=== PATIENT | female | born 1935 | race Caucasian/White ===

== ENCOUNTER 2017-06-16 15:50 | Observation (INO) | payer MEDICARE, OTHER ==
[2017-06-16] MEDS ORDERED: Aspirin Low Dose CHEW TAB* 81 MG PO ONE (16:31)
--- NOTE | 2017-06-16 17:02 | RAD ---
INDICATION: Confusion COMPARISON: December 31, 2014 TECHNIQUE: Noncontrast axial source images were acquired from the skull base to the vertex. FINDINGS: Ventricles/sulci: There is cortical atrophy with compensatory dilatation of the CSF spaces. Brain parenchyma: There is periventricular and subcortical white matter change compatible with chronic ischemia. Intracranial hemorrhage:None. Extra-axial spaces: There are no abnormal extra axial fluid collections or evidence of extra-axial mass. Calvarium: There is no calvarial fracture or other calvarial abnormality. Scalp: There is no evidence of scalp or extracalvarial soft tissue abnormality. Paranasal sinuses/mastoid: The paranasal sinuses and mastoid air cells are clear. Other: None. IMPRESSION: CORTICAL ATROPHY WITH CHRONIC MICROVASCULAR ISCHEMIC CHANGES. NO ACUTE FINDINGS.
--- NOTE | 2017-06-16 17:02 | RAD ---
INDICATION: Confusion COMPARISON: April 18, 2015 TECHNIQUE: An AP portable view obtained at 1647 hours is submitted. FINDINGS: Bones/Soft Tissues: There are no acute bony findings. Cardiomediastinal: The cardiomediastinal silhouette is normal. Lungs: There are no infiltrates. Pleura: There are no pleural effusions. Other: None IMPRESSION: NO ACTIVE DISEASE.
[2017-06-16] MEDS ORDERED: Aspirin TAB* 325 MG PO ONE (17:46)
[2017-06-16 18:14] LABS: Hematocrit 34 % (35-47); Hemoglobin 11.7 g/dl (12.0-16.0); Mean Corpuscular HGB Conc 34 g/dl (31-36); Mean Corpuscular Hemoglobin 32 pg (27-31); Mean Corpuscular Volume 94 fL (80-97); Mean Platelet Volume 9 um3 (7.4-10.4); Red Blood Count 3.64 10^6/ul (4.0-5.4); Red Cell Distribution Width 13 % (10.5-15); White Blood Count 7.8 10^3/ul (3.5-10.8)
[2017-06-16] MEDS ORDERED: HYDROcodone/ACETAMIN 5-325 MG* 1 TAB PO PRN (18:56)
[2017-06-16] MEDS ORDERED: Pregabalin CAP(*) 50 MG PO PRN (18:56)
[2017-06-16] MEDS ORDERED: Oxybutynin TAB* 5 MG PO PRN (18:56)
--- NOTE | 2017-06-16 19:02 | ED ---
Keyon Lawrence SooYoung, scribed for Jose Hilario MD on 06/16/17 at 1719 . Complex/Multi-Sys Presentation - HPI Summary HPI Summary: An 81 y/o F referred from [facility] presents to ED with confusion onset unknown, but swat team member arrived at the pt's home at noon. Per swat team member, pt is more confused than baseline. Associated sx: mildly blurry vision, facial numbness, mild facial droop, neck pain, mildly disoriented, slurred speech, aphasia. Pt states she's having more difficulty walking today due to RLE numbness. Denies abd pain, trauma, recent falls. Pt has high cholesterol. Pt does take opiods and mood medications. No PMHx: CVA, UT, HTN, DM. Does not take a daily aspirin. Saw Dr. Humphrey two days ago for a check-up. Non-smoker. - History Of Current Complaint Chief Complaint: EDWeakness Time Seen by Provider: 06/16/17 17:11 Hx Obtained From: Patient, Family/Investigation Specialist Onset/Duration: Still Present Timing: Constant Severity Currently: Moderate Severity Initially: Moderate Associated Signs And Symptoms: Positive: Confusion, Other - pos: blurry vision, aphasia, slurred speech, neck pain/numbness, RLE numbness, facial numbness, mild facial droop. Negative: Abdominal Pain, Recent Trauma, Remote Trauma - Allergies/Home Medications Allergies/Adverse Reactions: Allergies Allergy/AdvReac Type Severity Reaction Status Date / Time Enalapril Allergy Unknown Unknown Verified 07/25/15 09:57 Reaction Details Erythromycin AdvReac Intermediate Nausea Verified 07/25/15 09:57 Clomipramine [From Anafranil] AdvReac Unknown Unknown Verified 07/25/15 09:57 Reaction Details PMH/Surg Hx/FS Hx/Imm Hx Previously Healthy: No Endocrine/Hematology History: Reports: Hx Thyroid Disease Denies: Hx Diabetes, Hx Systemic Lupus Erythematosus Cardiovascular History: Denies: Hx Congestive Heart Failure, Hx Hypertension - denies, Hx Pacemaker/ ICD Respiratory History: Denies: Hx Asthma, Hx Chronic Obstructive Pulmonary Disease (COPD) Comment Only: Other Respiratory Problems/Disorders - TB A CHILD GI History: Reports: Hx Gastroesophageal Reflux Disease - ON MEDS History: Denies: Hx Dialysis, Hx Renal Disease Musculoskeletal History: Reports: Hx Arthritis - RIGHT HIP,KNEE AND ANKLE, CERVICAL SPINE Denies: Hx Rheumatoid Arthritis Sensory History: Reports: Hx Cataracts, Hx Contacts or Glasses Denies: Hx Hearing Aid Opthamlomology History: Reports: Hx Cataracts, Hx Contacts or Glasses Neurological History: Reports: Hx Headaches, Hx Migraine - ATYPICAL YEARS AGO, Other Neuro Impairments/Disorders Psychiatric History: Reports: Hx Anxiety, Hx Depression Denies: Hx Panic Disorder - Cancer History Cancer Type, Location and Year: breast cancer - matthew mastectomy Hx Chemotherapy: No Hx Radiation Therapy: No - Surgical History Surgery Procedure, Year, and Place: tonsils as a child, rt and lt mastectomy 2010 [facility], left vitrectomy 2006 IN [place] Hx Anesthesia Reactions: No Infectious Disease History: No Infectious Disease History: Denies: History Other Infectious Disease, Traveled Outside the [place] in Last 30 Days - Family History Family History: No FHx of malignant hyperthermia. No FHx of anesthesia reaction - Social History Occupation: Retired Lives: Alone Alcohol Use: None Alcohol Amount: has stopped drinking alcohol completely Hx Substance Use: No Substance Use Type: Reports: None Hx Tobacco Use: Yes Smoking Status (MU): Former Smoker Type: Cigarettes Amount Used/How Often: 10 cigs in her entire life Review of Systems Positive: Blurred Vision Negative: Abdominal Pain Positive: Other - pos: neck pain Neurological: Other - pos: confusion, disoriented, aphasia Positive: Numbness - facial numbness/droop; RLE numbness, Slurred Speech All Other Systems Reviewed And Are Negative: Yes Physical Exam - Summary Physical Exam Summary: The patient is well-nourished in no acute distress and in no acute pain. The skin is warm and dry and skin color reflects adequate perfusion. HEENT: The head is normocephalic and atraumatic. No facial droop. The pupils are equal and reactive. EOMI. The conjunctivae are clear and without drainage. Nares are patent and without drainage. Mouth reveals moist mucous membranes and the throat is without erythema and exudate. The external ears are intact. The ear canals are patent and without drainage. The tympanic membranes are intact. Neck is supple with full range of motion and non-tender. There are no carotid bruits. There is no neck vein distension. Respiratory: Chest is non-tender. Lungs are clear to auscultation and breath sounds are symmetrical and equal. Cardiovascular: Heart is regular rate and rhythm. There is no murmur or rub auscultated. There is no peripheral edema and pulses are symmetrical and equal. Abdomen: The abdomen is soft and non-tender. There are normal bowel sounds heard in all four quadrants and there is no organomegaly palpated. Musculoskeletal: There is no back pain noted. Extremities are non-tender with full range of motion. There is good capillary refill. There is no peripheral edema or calf tenderness elicited. Neurological: Patient is alert and oriented to person, place and time. The patient has symmetrical motor strength in all four extremities. Cranial nerves II-XII are intact. Deep tendon reflexes are symmetrical and equal in all four extremities. No facial droop. Bedside visual acuity was intact. No pronator drift. Mild difficulty with finger to nose on L compared to R. LE had no drift, heel to abdul was intact. Distal sensation is intact. Negative Babinski sign. Psychiatric: The patient has an appropriate affect and does not exhibit any anxiety or depression. Triage Information Reviewed: Yes Vital Signs On Initial Exam: Initial Vitals Temp Pulse Resp BP Pulse Ox 98.8 F 55 16 130/52 96 06/16/17 16:07 06/16/17 16:07 06/16/17 16:07 06/16/17 16:07 06/16/17 16:07 Vital Signs Reviewed: Yes - [place] Coma Scale Coma Scale Total: 15 Diagnostics - Vital Signs Vital Signs Temp Pulse Resp BP Pulse Ox 06/16/17 16:35 97 06/16/17 16:31 19 06/16/17 16:30 98 F 55 14 164/69 96 06/16/17 16:07 98.8 F 55 16 130/52 96 - Laboratory Lab Results: Lab Results 06/16/17 06/16/17 Range/Units 17:59 17:59 WBC 7.8 (3.5-10.8) 10^3/ul RBC 3.64 L (4.0-5.4) 10^6/ul Hgb 11.7 L (12.0-16.0) g/dl Hct 34 L (35-47) % MCV 94 (80-97) fL MCH 32 H (27-31) pg MCHC 34 (31-36) g/dl RDW 13 (10.5-15) % Plt Count 280 (150-450) 10^3/ul MPV 9 (7.4-10.4) um3 Neut % (Auto) 55.3 (38-83) % Lymph % (Auto) 32.5 (25-47) % [place] % (Auto) 8.1 (1-9) % Eos % (Auto) 3.5 (0-6) % Baso % (Auto) 0.6 (0-2) % Absolute Neuts (auto) 4.3 (1.5-7.7) 10^3/ul Absolute Lymphs (auto) 2.5 (1.0-4.8) 10^3/ul Absolute Monos (auto) 0.6 (0-0.8) 10^3/ul Absolute Eos (auto) 0.3 (0-0.6) 10^3/ul Absolute Basos (auto) 0 (0-0.2) 10^3/ul Absolute Nucleated RBC 0.01 10^3/ul Nucleated RBC % 0.1 Sodium Pending Potassium Pending Chloride Pending Carbon Dioxide Pending Anion Gap Pending BUN Pending Creatinine Pending Est GFR ( Amer) Pending Est GFR (Non-Af Amer) Pending BUN/Creatinine Ratio Pending Glucose Pending Calcium Pending Total Bilirubin Pending AST Pending ALT Pending Alkaline Phosphatase Pending Troponin I 0.00 (<0.04) ng/mL Total Protein Pending Albumin Pending Globulin Pending Albumin/Globulin Ratio Pending Result Diagrams: 06/16/17 17:59 06/16/17 17:59 Lab Statement: Any lab studies that have been ordered have been reviewed, and results considered in the medical decision making process. - Radiology CXR Xray Interpretation: No Acute Changes - IMPRESSION: No active dz. ED physician has reviewed this radiology report and agrees. Radiology Interpretation Completed By: Radiologist - CT Brain CT CT Interpretation: No Acute Changes - IMPRESSION: CORTICAL ATROPHY WITH CHRONIC MICROVASCULAR ISCHEMIC CHANGES. NO ACUTE FINDINGS. ED physician has reviewed this radiology report and agrees CT Interpretation Completed By: Radiologist - EKG 1703 Cardiac Rate: Bradycardia - 52bpm EKG Rhythm: Sinus Bradycardia ST Segment: Non-Specific - no STEMI EKG Interpretation: poor R wave progression, nml axis. National Institutes Of Health - NIH Scale Level of Consciousness: Alert/Keenly Responsive Ask Patient the Month and His/Her Age: Both Correct Ask Pt to Open/Close Eyes and Mechanic/Welder/Release Non-Paretic Hand: Both Correctly Best Gaze (Only Horizontal Eye Movement): Normal Visual Field Testing: No Visual Loss Facial Paresis-Pt to Smile & Close Eyes or Grimace Symmetry: Normal/Symmetrical Motor Function - Right Arm: No Drift-Holds 10 Seconds Motor Function - Left Arm: No Drift-Holds 10 Seconds Motor Function - Right Leg: No Drift-Holds 10 Seconds Motor Function - Left Leg: No Drift-Holds 10 Seconds Limb Ataxia-Must be out of Proportion to Weakness Present: Absent Sensory (Use Pinprick to Test Arms/Legs/Trunk/Face): Normal Best Language (Describe Picture, Name Items): No Aphasia Dysarthria (Read Several Words): Normal Extinction and Inattention: No Abnormality Total Score: 0 Re-Evaluation - Re-Evaluation 1 Re-Evaluation Time: 17:58 Change: Unchanged Comment: Discussing admittance with pt. Pt and swat team member voiced understanding. Complex Multi-Symp Course/Dx Course Of Treatment: An 81 y/o F referred from [facility] presents to ED with confusion onset unknown, but swat team member arrived at the pt's home at noon. Per swat team member, pt is more confused than baseline. Associated sx: mildly blurry vision, facial numbness, mild facial droop, neck pain, mildly disoriented , slurred speech, aphasia. Pt states she's having more difficulty walking today due to RLE numbness. Denies abd pain, trauma, recent falls. Pt has high cholesterol. Pt does take opiods and mood medications. No PMHx: CVA, UT, HTN, DM. Does not take a daily aspirin. Saw Dr. Humphrey two days ago for a check-up. Non-smoker. Bloodwork obtained. CXR and Brain CT show no acute findings. EKG is sinus colton, no STEMI, poor R wave progression, nml axis. Consulted with hospitalist, will admit pt. - Diagnoses Differential Diagnoses/HQI/PQRI: Metabolic Abnormality, Urinary Tract Infection , Other - tia, medication induced confusion Provider Diagnoses: TIA (transient ischemic attack) - Physician Notifications Discussed Care Of Patient With: Kymberly Palencia - hospitalist Time Discussed With Above Provider: 17:57 Instructed by Provider To: Admit As Inpatient Discharge - Discharge Plan Condition: Stable Disposition: ADMITTED TO [facility] Referrals: Zev Humphrey MD [Primary Care Provider] - The documentation as recorded by the Keyon reynolds SooYoung accurately reflects the service I personally performed and the decisions made by me, Jose Hilario MD.
[2017-06-16 19:27] LABS: Benzodiazepine Urine Screen Presumptive Positive (None Detect)
[2017-06-16 19:30] LABS: Albumin 3.9 g/dL (3.2-5.2); BUN/Creatinine Ratio 18.4 (8-20); Calcium 9.2 mg/dL (8.6-10.3); EGFR African American 94.2 (>60); EGFR Non-African American 73.2 (>60); Globulin 2.5 g/dL (2-4); Potassium 3.1 mmol/L (3.5-5.0); Total Bilirubin 0.3 mg/dL (0.2-1.0); Total Protein 6.4 g/dL (6.4-8.9)
[2017-06-16] MEDS ORDERED: Iohexol 350* (CONTRAST) 500 ML MDV IV ONE ×2 (19:39→21:16)
[2017-06-16] MEDS ORDERED: traZODone TAB* 100 MG PO PRN (21:00)
[2017-06-16] MEDS ORDERED: ALPRAZolam TAB* 0.5 MG PO PRN (21:00)
--- NOTE | 2017-06-16 21:02 | RAD ---
INDICATION: Confusion in an 81-year-old COMPARISON: CT brain same date TECHNIQUE: sagittal T1 FLAIR, axial diffusion, axial T1 FLAIR, axial T2, axial T2 FLAIR, and SWI images were acquired. FINDINGS: Craniocervical junction: The craniocervical junction appears normal. Ventricles/sulci: There is cortical atrophy with compensatory dilatation of the CSF spaces. Brain parenchyma: There are T2-weighted hyperintensities in the periventricular and subcortical white matter consistent with chronic microvascular ischemia. Intracranial hemorrhage: There is no intracranial hemorrhage. Extra-axial spaces: There are no extra-axial fluid collections or masses. Orbits: There are no MR abnormalities of the orbital structures. Paranasal sinuses/mastoid: The paranasal sinuses are clear. The mastoid air cells are well aerated.. Vascular: No abnormalities are seen. Other: None IMPRESSION: CORTICAL ATROPHY WITH CHRONIC MICROVASCULAR ISCHEMIC CHANGE. NO ACUTE MR FINDINGS.
--- NOTE | 2017-06-16 21:51 | RAD ---
INDICATION: 81-year-old with confusion. Concurrent CT of the brain shows atrophy with chronic microvascular ischemic change. Concurrent MRI of the brain shows no evidence of acute CVA. Request for CTA of the head and neck COMPARISON: CT brain same date; MRI brain same day TECHNIQUE: Axial source images were acquired with coronal and sagittal reconstructions. CT angiographic technique was utilized with injection of 80 mL Omnipaque 350. FINDINGS: Aortic arch: There are no CT angiogram abnormalities of the arch or the great vessels arising from the arch. Right carotid: The internal carotid artery, carotid bifurcation, extracranial portions of the internal carotid artery, carotid artery at the skull base, carotid siphon, and carotid termination appear widely patent. There are mild intimal calcifications at the level of the carotid siphon. Left carotid:The internal carotid artery, carotid bifurcation, extracranial portions of the internal carotid artery, carotid artery at the skull base, carotid siphon, and carotid termination appear widely patent. There is scant calcific plaque at the bifurcation. There are mild intimal calcifications of the carotid siphon. Right middle and anterior cerebral arteries: There are no CT angiographic abnormalities of the middle or anterior cerebral arteries. Left middle and anterior cerebral arteries: There are no CT angiographic abnormalities of the middle or anterior cerebral arteries Right vertebral: The CT angiographic appearance of the vertebral artery is normal. Left vertebral: The CT angiographic appearance of the vertebral artery is normal. Basilar artery: The basilar artery and basilar tip appear normal. Posterior cerebral arteries: The distal distribution of the right and left posterior cerebral arteries is normal. [place] of [place]: The CT angiographic appearance of the walker [place] of [place] is normal. Source images show no evidence of mass or adenopathy within the neck. There are no focal brain parenchymal abnormalities or abnormal areas of enhancement. IMPRESSION: MILD ATHEROSCLEROTIC CHANGES. NO SIGNIFICANT CT ANGIOGRAM ABNORMALITIES. NO EVIDENCE OF STENOSIS, ANEURYSM, BRANCH OCCLUSION. CPT II Codes: 3100F PQRS
[2017-06-16] MEDS: Heparin VIAL(*) 5000 UNITS/ML VIAL (FIVE THOUSAND) SUBCUT SCH (22:00)
--- NOTE | 2017-06-16 23:30 | HP ---
CC: Dr. Humphrey * HISTORY AND PHYSICAL: DATE OF ADMISSION: 06/16/17 PRIMARY CARE PROVIDER: Dr. Humphrey. CHIEF COMPLAINT: Weakness, facial numbness, slurred speech. HISTORY OF PRESENT ILLNESS: Ms. Hyman is an 81-year-old female with a past medical history of GERD, anxiety, hypothyroidism, chronic pain, history of breast cancer, status post double mastectomy who presents to the hospital with weakness, facial numbness and slurred speech. The patient states she was in her usual state of health until this morning when she woke up and felt diffusely weak. She also reported some numbness in her right lower extremity, which she states is not unusual for her due to her arthritis; however, she also felt that she had some facial numbness. These symptoms persisted and around noon, one of her aides came in who noted that the patient was disoriented. Her color was off and her speech was slurred. She denied any swallowing problems. No associated chest pain, shortness of breath or dysuria. They went to Urgent Care and were sent to the hospital for further evaluation. The patient and the aid report that with an hour here in the hospital, her speech problems resolved ; however, she still reports some facial sensation, asymmetry. She intellects the weakness has resolved as well. She states she has a poor appetite today; however, has been eating and drinking normally as of today. Of note, the patient is on a number of centrally acting medications and she states that she took her Wells later than usual last around 10 p.m.; however, she states she has been on these medications for a very long time without any recent changes. PAST MEDICAL HISTORY: GERD, Paget's, anxiety, hypothyroidism, OA, history of breast cancer. PAST SURGICAL HISTORY: Cataract surgery, tonsillectomy, double mastectomy. HOME MEDICATIONS: 1. Simvastatin 40 mg by mouth daily. 2. Oxybutynin 5 mg by mouth 3 times daily as needed for urinary incontinence. 3. Trazodone 100 and 150 mg by mouth at bedtime as needed for insomnia. 4. Xanax 0.5 to 1.5 mg by mouth at bedtime as needed for anxiety. 5. Ibuprofen 800 mg by mouth 2 times daily with meals. 6. Citalopram 40 mg by mouth daily. 7. Omeprazole 40 mg by mouth daily. 8. Lyrica 100 mg by mouth at bedtime as needed for pain. 9. Synthroid 88 mcg by mouth daily. 10. Wells 1 tablet by mouth 3 times daily as needed for pain. ALLERGIES: To ENALAPRIL, ERYTHROMYCIN and CLOMIPRAMINE. FAMILY HISTORY: Significant for her mother with stroke. SOCIAL HISTORY: The patient has no history of tobacco or alcohol abuse and denies any illicit drug use. She uses a walker at home and has aides that come by 6 days a week. REVIEW OF SYSTEMS: A 12-point review of systems negative except for that is noted in the HPI. PHYSICAL EXAMINATION GENERAL: The patient is a pleasant elderly female, lying in bed, in no apparent distress. VITAL SIGNS: On admission, temperature 98.8, heart rate of 55, respiratory rate of 16, O2 saturation 96% on room air, blood pressure 130/52. HEENT: Head normocephalic, atraumatic. Eyes: Pupils are equal, round, and reactive to light and accommodation. Anicteric sclerae. ENT: Moist mucous membranes. NECK: No cervical adenopathy. LUNGS: Clear to auscultation bilaterally. No wheezes, rales or rhonchi. CARDIOVASCULAR: Bradycardia. No murmurs, gallops or rubs. ABDOMEN: Soft, nontender, and nondistended. Bowel sounds positive. EXTREMITIES: No cyanosis, clubbing or edema. NEURO: The patient is alert and oriented x3. Reports some diminished sensation in V3 on the left side. Otherwise, remainder of cranial nerves are intact. Sensation is intact in bilateral upper and lower extremities and symmetric. 5/5 strength throughout bilateral upper extremities, 5/5 strength in left lower extremity. She has chronic pain in the right lower extremity which makes strength exam difficult, although she and her aide feels that it is at baseline. No pronator drift. I did not assess gait. DIAGNOSTIC STUDIES/LAB DATA: White blood cell count is 7.8, hematocrit of 34, and platelets of 280. Troponin of 0.00. Basic metabolic panel is pending as well as a lactic acid, drug screen and liver function tests. Chest x-ray personally reviewed shows no acute disease. CT of the head shows cortical atrophy with chronic microvascular ischemic changes. No acute findings. EKG personally reviewed shows sinus bradycardia. No ischemic changes. ASSESSMENT AND PLAN: Weakness, facial numbness, slurred speech in an 81-year- old female with past medical history of chronic pain, anxiety, hypothyroidism, gastroesophageal reflux disease, hyperlipidemia. 1. Weakness, slurred speech and facial numbness, some of these symptoms concerning for possible transient ischemic attack. CT of the head was negative. We will order a transthoracic echocardiogram. Hemoglobin A1c, fasting lipid panel and MRI of the brain, also ordered CTA of head and neck. The patient received aspirin 325 mg in the ED. We will continue 81 mg by mouth daily. Symptoms may also be related to the numerous central acting medications that she is on. She voiced she did take her Wells later than normal although she has been on these medications for quite sometime. Have asked Dr. Dowd, Neurology, to evaluate in the AM 2. Chronic pain. We will continue her home pain medications for now. 3. Anxiety, continue home Xanax. 4. Hypothyroidism, continue home Synthroid. 5. Gastroesophageal reflux disease, continue omeprazole. 6. DVT prophylaxis, heparin subcu. 7. Code status. The patient is a DNR. TIME SPENT: Total time spent of this admission was 45 minutes with over half the time spent [id number] with the patient in counseling and coordinating care. [id number]/CPS #: [id number] JERONIMO
[2017-06-17] MEDS: Heparin VIAL(*) 5000 UNITS/ML VIAL (FIVE THOUSAND) SUBCUT SCH ×2 (05:55→13:26)
[2017-06-17] MEDS ORDERED: Levothyroxine TAB* 88 MCG TAB PO SCH (06:00)
[2017-06-17 06:26] LABS: HDL Cholesterol 48.1 mg/dL
[2017-06-17] MEDS ORDERED: Omeprazole CAP* 20 MG PO SCH (07:30)
[2017-06-17] MEDS: Ibuprofen TAB* 800 MG PO SCH ×2 (07:41→16:43)
[2017-06-17] MEDS ORDERED: Aspirin Low Dose CHEW TAB* 81 MG PO SCH (09:00)
[2017-06-17] MEDS ORDERED: Citalopram TAB* 40 MG PO SCH (09:00)
[2017-06-17] MEDS ORDERED: Atorvastatin* 20 MG TAB PO SCH (09:00)
[2017-06-17] MEDS ORDERED: Atorvastatin* 20 MG TAB PO ONE (09:00)
[2017-06-17] MEDS ORDERED: Atorvastatin* 40 MG TAB PO SCH (09:00)
[2017-06-17 12:19] VITALS: BP 149/74
--- NOTE | 2017-06-17 17:10 | ECHO ---
Patient: BUD BLANK [facility] Rec#: [id number] : 1935 Date: 06/17/2017 Age: 81y Height: 162.56 cm / 64.0 in Weight: 70.76 kg / 156.0 lbs Sex: F BSA: 1.76 Room#: [facility] Admit Date#: 06/16/2017 Type: Inpatient Referring: ANASTASIA TARANGO MD Reading: Magdaleno Walker MD Manager Marketing Communication: Brenda Burch RDCS CC: Zev Humphrey MD Transthoracic Echocardiogram Indication: CVA BP: 125/53 HR: 56 Rhythm: Bradycardia Findings History: Former smoker, GERD, anxiety, breast cancer s/p bilateral mastectomy, and hypothyroidism. Technical Comments: The study quality is fair. The study is technically limited due to patient body habitus. Completed at 1115. Left Ventricle: The left ventricular chamber size is normal. Mild concentric left ventricular hypertrophy is observed. There is increased basal septal hypertrophy noted without evidence of an increased gradient across the left ventricular outflow tract. Global left ventricular wall motion and contractility are within normal limits. There is normal left ventricular systolic function. The estimated ejection fraction is 60-65%. Normal left ventricular diastolic filling is observed. Left Atrium: The left atrium is moderately dilated. Right Ventricle: The right ventricular cavity size is normal. The right ventricular global systolic function is normal. Right Atrium: The right atrial cavity size is normal. Interatrial septum appears intact without evidence of shunting. The bubble study is negative. A patent foramen ovale is not demonstrated with color Doppler and agitated contrast. Aortic Valve: The aortic valve is trileaflet. The aortic valve leaflets are mildly thickened. There is a trace of aortic regurgitation. There is no evidence of aortic stenosis. Mitral Valve: There is mitral annular calcification. The mitral valve leaflets are mildly thickened. There is mild mitral regurgitation. There is no evidence of mitral stenosis. Tricuspid Valve: The tricuspid valve leaflets are mildly thickened. There is moderate tricuspid regurgitation. The right ventricular systolic pressure is estimated at 45 mmHg. There is evidence of mild to moderate pulmonary hypertension. There is no tricuspid stenosis. Pulmonic Valve: The pulmonic valve appears normal. There is mild pulmonic regurgitation. There is no pulmonic stenosis. Pericardium: There is no significant pericardial effusion. A pericardial fat pad is visualized. Aorta: There is no dilatation of the ascending aorta. There is no dilatation of the aortic arch. The aortic root is normal in size. Pulmonary Artery: The main pulmonary artery appears normal. Venous: The inferior vena cava appears normal in size. There is a greater than 50% respiratory change in the inferior vena cava dimension. Contrast: Normal saline was used as contrast for the bubble study. Images 84 and 85. Intravenous contrast was used to help determine presence of intracardiac shunting. Conclusions Mild concentric left ventricular hypertrophy is observed. There is increased basal septal hypertrophy noted without evidence of an increased gradient across the left ventricular outflow tract. The estimated ejection fraction is 60-65%. The left atrium is moderately dilated. Interatrial septum appears intact without evidence of shunting. The bubble study is negative. There is mild mitral regurgitation. There is moderate tricuspid regurgitation. The right ventricular systolic pressure is estimated at 45 mmHg. There is evidence of mild to moderate pulmonary hypertension. There is mild pulmonic regurgitation. Similar to 3.2015 Measurements Name Value Normal Range RVIDd (AP) 2D 3.3 cm (0.9 - 2.6) RVDdMajor (2D) 3 cm (2.2 - 4.4) RAd ISD 4CH 4.9 cm (3.4 - 4.9) RA (A4C)W 3.9 cm (2.9 - 4.6) IVSd (2D) 1.1 cm (0.6 - 1) LVPWd (2D) 1.1 cm (0.6 - 1) LVIDd (2D) 4.2 cm (3.6 - 5.4) LVIDs (2D) 1.7 cm - LV FS (2D) 60 % (25 - 45) Aortic Annulus 1.8 cm (1.4 - 2.6) Ao root diameter (2D) 2.9 cm (2.1 - 3.5) Ascending Ao 3.2 cm (2.1 - 3.4) Aortic arch 2.8 cm (1.8 - 3.4) LA dimension (AP) 2D 4.1 cm (2.3 - 3.8) LAd ISD 4CH 5.8 cm (2.9 - 5.3) LA ISD 4CH W 4.1 cm (2.5 - 4.5) Name Value Normal Range LA ESV SP 4CH (A/L) 68 ml - LA ESV SP 2CH (A/L) 89 ml - LA ESV BP (A/L) 78 ml - LA ESV BP (A/L) index 44.27 ml/m2 - LA ESV SP 4CH (MOD) 64 ml - LA ESV SP 2CH (MOD) 81 ml - Name Value Normal Range MV E-wave Vmax 0.88 m/sec - MV deceleration time 292.3 msec - MV A-wave Vmax 0.5 m/sec - MV E:A ratio 1.75 ratio - LV septal e' Vmax 0.06 m/sec - LV lateral e' Vmax 0.09 m/sec - LV E:e' septal ratio 14.67 ratio - LV E:e' lateral ratio 9.78 ratio - Name Value Normal Range AV Vmax 1.45 m/sec - AV VTI 33.12 cm - AV peak gradient 8.46 mmHg - AV mean gradient 4.71 mmHg - LVOT Vmax 1.03 m/sec - LVOT VTI 23.2 cm - LVOT peak gradient 4.3 mmHg - LVOT mean gradient 1.88 mmHg - TIEN Vmax 0.58 m/sec - Name Value Normal Range TR Vmax 3.25 m/sec - TR peak gradient 42 mmHg - RAP 3 mmHg - RVSP 45 mmHg - IVC diameter 1.7 cm - Name Value Normal Range PV Vmax 0.9 m/sec - PV peak gradient 3.23 mmHg - IA end-diastolic Vmax 1 m/sec -
--- NOTE | 2017-06-17 17:12 | DCNOTE ---
Patient seen in the afternoon. Reports feeling back to baseline, aide agrees. Facial numbness has resolved. On exam, bradycardia, no m/g/r, lungs CTA B/L, facial sensation symmetric B/L, UE strength intact, ambulated around the unit. EEG negative. MRI with no evidence of stroke. Echo with negative bubble study. Will discharge on ASA and increased statin. F/U with PCP as outpatient.
--- NOTE | 2017-06-17 20:33 | CONS ---
CONSULTATION REPORT: DATE OF CONSULT: 06/17/17 REASON FOR CONSULT: Episode of confusion, slurred speech, weakness. HISTORY OF PRESENT ILLNESS: Noam Hyman is an 81-year-old woman with a history of breast cancer, chronic pain secondary to arthritis, on [place] as well as treatment with Xanax, trazodone, and Lyrica q.h.s., who was admitted with an episode of weakness, numbness, slurred speech, and confusion. The patient tells me on today's visit that she felt numb when she woke up, but it is numb in the area she usually feels numb, under her ears and the back of her head. It often happens first thing in the morning, and if she has coffee and food, it goes away after a while. This time, she became terribly weak and when her aide came, she noted slurred speech and confusion. She was taken to the [facility] and then was referred to [facility]. At this point, she feels pretty much back to normal. She tells me her right arthritic leg may be more painful. She indicates no new numbness or weakness of arms or legs, chest pain, chest pressure, palpitation, shortness of breath. She did have some blurred vision, which is now improved. When asked about medications and whether she could have made a mistake as she is on many medications that could make her sedated, she denies that possibility. PAST MEDICAL HISTORY: Ms. Hyman's past medical history includes hypothyroidism , anxiety, chronic pain from arthritis, breast cancer status post mastectomy approximately 5 years ago, osteoarthritis. She also in her chart had listed GERD and Paget's, which she denied both. PAST SURGICAL HISTORY: She has had previous cataract surgery and tonsillectomy. CURRENT MEDICATIONS: Include; 1. [place] 5/325 one tablet p.o. t.i.d. p.r.n. pain. 2. Xanax 1 mg p.o. q.h.s. p.r.n. anxiety. 3. Aspirin 81 mg p.o. daily. 4. Lipitor 40 mg p.o. q.a.m. 5. Celexa 40 mg p.o. daily. 6. Heparin subcu q.8 hours. 7. Ibuprofen 800 mg p.o. b.i.d. 8. Levothyroxine 88 mcg p.o. daily. 9. Omeprazole 40 mg p.o. daily. 10. Oxybutynin 5 mg p.o. t.i.d. p.r.n. urinary symptoms. 11. Pregabalin 100 mg p.o. q.h.s. p.r.n. pain. 12. Trazodone 100 mg p.o. b.i.d. p.r.n. sleep. ALLERGIES: Include ENALAPRIL, ERYTHROMYCIN, and CLOMIPRAMINE. FAMILY HISTORY: Includes mother who had a history of stroke. SOCIAL HISTORY: Ms. Hyman lives by herself. She has an aide who comes in to help. She does not smoke and denies any alcohol abuse or any use of illegal drugs. She walks at baseline with a walker. REVIEW OF SYSTEMS: There has been a decline in vision. She plans to see Dr. Berry. Just prior to admission, she had some blurred vision, this has improved. She has some chronic decrease in hearing. There has been no chest pain, chest pressure, palpitation, or shortness of breath. No numbness or weakness of arms or legs. She has had chronic difficulty with dexterity with her hands and eating in the setting of arthritis. She denies any new changes in bowel or bladder habits other than yesterday she had increased frequency of urination. She indicates that she had a bowel movement today and she takes Metamucil at home to help keep a regular bowel movement. Her mood has been okay. She denies any weight loss, drenching night sweats, or high fevers for unknown reasons. She denies any recent skin rashes. PHYSICAL EXAM: Most recent temperature is 98.3 degrees Fahrenheit, pulse is 55 , respiratory rate 18, saturation 99%, and blood pressure is 149/74. She had regular cardiac rhythm. Her lungs were clear to auscultation. She had peripheral pulses that were present in the dorsalis pedis and posterior tibialis with no peripheral edema. She was awake, alert, articulate. She had some hesitation to her speech, which she tells me is at her baseline. She had full extraocular movements with no saccadic intrusions. Pupils were small at 1 mm, I had difficulty visualizing the fundi. She had full borges to confrontation. Her facial expression and sensation were equal. Hearing was decreased to finger rub in the right ear. Palate was upgoing. Tongue was midline. Sternocleidomastoid and trapezius were 5/5 in strength. There has been chronic neck pain and she could hear crunching when she turned her neck. There was no pronator drift and she gave good strength in her upper and lower extremities with the exception of hip flexion that was give way in the setting of pain. She was, however, able to do xiksla-vy-xwbo and cfaw-zu-prmg movements. She denied any asymmetries to pinprick, cold or light touch and could feel sharp in her feet. Cold was decreased to just above the ankle bilaterally. Light touch was symmetric. Reflexes were 2+ and symmetric with the exception of a question of slightly brisk at the elbows and absent at the ankles. Toes were flexor response bilaterally. Given the difficulty transitioning weight to standing and situation in the room at that time, gait was not tested. She had just been up with Nursing and indicated that she felt that at her baseline. DIAGNOSTIC STUDIES/LAB DATA: Includes CBC with a white count of 7.8, hemoglobin and hematocrit were slightly low at 11.7 and 34, and platelets were normal. Her complete metabolic panel showed potassium slightly low at 3.1. Her cholesterol was 204, LDL was 128, triglycerides 140, and HDL 48.1. Urinalysis showed presumed positive opiates and benzodiazepines. She had a CTA of brain and neck which showed no significant abnormality. Her MRI of the brain showed atrophy and small vessel ischemic disease; however, there was no new lesion noted; this film was reviewed directly. Echocardiogram is ending. IMPRESSION: Noam Hyman is an 81-year-old right-handed woman with a history of breast cancer, chronic pain from arthritis, on [place] as well q.h.s. Xanax, trazodone, and Lyrica, who was admitted after an episode of numbness, confusion , slurred speech with no loss of consciousness. No focal findings are noted on the examination today. No new stroke was noted on MRI. Given the timing of the symptoms in the morning, one must question medication toxicity; the patient denies any mistake. I talked to her about the fact that as one ages, the metabolism can change and she and her aide should be watching out for any side effects to medications that would need to reduce meditations. Transient ischemic attack is on the differential diagnosis. No new finding was noted on MRI. She does have significant small vessel ischemic disease in the periventricular subcortical region. I agree with starting aspirin and she could use tighter control on her cholesterol with increased dose of statin if tolerated. Her echocardiogram is pending and she is on telemetry. Differential diagnosis also includes seizure and I will suggest an EEG. Prior to discharge, gait should be reevaluated to make sure she is stable. Lastly, occipital numbness in the morning may represent greater occipital neuralgia. Neurologic input was communicated to . Please feel free to contact us if further input is needed. [id number]/[facility] #: [id number] JERONIMO
--- NOTE | 2017-06-18 07:19 | EEG ---
ELECTROENCEPHALOGRAM: DATE OF RECORDIN06/17/17 HISTORY OF PRESENT ILLNESS: Noam Hyman is an 81-year-old woman who is admitted for weakness, numbness, slurred speech, and confusion. EEG was requested to look for differential diagnosis of seizure in the setting of disorientation and confusion. The patient cannot remember the extent of confusion, she remembers feeling diffusely weak having numbness behind her ear and over her head. DESCRIPTION OF THE RECORD: This was a 16-channel EEG performed with photic stimulation. In the beginning of the record, there was posterior dominant 10 Hz alpha rhythm, which was symmetric and attenuated with eye opening. Intermittently, there was some movement artifact before and after the movement artifact, there was no significant change in the background rhythm. As the record continued, the background rhythm remained symmetric. At one point of the record, there was a question of a right temporal sharp wave, which did not repeat itself during the recording and had no associated slowing of the field. Photic stimulation produced photic driving. IMPRESSION: This was an essentially normal EEG. There was no electrodiagnostic evidence of epileptiform activity. There was question of a sharp wave, which did not repeat itself on the right temporal region. [id number]/[facility] #: [id number] [facility]
--- NOTE | 2017-06-18 08:18 | DS ---
CC: Dr. Humphrey * DISCHARGE SUMMARY: DATE OF ADMISSION: 06/16/17 DATE OF DISCHARGE: 06/17/17 PRIMARY CARE PHYSICIAN: Dr. Humphrey. PRINCIPAL DISCHARGE DIAGNOSIS: Possible transient ischemia attack. SECONDARY DIAGNOSES: 1. Gastroesophageal reflux disease. 2. Paget's disease. 3. Anxiety. 4. Hypothyroidism. 5. Osteoarthritis with chronic pain. 6. History of breast cancer. DISCHARGE MEDICATION REGIMEN: 1. Aspirin 81 mg by mouth daily. 2. Atorvastatin 40 mg by mouth daily. 3. Oxybutynin 5 mg by mouth 3 times daily. 4. Trazodone 100 to 150 mg by mouth at bedtime as needed for sleep. 5. Xanax 0.5 to 1.5 mg by mouth at bedtime as needed for anxiety. 6. Ibuprofen 800 mg by mouth 2 times daily with meals. 7. Citalopram 40 mg by mouth daily. 8. Omeprazole 40 mg by mouth daily. 9. Lyrica 100 mg by mouth at bedtime as needed for pain. 10. Synthroid 88 mcg by mouth daily. 11. [place] 5/325 one tablet by mouth 3 times daily as needed for pain. STUDIES DONE DURING HOSPITALIZATION: 1. Chest x-ray, impression: No active disease. 2. CT of the brain, impression: Cortical atrophy with chronic microvascular ischemic changes. No acute findings. 3. MRI of the brain, impression: Cortical atrophy with chronic microvascular ischemic change. No acute MR findings. 4. Transthoracic echocardiogram, conclusion: Mild concentric LVH, increased basal septal hypertrophy noted without evidence of an increased gradient across the left ventricular outflow tract. Estimated ejection fraction is 60% to 65%. The left atrium is moderately dilated. Interatrial septum appears intact without evidence of shunting. The bubble study is negative. Mild mitral regurgitation, moderate tricuspid regurgitation. Right ventricular systolic pressure is estimated at 45 mmHg. There is evidence of euph-xo-hzjqnyyr pulmonary hypertension. There is mild pulmonic regurgitation similar to December 2014 study. 5. CTA of the head and neck, impression: Mild atherosclerotic changes. No significant CT angiogram abnormalities. No evidence of stenosis, aneurysm, branch occlusion. 6. EEG was done pending final read at this time; however, Dr. Dowd notified to me that it was normal. HISTORY OF PRESENT ILLNESS AND HOSPITAL SUMMARY: Please see the full history and physical done by me for full details. Briefly, Ms. Hyman is an 81-year- old female with past medical history as above, who presented to the hospital after she woke up with weakness, facial numbness, some slurred speech, and possibly some disorientation. She went to urgent care and was sent to the hospital for further evaluation. Symptoms resolved while here in the hospital. She under-went a stroke workup as above that was negative. She was started on aspirin and her home simvastatin was changed to atorvastatin as her LDL was 128. The patient has had no recurrence of her symptoms while hospitalized. Dr. Dowd of Neurology evaluated the patient and agreed with plan of care. Also recommended EEG due to the possible disorientation. This was done and as per her report did not show any abnormalities. The patient was back to her baseline. She will be discharged on aspirin and a higher statin dose and follow up with her PCP as an outpatient. TIME SPENT: Total time spent on this discharge, 45 minutes. This is the summary of the hospitalization. Please see the full medical record for further details. [id number]/[facility] #: [id number] MTDD
[2017-06-18] MEDS ORDERED: Atorvastatin* 40 MG TAB PO SCH (09:00)
== END 2017-06-17 18:50 | disposition home or self-care (01) ==
LOC: ED 15:50 → MEDTELE 18:08
PROVIDERS: ADMIT Hospitalist; ATTEND Hospitalist
DX: R53.1 Weakness (principal); R20.0 Anesthesia of skin; R47.81 Slurred speech; K21.9 Gastro-esophageal reflux disease without esophagitis; M88.9 Osteitis deformans of unspecified bone; E03.9 Hypothyroidism, unspecified; Z85.3 Personal history of malignant neoplasm of breast; Z79.899 Other long term (current) drug therapy; G89.29 Other chronic pain; I51.7 Cardiomegaly; R00.1 Bradycardia, unspecified; Z88.8 Allergy status to other drugs, medicaments and biological substances; Z88.1 Allergy status to other antibiotic agents; Z87.891 Personal history of nicotine dependence
CPT/HCPCS: 36415; 70450; 70496; 70498; 70551; 71010; 80053; 80061; 80307; 83036; 83605; 84484; 85025; 87086; 93005; 93306; 95816; 96372; 99284; A9270-GY; G0378; J1644; Q9967

== ENCOUNTER 2018-07-28 14:59 | Observation (INO) | payer MEDICARE, MEDICAID ==
--- OUTSIDE RECORDS SUMMARY | 2018-07-28 15:07 | XMS REPORT | Continuity of Care Document ---
:1935 External Reference #:[id number] Author Name Arturo Reynolds Care Team Providers Name Role Phone Zev Humphrey M.D. Primary Care Physician Unavailable Payers Type Date Identification Numbers Payment Provider Subscriber Policy Number: [id number] Medicare - [facility] Noam Hyman PayID: [id number] [address] [place] [address] Policy Number: [id number] [facility] Noam Hyman PayID: [id number] [address] [place] [address] Advance Directives Description No Information Available Problems Date Description Provider Status Onset: Hypothyroidism Active Onset: Pure hypercholesterolemia Active Onset: Gastroesophageal reflux disease Active Onset: Parkinson's disease Active Onset: Anxiety Active Onset: pTis: Paget disease without invasive carcinoma Active (breast) Onset: Arthritis Active Onset: Herpes zoster Active Note: Chest and Left Side 07/17 Onset: 11/13/2015 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 Active Onset: 11/13/2015 Presbyopia Lisa Vela O.D. Active Onset: 11/13/2015 Presence of intraocular lens Lisa Vela O.D. 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 ETOH Use Occasionally consumes alcohol Tobacco Use Start: Unknown Patient has never smoked Recreational Drug Use Denies Drug Use Smoking Status Reviewed: 02/28/18 Patient has never smoked Allergies, Adverse Reactions, Alerts Date Description Reaction Status Severity Comments 02/28/2018 NKDA Active 02/28/2018 Hay Fever Active Medications Medication Date Status Form Strength Qnty SIG Indications Ordering Provider Refresh Optive Active Solution 0.5-1-0.5% 40ml as H04.123 Lisa Gerardo 018 needed Jemima Vela Lyrica Active Capsules 100mg Unknown 000 Nabumetone Active Tablets 750mg Unknown 000 Omeprazole Active Capsules 40mg Unknown [address] Ranitidine HCL Active Tablets 150mg Unknown 000 Simvastatin Active Tablets 40mg Unknown 000 Citalopram Active Tablets 40mg Unknown Hydrobromide 000 Ibuprofen Active Tablets 800mg Unknown 000 Levothyroxine Active Tablets 100mcg Unknown Sodium 000 Trazodone HCL Active Tablets 50mg Unknown 000 Hydrocodone-Acet Active Tablets 5-325mg Unknown aminophen 000 Alprazolam Active Tablets 0.5mg Unknown 000 Metaxalone Active Tablets 800mg Unknown 000 Atorvastatin Active Tablets 40mg Take One Unknown Calcium 000 Tablet By Mouth Every Day Melatonin ER Active Tablets ER 10mg Unknown 000 Oxybutynin Active Tablets 5mg Unknown Chloride 000 Immunizations Description No Information Available Vital Signs Description No Information Available Results Description No Information Available Procedures Date Code Description Status 02/28/2018 67810 Determination Of Refractive State Completed 02/28/2018 92735 Est Patient Comprehensive Exam Completed 11/13/2015 93584 Determination Of Refractive State Completed 11/13/2015 30357 Est Patient Comprehensive Exam Completed 05/01/2014 85621 Extracapsular Cataract Extraction W/Intraocular Lens Completed 04/24/2014 05765 Extracapsular Cataract Extraction W/Intraocular Lens Completed 04/08/2014 99295 Est Patient Intermediate Exam Completed 04/08/2014 95273 Scanning Computerized Opthalmic Diagnostic Posterior Seg Completed Retina 04/08/2014 58672 Ophthalmic Biometry Completed 04/08/2014 53720 Ophthalmic Biometry Completed 03/22/2014 48242 New Patient Comprehensive Exam Completed 09/11/2008 72487 Determination Of Refractive State Completed 09/11/2008 71228 Est Patient Comprehensive Exam Completed 02/21/2008 52365 Determination Of Refractive State Completed 02/21/2008 36846 Est Patient Comprehensive Exam Completed 08/29/2007 70493 Determination Of Refractive State Completed 08/29/2007 95890 New Patient Comprehensive Exam Completed Encounters Description No Information Available Plan of Treatment 02/28/2018 - Lisa Vela O.D.H04.123 Dry eye syndrome of bilateral lacrimal glandsNew Medication:Refresh Optive Advanced 0.5-1-0.5 % - as neededComments: Both of your eyes appear to be dry. Use artificial tears as directed. You can use the tears more often if you are reading a book or are on the computer, as we tend to blink less, making our eyes dry out more.[facility] offers a few items in our optical department to help alleviate dry eye symptoms.Follow up:2 wvrnzB04.232 Retinal artery branch occlusion, left eyeComments:The area treated in the left eye for the broken blood vessel looks stable. Please call the office ifyou notice any changes to your vision.H52.4 PresbyopiaComments: Smoking can increase the risk of developing or worsening any eye related disease , as well as affect your overall health. If you are a smoker, we strongly recommend that you quit.If you are not a smoker, we strongly recommend that you do not start. You have presbyopia. This is when the lens in your eye loses the ability to change focus, and happens as we age. A pair of reading glasses will help you see up close.
[2018-07-28] MEDS ORDERED: NS 0.9% 1000 ML* 1,000 ML IV SCH (15:15)
--- NOTE | 2018-07-28 15:21 | RAD ---
Indication: Slurred speech. CT of the brain performed without IV contrast. Comparison is made with previous exam dated June 16, 2017. Ventricular structures are midline. No midline shift is noted. There is central and cortical atrophy noted. Periventricular lucency consistent with chronic ischemic White matter change is noted. There is no evidence of intracranial mass or hemorrhage. Mastoid air cells and paranasal sinuses are unremarkable. IMPRESSION: Atrophy with chronic ischemic White matter change is noted. No intracranial mass or hemorrhage is noted. Findings called to Dr. John, at 1518 hours.
--- NOTE | 2018-07-28 15:31 | ED ---
Neurological HPI - HPI Summary HPI Summary: Patient is a 82 y/o F w/ c/o possible CVA, harry cummins called at 1450, Dr. John and Dr. Loving evaluated patient immediately upon arrival at 1500. Patient woke up from a nap at noon today w/ c/o MCMILLAN, slurred speech, unsteady gait, vision changes, and RUE weakness. She states she woke up feeling confused for a minute at the time. Patient also reports that she did not feel herself when she woke up at 0830 this morning as well, but she attributes this to her arthritis. On triage, pain is rated 3/10, nothing is noted to aggravate/alleviate Sx. Home medications and allergies are reviewed. - History of Current Complaint Stated Complaint: HARRY CUMMINS Time Seen by Provider: 07/28/18 15:02 Hx Obtained From: Patient Onset/Duration: Started hours ago - onset noon, Still Present Timing: Constant Current Severity: Mild - 3/10 Neurological Deficit Location: RUE Pain Intensity: 3 Pain Scale Used: 0-10 Numeric - 3/10 Character: Motor Weakness - RUE, Impaired Speech, Confusion, Visual Changes, Other: - unsteady gait Aggravating: Nothing Alleviating: Nothing Associated Signs and Symptoms: Positive: Visual Changes, Headache, Confusion, Weakness - RUE, Impaired Speech - Additional Pertinent History Primary Care Physician: ANA - Allergy/Home Medications Allergies/Adverse Reactions: Allergies Allergy/AdvReac Type Severity Reaction Status Date / Time enalapril Allergy Intermediate COORDINATIO Verified 03/27/18 15:00 N erythromycin base Allergy Intermediate Vomiting Verified 03/27/18 14:59 clomipramine Allergy COORDINATIO Verified 03/27/18 15:01 N Home Medications: Home Medications Ranitidine TAB (NF) [Zantac TAB (NF)] 150 mg PO BID 07/28/18 [History Confirmed 07/28/18] Triamcinolone 0.1% CREAM(NF) [Kenalog Cream 0.1%(NF)] 1 applic TOPICAL BID 07/28 [History Confirmed 07/28/18] PMH/Surg Hx/FS Hx/Imm Hx Endocrine/Hematology History: Reports: Hx Thyroid Disease Denies: Hx Diabetes, Hx Systemic Lupus Erythematosus Cardiovascular History: Denies: Hx Congestive Heart Failure, Hx Hypertension - denies, Hx Pacemaker/ ICD Respiratory History: Denies: Hx Asthma, Hx Chronic Obstructive Pulmonary Disease (COPD) Comment Only: Other Respiratory Problems/Disorders - TB A CHILD GI History: Reports: Hx Gastroesophageal Reflux Disease - ON MEDS History: Denies: Hx Dialysis, Hx Renal Disease Musculoskeletal History: Reports: Hx Arthritis - RIGHT HIP,KNEE AND ANKLE, CERVICAL SPINE Denies: Hx Rheumatoid Arthritis Sensory History: Reports: Hx Cataracts, Hx Contacts or Glasses Denies: Hx Hearing Aid Opthamlomology History: Reports: Hx Cataracts, Hx Contacts or Glasses Neurological History: Reports: Hx Headaches, Hx Migraine - ATYPICAL YEARS AGO, Other Neuro Impairments/Disorders Psychiatric History: Reports: Hx Anxiety, Hx Depression Denies: Hx Panic Disorder - Cancer History Cancer Type, Location and Year: breast cancer - matthew mastectomy Hx Chemotherapy: No Hx Radiation Therapy: No - Surgical History Surgery Procedure, Year, and Place: tonsils as a child, rt and lt mastectomy 2010 [facility], left vitrectomy 2006 IN [place], CATARACTS Hx Anesthesia Reactions: No Infectious Disease History: Denies: History Other Infectious Disease, Traveled Outside the [place] in Last 30 Days - Family History Known Family History: Positive: Other - No FHx of malignant hyperthermia, No FHx of anesthesia reaction Family History: No FHx of malignant hyperthermia. No FHx of anesthesia reaction - Social History Alcohol Use: None Alcohol Amount: has stopped drinking alcohol completely Hx Substance Use: No Substance Use Type: Reports: None Hx Tobacco Use: Yes Smoking Status (MU): Former Smoker Type: Cigarettes Amount Used/How Often: 10 cigs in her entire life Review of Systems Negative: Fever - on vitals, temp is 98.3 F Positive: Other - vision changes Neurological: Other - unsteady gait Positive: Headache, Weakness - RUE , Slurred Speech Psychological: Other - confusion All Other Systems Reviewed And Are Negative: Yes Physical Exam - Summary Physical Exam Summary: Appearance: Well appearing, no pain distress Skin: warm, dry, reflects adequate perfusion Head/face: normal Eyes: EOMI, KARMEN ENT: normal Neck: supple, non-tender Respiratory: CTA, breath sounds present Cardiovascular: RRR, pulses symmetrical Abdomen: non-tender, soft Bowel: present Musculoskeletal: normal, strength/ROM intact Neuro: Sensory motor intact, A&Ox3; GCS 15, NIH 1, slurred speech Triage Information Reviewed: Yes Vital Signs On Initial Exam: Initial Vitals Temp Pulse Resp BP Pulse Ox 98.3 F 51 16 156/80 95 07/28/18 14:59 07/28/18 14:59 07/28/18 14:59 07/28/18 14:59 07/28/18 14:59 Vital Signs Reviewed: Yes Diagnostics - Laboratory Result Diagrams: 07/28/18 15:45 07/28/18 15:45 Lab Statement: Any lab studies that have been ordered have been reviewed, and results considered in the medical decision making process. - CT Brain CT CT Interpretation Completed By: Radiologist Summary of CT Findings: IMPRESSION: Atrophy with chronic ischemic White matter change is noted. No intracranial. mass or hemorrhage is noted. This report was reviewed by ED physician. CTA Head CT Interpretation Completed By: Radiologist Summary of CT Findings: IMPRESSION: 1. INTERNAL CAROTID ARTERY STENOSIS BY NASCET CRITERIA. 2. NO ANEURYSM, VASCULAR MALFORMATION, OCCLUSION, OR STENOSIS OF THE VISUALIZED. INTRACRANIAL CIRCULATION. THIS REPORT WAS REVIEWED BY ED PHYSICIAN. - EKG 1528 Cardiac Rate: Bradycardia - rate of 50 BPM EKG Rhythm: Sinus Bradycardia Summary of EKG Findings: no acute changes NIH Scale - NIH Scale Level of Consciousness: Alert/Keenly Responsive Ask Patient the Month and His/Her Age: Both Correct Ask Pt to Open/Close Eyes and Final Block Press Operator/Release Non-Paretic Hand: Both Correctly Best Gaze (Only Horizontal Eye Movement): Normal Visual Field Testing: No Visual Loss Facial Paresis-Pt to Smile & Close Eyes or Grimace Symmetry: Normal/Symmetrical Motor Function - Right Arm: No Drift-Holds 10 Seconds Motor Function - Left Arm: No Drift-Holds 10 Seconds Motor Function - Right Leg: No Drift-Holds 10 Seconds Motor Function - Left Leg: No Drift-Holds 10 Seconds Limb Ataxia-Must be out of Proportion to Weakness Present: Absent Sensory (Use Pinprick to Test Arms/Legs/Trunk/Face): Normal Best Language (Describe Picture, Name Items): No Aphasia Dysarthria (Read Several Words): Slurs Some Words Extinction and Inattention: No Abnormality Total Score: 1 Course/Dx - Course Course Of Treatment: Patient is a 82 y/o F w/ c/o possible CVA, code cummins called at 1450, Dr. John and Dr. Loving evaluated patient immediately upon arrival at 1500. Patient woke up from a nap at noon today w/ c/o MCMILLAN, slurred speech, unsteady gait, vision changes, and RUE weakness. She states she woke up feeling confused for a minute at the time. Patient also reports that she did not feel herself when she woke up at 0830 this morning as well, but she attributes this to her arthritis. On physical exam, patient had GCS 15, NIH 1, slurred speech. Bloodwork was obtained. CT BRAIN IMPRESSION: Atrophy with chronic ischemic White matter change is noted. No intracranial. mass or hemorrhage is noted. HEAD CTA IMPRESSION: 1. INTERNAL CAROTID ARTERY STENOSIS BY NASCET CRITERIA. 2. NO ANEURYSM, VASCULAR MALFORMATION, OCCLUSION, OR STENOSIS OF THE VISUALIZED. INTRACRANIAL CIRCULATION. EKG showed sinus bradycardia with rate of 50 BPM, no acute changes. 1520 - Dr. Mcfarlane notes that patient is not a likely candidate for TPA, recommends admission for observation. Bloodwork was obtained. 1639 - Patient's case was discussed with Dr. Andrew. Dr. Andrew accepts patient for admission. Dx of CVA. - Differential Dx Differential Diagnoses Neuro: Positive: Cerebrovascular Accident, Dysrhythmia, Intracranial Bleed, Transient Ischemic Attack - Diagnoses Provider Diagnoses: CVA (cerebral vascular accident) During the Visit The Following Alert/Code Occurred: Code Harding - 1450, prior to arrival of patient. - Physician Notifications Discussed Care Of Patient With: Tayla Lunsford Time Discussed With Above Provider: 15:18 Instructed by Provider To: Other - Dr. Lunsford communicated findings of Brain CT to Dr. John at 1518. 1520 - Dr. Mcfarlane notes that patient is not a likely candidate for TPA, recommends admission for observation. 1639 - Patient's case was discussed with Dr. Andrew. Dr. Andrew accepts patient for admission. - Critical Care Time Critical Care Time: 30-74 min - 30 minutes Discharge - Sign-Out/Discharge Documenting (check all that apply): Patient Departure - admit - Discharge Plan Condition: Good Disposition: ADMITTED TO [facility] Referrals: Zev Humphrey MD [Primary Care Provider] - - Billing Disposition and Condition Condition: GOOD Disposition: Admitted to [facility] - Attestation Statements Document Initiated by Scribe: Yes Documenting Scribe: Stephan Ramirez Provider For Whom Scribe is Documenting (Include Credential): Maciej John MD Scribe Attestation: I, Stephan Ramirez , scribed for Maciej John MD on 07/28/18 at 1815. Scribe Documentation Reviewed: Yes Provider Attestation: The documentation as recorded by the jerrellibStephan gonzalez accurately reflects the service I personally performed and the decisions made by me, Maciej John MD
[2018-07-28 16:01] LABS: ABS Basophils 0 10^3/ul (0-0.2); ABS Eosinophils 0.3 10^3/ul (0-0.6); ABS Lymphocytes 2.6 10^3/ul (1.0-4.8); ABS Monocytes 0.6 10^3/ul (0-0.8); ABS Neutrophils 2.7 10^3/ul (1.5-7.7); ABS Nucleated RBC 0 10^3/ul; Eosinophil % 4.8 % (0-6); Hematocrit 34 % (35-47); Hemoglobin 11.5 g/dl (12.0-16.0); Lymphocyte % 41.4 % (25-47); Mean Corpuscular HGB Conc 34 g/dl (31-36); Mean Corpuscular Hemoglobin 32 pg (27-31); Mean Corpuscular Volume 95 fL (80-97); Mean Platelet Volume 8.3 um3 (7.4-10.4); Nucleated Red Blood Cells % 0.1; Platelet Count 278 10^3/ul (150-450); Red Blood Count 3.57 10^6/ul (4.00-5.40); Red Cell Distribution Width 13 % (10.5-15); White Blood Count 6.2 10^3/ul (3.5-10.8)
[2018-07-28] MEDS ORDERED: Aspirin TAB* 325 MG PO ONE (16:10)
[2018-07-28 16:13] LABS: Activated Partial Thrombo Time 29.4 seconds (26.0-36.3); INR 0.86 (0.77-1.02)
[2018-07-28 16:36] LABS: Albumin 3.5 g/dL (3.2-5.2); Albumin/Globulin Ratio 1.6 (1-3); BUN/Creatinine Ratio 21.6 (8-20); Calcium 8.7 mg/dL (8.6-10.3); EGFR Non-African American 61.7 (>60); Globulin 2.2 g/dL (2-4); Potassium 3.4 mmol/L (3.5-5.0); Total Bilirubin 0.3 mg/dL (0.2-1.0); Total Protein 5.7 g/dL (6.4-8.9)
[2018-07-28] MEDS ORDERED: Iohexol 350* (CONTRAST) 500 ML MDV IV ONE (16:40)
--- NOTE | 2018-07-28 17:13 | RAD ---
HISTORY: cva COMPARISONS: PET/CT dated July 28, 2018, MRI dated June 16, 2017, CTA dated June 16, 2017 TECHNIQUE: Multiple contiguous axial CT scans were obtained of the head and neck after the administration of nonionic intravenous contrast timed to the systemic arterial phase of contrast enhancement. Coronal and sagittal multiplanar reformations are submitted for review. Multiple 3-D maximum intensity projection reconstructions are also submitted for review. FINDINGS: CTA NECK: AORTIC ARCH: There is a normal three-vessel branching pattern of the aortic arch. There is no ostial or proximal stenosis of the cephalic great vessels. RIGHT VERTEBRAL ARTERY: The right vertebral artery is patent along its course, without stenosis. LEFT VERTEBRAL ARTERY: The left vertebral artery is patent along its course, without stenosis. DOMINANCE: The vertebral arteries are codominant. RIGHT COMMON CAROTID ARTERY: The right common carotid artery is patent. The right carotid bifurcation occurs at C2-C3 RIGHT INTERNAL CAROTID ARTERY: There is no right internal carotid artery stenosis by NASCET criteria. RIGHT EXTERNAL CAROTID ARTERY: The right external carotid artery is unremarkable. LEFT COMMON CAROTID ARTERY: The left common carotid artery is patent. The left carotid bifurcation occurs at C3-C4 LEFT INTERNAL CAROTID ARTERY: There is atheromatous disease of the left carotid bifurcation, without left internal carotid artery stenosis by NASCET criteria. LEFT EXTERNAL CAROTID ARTERY: The left external carotid artery is unremarkable. VENOUS CIRCULATION: The venous system is unremarkable. SALIVARY GLANDS: The parotid glands, submandibular glands, sublingual glands are normal. NASAL CAVITY/NASOPHARYNX: The nasal cavity and nasopharynx are normal. ORAL CAVITY/OROPHARYNX: The oral cavity is obscured by streak artifact from dental amalgam. The visualized oral cavity and oropharynx are unremarkable. LARYNGEAL APPARATUS/HYPOPHARYNX: The laryngeal apparatus and hypopharynx are normal. UPPER AIRWAY/UPPER ESOPHAGUS: The visualized upper airway and esophagus are normal. LUNG APICES: The lung apices are clear. THYROID GLAND: The thyroid gland is normal. LYMPH NODES: There is no lymphadenopathy by size criteria. BONES AND SOFT TISSUES: Degenerative changes noted of the spine. CTA HEAD: INTRACRANIAL CIRCULATION: There is no aneurysm, vascular malformation, occlusion, or stenosis of the visualized intracranial circulation. The anterior communicating artery complex is clear. Bilateral posterior communicating arteries are identified. VENOUS CIRCULATION: The venous system is unremarkable. PERFUSION: There is no obvious parenchymal perfusion deficit. HEMORRHAGE/INFARCT: There is no hemorrhage or acute infarct. MASSES/SHIFT: There is no mass or shift. EXTRA-AXIAL SPACES: There are no extra-axial fluid collections. SULCI AND VENTRICLES: Small brain CEREBRUM: There is hypoattenuation of the periventricular and subcortical white matter. BRAINSTEM: There are no focal parenchymal abnormalities. CEREBELLUM: There are no focal parenchymal abnormalities. PARANASAL SINUSES: The paranasal sinuses are clear. ORBITS: The orbits are unremarkable. BONES AND SOFT TISSUE: No bone or soft tissue abnormalities are noted. OTHER: There is no abnormal enhancement. IMPRESSION: 1. INTERNAL CAROTID ARTERY STENOSIS BY NASCET CRITERIA. 2. NO ANEURYSM, VASCULAR MALFORMATION, OCCLUSION, OR STENOSIS OF THE VISUALIZED INTRACRANIAL CIRCULATION. CPT II Codes: 3100F
[2018-07-28 18:04] LABS: TSH (Thyroid Stimulating Horm) 3.22 mcIU/mL (0.34-5.60)
[2018-07-28] MEDS ORDERED: Albuterol/Ipratropium NEB.SOL* Albuterol 2.5 MG/Ipratropium 0.5 MG 3 ML INH PRN (18:05)
--- NOTE | 2018-07-28 19:28 | RAD ---
EXAM: MRI Head Without Intravenous Contrast EXAM DATE/TIME: 07/28/2018 6:44 PM CLINICAL HISTORY: 82 years old, female; Signs and symptoms; Speech disturbance; Slurred speech; Patient HX: Patient awoke at 0830 not feeling well and when she woke up at [address]. She was worried she might be having a stroke TECHNIQUE: Magnetic resonance images of the head/brain without intravenous contrast in multiple planes. COMPARISON: BRAIN WO MRI BRAIN W/O 06/16/2017 8:39 PM FINDINGS: Brain: There is no restricted diffusion within the brain to suggest acute ischemic change. There are scattered foci of high FLAIR signal intensity within the cerebral white matter. There is no mass effect or restricted diffusion associated with these foci. In a patient this age, this likely represents chronic small vessel ischemic disease. Dilated perivascular spaces are identified below the bilateral basal ganglia. There is a small focus of magnetic susceptibility within the right parietal lobe, consistent with calcification or hemosiderin. This is a stable finding compared to the prior study. Brainstem: There is mild heterogeneous signal intensity of the mac on the diffusion sequence, which is stable compared to the prior study. Additional foci of T2 hyperintensity are seen within the bilateral thalami and mac, consistent with chronic ischemic changes. Ventricles: There is moderate prominence of the ventricles and sulci, compatible with atrophy. The ventricles are stable in size compared to the prior study. Bones/joints: Unremarkable. Soft tissues: Normal. Sinuses: There is mild mucosal thickening of the bilateral maxillary sinuses and anterior ethmoid air cells. Mastoid air cells: No mastoid effusion. Orbits: Bilateral lens implants are identified. Other: Increased FLAIR signal intensity is identified in the region of the left transverse venous sinus. Thrombosis cannot be excluded. IMPRESSION: 1. There is no restricted diffusion within the brain to suggest acute ischemic change. 2. There are scattered foci of high FLAIR signal intensity within the cerebral white matter. In a patient this age, this likely represents chronic small vessel ischemic disease. 3. Moderate atrophy. 4. Additional chronic ischemic changes are noted above. 5. There is a small focus of magnetic susceptibility within the right parietal lobe, consistent with calcification or hemosiderin. This is a stable finding compared to the prior study. 6. Increased FLAIR signal intensity is identified in the region of the left transverse venous sinus. Thrombosis cannot be excluded. This can be further evaluated with MRV. To contact [facility] with a general question: Operations [facility] - [phone] For direct physician to physician contact: Physician Hotline - [phone] [facility] (ad Facility ID #[id number])
[2018-07-28] MEDS: Heparin VIAL(*) 5000 UNITS/ML VIAL (FIVE THOUSAND) SUBCUT SCH (21:50)
[2018-07-28] MEDS: traZODone TAB* 50 MG TAB PO PRN (22:48)
[2018-07-28] MEDS: Docusate CAP* 100 MG PO SCH (22:48)
[2018-07-28] MEDS: Melatonin 3 MG TAB PO PRN (22:48)
[2018-07-28] MEDS: Pregabalin CAP(*) 50 MG PO PRN (22:48)
[2018-07-29 00:08] LABS: ABS Basophils 0.1 10^3/ul (0-0.2); ABS Eosinophils 0.4 10^3/ul (0-0.6); ABS Lymphocytes 2.8 10^3/ul (1.0-4.8); ABS Monocytes 0.6 10^3/ul (0-0.8); ABS Nucleated RBC 0 10^3/ul; Eosinophil % 6.4 % (0-6); Hematocrit 35 % (35-47); Hemoglobin 12.1 g/dl (12.0-16.0); Mean Corpuscular HGB Conc 35 g/dl (31-36); Mean Corpuscular Hemoglobin 33 pg (27-31); Mean Corpuscular Volume 94 fL (80-97); Nucleated Red Blood Cells % 0; Platelet Count 283 10^3/ul (150-450); Red Blood Count 3.67 10^6/ul (4.00-5.40); Red Cell Distribution Width 13 % (10.5-15); White Blood Count 6.9 10^3/ul (3.5-10.8)
[2018-07-29 00:28] LABS: BUN/Creatinine Ratio 19.4 (8-20); Calcium 8.6 mg/dL (8.6-10.3); EGFR Non-African American 84.5 (>60); HDL Cholesterol 51.5 mg/dL; Potassium 3.2 mmol/L (3.5-5.0)
--- NOTE | 2018-07-29 00:43 | CONS ---
CC: Dr. Humphrey * NEUROLOGY CONSULTATION REPORT: DATE OF CONSULT: 07/28/18. LOCATION: She is in the emergency room. REFERRING PHYSICIAN: Dr. John. CHIEF COMPLAINT: Slurred speech, "I think I am having a stroke." HISTORY OF PRESENT ILLNESS: Noam Hyman is an 82-year-old woman who woke up this morning at about 8:30 and had some breakfast and took her medicines. She went back to sleep. Her aide came to her house at about 11 and she was sleeping. She got up about noon and said that she did not feel right and thought she was having a stroke. Her aide thought that she looked the same as she always does and there was no change in her speech, which Noam thinks is a little bit off. An ambulance was summoned and she was brought into the emergency room. In the emergency room, she notes that her speech seems a little bit off and other than that, it is hard to pin her down in any specific symptoms. She does have a headache today, but it is not severe. She was not ill yesterday and there has been no recent change in medications. Last known well was therefore approximately 6 hours before presentation. There is no prior history of stroke, but she was evaluated in the hospital last June when she presented with slurred speech, unsteadiness, and confusion. She saw Dr. Jessica Dowd in consultation and her aide at that point reported that she did have slurred speech and confusion. When Dr. Dowd evaluated her , I believe today after admission, there were no focal neurological abnormalities. She had an MRI of the brain, which revealed chronic ischemic subcortical changes, but no acute infarctions. A CT angiogram of the brain did not reveal any significant stenosis. It was felt perhaps she had taken her medications incorrectly. She takes [place], Xanax, and Lyrica as well as trazodone at bedtime. She feels that she has taken her medicine properly in the last few days. She was able to tell me what medications she takes in the morning. She takes her alprazolam, trazodone, Lyrica, and [place] typically at night. PAST MEDICAL HISTORY: Notable for severe arthritis with marked limitation of motion and pain. She typically walks with a walker. She has a history of hypothyroidism, anxiety, breast cancer with mastectomy, gastroesophageal reflux. MEDICATIONS: At home consist of: 1. Citalopram 40 mg p.o. q.a.m. 2. Zantac 150 mg p.o. b.i.d. 3. Lyrica 100 mg p.o. q.h.s. 4. Alprazolam 0.5 to 1.5 mg p.o. at night p.r.n. insomnia. 5. Atorvastatin 40 mg p.o. daily. 6. Prilosec 20 mg p.o. q.a.m. 7. Levothyroxine 88 mcg p.o. q.a.m. 8. Ditropan 5 mg p.o. t.i.d. 9. Houston 5/325 one p.o. t.i.d. as needed. ALLERGIES: She does not have any drug allergies, but she experienced incoordination on clomipramine and vomiting on erythromycin. SOCIAL HISTORY: She lives alone, but has an aide most days. She does not smoke. She does not drink alcohol. REVIEW OF SYSTEMS: Negative for recent falls, fevers or infections. She has chronic hip and joint pain. No recent intestinal problems. No recent change in weight. No recent change in vision. She notes chronic numbness and limited range of motion of the right leg. PHYSICAL EXAM: She is an elderly woman, who appears reasonably well-nourished and well-hydrated. Temperature is 98.3, blood pressure 156/80, heart rate is in the 50s and regular. Respiratory rate is 16 and oxygen saturation is 95% on room air. Heart is in a regular rate and rhythm without murmurs. There are no cervical bruits. Lungs are clear anterolaterally. She has marked limitation of mobility about the right ankle and to a lesser extent pain and limited range of motion of the right hip. Her neurologic exam, pupils are small and reactive to light from about 2.5 to 2 mm. Eye movements are full. Visual borges seem full, but at times she seems to have inconsistent vision in the left superior quadrant. Facial musculature is intact and symmetric. Facial sensation to light touch is reportedly diminished in the left cheek relative to the right, but normal in the forehead and chin relative to the other side. Palate and tongue appear normal, tongue protrudes in the midline, voice is soft and purposeful, but not dysarthric. The neck muscle bulk is intact. Motor exam is limited by pain and limited range of motion in the joints. She has symmetrical, good resistive strength in the upper extremities proximally and distally. There is no drift of the limbs. She has difficulty raising the right leg with hip pain and limited mobility. She has good strength in the left leg proximally and distally. Sensory exam in the limbs is symmetrical to pin and light touch. Reflexes are grade 1 at the knees, absent at the ankles, plantar responses are flexor bilaterally. Reflexes are grade 1 at the brachioradialis bilaterally. There is no rest tremor. Finger to nose is somewhat limited in terms of mobility, but there is no dysmetria or a tremor. She is alert and oriented. Memory seems mildly impaired. Language is fluent. Thee is no extinction to double simultaneous stimulation in the limbs and face. DIAGNOSTIC STUDIES/LAB DATA: Laboratory data includes the CT of the brain, which I reviewed and reveals the subcortical changes consistent with chronic ischemic disease. There is no evidence of acute infarctions or hemorrhages. Her EKG is in sinus rhythm and does not appear to show any acute changes. Her laboratory tests are not back yet. IMPRESSION AND PLAN: Impression is that of some nonspecific symptoms in an elderly patient with arthritis and an exam, which really demonstrates just a focal neurological deficit. In looking back at Dr. Jessica Dowd's exam from June 2017, it looks the same. She does not believe that she has made any mistakes with her medication at this time. If her laboratory study suggested her renal function is adequate, I would recommend a CT angiogram of the neck and brain. She should probably be admitted and put on telemetry. She had a transthoracic echocardiogram last June when she was admitted, which was technically limited. There are some minor valvular abnormalities, but no evidence of a cardiac embolic source. I would recommend putting her on aspirin for now 325 mg. I have discussed my recommendations with Dr. John. Her NIH score is perhaps 1 for asymmetrical sensation on her face. However, I do not think this is an acute cerebrovascular event at this point in time and she is well outside of the window for tPA. A CT angiogram will hopefully be done and if she does have a large vessel stenosis or occlusion, then we can reevaluate. [id number]/[facility] [place]: [id number] [facility] CHAFFEE HOSPITALJudy
[2018-07-29 02:32] LABS: Urine Appearance Clear; Urine Bilirubin Negative (Negative); Urine Blood Negative (Negative); Urine Color Colorless; Urine Glucose Negative (Negative); Urine Ketones Negative (Negative); Urine Nitrite Negative (Negative); Urine Protein Negative (Negative); Urine Urobilinogen Negative (Negative)
[2018-07-29] MEDS: Heparin VIAL(*) 5000 UNITS/ML VIAL (FIVE THOUSAND) SUBCUT SCH ×3 (05:19→21:31)
[2018-07-29] MEDS: Levothyroxine TAB* 88 MCG TAB PO SCH (05:19)
[2018-07-29 06:17] LABS: ABS Basophils 0.1 10^3/ul (0-0.2); ABS Eosinophils 0.4 10^3/ul (0-0.6); ABS Lymphocytes 2.1 10^3/ul (1.0-4.8); ABS Monocytes 0.6 10^3/ul (0-0.8); ABS Neutrophils 3.6 10^3/ul (1.5-7.7); ABS Nucleated RBC 0 10^3/ul; Eosinophil % 5.4 % (0-6); Hematocrit 37 % (35-47); Hemoglobin 12.5 g/dl (12.0-16.0); Lymphocyte % 31.5 % (25-47); Mean Corpuscular HGB Conc 34 g/dl (31-36); Mean Corpuscular Hemoglobin 33 pg (27-31); Mean Corpuscular Volume 95 fL (80-97); Mean Platelet Volume 8.7 um3 (7.4-10.4); Nucleated Red Blood Cells % 0.1; Platelet Count 271 10^3/ul (150-450); Red Blood Count 3.86 10^6/ul (4.00-5.40); Red Cell Distribution Width 14 % (10.5-15); White Blood Count 6.8 10^3/ul (3.5-10.8)
[2018-07-29 06:25] LABS: Calcium 8.7 mg/dL (8.6-10.3); Potassium 3.2 mmol/L (3.5-5.0)
[2018-07-29 06:31] LABS: BUN/Creatinine Ratio 16.1 (8-20); EGFR Non-African American 92.4 (>60)
[2018-07-29] MEDS: Docusate CAP* 100 MG PO SCH ×2 (08:28→21:31)
[2018-07-29] MEDS: Ibuprofen TAB* 800 MG PO SCH ×2 (08:28→17:08)
[2018-07-29] MEDS: Atorvastatin* 40 MG TAB PO SCH (08:29)
[2018-07-29] MEDS: Aspirin 81 mg CHEW TAB* 81 MG TAB.CHEW PO SCH (08:29)
[2018-07-29] MEDS: Omeprazole CAP (NF) 20 MG CAP.DR PO SCH (08:30)
[2018-07-29] MEDS ORDERED: Potassium Chlor TAB* 20 MEQ TAB.ER PO ONE (09:00)
--- NOTE | 2018-07-29 10:54 | RAD ---
INDICATION: Abnormal MR of the brain. COMPARISON: Comparison is made with prior MRIs of the brain from 2014, June 16, 2017 and July 28, 2018. TECHNIQUE: A magnetic resonance was performed of the brain. Images were reconstructed in the maximum intensity projection format in the sagittal and coronal planes. FINDINGS: The superior sagittal, straight, right transverse and sigmoid sinuses all appear widely patent. The left transverse sinus is very small in caliber and likely partially occluded. Alternatively this may represent normal variation. The small left transverse sinus with increased signal intensity on the FLAIR images noted on the recent prior MRI study is also unchanged from the exams from December 2014 and June 2017 and therefore consistent with a chronic finding. IMPRESSION: THE LEFT TRANSVERSE SINUS IS VERY SMALL IN CALIBER CONSISTENT WITH CHRONIC PARTIAL OCCLUSION OR NORMAL VARIATION WHICH IS UNCHANGED FROM PREVIOUS STUDIES.
--- NOTE | 2018-07-29 16:23 | PN ---
Subjective Date of Service: 07/29/18 Interval History: patient reports feeling better today. blood pressures elevated. 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 patient reports feeling off balance and mild dizziness. denies chest pain or shortness of breath. denies abd pain n/v/d. denies unilateral weakness. Family History: Unchanged from Admission Social History: Unchanged from Admission Past Medical History: Unchanged from Admission Objective Active Medications: Albuterol/Ipratropium (Duoneb (Albuterol 2.5 Mg/Ipratropium 0.5 Mg)) 1 neb INH [id number] AWAKE PRN PRN Reason: sob/wheexing Aspirin (Aspirin 81 Mg Chew Tab*) 81 mg PO DAILY [facility] Last Admin: 07/29/18 08:29 Dose: 81 mg Atorvastatin Calcium (Lipitor*) 40 mg PO DAILY@0900 [facility] Last Admin: 07/29/18 08:29 Dose: 40 mg Docusate Sodium (Colace Cap*) 100 mg PO BID [facility] Last Admin: 07/29/18 08:28 Dose: 100 mg Heparin Sodium (Porcine) (Heparin Vial(*)) 5,000 units SUBCUT Q8HR [facility] Last Admin: 07/29/18 13:52 Dose: 5,000 units Ibuprofen (Motrin Tab*) 800 mg PO BID WITH MEALS [facility] Last Admin: 07/29/18 08:28 Dose: 800 mg Levothyroxine Sodium (Synthroid Tab*) 88 mcg PO DAILY@0600 [facility] Last Admin: 07/29/18 05:19 Dose: 88 mcg Melatonin (Melatonin) 3 mg PO BEDTIME PRN PRN Reason: INSOMNIA Last Admin: 07/28/18 22:48 Dose: 3 mg Omeprazole (Prilosec Cap*) 40 mg PO QAM@0730 [facility] Last Admin: 07/29/18 08:30 Dose: Not Given Pregabalin (Lyrica Cap(*)) 100 mg PO BEDTIME PRN PRN Reason: PAIN Last Admin: 07/28/18 22:48 Dose: 100 mg Trazodone HCl (Desyrel Tab*) 150 mg PO BEDTIME PRN PRN Reason: SLEEP Last Admin: 07/28/18 22:48 Dose: 150 mg Vital Signs - 8 hr 07/29/18 07/29/18 07/29/18 11:57 12:14 15:28 Temperature 97.9 F 98.7 F Pulse Rate 56 62 Respiratory 18 16 Rate Blood Pressure 172/69 170/76 158/71 (mmHg) O2 Sat by Pulse 100 97 Oximetry Oxygen Devices in Use Now: None Appearance: appears comfortable sitting in the chair, no acute distress. Eyes: No Scleral Icterus, PERRLA Ears/Nose/Mouth/Throat: Clear Oropharnyx, Mucous Membranes Moist Neck: NL Appearance and Movements; NL JVP, Trachea Midline Respiratory: Symmetrical Chest Expansion and Respiratory Effort, Clear to Auscultation Cardiovascular: NL Sounds; No Murmurs; No JVD, No Edema Abdominal: NL Sounds; No Tenderness; No Distention Extremities: No Edema, No Clubbing, Cyanosis Skin: No Rash or Ulcers Neurological: Alert and Oriented x 3 Nutrition: Taking PO's Result Diagrams: 07/29/18 06:00 07/29/18 06:00 Assess/Plan/Problems-Billing Assessment: Ms. Hyman is a 82 y.o female with a pmhx significant for arthritis, anxiety, hypothyroid, gerd and hx of breast CA who presented to [facility] after she woke with head pain anf felt as if she was having a stroke. - Patient Problems (1) TIA (transient ischemic attack) Current Visit: No Status: Acute Priority: High Onset Date: 12/17/14 Comment: Patient reports that she is stressed about son coming home to see her and worries often about having a stroke because her mother had a stroke. -CTA- internal artery stenosis otherwise NAD - MRI with chronic changes - no acute changes - MRV- no thrombus noted - chronic changes - seen in neurology - is not felt that the patient symptoms were related to TIA more likely related to anxiety - will continue ASA (2) Hypertension Current Visit: Yes Status: Acute Code(s): I10 - ESSENTIAL (PRIMARY) HYPERTENSION SNOMED Code(s): 79029522 Comment: SBP 130-170's - given consistent elevation will start on low dose norvasc - will give hydralizine PRN SBP >180 (3) Dyslipidemia Current Visit: No Status: Chronic Priority: Medium Code(s): E78.5 - HYPERLIPIDEMIA, UNSPECIFIED SNOMED Code(s): 786140904 Comment: continue lipitor (4) History of anxiety Current Visit: No Status: Chronic Priority: Medium Code(s): Z86.59 - PERSONAL HISTORY OF OTHER MENTAL AND BEHAVIORAL DISORDERS SNOMED Code(s): 204612410 Comment: stable continue celexa (5) History of gastroesophageal reflux (GERD) Current Visit: No Status: Chronic Priority: Medium Code(s): Z87.19 - PERSONAL HISTORY OF OTHER DISEASES OF THE DIGESTIVE SYSTEM SNOMED Code(s): 93412214970592 Comment: stable continue prilosec (6) History of hypothyroidism Current Visit: No Status: Chronic Priority: Medium Code(s): Z86.39 - PERSONAL HISTORY OF ENDO, NUTRITIONAL AND METABOLIC DISEASE SNOMED Code(s): 553452096 Comment: stable TSH 3.22 continue levothyroxine (7) Hx of osteoarthritis Current Visit: No Status: Chronic Priority: Medium Code(s): Z87.39 - PERSONAL HISTORY OF DISEASES OF THE MS SYS AND CONN TISS SNOMED Code(s): 837115892 Comment: continue lyrica (8) HX: breast cancer Current Visit: No Status: Chronic Priority: Low Code(s): Z85.3 - PERSONAL HISTORY OF MALIGNANT NEOPLASM OF BREAST SNOMED Code(s): 517639553 Comment: not an acute issue (9) DVT prophylaxis Current Visit: No Status: Acute Priority: High Onset Date: 12/17/14 Code (s): QIH3054 - SNOMED Code(s): 218632185 Comment: HSQ (10) Full code status Current Visit: No Status: Acute Priority: High Onset Date: 12/17/14 Code (s): Z78.9 - OTHER SPECIFIED HEALTH STATUS SNOMED Code(s): 378429239
[2018-07-29] MEDS ORDERED: Polyethylene Glycol 3350* 17 GM PACKET PO PRN (17:17)
[2018-07-29] MEDS: amLODIPine TAB* 5 MG PO SCH (18:16)
[2018-07-29] MEDS: traZODone TAB* 50 MG TAB PO PRN (21:31)
[2018-07-29] MEDS: Melatonin 3 MG TAB PO PRN (21:31)
[2018-07-29] MEDS: Pregabalin CAP(*) 50 MG PO PRN (21:31)
--- NOTE | 2018-07-29 22:54 | PN ---
AMENDED REPORT NOW INCLUDES DATE OF SERVICE CC: Dr. Humphrey; Dr. Loving * PROGRESS NOTE: DATE OF SERVICE: 07/29/18 HISTORY: Noam Hyman is an 82-year-old woman with significant history of arthritis and pain, history of breast cancer with mastectomy, who was admitted after she indicated to her caregiver that she thought she was having a stroke. At bedside was her caregiver, as well as a friend who had interactions with her this week. This past week, she had gone to a group discussion on Tuesday night , which she found interesting but it made her tired and a bit woozy. She was having more problems with irritable bowel syndrome. She decided not to go to group on Tuesday, as she was exhausted and had pain. There was also an issue with the Yellow jackets coming into the house and quite a bit of Raid being sprayed on Tuesday. On the day of admission, Tuesday, her aide, Debi, came and found her sleepy. She had gotten up and went back to sleep. She slept most of the day. When she was woken up, she held onto her head and said "I think I am having a stroke." Debi felt her voice was the same. There was no clear new focal findings noted by Debi or by Dr. Loving in the emergency room. She has a history of on and off headache on the right hand side; however, Debi indicates she was not having a problems in that regard. When I asked Mrs. Hyman about why she thought she was having a stroke, she indicated that one of her parents had had of a stroke and this is what she worries about when she is just not feeling right. 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 There was a question of left transverse sinus occlusion vs clot. She went on to have an MRV, which showed that the left transverse sinus is small in caliber, versus chronic partial occlusion, versus normal variant. It was felt to be unchanged. CTA of the brain and neck showed no evidence of significant stenosis. She was admitted to hospital for observation. Of note, she had been admitted in June 2017 with confusion, change in speech, and weakness with essentially normal EEG and no new findings on MRI. She was started on aspirin a day at that time and she has continued aspirin. At this point, she feels back to her baseline of a week ago. She does indicate that she has had some decrease in coordination over time and is unable to tell me how long this has been going on. She indicates that she has had some general blurriness, but not exact dizziness and perhaps her left eye has been more cloudy. 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 PHYSICAL EXAMINATION: On examination, Noam Hyman is a very pleasant lady, showed appropriate concern. Her blood pressure was 170/76 with a pulse of 56, respiratory rate was 18, saturation was 100%, and temperature was 97.9 degrees temporal. She had regular cardiac rhythm. Her lungs were clear to auscultation. There was no peripheral edema. She had good peripheral pulses. She has a hesitant voice at baseline, which was present. She had full extraocular movements. She could count fingers in all borges, although moved her eyes around quite a bit making hard to tell if there was any field cut, and there was a question of right eye whether there may have been some blurriness when looking at fingers. She had equal facial expression, sensation, and hearing. Her palate was upgoing. Tongue was midline. Sternocleidomastoid and trapezius were 5/5 in strength. There was normal bulk and tone. No pronator drift. Good strength in the upper and lower extremities. Zwoanw-uo-snsb movements were normal. Spji-rr-qzjd movements were limited by joint range of movement. She denied any asymmetries to pinprick, cold, or light touch other than questioning some change at the foot, which she thought at one point was more sharp on the left foot and the other time on the right foot. Her reflexes were 1+ in the upper extremities, absent in the lower extremities. Toes were flexor response. MEDICATIONS: Her MAR was reviewed and she is written for: 1. Albuterol nebulizer every 4 hours while awake as needed. 2. Lyrica 100 mg at bedtime as needed. 3. Trazodone 150 mg at bedtime as needed. 4. Colace 100 mg p.o. b.i.d. 5. Melatonin 3 mg at bedtime as needed for insomnia. 6. Heparin 5000 units subcu q.8 hours. 7. Levothyroxine 88 mcg p.o. q. day. 8. Omeprazole 40 mg p.o. q. day. 9. Ibuprofen 800 mg p.o. b.i.d. with meals. 10. Aspirin 81 mg p.o. q. day. 11. Atorvastatin 40 mg p.o. q. day. IMPRESSION: Noam Hyman is an 82-year-old woman with admission for not feeling right and questioning if she is having a stroke with no focal findings noted on history or examination. Her imaging did not show evidence of acute stroke. I am not hearing convincing evidence to suggest transient ischemic attack at this time. She was more fatigued than usual recently. Her blood pressure is elevated , and I would work on bringing this down. She should continue on baby aspirin a day. There appears, in my review, perhaps to be slightly more small vessel ischemic change in the mac; blood pressure is a significant risk factor for small vessel stroke. She will need to follow closely with her primary care. In regards to findings on MRV, for differential diagnosis of partial occlusion, she should work on hydration with water and take aspirin each day. She may benefit from physical therapy for her subjective feeling of decreased coordination that she has been having over an unknown period of time. This may also help her in strengthening and protecting her joints. Her son, Josue, called during this visit and education was given to him as well as to caregiver, Debi, and patient. We talked about involvement of caregivers in her physical therapy, and the need to ongoing exercising, for PT to be of any benefit. Over an hour was spent in direct [id number]-[id number] patient care. Advice will be communicated to hospitalist team. Please feel free to call if further neurologic input is needed, otherwise I will sign off at this time. [id number]/[facility] #: [id number] JERONIMO
[2018-07-30] MEDS: Heparin VIAL(*) 5000 UNITS/ML VIAL (FIVE THOUSAND) SUBCUT SCH ×2 (05:43→13:01)
[2018-07-30] MEDS: Levothyroxine TAB* 88 MCG TAB PO SCH (05:43)
[2018-07-30 06:14] LABS: EGFR Non-African American 87.5 (>60); Potassium 3.2 mmol/L (3.5-5.0)
[2018-07-30] MEDS: Omeprazole CAP (NF) 20 MG CAP.DR PO SCH (07:08)
[2018-07-30] MEDS: Docusate CAP* 100 MG PO SCH (08:49)
[2018-07-30] MEDS: Aspirin 81 mg CHEW TAB* 81 MG TAB.CHEW PO SCH (08:49)
[2018-07-30] MEDS: Atorvastatin* 40 MG TAB PO SCH (08:49)
[2018-07-30] MEDS: Ibuprofen TAB* 800 MG PO SCH (08:49)
[2018-07-30] MEDS: amLODIPine TAB* 5 MG PO SCH (08:49)
[2018-07-30] MEDS ORDERED: Citalopram TAB* 40 MG PO SCH (09:00)
[2018-07-30] MEDS ORDERED: Potassium Chlor TAB* 20 MEQ TAB.ER PO ONE (09:04)
[2018-07-30] MEDS ORDERED: KCL 20 MEQ/100 ML IVPREMIX* 20 MEQ/100 ML BAG IV ONE (09:04)
[2018-07-30 09:42] LABS: Magnesium 1.8 mg/dL (1.9-2.7)
[2018-07-30] MEDS ORDERED: amLODIPine TAB* 5 MG PO SCH (10:00)
[2018-07-30 11:47] VITALS: BP 131/65
[2018-07-30] MEDS ORDERED: Magnesium Oxide TAB* 400 MG PO ONE (13:01)
[2018-07-30] MEDS ORDERED: Magnesium Sulfate 1 GM IV* 1 GM/100 ML BAG IV ONE (13:43)
--- NOTE | 2018-07-30 15:39 | PN ---
Subjective Date of Service: 07/30/18 Interval History: Patient states that she is feeling better today. reports that she is relieved that she has not had a stroke. Denies chest pain or shortness of breath. denies abd pain n/v/d. denies headache at this time. Family History: Unchanged from Admission Social History: Unchanged from Admission Past Medical History: Unchanged from Admission Objective Active Medications: Albuterol/Ipratropium (Duoneb (Albuterol 2.5 Mg/Ipratropium 0.5 Mg)) 1 neb INH [id number] AWAKE PRN PRN Reason: sob/wheexing Amlodipine Besylate (Norvasc Tab*) 5 mg PO DAILY [facility] Last Admin: 07/30/18 10:12 Dose: Not Given Aspirin (Aspirin 81 Mg Chew Tab*) 81 mg PO DAILY [facility] Last Admin: 07/30/18 08:49 Dose: 81 mg Atorvastatin Calcium (Lipitor*) 40 mg PO DAILY@0900 [facility] Last Admin: 07/30/18 08:49 Dose: 40 mg Citalopram Hydrobromide (Celexa Tab*) 40 mg PO DAILY [facility] Last Admin: 07/30/18 08:49 Dose: 40 mg Docusate Sodium (Colace Cap*) 100 mg PO BID [facility] Last Admin: 07/30/18 08:49 Dose: 100 mg Heparin Sodium (Porcine) (Heparin Vial(*)) 5,000 units SUBCUT Q8HR [facility] Last Admin: 07/30/18 13:01 Dose: Not Given Ibuprofen (Motrin Tab*) 800 mg PO BID WITH MEALS [facility] Last Admin: 07/30/18 08:49 Dose: 800 mg Levothyroxine Sodium (Synthroid Tab*) 88 mcg PO DAILY@0600 [facility] Last Admin: 07/30/18 05:43 Dose: 88 mcg Melatonin (Melatonin) 3 mg PO BEDTIME PRN PRN Reason: INSOMNIA Last Admin: 07/29/18 21:31 Dose: 3 mg Omeprazole (Prilosec Cap*) 40 mg PO QAM@0730 [facility] Last Admin: 07/30/18 07:08 Dose: Not Given Polyethylene Glycol/Electrolytes (Miralax*) 17 gm PO DAILY PRN PRN Reason: CONSTIPATION Last Admin: 07/29/18 17:45 Dose: 17 gm Pregabalin (Lyrica Cap(*)) 100 mg PO BEDTIME PRN PRN Reason: PAIN Last Admin: 07/29/18 21:31 Dose: 100 mg Trazodone HCl (Desyrel Tab*) 150 mg PO BEDTIME PRN PRN Reason: SLEEP Last Admin: 07/29/18 21:31 Dose: 150 mg Vital Signs - 8 hr 07/30/18 07/30/18 07/30/18 07:36 08:00 09:38 Temperature 97.7 F 98.3 F Pulse Rate 62 68 Respiratory 16 16 16 Rate Blood Pressure 140/64 141/66 (mmHg) O2 Sat by Pulse 98 97 Oximetry 07/30/18 07/30/18 07/30/18 09:41 09:46 10:06 Temperature Pulse Rate 67 84 64 Respiratory 16 18 Rate Blood Pressure 136/64 164/99 139/66 (mmHg) O2 Sat by Pulse 95 97 94 Oximetry 07/30/18 07/30/18 07/30/18 10:12 10:14 11:21 Temperature 98.0 F Pulse Rate 95 95 67 Respiratory 16 Rate Blood Pressure 177/84 177/84 131/65 (mmHg) O2 Sat by Pulse 99 95 Oximetry Oxygen Devices in Use Now: None Appearance: alert oriented x3 no acute distress Eyes: No Scleral Icterus Ears/Nose/Mouth/Throat: Clear Oropharnyx, Mucous Membranes Moist Neck: NL Appearance and Movements; NL JVP, Trachea Midline Respiratory: Symmetrical Chest Expansion and Respiratory Effort, Clear to Auscultation Cardiovascular: NL Sounds; No Murmurs; No JVD, RRR, No Edema Abdominal: NL Sounds; No Tenderness; No Distention Extremities: No Edema, No Clubbing, Cyanosis Skin: No Rash or Ulcers Neurological: Alert and Oriented x 3 Nutrition: Taking PO's Result Diagrams: 07/29/18 06:00 07/30/18 05:30 Microbiology and Other Data: Microbiology 07/30/18 05:19 Stool Occult Blood (CASANDRA) - Final Stool Assess/Plan/Problems-Billing Assessment: Ms. Hyman is a 82 y.o female with a pmhx significant for arthritis, anxiety, hypothyroid, gerd and hx of breast CA who presented to [facility] after she woke with head pain anf felt as if she was having a stroke. - Patient Problems (1) TIA (transient ischemic attack) Current Visit: No Status: Acute Priority: High Onset Date: 12/17/14 Comment: Patient reports that she is stressed about son coming home to see her and worries often about having a stroke because her mother had a stroke. -CTA- internal artery stenosis otherwise NAD - MRI with chronic changes - no acute changes - MRV- no thrombus noted - chronic changes - seen in neurology - is not felt that the patient symptoms were related to TIA more likely related to anxiety and hypertension - will continue ASA (2) Hypokalemia Current Visit: Yes Status: Acute Code(s): E87.6 - HYPOKALEMIA SNOMED Code( s): 86071929 Comment: potassium 3.2 today will give 20 meq kcl IV and give 40 meq kcl po repeat BMP in 3 days will discharge on kcl 40 meq po daily (3) Hypertension Current Visit: Yes Status: Acute Code(s): I10 - ESSENTIAL (PRIMARY) HYPERTENSION SNOMED Code(s): 70521163 Comment: SBP 130's - SBP improved today after starting Norvasc will continue at home - will need to follow up with PMD in 1-3 days for blood presure recheck and repeat BMP (4) Dyslipidemia Current Visit: No Status: Chronic Priority: Medium Code(s): E78.5 - HYPERLIPIDEMIA, UNSPECIFIED SNOMED Code(s): 436151384 Comment: continue lipitor (5) History of anxiety Current Visit: No Status: Chronic Priority: Medium Code(s): Z86.59 - PERSONAL HISTORY OF OTHER MENTAL AND BEHAVIORAL DISORDERS SNOMED Code(s): 426918713 Comment: stable continue celexa (6) History of gastroesophageal reflux (GERD) Current Visit: No Status: Chronic Priority: Medium Code(s): Z87.19 - PERSONAL HISTORY OF OTHER DISEASES OF THE DIGESTIVE SYSTEM SNOMED Code(s): 79184100339819 Comment: stable continue prilosec (7) History of hypothyroidism Current Visit: No Status: Chronic Priority: Medium Code(s): Z86.39 - PERSONAL HISTORY OF ENDO, NUTRITIONAL AND METABOLIC DISEASE SNOMED Code(s): 630048629 Comment: stable TSH 3.22 continue levothyroxine (8) Hx of osteoarthritis Current Visit: No Status: Chronic Priority: Medium Code(s): Z87.39 - PERSONAL HISTORY OF DISEASES OF THE MS SYS AND CONN TISS SNOMED Code(s): 387155370 Comment: continue lyrica (9) HX: breast cancer Current Visit: No Status: Chronic Priority: Low Code(s): Z85.3 - PERSONAL HISTORY OF MALIGNANT NEOPLASM OF BREAST SNOMED Code(s): 014266117 Comment: not an acute issue (10) DVT prophylaxis Current Visit: No Status: Acute Priority: High Onset Date: 12/17/14 Code (s): [id number] - SNOMED Code(s): 379174902 Comment: HSBecky (11) Full code status Current Visit: No Status: Acute Priority: High Onset Date: 12/17/14 Code (s): Z78.9 - OTHER SPECIFIED HEALTH STATUS SNOMED Code(s): 575654313 Status and Disposition: discharge - will need PT as outpatient for continued gait and strength training.
--- NOTE | 2018-07-31 03:56 | HP ---
AMENDED REPORT NOW INCLUDES DESIGNATED COSIGNER CC: Dr. Zev Humphrey; Dr. Loving * HISTORY AND PHYSICAL: DATE OF ADMISSION: 07/28/18 PROVIDER: Elizabeth Sommer NP PRIMARY CARE PHYSICIAN: Dr. Zev Humphrey. ATTENDING PHYSICIAN: Dr. Temi Andrew * (dictated by Elizabeth Sommer NP) CONSULTING PHYSICIAN: Dr. Loving. CHIEF COMPLAINT: Slurred speech, unsteady gait, right-sided weakness. HISTORY OF PRESENT ILLNESS: This is an 82-year-old female with a past medical history of GERD; anxiety; hypothyroidism; chronic pain in right lower extremity ; history of breast cancer, status post double mastectomy; previous TIA, who presented to the ED after having an incident of slurred speech, unsteady gait, and right-sided weakness. The patient reports that she woke up this morning and felt more drowsy than usual and with general increased weakness, she took a nap around noon and when she woke up, she was confused for a minute, had an unsteady gait, and her aide noticed that she had some slurred speech as well. Upon arrival to the ED, she had a NIH Stroke Scale of 0. She was evaluated by the ED physician as well as Dr. Loving, who deemed her not a candidate for tPA. Of note, she had a similar presentation last year with an episode of weakness, facial numbness, and slurred speech that also resolved by the time she arrived in the ED and this was felt to be a possible TIA. In the ED, she underwent an EKG that showed sinus bradycardia with no evidence of ischemia or infarct and it was similar to a previous EKG from 2017. She underwent a CT of the brain, which showed atrophy with chronic ischemic white matter change. No intracranial mass or hemorrhage noted. She underwent a CTA, which showed no right internal carotid artery stenosis by NASCET criteria. 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 MRI is pending. The patient did have an echo with a bubble study at her previous ED visit in 2017 with similar presentation that showed no PFO. MRI is pending. Hospitalist team was asked to admit this patient for observation due to a possible TIA. The patient received 325 mg of aspirin in the ED. At the time of my exam, the patient and her aide report that her slurred speech has resolved. She has not gotten up from bed to test her gait, but her right-sided weakness also feels closer to her baseline. She denied headache or dizziness or focal weakness. She did endorse mild shortness of breath that she has had for some time. She could not express if it was exacerbated by exertion; however, she feels like sometimes, she has to stop in mid sentence to catch her breath. She has not noticed any weight gain or swelling in her lower extremities. She does not have a cough. She does endorse a gradual onset of a 1/10 chest pressure possibly in the setting of her GERD. She denies nausea, vomiting, diarrhea. She does endorse chronic constipation for which she takes Colace. She denies dysuria, numbness, and tingling of her lower extremities. She does endorse 2/10 discomfort in her right lower extremity, which she reports as a cross between a pain and a numbness and tingling, but does have this problem at baseline and reports that it is only slightly worse than usual. The patient's labs are unremarkable. Her hemoglobin is 11.5; however, this appears to be around her baseline. She does endorse having a history of hemorrhoids that do occasionally bleed. She reports having some bloody stool a few days ago and we will follow up with fecal occult blood test. The patient's vitals, the patient has been bradycardic to the high 40s, low 50s; however, the patient's previous EKG from 2017 also displays sinus bradycardia. The patient is on a number of Beers Criteria medications including Ditropan and Xanax and these will be held during hospitalization to evaluate if they were contributory to this event; however, the patient has been on these medications for quite some time and they were also evaluated during her previous hospitalization and decided it was okay to continue. PAST MEDICAL HISTORY: GERD, anxiety, hypothyroidism, osteoarthritis, history of breast cancer, Paget's disease, and hemorrhoids. PAST SURGICAL HISTORY: Double mastectomy, tonsillectomy, cataract surgery. HOME MEDICATIONS: 1. Evans 1 tab p.o. p.r.n. daily. 2. Ditropan 5 mg p.o. daily. 3. Synthroid 88 mcg p.o. daily. 4. Aspirin 81 mg p.o. daily. 5. Trazodone 150 mg p.o. at bedtime p.r.n. 6. Kenalog cream 0.1% one application topically b.i.d. 7. Citalopram 40 mg p.o. daily. 8. Ranitidine 150 mg p.o. daily. 9. Pregabalin 100 mg p.o. at bedtime p.r.n. 10. Xanax 0.5 to 1.5 mg p.o. at bedtime p.r.n. 11. Motrin 800 mg p.o. b.i.d. with meals. 12. Atorvastatin 40 mg p.o. daily at 9 o'clock. 13. Omeprazole 40 mg p.o. q.a.m. ALLERGIES: ENALAPRIL, ERYTHROMYCIN, and CLOMIPRAMINE. FAMILY HISTORY: The patient endorses a family history of heart disease. Her mother had a stroke and her grandmother had a history of heart disease as well. There is no diabetes in the patient's family. The patient herself has had breast cancer and her sister also had breast cancer. SOCIAL HISTORY: The patient does not smoke cigarettes and does not drink alcohol. Code status, the patient wishes to be a DNR. Renee Smith NP, will be following up on the MOLST form after the patient returns from MRI. Medical decision maker, the patient's son, , will be her medical decision maker. REVIEW OF SYSTEMS: I performed a 14-point review of systems. All the pertinent positives and negatives are mentioned in the history of present illness. The remaining review of systems is negative. PHYSICAL EXAMINATION GENERAL APPEARANCE: The patient is alert, pleasant, and appears to be in no acute distress. VITAL SIGNS: 98.3, heart rate 51, blood pressure 156/80, respiratory rate 16, pulse ox 95% on room air. HEENT: Normocephalic, atraumatic. Moist mucous membranes. Pupils are equal, round, and reactive to light and accommodation. Extraocular movements are intact. NECK: Supple. No lymphadenopathy noted. No JVD appreciated. RESPIRATORY: No accessory muscle use and lungs are clear to auscultation. Normal work of breathing. CARDIAC: Regular rate and rhythm. S1 and S2 present. No murmurs, rubs, or gallops heard. ABDOMEN: Soft, nontender, and nondistended. There are bowel sounds x4. EXTREMITIES: There is no lower extremity edema. DP and PT pulses are 2+ and symmetric. MUSCULOSKELETAL: No clubbing or cyanosis noted. NEURO: The patient is alert and oriented x3. The patient does seem to have some dysarthria, although the patient's aide says that is at the patient's baseline. The patient exhibited 5/5 strength in bilateral upper extremities and bilateral lower extremities. She does have chronic pain in the right lower extremity, so she was only able to lift a few inches off the bed; however, she is able to lift the left lower extremity higher off the bed, neither leg exhibited drift. There is no drift in her bilateral upper extremities either. [id number] test was intact. I was not able to assess her gait. Sensation was intact bilaterally. PSYCH: The patient is calm and cooperative. SKIN: There are no rashes or abnormalities seen. DIAGNOSTIC STUDIES/LAB DATA: White blood cell count 6.2, RBC 3.57, hemoglobin 11.5, hematocrit 34, MCV 95, MCH 32, MCHC 34, RDW 13, platelets 278, MPV 8.3. INR 0.86, aPTT 29.4. Sodium 139, potassium 3.4, chloride 106, carbon dioxide 28 , BUN 19, creatinine 0.88, BUN-creatinine ratio 21.6, glucose 90, calcium 8.7. Bilirubin 0.3, AST 17, ALT 12, alk phos 50. Total protein 5.7, albumin 3.5, globulin 2.2, albumin-globulin ratio 1.6. Vitamin B12 329. TSH 3.22. EKG: With sinus bradycardia, no evidence of ischemia or infarct. Head CT: Atrophy with chronic ischemic white matter change. No intracranial mass or hemorrhage noted. CTA: No aneurysm, vascular malformation, occlusion, or stenosis of the visualized intracranial circulation, right internal carotid artery without stenosis by NASCET criteria. 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 MRI is pending. Urinalysis is pending. ASSESSMENT AND PLAN: This is an 82-year-old female with a past medical history of gastroesophageal reflux disease; anxiety; hypothyroidism; chronic pain in the right lower extremity; history of breast cancer, status post double mastectomy, who presented today after an episode of slurred speech, unsteady gait, and right-sided weakness, who will be admitted to the hospitalist service for observation due to concern for transient ischemic attack. 1. Transient ischemic attack. The patient has been evaluated by Neuro in the ED. She received 325 mg of aspirin. In the ED, at the time of presentation, her NIH Stroke Scale was 0, so she was deemed not to be a candidate for tPA. At the moment, her slurred speech and right-sided weakness appeared to have resolved. Her gait has not been assessed; however, she will be evaluated by PT. Her brain CT did not show acute hemorrhage. Her CTA did not show carotid artery stenosis. Her previous echo with bubble study in 2017 did not show patent foramen ovale. We will continue her 81 mg of aspirin tomorrow as well as her atorvastatin. We will obtain fasting lipids in the morning and can adjust her statin if necessary. The patient will have neuro checks q.4 and will be monitored in the telemetry unit. She will be n.p.o. until she has passed her swallow eval. Appreciate neuro recs. 2. Hypothyroidism. TSH within normal limits. Continue home Synthroid. 3. Hypertension. The patient does not have a history of hypertension prior to this admission; however, her blood pressure has been as high as 181/87. We will allow for permissive hypertension in the setting of possible cerebrovascular accident as MRI has not yet ruled out cerebrovascular accident. The patient's aide says her blood pressure is usually in the 120s to 130s. 4. History of hemorrhoids. The patient reports she does have bright red blood per rectum on occasion; however, her H and H are 11.5 and 34 today. However, this appears to be her baseline. Her hemoglobin was 11.8 in March of this year and 11.7 in June of last year. We will also run a fecal occult blood test ; however, as the patient's vital signs do not reflect hypovolemia, she is not tachycardic or hypotensive, we will just continue to monitor this. 5. Gastroesophageal reflux disease. Continue home omeprazole. 6. Chronic pain. Continue home ibuprofen and pregabalin. 7. Diet. The patient will be n.p.o. until she passes her swallow eval. 8. DVT prophylaxis with subcu heparin and SCDs as the patient is at high risk. 9. Code status. The patient wishes to be DNR/DNI. Renee Smith NP, will be completing her MOLST form after she returns from MRI. 10. Disposition. Observation. Anticipate discharge to home when medically stable. TIME SPENT: Time spent for this admission was 60 minutes and 35 minutes was spent with the patient discussing medications, past medical history, and events leading up to the arrival today and performing a physical exam. The case has been reviewed with the attending, Dr. Andrew, who agrees with the plan of care. ELIZABETH SOMMER NP [id number]/[facility] #: [id number] JERONIMO
--- NOTE | 2018-07-31 04:46 | DS ---
AMENDED REPORT NOW INCLUDES DESIGNATED COSIGNER DISCHARGE SUMMARY: DATE OF ADMISSION: 07/28/18 DATE OF DISCHARGE: 07/30/18 PROVIDER: Lina Moreno NP PRIMARY CARE PROVIDER: Dr. Humphrey. CONSULTING PROVIDERS: Dr. Dowd, Dr. Loving. ATTENDING PHYSICIAN: Dr. Larry Jaffe * (dictated by Lina Moreno NP ). PRIMARY DIAGNOSES: 1. Hypertension. 2. Weakness. SECONDARY DIAGNOSES: 1. Hypothyroidism. 2. Anxiety. 3. History of breast cancer with mastectomy. 4. Gastroesophageal reflux disease. STUDIES COMPLETED WHILE IN THE HOSPITAL: She had a CT of the brain on . Radiologist's impression: Atrophy with chronic ischemic white matter changes noted. No intracranial mass or hemorrhage is noted. She had an electrocardiogram on 07/28/18 which showed sinus rhythm at a rate of 50. She had a CT of the head on 07/28/18. Radiologist's impression: 1. Internal carotid artery stenosis by NASCET criteria. 2. No aneurysm, vascular malformation, occlusion, or stenosis of the visualized intracranial circulation. She had an MRI of the brain on 07/28/18. Radiologist's impression: There is no restricted diffusion within the brain to suggest acute ischemic changes. There is scattered foci of high FLAIR signal intensity within the cerebral white matter. There is no mass effect or restricted diffusion associated with these foci in a patient of this age. This likely represents chronic small vessel ischemic disease. Dilated perivascular spaces are identified. Below the bilateral basal ganglia, there is a small focus of magnetic susceptibility within the right parietal more consistent with calcification or hemosiderin. These are stable findings compared to the prior study. In the brainstem, there is mild heterogenous signal intensity of the mac on the diffusion sequence which is stable compared to the prior study. Additional foci on T2 hyperintensity are seen within the bilateral thalami and mac consistent with chronic ischemic changes. Moderate atrophy, additional chronic ischemic changes are noted. Next increased FLAIR signal intensity is identified in the region of the left transverse venous sinus, thrombosis cannot be excluded. This can be further evaluated by an MRV. She had an MRV on 07/29/18. The left transverse sinus is very small in caliber consistent with chronic partial occlusion or normal variation which is unchanged from previous studies. DISCHARGE MEDICATIONS: New home medications: 1. Norvasc 5 mg p.o. daily. 2. Potassium chloride 40 mEq p.o. daily. Continued home medications: 1. Trazodone 150 mg p.o. at bedtime. 2. Hydrocodone 5/325 one tablet p.o. daily p.r.n. 3. Oxybutynin 5 mg p.o. t.i.d. 4. Levothyroxine 88 mcg p.o. daily. 5. Aspirin 81 mg p.o. daily. 6. Kenalog cream 1 topically b.i.d. 7. Citalopram 40 mg p.o. daily. 8. Zantac 150 mg p.o. b.i.d. 9. Lyrica 100 mg p.o. at bedtime. 10. Alprazolam 0.5 to 1.5 mg p.o. at bedtime p.r.n. 11. Ibuprofen 800 mg p.o. b.i.d. with meals. 12. Atorvastatin 40 mg p.o. daily. 13. Omeprazole 40 mg p.o. q.a.m. HISTORY OF PRESENT ILLNESS AND HOSPITAL COURSE: Ms. Hyman is an 82-year-old female with a past medical history significant for GERD, anxiety, hyperlipidemia , history of breast cancer, who presented to the emergency room with the report she woke up this morning at approximately 8:30, had some breakfast, took her medicines. She went back to sleep. Her aide came to the house at about 11 and she was sleeping. She got up about noon and said that she did not feel right and thought she was having a stroke. Her aide thought she looked the same as she always does and there was no change in her speech, which Ms. Hyman felt her speech was a little bit off and ambulance was summoned and she was brought to the emergency room. She notes that her speech seems a little bit off, and other than that, it is hard for her to pin down any specific symptoms. She does report a headache, but not severe. She was not ill yesterday and there has been no recent changes in her medications. Last known well time prior to admission to the hospital was 6 hours prior to presentation. The patient does not have any prior history of stroke. The patient was evaluated at the hospital in June when she presented with slurred speech, unsteadiness and confusion. She saw Dr. Jessica Dowd in consultation and her aide at that point reported that she did have slurred speech and confusion and Dr. Dowd evaluated. I believe, today after admission, there was no focal neurologic abnormalities. She does report she has been taking her medications properly at home and she was able to state what medications she took. The patient was monitored in the hospital. On telemetry, there was no arrhythmia noted on the monitor. The patient has been afebrile throughout her hospitalization. She does continue to complain of mild headache and feeling off balanced. She was noted to be hypertensive during this hospitalization with a systolic blood pressure initially ranging from 143 to 177. The patient was started on Norvasc 5 mg p.o. Her systolic blood pressure normalized. Her blood pressure on the day of discharge was 131/65. The patient denies any dizziness. She does report feeling off balance. The patient was seen in consultation by Physical Therapy who recommended outpatient physical therapy for gait and strength training. She was seen in consultation by Dr. Dowd during this admission. It was believed that the patient did not have a TIA and did not have a CVA. Due to the chronic ischemic changes, it was recommended by Neurology that the patient continue on aspirin 81 mg p.o. daily. At this time, the patient is stable for discharge home. Vital signs are as follows: Temperature was 98.0, heart rate was 67, respirations 16, O2 saturation was 95%, blood pressure was 131/65. DISCHARGE PLAN: The patient will be discharged back home with her aide. Activity as tolerated. She should continue on a heart-healthy diet, low sodium. 1. Hypertension. The patient was started on Norvasc during this hospitalization. Her systolic blood pressure was elevated during the hospitalization as high as 177. I suspect that her symptoms could be related to her hypertension. She was started on Norvasc 5 mg p.o. daily. Her blood pressure normalized down to a systolic blood pressure of 131/65. The patient did have orthostatic vital signs during this hospitalization. She was not orthostatic during this hospitalization. 2. Hypokalemia. The patient had a potassium level on admission of 3.4. It did decrease to 3.2. She was given potassium supplementation during this hospitalization. On the day of discharge, she was given 60 mEq of potassium, 20 IV and 40 p.o. She was given a prescription for potassium 40 mEq p.o. daily. She should have a repeat BMP in 3 days. 3. Hypomagnesia. The patient had low magnesium. Her magnesium on the day of discharge was 1.8. She was given 1 g of magnesium IV and 400 mg of magnesium oxide orally. Again, the patient should have a repeat magnesium level in 3 days. 4. Other chronic medical conditions. The patient can resume all of her previous medications. There were no changes during this hospitalization. The patient should follow up with her primary care provider next week in 1 to 3 days for further evaluation of her potassium level. She has been given a prescription for physical therapy. She should go to physical therapy for gait training and strength training. The patient was instructed to return to the emergency room for any syncopal episode, chest pain, shortness of breath, weakness on one side, or any worsening or changes in her condition. The patient and her aide verbalized understanding. TIME SPENT: Time spent on this discharge was approximately 60 minutes, greater than half that time was spent with the patient and her aide discussing discharge plans and instructions. CONDITION AT DISCHARGE: Stable. LINA MORENO, GUERITA [id number]/[facility] #: [id number] JERONIMO
== END 2018-07-30 19:26 | disposition home or self-care (01) ==
LOC: ED 14:59 → MEDTELE 18:05 → ED 19:45
PROVIDERS: ADMIT Nurse Practitioner Acute Care; ATTEND Student in an Organized Health Care Education/Training Program
DX: I10 Essential (primary) hypertension (principal); R53.1 Weakness; E03.9 Hypothyroidism, unspecified; F41.9 Anxiety disorder, unspecified; K21.9 Gastro-esophageal reflux disease without esophagitis; Z85.3 Personal history of malignant neoplasm of breast; Z90.12 Acquired absence of left breast and nipple; Z79.82 Long term (current) use of aspirin; R93.0 Abnormal findings on diagnostic imaging of skull and head, not elsewhere classified
CPT/HCPCS: 36415; 70450; 70496; 70498; 70544; 70551; 80048; 80053; 80061; 81003; 82272; 82607; 83735; 84443; 85025; 85610; 85730; 93005; 96374; 96375; 99284; A9270-GY; G0378; G8978-GP-CJ; G8979-GP-CI; J1644; J3475; J3480; Q9967

== ENCOUNTER 2019-07-01 16:09 | Emergency (ER) | payer MEDICARE, MEDICAID ==
--- OUTSIDE RECORDS SUMMARY | 2019-07-01 16:55 | XMS REPORT | Continuity of Care Document ---
:1935 External Reference #:[id number] Author Name Kevin Lorenzo M.D. (transmitted by agent of provider Martha Dobbins) Address [address] [place] [id number] Care Team Providers Name Role Phone Zev Humphrey MD - Family Medicine Care Team Information Bridge Painter Helper Dean Of Faculty Prosthetics & Orthotics - Care Team Information Bridge Painter Helper [phone] Prosthetic/Orthotic Supplier Problems Active Problems Provider Date Dysphasia Jenae Cordova NP Onset: 02/23/2019 Constipation Jenae Cordova SUPERVISOR OF WAY Onset: 02/23/2019 Frail elderly Jenae Cordova SUPERVIS[employer] Onset: 02/23/2019 Dysphagia Jenae Cordova [employer]PERVIS[employer] Onset: 04/06/2019 Note: discomfort with solid food Social History Type Date Description Comments Sex Unknown Tobacco Use Start: Unknown Never Smoked Cigarettes Smoking Status Reviewed: 05/28/19 Never Smoked Cigarettes ETOH Use Denies alcohol use Tobacco Use Start: Unknown Patient has never smoked Recreational Drug Use Never Used Drugs Exercise Type/Frequency Does not exercise Allergies, Adverse Reactions, Alerts Active Allergies Reaction Severity Comments Date Erythromycin 04/03/2013 Aureomycetin 04/03/2013 Medications Active Medications SIG Qnty Indications Ordering Provider Date Amlodipine Besylate 1 by mouth every Unknown 5mg day Tablets Atorvastatin Calcium 1 by mouth every Unknown 40mg day Tablets Aspirin 1 by mouth every Unknown 81mg Tablets DR day Metamucil Smooth 1 teaspoons a day Unknown Texture 28.3% Powder Alprazolam 1 pill as needed - Unknown 0.5mg Tablets takes 2 at night Trazodone HCL 1 by mouth every Unknown 50mg day Tablets Citalopram 1 by mouth every Unknown Hydrobromide day 40mg Tablets Omeprazole 1 by mouth every Unknown 40mg Capsules day DR Hydrocodone-Acetaminop 1 or 2 tabs by Unknown hen mouth every 6-8 5-325mg Tablets hours as needed for pain Ranitidine HCL 1 by mouth twice a Unknown 150mg day prn Capsules Lyrica 1 by mouth twice a Unknown 50mg Capsules day Docusate Sodium 1 tab twice daily Unknown 100mg prn Capsules Oxybutynin Chloride 1 by mouth twice a Unknown 5mg day as neeeded Tablets Levothyroxine Sodium 1 by mouth every Unknown day 88mcg Tablets Ibuprofen as needed Unknown 800mg Tablets Nystatin-Triamcinolone apply twice a day Unknown in thin layer 284738-7.1Unit/GM-% Cream Potassium Chloride 15mL PO daily Unknown 20Meq/15ML (10%) Solution Align 1 by mouth every Unknown 4mg Capsules day Medications Administered in Office Medication SIG Qnty Indications Ordering Provider Date Depomedrol 40MG Kevin Lorenzo M.D. 05/28/2019 Injection Depomedrol 40MG Kevin Lorenzo M.D. 05/07/2019 Injection Depomedrol 40MG Kevin Lorenzo M.D. 02/12/2019 Injection Depomedrol 40MG Kevin Lorenzo M.D. 01/03/2019 Injection Immunizations Description No Information Available Vital Signs Date Vital Result Comment 05/28/2019 2:54pm Height 64 inches 5'4" Weight 150.00 lb BP Systolic 138 mmHg BP Diastolic 80 mmHg Respiratory Rate 20 /min Pain Level 4 BMI (Body Mass Index) 25.7 kg/m2 05/07/2019 2:51pm Height 64 inches 5'4" Weight 150.00 lb Heart Rate 79 /min Body Temperature 98.7 F O2 % BldC Oximetry 92 % BMI (Body Mass Index) 25.7 kg/m2 Results Test Date Facility Test Result H/L Range Note CBC No Diff 04/06/2019 [facility] White Blood 7.7 10^3/uL Normal 3.5-10.[address] [place] [address] [phone] Red Blood Count 3.71 10^6/uL Normal 3.70-4.87 Hemoglobin 12.3 g/dL Normal 12.0-16.0 Hematocrit 35 % Normal 35-47 Mean Corpuscular Volume 95 fL Normal 80-97 Mean Corpuscular Hemoglobin 33 pg High 27-31 Mean Corpuscular HGB Conc 35 g/dL Normal 31-36 Red Cell Distribution Width 13 % Normal 10-15 Platelet Count 299 10^3/uL Normal 150-450 Mean Platelet Volume 8.7 fL Normal 7.4-10.4 Comp Metabolic 04/06/2019 [facility] Sodium 136 mmol/L Normal 135-[address] [place] [address] [phone] Potassium 3.9 mmol/L Normal 3.5-5.0 Chloride 102 mmol/L Normal 101-111 Co2 Carbon Dioxide 25 mmol/L Normal 22-32 Anion Gap 9 mmol/L Normal 2-11 Glucose 99 mg/dL Normal 70-100 Blood Urea Nitrogen 13 mg/dL Normal 6-24 Creatinine 0.67 mg/dL Normal 0.51-0.95 BUN/Creatinine Ratio 19.4 Normal 8-20 Calcium 9.4 mg/dL Normal 8.6-10.3 Total Protein 6.4 g/dL Normal 6.4-8.9 Albumin 4.1 g/dL Normal 3.2-5.2 Globulin 2.3 g/dL Normal 2-4 Albumin/Globulin Ratio 1.8 Normal 1-3 Total Bilirubin 0.40 mg/dL Normal 0.2-1.0 Alkaline Phosphatase 53 U/L Normal 34-104 Alt 11 U/L Normal 7-52 Ast 17 U/L Normal 13-39 Egfr Non- 84.3 >60 Egfr 102.0 >60 1 1 Because ethnic data is not always readily available, this report includes an eGFR for both -Americans and non- Americans. The National Kidney Disease Education Program (NKDEP) does not endorse the use of the MDRD equation for patients that are not between the ages of 18 and 70, are , have extremes of body size, muscle mass, or nutritional status, or are non- or non-. According to the National Kidney Foundation, irrespective of diagnosis, the stage of the disease is based on the level of kidney function: Stage Description GFR(mL/min/1.73 m(2)) 1 Kidney damage with normal or decreased GFR 90 2 Kidney damage with mild decrease in GFR 60-89 3 Moderate decrease in GFR 30-59 4 Severe decrease in GFR 15-29 5 Kidney failure <15 (or dialysis) Procedures Date Code Description Status 05/28/2019 Inject/Drain Joint/Bursa Major W/O US Completed 05/07/2019 Inject/Drain Joint/Bursa Major W/O US Completed 04/13/2019 72029 Endoscopy Upper GI Balloon Dilation Of Esophagus Completed 02/12/2019 Inject/Drain Joint/Bursa Major W/O US Completed 01/03/2019 Inject/Drain Joint/Bursa Major W/O US Completed 08/16/2008 [id number] Mammogram Completed Medical Devices Description No Information Available Encounters Type Date Location Provider Dx Diagnosis Office Visit 05/07/2019 Shasha Lorenzo M.D. M70.61 Trochanteric 2:45p [facility] bursitis, right hip M54.16 Radiculopathy, lumbar region Office Visit 04/06/2019 [facility] Gastroenterology Jenae R13.10 Dysphagia, 11:00a Cordova, SUPERVISOR OF WAY unspecified K22.8 Other specified diseases of esophagus R53.1 Weakness Office Visit 03/09/2019 [facility] Gastroenterology [place] K59.00 Constipation, 11:30a Cordova, SUPERVISOR OF [address] unspecified K21.9 Gastro-esophageal reflux disease without esophagitis Office Visit 02/23/2019 [facility] Gastroenterology [place] R13.10 Dysphagia, 1:00p Cordova, SUPERVISOR OF WAY unspecified K59.00 Constipation, unspecified Office Visit 02/12/2019 2:00p Shasha Lorenzo M70.61 Trochanteric [facility] bursitis, right C.M.A. hip M54.31 Sciatica, right side Office Visit 01/03/2019 Shasha Lorenzo, M17.11 Unilateral primary 2:00p [facility] osteoarthritis, right C.M.A. knee M21.061 Valgus deformity, not elsewhere classified, right knee Assessments Date Code Description Provider 05/28/2019 M17.11 Unilateral primary osteoarthritis, right knee Dirk Maura, M.D. 05/07/2019 M70.61 Trochanteric bursitis, right hip Kevin Lorenzo M.D. 05/07/2019 M54.16 Radiculopathy, lumbar region Kevin Lorenzo M.D. 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 04/06/2019 R13.10 Dysphagia, unspecified Jenae Cordova, SUPERVISOR OF WAY 04/06/2019 K22.8 Other specified diseases of esophagus Jenae Cordova, SUPERVIS[address] OF [address] 04/06/2019 R53.1 Weakness Jenae Cordova, SUPERVIS[address] OF WAY 03/09/2019 K59.00 Constipation, unspecified Jenae Cordova, SUPERVIS[address] OF WAY 03/09/2019 K21.9 Gastro-esophageal reflux disease without Jenae Cordova, SUPERVIS[address] OF [address] esophagitis 02/23/2019 R13.10 Dysphagia, unspecified Jenae Cordova, SUPERVISOR OF WAY 02/23/2019 K59.00 Constipation, unspecified Jenae Cordova, SUPERVISOR OF WAY 02/12/2019 M70.61 Trochanteric bursitis, right hip Kevin Lorenzo M.D. 02/12/2019 M54.31 Sciatica, right side Kevin Lorenzo M.D. 01/03/2019 M17.11 Unilateral primary osteoarthritis, right knee Kevin Lorenzo M.D. 01/03/2019 M21.061 Valgus deformity, not elsewhere classified, Kevin Lorenzo M.D. right knee Plan of Treatment 05/28/2019 - Kevin Lorenzo M.D.M17.11 Unilateral primary osteoarthritis, right kneeFollow up:Follow up: As needed for the right knee severe arthritis Use the walker and be active as able Functional Status Description No Information Available Mental Status Description No Information Available Referrals Description No Information Available
--- OUTSIDE RECORDS SUMMARY | 2019-07-01 16:55 | XMS REPORT | Continuity of Care Document ---
:1935 External Reference #:[id number] Author Name Johanne Sanon Care Team Providers Name Role Phone Zev Humphrey MD Primary Care Physician Unavailable Payers Date Identification Numbers Payment Provider Subscriber Policy Number: [id number] Medicare Noam Hyman PayID: [id number] [address] [place] [address] Expires: 2019 Policy Number: [id number] Medicaid Noam Hyman Group Name: 1 1 [address] PayID: [id number] [place] [address] Policy Number: [id number] Medicaid Noam Hyman Group Name: 1 1 [address] PayID: [id number] [place] [address] Problems Active Problems Provider Date Dysphasia Jenae Cordova NP Onset: 02/23/2019 Constipation Jenae Cordova MOLDER MACHINE Onset: 02/23/2019 Frail elderly Jenae Cordova MOLDER MACHINE Onset: 02/23/2019 Dysphagia Jenae Cordova MOLDER MACHINE Onset: 04/06/2019 Note: discomfort with solid food Family History Date Family Member(s) Observation Comments General Cancer Social History Type Date Description Comments Sex Unknown Lives With Alone son out of town, grandchild at [place] [employer] Occupation Retired Tobacco Use Start: Unknown Never Smoked Cigarettes Smoking Status Reviewed: 05/07/19 Never Smoked Cigarettes ETOH Use Denies alcohol [...] twice a day Unknown in thin layer 305322-6.1Unit/GM-% Cream Potassium Chloride 15mL PO daily Unknown 20Meq/15ML (10%) Solution Align 1 by mouth every Unknown 4mg Capsules day History Medications Omeprazole 1 by mouth every 90caps Maurisio Loving, 03/26/2015 - 20mg Capsules DR day M.D. Unknown Nabumetone 1 po bid 60tabs Sixto López, 01/10/2013 - 500mg Tablets M.D. 04/03/2013 Tramadol HCL 1-2 tablets every 30tabs Sixto López, 01/02/2013 - 50mg Tablets 8 hours as needed M.D. 01/01/2015 [place] 1-2 po tid prn 30tabs Sixto López, 01/02/2013 - 5-325mg Tablets pain M.D. Unknown Hydrocodone Unknown - Bitartrate/Acetaminophe Unknown n Atorvastatin Calcium Unknown - Unknown Oxybutynin Chloride Unknown - Unknown Lyrica Unknown - Unknown Ranitidine HCL daily Unknown - Capsules Unknown Trazodone HCL 1 tablet at Unknown - 50mg Tablets bedtime as needed Unknown Levothyroxine Sodium 1 po qd 30tabs Unknown - 112mcg Unknown Tablets Simvastatin 1 tab po qhs Unknown - (?) Unknown Alprazolam 1 to 2 tabs qhs 10tabs Unknown - 0.5mg Tablets Unknown Citalopram 1 tab po daily Unknown - (?) Unknown Ibuprofen 2 caps po 2 to 3 Unknown - 200mg Capsules times daily prn 03/25/2015 Carisoprodol 1 tab po q8h prn 90tabs Unknown - 350mg Tablets muscle spasm 03/25/2015 Nabumetone take 1 tablet by Unknown - 500mg Tablets mouth twice a day Unknown prn headache Medications Administered in Office Medication SIG Qnty Indications Ordering Provider Date Depomedrol 40MG Kevin Lorenzo M.D. 02/12/2019 Injection Depomedrol 40MG Kevin Lorenzo M.D. 01/03/2019 Injection Vital Signs Date Vital Result Comment 05/07/2019 2:51pm Height 64 inches 5'4" Weight 150.00 lb Heart Rate 79 /min Body Temperature 98.7 F O2 % BldC Oximetry 92 % BMI (Body Mass Index) 25.7 kg/m2 04/06/2019 11:56am Body Temperature 97.6 F 04/06/2019 11:14am Height 64 inches Weight 157.00 lb Heart Rate 62 /min BP Systolic 140 mmHg BP Diastolic 83 mmHg O2 % BldC Oximetry 95 % BMI (Body Mass Index) 26.9 kg/m2 03/09/2019 11:34am Weight 159.00 lb Heart Rate 65 /min BP Systolic 136 mmHg BP Diastolic 76 mmHg O2 % BldC Oximetry 95 % 02/23/2019 1:03pm Heart Rate 76 /min BP Systolic 139 mmHg BP Diastolic 85 mmHg O2 % BldC Oximetry 97 % 02/12/2019 2:23pm Height 64 inches 5'4" Weight 156.00 lb Heart Rate 60 /min BP Systolic Sitting 124 mmHg BP Diastolic Sitting 72 mmHg Pain Level 0 BMI (Body Mass Index) 26.8 kg/m2 01/03/2019 2:18pm Height 64 inches 5'4" Weight 156.00 lb BP Systolic 116 mmHg BP Diastolic 70 mmHg Pain Level 2 BMI (Body Mass Index) 26.8 kg/m2 04/09/2015 1:06pm Height 64 inches 5'4" Weight 136.00 lb Pain Level 2 BMI (Body Mass Index) 23.3 kg/m2 03/26/2015 11:03am Height 64 inches 5'4" Weight 136.00 lb Heart Rate 52 /min BP Systolic Sitting 136 mmHg BP Diastolic Sitting 74 mmHg Respiratory Rate 16 /min BMI (Body Mass Index) 23.3 kg/m2 03/11/2015 2:31pm Height 64 inches 5'4" Weight 146.00 lb Pain Level 1 BMI (Body Mass Index) 25.1 kg/m2 02/25/2015 3:46pm Height 64 inches 5'4" Weight 146.00 lb Heart Rate 62 /min BP Systolic Sitting 149 mmHg BP Diastolic Sitting 84 mmHg Pain Level 8 BMI (Body Mass Index) 25.1 kg/m2 02/19/2015 1:04pm Height 64 inches 5'4" Weight 146.00 lb Pain Level 2 BMI (Body Mass Index) 25.1 kg/m2 01/29/2015 1:09pm Height 64 inches 5'4" Weight 146.00 lb Pain Level 8 BMI (Body Mass Index) 25.1 kg/m2 01/15/2015 4:46pm Height 64 inches 5'4" Weight 146.00 lb Heart Rate 78 /min BP Systolic 150 mmHg BP Diastolic 90 mmHg BMI (Body Mass Index) 25.1 kg/m2 04/03/2013 10:57am Heart Rate 64 /min BP Systolic Sitting 130 mmHg BP Diastolic Sitting 78 mmHg Respiratory Rate 16 /min Results Test Date Facility Test Result H/L Range Note CBC No Diff 04/06/2019 [facility] White Blood 7.7 10^3/uL Normal 3.5-10.[address] [place] [address] [phone] Red Blood Count 3.71 10^6/uL Normal 3.70-4.87 Hemoglobin 12.3 g/dL Normal 12.0-16.0 Hematocrit 35 % Normal 35-47 Mean Corpuscular Volume 95 fL Normal 80-97 Mean Corpuscular Hemoglobin 33 pg High 27-31 Mean Corpuscular HGB Conc 35 g/dL Normal 31-36 Red Cell Distribution Width 13 % Normal 10-15 Platelet Count 299 10^3/uL Normal 150-450 Mean Platelet Volume 8.7 fL Normal 7.4-10.4 Comp Metabolic 04/06/2019 [facility] Sodium 136 mmol/L Normal 135-145 Panel [address] [place] [address] [phone] Potassium 3.9 mmol/L Normal 3.5-5.0 Chloride 102 [...] Non- 84.3 >60 Egfr 102.0 >60 1 Laboratory test 07/28/2018 [facility] Vitamin B12 329 pg/mL Normal 180-914 2, 3 finding [address] [place] [address] [phone] TSH (Thyroid Stim Horm) 3.22 mcIU/mL Normal 0.34-5.60 4 1 Because ethnic data is not always [...] 15-29 5 Kidney failure <15 (or dialysis) 2 Comment: on blood in lab 3 Normal Range 180 to 914 Indeterminate Range 145 to 180 Deficient Range <145 4 Comment: on blood in lab Procedures Date Code Description Status 05/07/201924510 Inject/Drain Joint/Bursa Major W/O US Completed 04/13/2019 52373 Endoscopy Upper GI Balloon Dilation Of Esophagus Completed 02/12/201905794 Inject/Drain Joint/Bursa Major W/O US Completed 01/03/201951275 Inject/Drain Joint/Bursa Major W/O US Completed 06/17/2017 27255 EEG Recording Awake & Drowsy Completed 06/17/2017 43611 ECHO Transthorasic Realtime 2D W Doppler & Color Flow Completed Hosp 01/15/2015 60958 Closed TRTMT Clavicular Fracture Completed 12/18/2014 28451 EKG, Interpretation Only Completed 12/18/2014 72458 ECHO Transthorasic Realtime 2D W Doppler & Color Flow Completed Hosp 03/09/2013 60991 Walking Cast Completed 12/27/2012 13089 Short Leg Cast Completed 12/27/2012 16352 Short Leg Cast Completed 12/18/2012 11793 Rad Exam; Foot Comp Completed 12/18/2012 06835 Rad Exam; Ankle Limited Completed 12/18/2012 39712 Short Leg Cast Completed 09/01/2010 76619 EKG, Interpretation Only Completed 08/16/2008 [id number] Mammogram Completed Encounters Type Date Location Provider Dx Diagnosis Office Visit 04/06/2019 [facility] Gastroenterology Jena[place]ito Cordova, R13.10 Dysphagia, 11:00a MOLDER MACHINE unspecified K22.8 Other specified diseases of esophagus R53.1 Weakness Office Visit 03/09/2019 [facility] Gastroenterology Jenae K59.00 Constipation, 11:30a Art MOLDER MACHINE unspecified K21.9 Gastro-esophageal reflux disease without esophagitis Office Visit 02/23/2019 [facility] Gastroenterology Jenae R13.10 Dysphagia, 1:00p Cordova, MOLDER MACHINE unspecified K59.00 Constipation, unspecified Office Visit 02/12/2019 2:00p Orthopedic Kevin Lorenzo, M70.61 [facility] bursitis, right C.M.A. hip M54.31 Sciatica, right side Office Visit 01/03/2019 Orthopedic boris Maura, M17.11 Unilateral primary 2:00p [facility] osteoarthritis, right C.M.A. knee M21.061 Valgus deformity, not elsewhere classified, right knee Office Visit 07/30/2018 9:13a [facility] Lina Moreno, R53.1 Weakness Assoc, Hospitalists MOLDER MACHINE I10 Essential (primary) hypertension F41.9 Anxiety disorder, unspecified Office Visit 07/29/2018 Neurohospitalist Jessica Dowd, I67.82 Cerebral 7:00a Clinic [facility] ischemia Office Visit 07/28/2018 Neurohospitalist Maurisio Lee R47.81 Slurred speech 7:00a Clinic Ken Loving I67.82 Cerebral ischemia Office Visit 07/28/2018 9:13a [facility] Elizabeth R53.1 Weakness Assoc, Hospitalists GUERITA Siddiqui R47.81 Slurred speech R26.89 Other abnormalities of gait and mobility I10 Essential (primary) hypertension Office Visit 06/17/2017 Neurohospitalist Jessica R41.82 Altered mental 4:50p Clinic Ken Dowd status, unspecified R20.0 Anesthesia of skin R47.81 Slurred speech Z79.891 shelter (current) use of opiate analgesic Office Visit 06/17/2017 10:07a [facility] Kei G45.9 Transient Assoc,buffy Johnson MD cerebral ischemic Hospitalists attack, unspecified K21.9 Gastro-esophageal reflux disease without esophagitis G89.29 Other chronic pain E03.9 Hypothyroidism, unspecified Office Visit 06/16/2017 10:06a [facility] Kei G45.9 Transient Assoc,buffy Johnson MD cerebral ischemic Hospitalists attack, unspecified E03.9 Hypothyroidism, unspecified G89.29 Other chronic pain K21.9 Gastro-esophageal reflux disease without esophagitis Office Visit 03/26/2015 [facility] Maurisio Lee 332.1 Parkinsonism 11:00a Services Of Kate Loving M.D. Secondary Office Visit 12/18/2014 [facility] Temi Andrew, 781.0 Abnormal 10:21a Assbuffy baez M.D. 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 Office Visit 03/09/2013 3:15p Orthopedic [place] Heart6.72 Tendinitis Services Of Ken López Tibialis C.M.A. Office Visit 01/10/2013 1:30p Orthopedic Si[place] 724.3 Sciatica Services Of Ken López C.M.A. Office Visit 12/27/2012 11:30a Orthopedic Jordana Reyes 726.72 Tendinitis Services Of [facility] Tibialis C.M.A. Office Visit 12/18/2012 11:15a Orthopedic Sixt[place] 726.72 Tendinitis Services Of [facility] López Tibialis C.M.A. Plan of Treatment Future Appointment(s):05/28/2019 2:00 pm - Jenae Cordova NP at [facility] Mwaylayukrjpnodg40/05/2019 - Kevin Lorenzo M.D.M70.61 Trochanteric bursitis, right hipFollow up:Follow up: OK to use ice and heat on the right hipM54.16 Radiculopathy, lumbar regionNew Xrays:MRI Lumbar Spine W/O, Ordered: Follow up:Follow up: O/V after MRI LS spine
--- OUTSIDE RECORDS SUMMARY | 2019-07-01 16:55 | XMS REPORT | Continuity of Care Document ---
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 [facility] - Care Team Information Home Health Assistant Prosthetic/Orthotic Supplier Problems Active Problems Provider Date Dysphasia Jenae Cordova NP Onset: 02/23/2019 Constipation Jenae Cordova NP Onset: 02/23/2019 Frail elderly Jenae Cordova NP Onset: 02/23/2019 Dysphagia Jenae Cordova NP Onset: 04/06/2019 Note: discomfort with solid food Social History Type Date Description Comments Sex Unknown Tobacco Use Start: Unknown Never Smoked Cigarettes Smoking Status Reviewed: 05/29/19 Never Smoked Cigarettes ETOH Use Denies alcohol [...] twice a day Unknown in thin layer 768334-2.1Unit/GM-% Cream Potassium Chloride 15mL PO daily Unknown [...] Available Vital Signs Date Vital Result Comment 05/29/2019 9:46am Height 64 inches 5'4" Weight 152.00 lb Heart Rate 68 /min BP Systolic 147 mmHg BP Diastolic 79 mmHg O2 % BldC Oximetry 94 % BMI (Body Mass Index) 26.1 kg/m2 05/28/2019 2:54pm Height 64 inches 5'4" Weight 150.00 lb BP Systolic 138 mmHg BP Diastolic 80 mmHg Respiratory Rate 20 /min Pain Level 4 BMI (Body Mass Index) 25.7 kg/m2 Results Test Date Facility Test Result H/L Range Note CBC No Diff 04/06/2019 [facility] White Blood 7.7 10^3/uL Normal 3.5-10.[address] [place] [address] [phone] Red Blood Count 3.71 10^6/uL Normal 3.70-4.87 [...] Normal 7.4-10.4 Comp Metabolic 04/06/2019 [facility] Sodium 136 mmol/L Normal 135-[address] [place] [address] [phone] Potassium 3.9 mmol/L Normal 3.5-5.0 Chloride 102 [...] Inject/Drain Joint/Bursa Major W/O US Completed 04/13/2019 32783 Endoscopy Upper GI Balloon Dilation Of Esophagus Completed 02/12/2019 Inject/Drain Joint/Bursa Major W/O US Completed 01/03/2019 Inject/Drain Joint/Bursa Major W/O US Completed 08/16/2008 [id number] Mammogram Completed Medical Devices Description No Information Available Encounters Type Date Location Provider Dx Diagnosis Office Visit 05/07/2019 [facility] Kevin Lorenzo M.D. M70.61 Trochanteric 2:45p [facility] bursitis, right hip M54.16 Radiculopathy, lumbar region Office Visit 04/06/2019 [facility] [place] R13.10 Dysphagia, 11:00a Cordova, WEAVER AXMINSTER unspecified K22.8 Other specified diseases of esophagus R53.1 Weakness Office Visit 03/09/2019 [facility] [place] K59.00 Constipation, 11:30a Cordova, WEAVER AXMINSTER unspecified K21.9 Gastro-esophageal reflux disease without esophagitis Office Visit 02/23/2019 [facility] [place] R13.10 Dysphagia, 1:00p Cordova, WEAVER AXMINSTER unspecified K59.00 Constipation, unspecified Office Visit 02/12/2019 2:00p [facility] Kevin Lorenzo M70.61 [facility] bursitis, right [facility] hip M54.31 Sciatica, right side Office Visit 01/03/2019 Shasha Lorenzo, M17.11 Unilateral primary 2:00p [facility] osteoarthritis, right [facility] knee M21.061 Valgus deformity, not elsewhere classified, right knee Assessments Date Code Description Provider 05/28/2019 M17.11 Unilateral primary osteoarthritis, right knee Kevin Lorenzo M.D. 05/07/2019 M70.61 Trochanteric bursitis, right hip Kevin Lorenzo M.D. 05/07/2019 M54.16 Radiculopathy, lumbar region Kevin Lorenzo M.D. 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 04/06/2019 R13.10 Dysphagia, unspecified Jenae Cordova, WEAVER AXMINSTER 04/06/2019 K22.8 Other specified diseases of esophagus Jenae Cordova, WEAVER AXMINSTER 04/06/2019 R53.1 Weakness Jenae Cordova, WEAVER AXMINSTER 03/09/2019 K59.00 Constipation, unspecified Jenae Cordova, WEAVER AXMINSTER 03/09/2019 K21.9 Gastro-esophageal reflux disease without Jenae Cordova, WEAVER AXMINSTER esophagitis 02/23/2019 R13.10 Dysphagia, unspecified Jenae Cordova, WEAVER AXMINSTER 02/23/2019 K59.00 Constipation, unspecified Jenae Cordova, WEAVER AXMINSTER 02/12/2019 M70.61 Trochanteric bursitis, right hip Kevin Lorenzo M.D. 02/12/2019 M54.31 Sciatica, right side Kevin Lorenzo M.D. 01/03/2019 M17.11 Unilateral primary osteoarthritis, right knee Kevin Lorenzo M.D. 01/03/2019 M21.061 Valgus deformity, not elsewhere classified, Kevin Lorenzo M.D. right knee Plan of Treatment No Information Available Functional Status Description No Information Available Mental Status Description No Information Available Referrals Description No Information Available
--- NOTE | 2019-07-01 16:59 | ED ---
Lower Extremity - HPI Summary HPI Summary: This pt is an 83 Y/O F presenting to [facility] with a CC of a fall onto her R hip after falling from a standing position twice at 1500 today. She rates the pain a 2/10 in severity. She states that she lost her balance while she was feeding her cat and fell forward. She denies a LOC, hitting her head, and states that she is not on blood thinners. She states that her R leg hurts the most. She states that when she moves her leg she has increased pain in her right hip and her pain is levitated while she is lying down. She has a PMHx of thyroid disease and arthritis. - History of Current Complaint Chief Complaint: EDFall Stated Complaint: R HIP PAIN PER EMS Time Seen by Provider: 07/01/19 16:43 Hx Obtained From: Patient Mechanism Of Injury: Fall From A Standing Position Onset of Pain: Immediate Onset/Duration: Still Present Severity Initially: Mild Severity Currently: Mild Pain Intensity: 2 Pain Scale Used: 0-10 Numeric Timing: Constant Location: Is Discrete @ - R hip Associated Signs And Symptoms: Positive: Negative - LOC, head injury, Other - R hip pain Aggravating Factor(s): Movement Alleviating Factor(s): Rest - Allergies/Home Medications Allergies/Adverse Reactions: Allergies Allergy/AdvReac Type Severity Reaction Status Date / Time enalapril Allergy Intermediate COORDINATIO Verified 05/14/19 10:27 N erythromycin base Allergy Intermediate Vomiting Verified 05/14/19 10:27 clomipramine Allergy COORDINATIO Verified 05/14/19 10:27 N PMH/Surg Hx/FS Hx/Imm Hx Previously Healthy: Yes Endocrine/Hematology History: Reports: Hx Thyroid Disease Denies: Hx Diabetes, Hx Systemic Lupus Erythematosus Cardiovascular History: Denies: Hx Congestive Heart Failure, Hx Hypertension - denies, Hx Pacemaker/ ICD Respiratory History: Denies: Hx Asthma, Hx Chronic Obstructive Pulmonary Disease (COPD) Comment Only: Other Respiratory Problems/Disorders - 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 GI History: Reports: Hx Gastroesophageal Reflux Disease - ON MEDS, Hx Irritable Bowel - causes constipation History: Denies: Hx Dialysis, Hx Renal Disease Musculoskeletal History: Reports: Hx Arthritis - RIGHT HIP,KNEE AND ANKLE, CERVICAL SPINE Denies: Hx Rheumatoid Arthritis Sensory History: Reports: Hx Cataracts, Hx Contacts or Glasses, Hx Hearing Aid - EVELYN, Hx Hearing Problem - pt states she's waiting for her hearing aides to come in the mail Opthamlomology History: Reports: Hx Cataracts, Hx Contacts or Glasses Neurological History: Reports: Hx Headaches, Hx Migraine, Other Neuro Impairments/Disorders Psychiatric History: Reports: Hx Anxiety, Hx Depression Denies: Hx Panic Disorder - Cancer History Cancer Type, Location and Year: 2010 breast cancer - evelyn mastectomy Hx Chemotherapy: No Hx Radiation Therapy: No - Surgical History Surgery Procedure, Year, and Place: tonsils as a child, rt and lt maste[place] [facility] [place] 2006 [place], ( CLEARED BY DR MCKEON -05/14/19- [facility] ). CATARACTS Hx Anesthesia Reactions: No Infectious Disease History: No Infectious Disease History: Reports: Hx Tuberculosis - as a child Denies: History Other Infectious Disease, Traveled Outside the [place] in Last 30 Days - Family History Known Family History: Positive: Other - No FHx of malignant hyperthermia, No FHx of anesthesia reaction Family History: No FHx of malignant hyperthermia. No FHx of anesthesia reaction - Social History Alcohol Use: None Alcohol Amount: has stopped drinking alcohol completely Hx Substance Use: No Substance Use Type: Reports: None Hx Tobacco Use: Yes Smoking Status (MU): Former Smoker Type: Cigarettes Amount Used/How Often: 10 cigs in her entire life Review of Systems Musculoskeletal: Negative - head injury Positive: Other - R hip pain, increased with movement Neurological: Negative - LOC All Other Systems Reviewed And Are Negative: Yes Physical Exam - Summary Physical Exam Summary: Appearance: The patient is well-nourished in no acute distress and in no acute pain. Skin: The skin is warm and dry and skin color reflects adequate perfusion. HEENT: The head is normocephalic and atraumatic. The pupils are equal and reactive. The conjunctivae are clear and without drainage. Nares are patent and without drainage. Mouth reveals moist mucous membranes and the throat is without erythema and exudate. The external ears are intact. The ear canals are patent and without drainage. The tympanic membranes are intact. Neck: The neck is supple with full range of motion and non-tender. There are no carotid bruits. There is no neck vein distension. Respiratory: Chest is non-tender. Lungs are clear to auscultation and breath sounds are symmetrical and equal. Cardiovascular: Heart is regular rate and rhythm. There is no murmur or rub auscultated. There is no peripheral edema and pulses are symmetrical and equal. Abdomen: The abdomen is soft and non-tender. There are normal bowel sounds heard in all four quadrants and there is no organomegaly palpated. Musculoskeletal: There is no back tenderness noted. Tender to ROM and palpation of the R hip. There is good capillary refill. There is no peripheral edema or calf tenderness elicited. Neurological: Patient is alert and oriented to person, place and time. The patient has symmetrical motor strength in all four extremities. Cranial nerves are grossly intact. Deep tendon reflexes are symmetrical and equal in all four extremities. Psychiatric: The patient has an appropriate affect and does not exhibit any anxiety or depression. Triage Information Reviewed: Yes Vital Signs On Initial Exam: Initial Vitals Temp Pulse Resp BP Pulse Ox 98.8 F 69 18 149/77 96 07/01/19 16:23 07/01/19 16:23 07/01/19 16:23 07/01/19 16:23 07/01/19 16:23 Vital Signs Reviewed: Yes Diagnostics - Vital Signs Vital Signs Temp Pulse Resp BP Pulse Ox 07/01/19 16:23 98.8 F 69 18 149/77 96 - Laboratory Lab Statement: Any lab studies that have been ordered have been reviewed, and results considered in the medical decision making process. - Radiology Hip/Pelvis X-Ray Radiology Interpretation Completed By: Radiologist Summary of Radiographic Findings: OSTEOPENIA. NO RADIOGRAPHIC EVIDENCE FOR HIP FRACTURE. X-RAYS MAY BE NEGATIVE WITH NONDISPLACED HIP FRACTURE, IF THERE IS PERSISTENT CLINICAL CONCERN, RECOMMEND CONSIDERATION OF MRI. IN THE SETTING OF CONTRAINDICATION TO MRI OR LIMITATION IN EMERGENT ACCESS TO MRI, CT WOULD BE SUGGESTED. ED physician has reviewed this report. Lower Extremity Course/Dx - Course Course Of Treatment: Ms. Hyman is difficult to get a history from but I believe that she has chronic arthritis in her legs and hips and she had a mechanical fall earlier today. She called the ambulance which helped her up and she felt at that time that she would be okay and they helped her to her couch. She slept for a while and then when she got up she was having more pain. She went in the kitchen to feed the cat's and fell again bending over. She comes in primarily concerned that she has injured her hip on the right. As near as I can tell these were mechanical falls in [place] representing a new balance issue. X-ray was unremarkable. She was nontoxic in appearance with stable vitals. Subsequent to the evaluation she was able to get up and ambulate easily with her walker which she normally uses. - Diagnoses Provider Diagnoses: Injury of right hip Discharge ED - Sign-Out/Discharge Documenting (check all that apply): Patient Departure Patient Received Moderate/Deep Sedation with Procedure: No - Discharge Plan Condition: Stable Disposition: HOME Patient Education Materials: Hip Sprain (ED) Referrals: Zev Humphrey MD [Primary Care Provider] - - Billing Disposition and Condition Condition: STABLE Disposition: Home - Attestation Statements Document Initiated by Chinyereibe: Yes Documenting Scribe: Luis Pires Provider For Whom Tristian is Documenting (Include Credential): Isai Garcia MD Scribe Attestation: Luis Lawrence scribed for Isai Garcia MD on 07/01/19 at 1914. Scribe Documentation Reviewed: Yes Provider Attestation: The documentation as recorded by the Luis reynolds accurately reflects the service I personally performed and the decisions made by , Isai Garcia MD Status of Scribe Document: Viewed
[2019-07-01 22:43] VITALS: BP 166/73
== END 2019-07-01 22:44 | disposition home or self-care (01) ==
LOC: ED 16:09
DX: S79.911A Unspecified injury of right hip, initial encounter (principal); W18.30XA Fall on same level, unspecified, initial encounter; Y92.000 Kitchen of unspecified non-institutional (private) residence as the place of occurrence of the external cause; E07.9 Disorder of thyroid, unspecified; K21.9 Gastro-esophageal reflux disease without esophagitis; F41.9 Anxiety disorder, unspecified; F32.9 Major depressive disorder, single episode, unspecified; Z90.13 Acquired absence of bilateral breasts and nipples; Z87.891 Personal history of nicotine dependence; Z88.1 Allergy status to other antibiotic agents; Z88.8 Allergy status to other drugs, medicaments and biological substances; Z79.899 Other long term (current) drug therapy
CPT/HCPCS: 99283

== ENCOUNTER 2019-07-02 05:47 | Emergency (ER) | payer MEDICARE, MEDICAID ==
[2019-07-02] MEDS ORDERED: Acetaminophen TAB* 325 MG PO ONE (06:00)
--- NOTE | 2019-07-02 07:31 | ED ---
Lower Extremity - HPI Summary HPI Summary: Patient is a 83 female presenting to the ED with a fall this morning. She states she landed directly over her right hip and is having pain to this area at this time. Patient was seen yesterday also for a fall. She states she's been falling more frequently due to the weakness of her right knee. She has surgery scheduled tomorrow. She does have a home health aide at home during the day. Per practice professional, she has also been stating she has had slurred speech, however this has been for approximately 1 year. Denies any facial droop, weakness to the extremities. Denies confusion, memory loss. - History of Current Complaint Chief Complaint: EDFall Stated Complaint: FALL PER EMS Time Seen by Provider: 07/02/19 05:50 Hx Obtained From: Patient Mechanism Of Injury: Blunt Trauma Onset of Pain: Immediate Onset/Duration: Minutes Severity Initially: Mild Severity Currently: Mild Pain Intensity: 4 Pain Scale Used: 0-10 Numeric Timing: Constant Location: Is Discrete @ - right hip Character Of Pain: Aching Associated Signs And Symptoms: Positive: Negative. Negative: Swelling, Redness , Bruising, Weakness, Dizziness Aggravating Factor(s): Standing, Ambulation, Weight Bearing Alleviating Factor(s): Rest Able to Bear Weight: No - Risk Factors Gout Risk Factors: Negative DVT Risk Factors: Negative Septic Arthritis Risk Factor: Negative - Allergies/Home Medications Allergies/Adverse Reactions: Allergies Allergy/AdvReac Type Severity Reaction Status Date / Time enalapril Allergy Intermediate COORDINATIO Verified 07/02/19 06:44 N erythromycin base Allergy Intermediate Vomiting Verified 07/02/19 06:44 clomipramine Allergy COORDINATIO Verified 07/02/19 06:44 N PMH/Surg Hx/FS Hx/Imm Hx Previously Healthy: Yes Endocrine/Hematology History: Reports: Hx Thyroid Disease Denies: Hx Diabetes, Hx Systemic Lupus Erythematosus Cardiovascular History: Denies: Hx Congestive Heart Failure, Hx Hypertension - denies, Hx Pacemaker/ ICD Respiratory History: Denies: Hx Asthma, Hx Chronic Obstructive Pulmonary Disease (COPD) Comment Only: Other Respiratory Problems/Disorders - 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 GI History: Reports: Hx Gastroesophageal Reflux Disease - ON MEDS, Hx Irritable Bowel - causes constipation History: Denies: Hx Dialysis, Hx Renal Disease Musculoskeletal History: Reports: Hx Arthritis - RIGHT HIP,KNEE AND ANKLE, CERVICAL SPINE Denies: Hx Rheumatoid Arthritis Sensory History: Reports: Hx Cataracts, Hx Contacts or Glasses, Hx Hearing Aid - EVELYN, Hx Hearing Problem - pt states she's waiting for her hearing aides to come in the mail Opthamlomology History: Reports: Hx Cataracts, Hx Contacts or Glasses Neurological History: Reports: Hx Headaches, Hx Migraine, Other Neuro Impairments/Disorders Psychiatric History: Reports: Hx Anxiety, Hx Depression Denies: Hx Panic Disorder - Cancer History Cancer Type, Location and Year: 2010 breast cancer - evelyn mastectomy Hx Chemotherapy: No Hx Radiation Therapy: No - Surgical History Surgery Procedure, Year, and Place: tonsils as a child, rt and lt mastectomy 2010 [facility] [place],. left vitrectomy 2006 IN [place], ( CLEARED BY DR MCKEON -05/14/19- [facility] ). CATARACTS Hx Anesthesia Reactions: No - Immunization History Hx Pertussis Vaccination: No Immunizations Up to Date: Yes Infectious Disease History: No Infectious Disease History: Reports: Hx Tuberculosis - as a child Denies: History Other Infectious Disease, Traveled Outside the [place] in Last 30 Days - Family History Known Family History: Positive: Other - No FHx of malignant hyperthermia, No FHx of anesthesia reaction Family History: No FHx of malignant hyperthermia. No FHx of anesthesia reaction - Social History Occupation: Unemployed Lives: Alone - with aid at home during day Alcohol Use: None Alcohol Amount: has stopped drinking alcohol completely Hx Substance Use: No Substance Use Type: Reports: None Hx Tobacco Use: Yes Smoking Status (MU): Never Smoked Tobacco Type: Cigarettes Amount Used/How Often: 10 cigs in her entire life Review of Systems Constitutional: Negative Negative: Fever, Chills, Fatigue, Skin Diaphoresis Negative: Palpitations, Chest Pain Negative: Shortness Of Breath, Cough Genitourinary: Negative Positive: no symptoms reported, see HPI Positive: Arthralgia - right lateral hip pain Skin: Negative All Other Systems Reviewed And Are Negative: Yes Physical Exam Triage Information Reviewed: Yes Vital Signs On Initial Exam: Initial Vitals Temp Pulse Resp BP Pulse Ox 97.5 F 61 14 127/91 96 07/02/19 05:55 07/02/19 05:55 07/02/19 05:55 07/02/19 05:55 07/02/19 05:55 Vital Signs Reviewed: Yes Appearance: Positive: Well-Appearing, Well-Nourished Skin: Positive: Skin Color Reflects Adequate Perfusion Head/Face: Positive: Normal Head/Face Inspection Eyes: Positive: EOMI, Conjunctiva Clear Neck: Positive: Supple, No Lymphadenopathy Respiratory/Lung Sounds: Positive: Clear to Auscultation, Breath Sounds Present Cardiovascular: Positive: Pulses are Symmetrical in both Upper and Lower Extremities Musculoskeletal: Positive: Pain @ - right hip pain Neurological: Positive: Speech Normal Psychiatric: Positive: Affect/Mood Appropriate AVPU Assessment: Alert Diagnostics - Vital Signs Vital Signs Temp Pulse Resp BP Pulse Ox 07/02/19 06:38 59 128/72 93 07/02/19 06:08 59 143/73 94 07/02/19 06:00 60 96 07/02/19 05:57 62 95 07/02/19 05:56 61 96 07/02/19 05:55 97.5 F 61 14 127/91 96 - Laboratory Lab Statement: Any lab studies that have been ordered have been reviewed, and results considered in the medical decision making process. Lower Extremity Course/Dx - Course Course Of Treatment: This patient is evaluated for a fall this morning, landing on her right hip. She is endorsing pain over the lateral portion of the right hip without pain otherwise. She does have an appointment tomorrow for a knee surgery. She states she has been having more frequent falls at home d.t the pain in her right knee. Denies other symptoms. On physical examination, there is no shortening or internal rotation or external rotation of the right hip. No pain on palpation of the right hip. No pain with log roll the patient is able to flex and extend somewhat at the bilateral hip joints as well as the bilateral knees. She denies hitting her head. There are no signs of trauma. Hip and pelvis x-ray obtained which shows no acute findings. Ambulated patient well. Continues to endorse pain to the lateral side of the R hip, but this is mild, rated a 1/10 and she continues to ambulate well. - Diagnoses Differential Diagnosis/HQI/PQRI: Positive: Other - right hip pain, fall, multiple falls at home Provider Diagnoses: Hip pain, Fall Discharge ED - Sign-Out/Discharge Documenting (check all that apply): Patient Departure Patient Received Moderate/Deep Sedation with Procedure: No - Discharge Plan Condition: Stable Disposition: HOME Patient Education Materials: Fall Prevention for Older Adults (ED) Referrals: Zev Humphrey MD [Primary Care Provider] - Additional Instructions: Do not stand or walk without your aid at your aid - Billing Disposition and Condition Condition: STABLE Disposition: Home - Attestation Statements Provider Attestation: I was available for consultation for this patient. I did not evaluate the patient or participate in any medical decision making or disposition decisions unless I am specifically named in the chart as having consulted on the patient. If I have consulted on the patient, please see my own ED note on the patient encounter. Mera Osborne MD
[2019-07-02 07:38] VITALS: BP 131/68
== END 2019-07-02 07:37 | disposition home or self-care (01) ==
LOC: ED 05:47
DX: M25.551 Pain in right hip (principal); W19.XXXA Unspecified fall, initial encounter; Z91.81 History of falling; Y92.9 Unspecified place or not applicable; M85.88 Other specified disorders of bone density and structure, other site; K21.9 Gastro-esophageal reflux disease without esophagitis; Z88.1 Allergy status to other antibiotic agents; Z88.8 Allergy status to other drugs, medicaments and biological substances
CPT/HCPCS: 99282; A9270-GY

== ENCOUNTER 2019-07-09 21:15 | Emergency (ER) | payer MEDICARE, OTHER ==
--- OUTSIDE RECORDS SUMMARY | 2019-07-09 22:23 | XMS REPORT | Continuity of Care Document ---
:1935 External Reference #:[id number] Author Name Kevin Lorenzo M.D. 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 Supplier Problems Active Problems Provider Date Dysphasia Jenae Cordova NP Onset: 02/23/2019 Constipation Jenae Cordova HEAD SETTER Onset: 02/23/2019 Frail elderly Jenae Cordova HEAD SETTER Onset: 02/23/2019 Dysphagia Jenae Cordova HEAD SETTER Onset: 04/06/2019 Note: discomfort with solid food Social History Type Date Description Comments Sex Unknown Tobacco Use Start: Unknown Never Smoked Cigarettes Smoking Status Reviewed: 07/03/19 Never Smoked Cigarettes ETOH Use Denies alcohol [...] 1 by mouth twice a Unknown 150mg day, prn Only For Capsules Stomach Ache, Maybe Twice A Month Lyrica 1 by mouth twice a Unknown 50mg Capsules day Docusate Sodium 1 tab twice daily Unknown 100mg prn Capsules Oxybutynin Chloride 1 by mouth twice a Unknown 5mg day as neeeded Tablets Levothyroxine Sodium 1 by mouth every Unknown day 88mcg Tablets Ibuprofen as needed Unknown 800mg Tablets Nystatin-Triamcinolone apply twice a day Unknown in thin layer 713938-3.1Unit/GM-% Cream Potassium Chloride 15mL PO daily Unknown 20Meq/15ML (10%) Solution Align 1 by mouth every Unknown 4mg Capsules day Medications Administered in Office Medication SIG Qnty Indications Ordering Provider Date Depomedrol 40MG Kevin Lorenzo M.D. 05/28/2019 Injection Depomedrol 40MG Kevin Lorenzo M.D. 05/07/2019 Injection Depomedrol 40MG Kevni Lorenzo M.D. 02/12/2019 Injection Depomedrol 40MG Kevin Lorenzo M.D. 01/03/2019 Injection Immunizations Description No Information Available Vital Signs Date Vital Result Comment 07/03/2019 2:15pm Height 64 inches 5'4" Weight 152.00 lb Heart Rate 61 /min BP Systolic 130 mmHg BP Diastolic 78 mmHg Body Temperature 96.4 F Pain Level 5 BMI (Body Mass Index) 26.1 kg/m2 05/29/2019 9:46am Height 64 inches 5'4" Weight 152.00 lb Heart Rate 68 /min BP Systolic 147 mmHg BP Diastolic 79 mmHg O2 % BldC Oximetry 94 % BMI (Body Mass Index) 26.1 kg/m2 Results Test Date Facility Test Result H/L Range Note CBC No Diff 04/06/2019 [facility] White Blood 7.7 10^3/uL Normal 3.5-10.[address] [place] [address] [phone] Red Blood Count 3.71 10^6/uL Normal 3.70-4.87 Hemoglobin 12.3 g/dL Normal 12.0-16.0 Hematocrit 35 % Normal 35-47 Mean Corpuscular Volume 95 fL Normal 80-97 Mean Corpuscular Hemoglobin 33 pg High 27-31 Mean Corpuscular HGB Conc 35 g/dL Normal 31-36 Red Cell Distribution Width 13 % Normal 10-15 Platelet Count 299 10^3/uL Normal 150-450 Mean Platelet Volume 8.7 fL Normal 7.4-10.4 Comp Metabolic 04/06/2019 [facility] Sodium 136 mmol/L Normal 135-[address] [place] [address] [phone] Potassium 3.9 mmol/L Normal 3.5-5.0 Chloride 102 [...] Inject/Drain Joint/Bursa Major W/O US Completed 04/13/2019 05052 Endoscopy Upper GI Balloon Dilation Of Esophagus Completed 02/12/2019 Inject/Drain Joint/Bursa Major W/O US Completed 01/03/2019 Inject/Drain Joint/Bursa Major W/O US Completed 08/16/2008 [id number] Mammogram Completed Medical Devices Description No Information Available Encounters Type Date Location Provider Dx Diagnosis Office Visit 05/29/2019 [facility] Gastroenterology Jenae Cordova, K22.2 Esophageal 10:15a HEAD SETTER obstruction R13.10 Dysphagia, unspecified K21.9 Gastro-esophageal reflux disease without esophagitis Office Visit 05/28/2019 Yocasta Lorenzo, M17.11 Unilateral primary 3:15p Orthopedics at .D. osteoarthritis, right Dawson knee Office Visit 05/07/2019 Yocasta Lorenzo M70.61 Trochanteric 2:45p Orthopedics at .[place]oselyn bursitis, right hip Dawson M54.16 Radiculopathy, lumbar region Office Visit 04/06/2019 [facility] Gastroenterology Jenae R13.10 Dysphagia, 11:00a GUERITA Cordova unspecified K22.8 Other specified diseases of esophagus R53.1 Weakness Office Visit 03/09/2019 [facility] Gastroenterology Jenae K59.00 Constipation, 11:30a GUERITA Cordova unspecified K21.9 Gastro-esophageal reflux disease without esophagitis Office Visit 02/23/2019 [facility] Gastroenterology Jenae R13.10 Dysphagia, 1:00p GUERITA Cordova unspecified K59.00 Constipation, unspecified Office Visit 02/12/2019 2:00p [facility] Dirk Maura, M70.61 Trochanteric at [place] Ken bursitis, right hip M54.31 Sciatica, right side Office Visit 01/03/2019 Yocasta Brown Maura, M17.11 Unilateral primary 2:00p Orthopedics at .D. osteoarthritis, right Dawson knee M21.061 Valgus deformity, not elsewhere classified, right knee Assessments Date Code Description Provider 07/03/2019 M17.11 Unilateral primary osteoarthritis, right knee Kevin Lorenzo M.D. 05/29/2019 K22.2 Esophageal obstruction Jenae Cordova, HEAD SETTER 05/29/2019 R13.10 Dysphagia, unspecified Jenae Cordova, HEAD SETTER 05/29/2019 K21.9 Gastro-esophageal reflux disease without Jenae Cordova, HEAD SETTER esophagitis 05/28/2019 M17.11 Unilateral primary osteoarthritis, right knee Kevin Lorenzo M.D. 05/07/2019 M70.61 Trochanteric bursitis, right hip Kevin Lorenzo M.D. 05/07/2019 M54.16 Radiculopathy, lumbar region Kevin Lorenzo M.D. 04/13/2019 K22.2 Esophageal obstruction Jose Antonio Joreg MD 04/13/2019 K22.8 Other specified diseases of esophagus Jose Antonio Jorge MD 04/13/2019 R13.10 Dysphagia, unspecified Jose Antonio Jorge MD 04/13/2019 K44.9 Diaphragmatic hernia without obstruction or Jose Antonio Jorge MD gangrene 04/06/2019 R13.10 Dysphagia, unspecified Jenae Cordova, HEAD SETTER 04/06/2019 K22.8 Other specified diseases of esophagus Jenae Cordova, HEAD SETTER 04/06/2019 R53.1 Weakness Jenae Cordova, HEAD SETTER 03/09/2019 K59.00 Constipation, unspecified Jenae Cordova, HEAD SETTER 03/09/2019 K21.9 Gastro-esophageal reflux disease without Jenae Cordova, HEAD SETTER esophagitis 02/23/2019 R13.10 Dysphagia, unspecified Jenae Cordova, HEAD SETTER 02/23/2019 K59.00 Constipation, unspecified Jenae Cordova, HEAD SETTER 02/12/2019 M70.61 Trochanteric bursitis, right hip Kevin Lorenzo M.D. 02/12/2019 M54.31 Sciatica, right side Kevin Lorenzo M.D. 01/03/2019 M17.11 Unilateral primary osteoarthritis, right knee Kevin Lorenzo M.D. 01/03/2019 M21.061 Valgus deformity, not elsewhere classified, Kevin Lorenzo M.D. right knee Plan of Treatment Future Appointment(s):08/29/2019 1:45 pm - Kevin Lorenzo M.D. at [facility] at [place]/11/2019 10:00 am - Kevin Lorenzo M.D. at [facility] at [place]/03/2019 - Kevin Lorenzo M.D.M17.11 Unilateral primary osteoarthritis, right kneeFollow up:We are planning a knee replacement for September 11. Stay active with your walker at home See Dr. Humphrey for clearance please Functional Status Description No Information Available Mental Status Description No Information Available Referrals Description No Information Available
--- OUTSIDE RECORDS SUMMARY | 2019-07-09 22:23 | XMS REPORT | Continuity of Care Document ---
:1935 External Reference #:[id number] Author Name Chanel Sanon NP Address [address] [place] [address] Care Team Providers Name Role Phone Sixto López - Orthopaedic Surgery Care Team Information Car Pusher [phone] Visiting Nurse Services - Home Health Care Team Information Car Pusher Problems Active Problems Provider Date Hypothyroidism Zev Humphrey M.D. Onset: 12/01/2007 Hyperlipidemia Zev Humphrey M.D. Onset: 12/01/2007 Vitamin B deficiency Zev Humphrey M.D. Onset: 12/01/2007 Amnesia Zev Humphrey M.D. Onset: 12/01/2007 Anxiety state Zev Humphrey M.D. Onset: 12/01/2007 Dysthymia Zev Humphrey M.D. Onset: 01/08/2008 Parkinson's disease Zev Humphrey M.D. Onset: 07/01/2009 Acute sinusitis Zev Humphrey M.D. Onset: 10/29/2011 Acute upper respiratory infection eZv Humphrey M.D. Onset: 10/29/2011 Functional diarrhea Matty Giang M.D. Onset: 05/05/2012 Hemorrhoids without complication Zev Humphrey M.D. Onset: 07/18/2012 Pain in limb Zev Humphrey M.D. Onset: 07/18/2012 Arthralgia of the ankle and/or foot Zev Humphrey M.D. Onset: 11/06/2012 Tension-type headache Zev Humphrey M.D. Onset: 11/06/2012 Neck pain Zev Humphrey M.D. Onset: 05/04/2013 Diarrhea Zev Humphrey M.D. Onset: 06/18/2013 Acute gastritis Zev Humphrey M.D. Onset: 06/18/2013 Irritable bowel syndrome Zev Humphrey M.D. 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 Onset: 04/22/2014 Depressive disorder Zev Humphrey M.D. Onset: 09/10/2014 Insomnia Zev Humphrey M.D. Onset: 09/10/2014 Degenerative joint disease involving Zev Humphrey M.D. Onset: 10/11/2014 multiple joints Epigastric pain Zev Humphrey M.D. Onset: 10/21/2014 Benign essential hypertension Zev Humphrey M.D. Onset: 11/11/2014 Abnormal gait Curtis Lopez M.D. Onset: 12/23/2014 Coordination problem Zev Humphrey M.D. Onset: 01/06/2015 Cobalamin deficiency Zev Humphrey M.D. Onset: 01/06/2015 Vitamin D deficiency Zev Humphrey M.D. Onset: 01/06/2015 Hypokalemia Zev Humphrey M.D. Onset: 01/30/2015 Generalized anxiety disorder Zev Humphrey M.D. Onset: 08/04/2015 Pain in right lower limb Zev Humphrey M.D. Onset: 08/04/2015 Moderate recurrent major depression Zev Humphrey M.D. Onset: 08/04/2015 Psychophysiologic insomnia Zev Humphrey M.D. Onset: 08/04/2015 Essential hypertension Zev Humphrey M.D. Onset: 08/04/2015 Shoulder joint pain Zev Humphrey M.D. Onset: 08/04/2015 Herpes zoster without complication Zev Humphrey M.D. Onset: 08/04/2015 Slow transit constipation Zev Humprhey M.D. Onset: 12/09/2015 Bladder muscle dysfunction - overactive Zev Humphrey M.D. Onset: 2015 Constipation Zev Humphrey M.D. Onset: 06/08/2016 Headache Zev Humphrey M.D. Onset: 06/08/2016 Malaise and fatigue Zev Humphrey M.D. Onset: 11/30/2016 Altered mental status Zev Humphrey M.D. Onset: 06/24/2017 Contact dermatitis Zev Humphrey M.D. Onset: 09/19/2017 Arthralgia of the pelvic region and thigh Zev Humphrey M.D. Onset: 2017 Irritable bowel syndrome characterized by Zve Humphrey M.D. Onset: 2018 constipation Esophageal dysphagia Zev Humphrey M.D. Onset: 02/09/2019 Social History Type Date Description Comments Sex Unknown Tobacco Use Start: Unknown Nonsmoker ETOH Use Denies alcohol use Recreational Drug Use Denies Drug Use Tobacco Use Start: Unknown Patient has never smoked Allergies, Adverse Reactions, Alerts Active Allergies Reaction Severity Comments Date Erythromycin 05/31/2007 Anafranil balance problems/sleep disturbances 09/07/2011 Medications Active Medications SIG Qnty Indications Ordering Date Provider Erythromycin put 1cm ribbon 3.500gm H10.9 Chanel C. 07/05/2019 5mg/GM in left eye 3 Fab, GUERITA Ointment times per day for 5 days Simvastatin Take One Tablet 30tabs Zev Humphrey, 06/13/2019 40mg Tablets By Mouth Every M.D. Day Alprazolam take 1 to 3 90tabs Zev Humphrey, 05/17/2019 0.5mg Tablets tablets by mouth M.D. at bedtime as needed for anxiety maximum daily dose = three tablets Citalopram Take One Tablet 90tabs Zev Humphrey, 04/04/2019 Hydrobromide By Mouth Every M.D. 40mg Tablets Day Depends medium adult 1Carton Zev Humphrey, 12/04/2018 size. M.D. Align 1 by mouth every Zev Humphrey, 11/10/2018 4mg Capsules day M.D. Potassium Chloride 15 ML PO Daily 473ml Zev Humphrey, 11/10/2018 M.D. 20Meq/15ML (10%) Solution Triamcinolone apply to 80unbeth L30.9 Ankita Oneill 09/19/2017 Acetonide affected area(s) GUERITA Hill 0.1% Cream two times a day as needed R21 Ibuprofen Take One Tablet 60tabs M54.2 Zev Humphrey, 05/04/2016 800mg Tablets By Mouth Twice A M.D. Day as Needed For Pain Take With Food Levothyroxine Sodium Take One Tablet 30tabs Zev Humphrey, 12/10/2015 88mcg By Mouth Every M.D. Tablets Day Oxybutynin Chloride take one tablet 90tabs Zev Humphrey, 12/09/2015 5mg by mouth three M.D. Tablets times a day as needed for bladder control Docusate Sodium 1 po twice daily 120caps K59.01 Mine Ralphbhart, 2015 100mg prn PROTOTYPER Capsules Lyrica take two capsules 60caps M79.604 Zev Humphrey, 01/30/2015 50mg Capsules by mouth at M.D. bedtime for pain maximum daily dose = 2 capsule Ranitidine HCL Take One Tablet 60tabs Zev Humphrey, 12/30/2014 150mg By Mouth Twice A M.D. Tablets Day as Needed For Stomach Hydrocodone-Acetaminoph 1 by mouth three 90tabs M54.2 Zev Humphrey, 06/2015 en times a day as M.D. 5-325mg Tablets needed pain Omeprazole Take One Capsule 30caps Zev Humphrey, 10/11/[address] By Mouth Every M.D. Morning Trazodone HCL Take 2 To 3 90tabs Zev Humphrey, 01/14/2014 50mg Tablets Tablets By Mouth M.D. AT Bedtime as Needed For Sleep Metamucil 1 teaspoon in 8oz Zev Humphrey, 28.3% Powder water Daily M.D. Aspir-81 1 by mouth every Unknown 81mg Tablets DR day Atorvastatin Calcium Take One Tablet 30tabs Zev Humphrey, 40mg By Mouth Every M.D. Tablets Day Norvasc 1 by mouth every 30tabs Zev Humphrey, 5mg Tablets day for high M.D. blood pressure Medications Administered in Office Medication SIG Qnty Indications Ordering Provider Date B-12 Injection Zev Humphrey M.D. 01/06/2015 Injection Injection Subcutaneous Or Zev Humphrey M.D. 01/06/2015 Intramuscular Injection B-12 Injection Zev Humphrey M.D. 12/29/2007 Injection Injection Subcutaneous Or Zev Humphrey M.D. 12/29/2007 Intramuscular Injection B-12 Injection Zev Humphrey M.D. 12/18/2007 Injection Injection Subcutaneous Or Zev Humphrey M.D. 12/18/2007 Intramuscular Injection B-12 Injection Curtis Lopez M.D. 12/01/2007 Injection B-12 Injection Zev Humphrey M.D. 12/01/2007 Injection Injection Subcutaneous Or Curtis Lopez M.D. 12/01/2007 Intramuscular Injection B-12 Injection Pradonp-C 08/16/2007 Injection Injection Subcutaneous Or Ania Freitasorf, Maria Del Carmennp-C 08/16/2007 Intramuscular Injection B-12 Injection Ania Ricky, Maria Del Carmennp-C 07/19/2007 Injection Injection Subcutaneous Or Ania Ricky, Afnp-C 07/19/2007 Intramuscular Injection Immunizations CPT Code Status Date Vaccine Lot # [id number] Given 05/09/2018 Pneumococcal Immunization [id number] 99569 Given 09/06/2017 High-Dose, Influenza Virus Vacccine-fluzone 65 [id number] and older 54751 Given 08/17/2016 High-Dose, Influenza Virus Vacccine-fluzone 65 [id number] and older 12979 Given 12/09/2015 Pneumococcal Conjugate Vacc-13 [id number] 42508 Given 08/04/2015 High-Dose, Influenza Virus Vacccine-fluzone 65 [id number] and older 49670 Given 10/11/2014 High-Dose, Influenza Virus Vacccine-fluzone 65 [id number] and older 13069 Given 06/18/2013 High-Dose, Influenza Virus Vacccine-fluzone 65 [id number] and older 03629 Given 07/18/2012 High-Dose, Influenza Virus Vacccine-fluzone 65 [id number] and older 88354 Given 07/03/2010 DO Not Use Split Influenza Virus Vaccine [id number] 92425 Given 02/21/2009 Tetanus And Diptheria Adult Preservative Free >7Yrs 00292 Given 08/12/2008 DO Not Use Split Influenza Virus Vaccine [id number] 73471 Given 07/19/2007 DO Not Use Split Influenza Virus Vaccine [id number] Vital Signs Date Vital Result Comment 07/05/2019 6:26pm BP Systolic 132 mmHg BP Diastolic 80 mmHg Heart Rate 64 /min Body Temperature 98.9 F Respiratory Rate 16 /min Weight 150.00 lb 05/14/2019 2:51pm BP Systolic 104 mmHg BP Diastolic 60 mmHg Heart Rate 60 /min Body Temperature 97.8 F Respiratory Rate 16 /min Weight 151.00 lb Results Description No Information Available Procedures Date Code Description Status 12/04/2010 [id number] Colonoscopy Completed 08/12/2010 [id number] Mammogram Completed 08/16/2008 [id number] Mammogram Completed 08/03/2007 [id number] Bone Mineral Density Test Completed 06/29/2007 [id number] Mammogram Completed Medical Devices Description No Information Available Encounters Type Date Location Provider Dx Diagnosis Office Visit 07/05/2019 Main Office Chanel Kent H10.9 Unspecified 6:30p GUERITA Sanon conjunctivitis Office Visit 05/14/2019 Main Office Zev Humphrey, I10 Essential (primary ) 2:20p M.D. hypertension F51.04 Psychophysiologic insomnia F41.1 Generalized anxiety disorder E03.9 Hypothyroidism, unspecified K58.1 Irritable bowel syndrome with constipation M25.551 Pain in right hip M15.0 Primary generalized (osteo)arthritis M54.5 Low back pain Office Visit 02/09/2019 2:40p Main Office Zev Humphrey, I10 Essential ( primary) M.D. hypertension F51.04 Psychophysiologic insomnia F41.1 Generalized anxiety disorder E03.9 Hypothyroidism, unspecified K58.1 Irritable bowel syndrome with constipation M25.551 Pain in right hip R13.14 Dysphagia, pharyngoesophageal phase Assessments Date Code Description Provider 07/05/2019 H10.9 Unspecified conjunctivitis Chanel Sanon NP 05/14/2019 I10 Essential (primary) hypertension Zev Humphrey M.D. 05/14/2019 F51.04 Psychophysiologic insomnia Zev Humphrey M.D. 05/14/2019 F41.1 Generalized anxiety disorder Zev Humphrey M.D. 05/14/2019 E03.9 Hypothyroidism, unspecified Zev Humphrey M.D. 05/14/2019 K58.1 Irritable bowel syndrome with constipation Zev Humphrey M.D. 05/14/2019 M25.551 Pain in right hip Zev Humphrey M.D. 05/14/2019 M15.0 Primary generalized (osteo)arthritis Zev Humphrey M.D. 05/14/2019 M54.5 Low back pain Zev Humphrey M.D. 02/09/2019 I10 Essential (primary) hypertension Zev Humphrey M.D. 02/09/2019 F51.04 Psychophysiologic insomnia Zev Humphrey M.D. 02/09/2019 F41.1 Generalized anxiety disorder Zev Humphrey M.D. 02/09/2019 E03.9 Hypothyroidism, unspecified Zev Humphrey M.D. 02/09/2019 K58.1 Irritable bowel syndrome with constipation Zev Humphrey M.D. 02/09/2019 M25.551 Pain in right hip Zev Humphrey M.D. 02/09/2019 R13.14 Dysphagia, pharyngoesophageal phase Zev Humphrey M.D. Plan of Treatment Future Appointment(s):08/14/2019 2:20 pm - Zev Humphrey M.D. at [facility]/05/2019 - Chanel Sanon, NPH10.9 Unspecified conjunctivitisNew Medication:Erythromycin 5 mg/GM - put 1cm ribbon in left eye 3 times per day for 5 daysComments:Call VIKTORIA if condition changes/worsens in any wayAllComments: 1. Patient has been queried about patient's goals/preferences and functional/ lifestyle goals at relevant visits. If relevant, describe: Has been discussed, noted above2. Treatment goals as explainedto the patient: see above3. Are there barriers to meeting treatment goals? Yes If Yes, please describe: Barriers include possible insurance limits, disease process, and difficulty with lifestyle changes4. Self-Management goals as described to the patient: Yes , see above As always, we strongly encourage a healthy diet and making physical activity a part of your every day life. If you have questions about how or where to start, please contact the office. Functional Status Description No Information Available Mental Status Description No Information Available Referrals Refer to Reason for Referral Status Appt Date [facility] Consult and treat. Office note, labs and triage Sent faxed. LT [address] [facility] [address] [phone] Jose Antonio Jorge MD Consult and treat. Office note, labs and Scheduled demographics faxed. LT 2 [facility] [address] [phone] Maura PORTILLO, Kevin Consult and treat. LT Scheduled 02/12/2019 [facility] [address], [place] [address] [phone]
[2019-07-09] MEDS ORDERED: Acetaminophen TAB* 325 MG PO ONE (23:15)
[2019-07-09] MEDS ORDERED: Ibuprofen TAB* 600 MG PO ONE (23:15)
--- NOTE | 2019-07-09 23:15 | ED ---
Headache - HPI Summary HPI Summary: Patient complains of headache which was intense from onset starting at noon, nasal congestion 7 days, discharge from both eyes. Denies anti-coag, trauma, chronic EtOH. Denies fever, cough, sore throat, CP, SOB, N/V/D, abdominal pain , change in urine, change in BM. Medical history is GERD, hypothyroid, Parkinson's, TIA, HTN, arthritis. - History Of Current Complaint Chief Complaint: EDHeadache Stated Complaint: HEADACHES PER EMS Time Seen by Provider: 07/09/19 22:45 Hx Obtained From: Patient Onset/Duration: Gradual Onset Initially Headache Was: Severe Currently Pain Is: Mild Timing: Constant Character: Throbbing Location of Headache: Diffuse Aggravating Factor: Bright Lights Allevating Factors: Nothing Associated Signs And Symptoms: Negative - Allergies/Home Medications Allergies/Adverse Reactions: Allergies Allergy/AdvReac Type Severity Reaction Status Date / Time enalapril Allergy Intermediate COORDINATIO Verified 07/02/19 06:44 N erythromycin base Allergy Intermediate Vomiting Verified 07/02/19 06:44 clomipramine Allergy COORDINATIO Verified 07/02/19 06:44 N PMH/Surg Hx/FS Hx/Imm Hx Endocrine/Hematology History: Reports: Hx Thyroid Disease Denies: Hx Diabetes, Hx Systemic Lupus Erythematosus Cardiovascular History: Denies: Hx Congestive Heart Failure, Hx Hypertension - denies, Hx Pacemaker/ ICD Respiratory History: Denies: Hx Asthma, Hx Chronic Obstructive Pulmonary Disease (COPD) Comment Only: Other Respiratory Problems/Disorders - 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 GI History: Reports: Hx Gastroesophageal Reflux Disease - ON MEDS, Hx Irritable Bowel - causes constipation History: Denies: Hx Dialysis, Hx Renal Disease Musculoskeletal History: Reports: Hx Arthritis - RIGHT HIP,KNEE AND ANKLE, CERVICAL SPINE Denies: Hx Rheumatoid Arthritis Sensory History: Reports: Hx Cataracts, Hx Contacts or Glasses, Hx Hearing Aid - EVELYN, Hx Hearing Problem - pt states she's waiting for her hearing aides to come in the mail Opthamlomology History: Reports: Hx Cataracts, Hx Contacts or Glasses EENT History: Reports: Hx Deafness Neurological History: Reports: Hx Headaches, Hx Migraine, Other Neuro Impairments/Disorders Psychiatric History: Reports: Hx Anxiety, Hx Depression Denies: Hx Panic Disorder - Cancer History Cancer Type, Location and Year: 2010 breast cancer - evelyn mastectomy Hx Chemotherapy: No Hx Radiation Therapy: No - Surgical History Surgery Procedure, Year, and Place: tonsils as a child, rt and lt mastectomy 2011 [facility] [place],. left vitrectomy 2006 IN [place], ( CLEARED BY DR MCKEON -05/14/19- ). CATARACTS Hx Anesthesia Reactions: No - Immunization History Immunizations Up to Date: Yes Infectious Disease History: No Infectious Disease History: Reports: Hx Tuberculosis - as a child Denies: History Other Infectious Disease, Traveled Outside the [place] in Last 30 Days - Family History Known Family History: Positive: Other - No FHx of malignant hyperthermia, No FHx of anesthesia reaction Family History: No FHx of malignant hyperthermia. No FHx of anesthesia reaction - Social History Alcohol Use: None Alcohol Amount: has stopped drinking alcohol completely Hx Substance Use: No Substance Use Type: Reports: None Hx Tobacco Use: Yes Smoking Status (MU): Never Smoked Tobacco Type: Cigarettes Amount Used/How Often: 10 cigs in her entire life Review of Systems Constitutional: Negative Positive: Drainage Positive: Nasal Discharge Cardiovascular: Negative Respiratory: Negative Gastrointestinal: Negative Genitourinary: Negative Musculoskeletal: Negative Skin: Negative Positive: Headache Psychological: Normal All Other Systems Reviewed And Are Negative: Yes Physical Exam - Summary Physical Exam Summary: Neuro exam normal. Triage Information Reviewed: Yes Vital Signs On Initial Exam: Initial Vitals Temp Pulse Resp BP Pulse Ox 97.0 F 55 16 171/78 98 07/09/19 21:15 07/09/19 21:15 07/09/19 21:15 07/09/19 21:15 07/09/19 21:15 Vital Signs Reviewed: Yes Appearance: Positive: Well-Appearing Skin: Positive: Warm Head/Face: Positive: Normal Head/Face Inspection Eyes: Positive: Normal ENT: Positive: Normal ENT inspection Neck: Positive: Supple Respiratory/Lung Sounds: Positive: Clear to Auscultation Cardiovascular: Positive: Normal Abdomen Description: Positive: Nontender Musculoskeletal: Positive: Normal Neurological: Positive: Normal Psychiatric: Positive: Normal AVPU Assessment: Alert - [place] Coma Scale Best Eye Response: 4 - Spontaneous Best Motor Response: 6 - Obeys Commands Best Verbal Response: 5 - Oriented Coma Scale Total: 15 Procedures - Sedation Patient Received Moderate/Deep Sedation with Procedure: No Diagnostics - Vital Signs Vital Signs Temp Pulse Resp BP Pulse Ox 07/09/19 21:15 97.0 F 55 16 171/78 98 - Laboratory Result Diagrams: 07/09/19 23:52 07/09/19 23:52 Lab Statement: Any lab studies that have been ordered have been reviewed, and results considered in the medical decision making process. Headache Course/Dx - Course Course Of Treatment: Patient complains of headache which was intense from onset starting at noon, nasal congestion 7 days, discharge from both eyes. Denies anti-coag, trauma, chronic EtOH. Denies fever, cough, sore throat, CP, SOB, N/V /D, abdominal pain, change in urine, change in BM. Medical history is GERD, hypothyroid, Parkinson's, TIA, HTN, arthritis. Vital signs within normal limits. WBC 17.7. Labs otherwise unremarkable. CT negative. - Diagnoses Provider Diagnoses: Sinusitis, Headache, Conjunctivitis Discharge ED - Sign-Out/Discharge Documenting (check all that apply): Patient Departure - Discharge Plan Condition: Stable Disposition: HOME Prescriptions: DOXYcycline CAP(*) [DOXYcycline 100MG CAP(*)] 100 mg PO BID 7 Days #14 cap Patient Education Materials: Sinusitis (ED), Conjunctivitis (ED) Referrals: Zev Humphrey MD [Primary Care Provider] - Additional Instructions: Take doxycycline twice a day for 7 days for sinusitis. Put 1 drop of antibiotic solution in each eye every 3 hours for 5 days. Take Tylenol 650 mg every 4 hours for headache. Follow-up with primary care. Return to the ED for any new or worsening symptoms. - Billing Disposition and Condition Condition: STABLE Disposition: Home - Attestation Statements Provider Attestation: I was available for consult. This patient was seen by the UBALDO. The patient was not presented to, seen by, or examined by me. Severo Mayer MD
[2019-07-10 00:01] LABS: Urine Appearance Cloudy; Urine Bacteria Absent (Absent); Urine Bilirubin Negative (Negative); Urine Blood Negative (Negative); Urine Color Yellow; Urine Glucose Negative (Negative); Urine Ketones Trace (Negative); Urine Nitrite Negative (Negative); Urine Protein Negative (Negative); Urine Red Blood Cell Absent (Absent); Urine Specific Gravity 1.004 (1.010-1.030); Urine Urobilinogen Negative (Negative); Urine White Blood Cell 2+(11-20/hpf) (Absent)
[2019-07-10 00:06] LABS: ABS Eosinophils 0.1 10^3/ul (0-0.6); ABS Lymphocytes 2.7 10^3/ul (1.0-4.8); ABS Monocytes 1.5 10^3/ul (0-0.8); ABS Neutrophils 13.3 10^3/ul (1.5-7.7); Eosinophil % 0.7 %; Hematocrit 39 % (35-47); Hemoglobin 12.8 g/dL (12.0-16.0); Lymphocyte % 15.2 %; Mean Corpuscular HGB Conc 33 g/dL (31-36); Mean Corpuscular Hemoglobin 31 pg (27-31); Mean Corpuscular Volume 96 fL (80-97); Mean Platelet Volume 7.8 fL (7.4-10.4); Nucleated Red Blood Cells % 0.1; Platelet Count 367 10^3/uL (150-450); Red Blood Count 4.08 10^6 /uL (3.70-4.87); Red Cell Distribution Width 14 % (10-15); White Blood Count 17.7 10^3/uL (3.5-10.8)
[2019-07-10 00:24] LABS: ALT 12 U/L (7-52); AST 17 U/L (13-39); Albumin/Globulin Ratio 1.3 (1-3); Alkaline Phosphatase 79 U/L (34-104); Anion Gap 9 mmol/L (2-11); BUN/Creatinine Ratio 27.4 (8-20); Blood Urea Nitrogen 17 mg/dL (6-24); C Reactive Protein 3.76 mg/L (<8.01); CO2 Carbon Dioxide 26 mmol/L (22-32); Calcium 9.4 mg/dL (8.6-10.3); Chloride 102 mmol/L (101-111); EGFR African American 111.5 (>60); EGFR Non-African American 92.2 (>60); Globulin 3.1 g/dL (2-4); Glucose 102 mg/dL (70-100); Potassium 3.4 mmol/L (3.5-5.0); Sodium 137 mmol/L (135-145); Total Protein 7.1 g/dL (6.4-8.9)
[2019-07-10] MEDS ORDERED: DOXYcycline CAP(*) 100 MG PO ONE (01:16)
[2019-07-10] MEDS ORDERED: Polymyx/Trimethoprim OPTH* 10 ML BTL BOTH EYES SCH (01:30)
[2019-07-10 02:50] VITALS: BP 160/84
== END 2019-07-10 02:50 | disposition home or self-care (01) ==
LOC: ED 21:15
DX: J32.9 Chronic sinusitis, unspecified (principal); H10.9 Unspecified conjunctivitis; R51 Headache; K21.9 Gastro-esophageal reflux disease without esophagitis; E03.9 Hypothyroidism, unspecified; G20 Parkinson's disease; I10 Essential (primary) hypertension; F41.9 Anxiety disorder, unspecified; F32.9 Major depressive disorder, single episode, unspecified; Z86.73 Personal history of transient ischemic attack (TIA), and cerebral infarction without residual deficits; Z90.13 Acquired absence of bilateral breasts and nipples; Z79.82 Long term (current) use of aspirin; Z79.890 Hormone replacement therapy; Z79.899 Other long term (current) drug therapy; Z88.1 Allergy status to other antibiotic agents; Z88.8 Allergy status to other drugs, medicaments and biological substances
CPT/HCPCS: 36415; 70450; 80053; 80164; 81003; 81015; 83605; 85025; 86140; 87086; 99283; A9270-GY

== ENCOUNTER 2019-07-25 14:56 | Emergency (ER) | payer MEDICARE, OTHER ==
--- NOTE | 2019-07-25 15:03 | ED ---
Neurological HPI - HPI Summary HPI Summary: 83 year old F brought in by EMS to [facility] complains of blurred vision in her right eye worse then normal and "strange" headache of her right cheek area that started at 13:00 today 07/25/19 after lunch with her support group. Denies weakness. Patient has had blurred vision in her right eye before. Hx headaches. States she doesn't get headaches often. States she feels tightness in right nostril, right eye, and right restorationism. Has never had this tightness before. Denies right ear pain, rhinorrhea. Reports chronic post nasal drip. Does not take any medications for her sinuses. Symptoms aggravated by nothing. Symptoms alleviated by nothing. Takes aspirin 81 mg at night. Hasn't taken it today. Has had surgery on her right eye in [place]. Has had CT scan before. Pt has been seen by Dr. Loving for past similar sx CODE CH 14:45. Patient met upon arrival to ED at 14:[address] Loving. Patient to CT at 14:56. Patient on anticoagulants. Patients medication reviewed this visit. - History of Current Complaint Stated Complaint: POSS STROKE PER EMS Hx Obtained From: Patient Onset/Duration: Started hours ago - 13:00 today, Still Present Timing: Constant Aggravating: Nothing Alleviating: Nothing - Additional Pertinent History Primary Care Physician: ANA - Allergy/Home Medications Allergies/Adverse Reactions: Allergies Allergy/AdvReac Type Severity Reaction Status Date / Time enalapril Allergy Intermediate COORDINATIO Verified 07/02/19 06:44 N erythromycin base Allergy Intermediate Vomiting Verified 07/02/19 06:44 clomipramine Allergy COORDINATIO Verified 07/02/19 06:44 N Home Medications: Home Medications HYDROcodone/ACETAMIN 5-325 MG* [[place] 5-325 TAB*] 1 tab PO TID PRN 07/25/19 [ History Confirmed 07/25/19] Oxybutynin TAB* [Ditropan TAB*] 5 mg PO TID PRN 07/25/19 [History Confirmed ] Potassium Chloride 15 ml PO DAILY 07/25/19 [History Confirmed 07/25/19] Psyllium NASIM* [Metamucil NASIM*] 1 pkt PO DAILY 07/25/19 [History Confirmed ] Simvastatin (NF) [Zocor (NF)] 40 mg PO DAILY 07/25/19 [History Confirmed ] amLODIPine TAB* [Norvasc 5 mg TAB*] 5 mg PO DAILY 07/25/19 [History Confirmed ] PMH/Surg Hx/FS Hx/Imm Hx Previously Healthy: No Endocrine/Hematology History: Reports: Hx Thyroid Disease Denies: Hx Diabetes, Hx Systemic Lupus Erythematosus Cardiovascular History: Denies: Hx Congestive Heart Failure, Hx Hypertension - denies, Hx Pacemaker/ ICD Respiratory History: Denies: Hx Asthma, Hx Chronic Obstructive Pulmonary Disease (COPD) Comment Only: Other Respiratory Problems/Disorders - 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 GI History: Reports: Hx Gastroesophageal Reflux Disease - ON MEDS, Hx Irritable Bowel - causes constipation History: Denies: Hx Dialysis, Hx Renal Disease Musculoskeletal History: Reports: Hx Arthritis - RIGHT HIP,KNEE AND ANKLE, CERVICAL SPINE Denies: Hx Rheumatoid Arthritis Sensory History: Reports: Hx Cataracts, Hx Contacts or Glasses, Hx Deafness, Hx Hearing Aid - EVELYN, Hx Hearing Problem - pt states she's waiting for her hearing aides to come in the mail Opthamlomology History: Reports: Hx Cataracts, Hx Contacts or Glasses Neurological History: Reports: Hx Headaches, Hx Migraine, Other Neuro Impairments/Disorders Psychiatric History: Reports: Hx Anxiety, Hx Depression Denies: Hx Panic Disorder - Cancer History Cancer Type, Location and Year: 2010 breast cancer - evelyn mastectomy Hx Chemotherapy: No Hx Radiation Therapy: No - Surgical History Surgery Procedure, Year, and Place: tonsils as a child, rt and [place] [facility] [place] 2006 [place], ( CLEARED BY DR MCKEON -05/14/19- ). CATARACTS Hx Anesthesia Reactions: No Infectious Disease History: Reports: Hx Tuberculosis - as a child Denies: History Other Infectious Disease - Family History Known Family History: Positive: Other - No FHx of malignant hyperthermia, No FHx of anesthesia reaction, Non-Contributory Family History: No FHx of malignant hyperthermia. No FHx of anesthesia reaction - Social History Alcohol Use: None Alcohol Amount: has stopped drinking alcohol completely Hx Substance Use: No Substance Use Type: Reports: None Hx Tobacco Use: Yes Smoking Status (MU): Former Smoker Type: Cigarettes Amount Used/How Often: 10 cigs in her entire life Review of Systems Positive: Blurred Vision - right eye ENT: Negative - rhinorrhea Negative: Ear Ache - right Neurological: Other - tightness in right nostril, right eye, and right restorationism Positive: Headache. Negative: Weakness - right side All Other Systems Reviewed And Are Negative: Yes Physical Exam - Summary Physical Exam Summary: Vital Signs Reviewed: Yes A+Ox3, no distress, appropriate, no distress A+Ox3 Eyes: Conjunctiva Clear, KARMEN.surgica right pupil, + reactive b/l peripheral vision equal on confrontation, no papiledema ENT: Hearing grossly normal TM x 2 clear, mmoist, uvula midline, no exudate, no erythema, symmetric smile Neck: Positive: Supple Respiratory: Positive: No respiratory distress, No accessory muscle use + CTA throughout no w/r Cardiovascular: RRR nl s1, s2 no m/r CBT <2 sec abd soft + BS nt/nd no guarding, no distension Musculoskeletal Exam: BOWDEN x 4 without difficulty Strength Intact, ROM Intact Neurological: Positive: Alert, - see code NIH paperwork full AROM ext x 4, pain right knee related to baseline arthritis Psychological: 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 - Radiology CXR Radiology Interpretation Completed By: Radiologist Summary of Radiographic Findings: NO ACTIVE CARDIOPULMONARY DISEASE. ED physician has reviewed this report. - CT Brain CT Interpretation Completed By: Radiologist Summary of CT Findings: NO ACUTE INTRACRANIAL PATHOLOGY. DIFFUSE INVOLUTIONAL CHANGE WITH CHRONIC SMALL VESSEL ISCHEMIC CHANGES. PRELIMINARY FINDINGS WERE DISCUSSED WITH DR. TARANGO IN THE EMERGENCY DEPARTMENT AT APPROXIMATELY 3:06 PM ON JULY 25, 2019. ED physician has reviewed this report. Head CTA CT Interpretation Completed By: Radiologist Summary of CT Findings: 1. No acute angiographic abnormality in the head or neck. 2. According to NASCET criteria there is 0% degree stenosis at the bilateral carotid bulbs. ED physician has reviewed this report. - EKG 1544 Cardiac Rate: Bradycardia - 52 BPM EKG Rhythm: Sinus Bradycardia Summary of EKG Findings: No acute changes Re-Evaluation - Re-Evaluation First Eval Re-Evaluation Time: 15:05 Change: Unchanged - Dr. Jiang, radiology, reports that CT findings show nothing acute pt declined APAP for MCMILLAN Second Eval Re-Evaluation Time: 15:15 Change: Unchanged - Dr. Loving states that patient is not having any acute symptoms - will get CTA if renal function ok - no other acute intervention at this time Third Eval Re-Evaluation Time: 17:37 Change: Unchanged Comment: informed of head CTA results. patient was able to walk to the bathroom with her home rolling walker - no distress - states knees "stiff" from being in stretcher -would like to go home. requests wheelchair van Fourth Eval Re-Evaluation Time: 17:41 Change: Unchanged Comment: informed that Dr. Loving recommend d/c plan. no change to 81mg ASA regimen. will culture urine. understands d/c instructions. agreeable to d/c Course/Dx - Course Course Of Treatment: Pt presents and called michael Ch from [facility]. Pt with right sided vision blurriness different then usual and MCMILLAN described as nostril and right side face. No weakness, changes with speech or communication. Pt direct to CT by EMS - neuro at bedside. Increased BP - pt with history or similar. PT states has had same sx in the past as had today - declined analgesia for MCMILLAN. will continiue with michael ch procedures, urine, labs, ekg, close reassessment - Diagnoses Provider Diagnoses: Facial pain, Headache, Change in vision During the Visit The Following Alert/Code Occurred: Michael Ch - 14:45 - Physician Notifications Discussed Care Of Patient With: Maurisio Loving Time Discussed With Above Provider: 17:41 Instructed by Provider To: Other - Dr. Loving, neurology, agrees with d/c plan Discharge ED - Sign-Out/Discharge Documenting (check all that apply): Patient Departure - Discharge - Discharge Plan Condition: Stable Disposition: HOME Patient Education Materials: Acute Headache (ED), Paresthesia (ED) Referrals: Zev Humphrey MD [Primary Care Provider] - Additional Instructions: - Stay well hydrated. Drink plenty of non-alcoholic, non-caffinated beverages - Take your medications exactly as prescribed - continue to take 81mg "baby" aspirin daily - Your urine has been sent for additional testing to eval for a urinary tract infection - if you need additional treatment you will receive a call from a care steam box hand - contact your doctor to schedule a follow-up appointment. Contact your doctor, call 911 or return with questions or concerns - Billing Disposition and Condition Condition: STABLE Disposition: Home - Attestation Statements Document Initiated by Tristian: Yes Documenting Scribe: Brissa Tejeda Provider For Whom Tristian is Documenting (Include Credential): Tasha Tarango MD Scribe Attestation: IBrissa, scribed for Tasha Tarango MD on 07/26/19 at 2102. Scribe Documentation Reviewed: Yes Provider Attestation: The documentation as recorded by the Brissa reynolds accurately reflects the service I personally performed and the decisions made by me, Tasha Tarango MD Status of Scribe Document: Viewed
[2019-07-25 15:24] LABS: ABS Basophils 0.1 10^3/ul (0-0.2); ABS Eosinophils 0.2 10^3/ul (0-0.6); ABS Lymphocytes 2.8 10^3/ul (1.0-4.8); ABS Monocytes 0.8 10^3/ul (0-0.8); ABS Neutrophils 4.5 10^3/ul (1.5-7.7); Eosinophil % 2.8 %; Hematocrit 37 % (35-47); Hemoglobin 12.2 g/dL (12.0-16.0); Lymphocyte % 33.2 %; Mean Corpuscular HGB Conc 34 g/dL (31-36); Mean Corpuscular Hemoglobin 32 pg (27-31); Mean Corpuscular Volume 94 fL (80-97); Mean Platelet Volume 8.1 fL (7.4-10.4); Nucleated Red Blood Cells % 0.1; Platelet Count 277 10^3/uL (150-450); Red Blood Count 3.87 10^6 /uL (3.70-4.87); Red Cell Distribution Width 14 % (10-15); White Blood Count 8.3 10^3/uL (3.5-10.8)
[2019-07-25 15:32] LABS: Activated Partial Thrombo Time 32.7 seconds (26.0-38.0); INR 0.94 (0.82-1.09)
[2019-07-25 15:44] LABS: Albumin 3.7 g/dL (3.2-5.2); Albumin/Globulin Ratio 1.3 (1-3); BUN/Creatinine Ratio 20.3 (8-20); EGFR African American 90.9 (>60); EGFR Non-African American 75.1 (>60); Globulin 2.9 g/dL (2-4); Potassium 3.7 mmol/L (3.5-5.0); Total Bilirubin 0.3 mg/dL (0.2-1.0); Total Protein 6.6 g/dL (6.4-8.9)
[2019-07-25] MEDS: Iohexol 350* (CONTRAST) 500 ML MDV IV ONE (16:38)
[2019-07-25 16:50] LABS: Urine Appearance Cloudy; Urine Bacteria Absent (Absent); Urine Bilirubin Negative (Negative); Urine Blood Negative (Negative); Urine Color Yellow; Urine Glucose Negative (Negative); Urine Ketones Negative (Negative); Urine Nitrite Negative (Negative); Urine Protein Negative (Negative); Urine Red Blood Cell Absent (Absent); Urine Specific Gravity 1.012 (1.010-1.030); Urine Squamous Epithelial Cell Present (Absent); Urine Urobilinogen Negative (Negative); Urine White Blood Cell Trace(0-5/hpf) (Absent)
--- NOTE | 2019-07-25 16:57 | CONS ---
NEUROLOGY CONSULTATION: DATE OF CONSULT: 07/25/19 LOCATION: She is in the emergency room. REFERRING PROVIDER: Tasha Johnson MD CHIEF COMPLAINT: Headache, worsened vision. HISTORY OF PRESENT ILLNESS: Noam Hyman is an 83-year-old woman known to me from prior evaluations for some neurological symptoms including headache and some visual symptoms and numbness. She noted relatively mild headache today and some worsening of her chronically poor vision in her right eye. She spoke to her son, who works, I believe, for the [employer] in [facility] and he either called 911 or recommended that she call 911. Ambulance was summoned and ambulance electronic field service engineer tell me that they did not notice any focal weakness or other deficits other than very slow and purposeful speech. She was brought into the emergency room and we met her in the [place] on the gurney. We recognized each other and I noticed her speech was slow and purposeful as it has been in the past, but did not seem any different. She had no obvious weakness on cursory exam and so she was taken to the CT scanner. The CT scan revealed diffuse involutional change without changes from the prior scans in the record. I reviewed the images personally and I agree. In the emergency room, she reports a mild headache. She reports that the vision in her right eye is a little bit worse than it usually is, but thinks that has been the case for at least a few days if not a few weeks. She has not noticed any numbness in her limbs or new weakness. She has not had any difficulty walking over and above her usual problems related to arthritis. PAST MEDICAL HISTORY: Notable for bilateral cataract extractions, chronic dysphagia, small esophageal stricture by endoscopy, small hiatal hernia, remote history of breast cancer with double mastectomy, hypothyroidism, Paget's disease , hemorrhoids, anxiety. PAST SURGICAL HISTORY: She has had cataract surgery, tonsillectomy, double mastectomy. MEDICATIONS: At home consist of: 1. Synthroid 88 mcg p.o. q. day. 2. Aspirin 81 mg p.o. q. day. 3. Zantac 150 mg p.o. b.i.d. 4. Lyrica 100 mg p.o. q.h.s. 5. Omeprazole 40 mg p.o. q. day. 6. Atorvastatin 40 mg p.o. q. day. 7. Oxybutynin 5 mg p.o. t.i.d. 8. Hydrocodone 5/325 one p.o. q. day as needed for pain. 9. Trazodone 150 mg p.o. q. day. 10. Norvasc 5 mg p.o. q. day. REVIEW OF SYSTEMS: Essentially notable for the change in vision and headache. She has chronic joint pain, which limits her ambulation. She has not had any recent falls. She has not had any change in weight. She has not had any fevers or infections. She has not noticed any numbness on one side or the other or weakness on one side or the other recently. PHYSICAL EXAM: She is well nourished and well hydrated. Temperature is 98, blood pressure 160/84, heart rate is in the 60s and regular. Respiratory rate is 18 and oxygen saturation is 95% on room air. Her heart tones sound normal. Oral mucosa is moist and atraumatic. Head is atraumatic. There is pain with passive and active manipulation about the hips. Neurological Exam: Pupils are equal and react to light from about 3 to 2 mm. Fundi reveal sharp, pale discs bilaterally. Eye movements are full. Visual borges are full to confrontation. Facial musculature is intact and symmetric. Facial sensation to pin is intact and symmetric. Palate rises symmetrically and tongue protrudes in the midline. Speech is a little bit hoarse, but not dysarthric. Hearing is intact. Motor exam reveals normal strength in the limbs proximally without drift of any of the limbs. [id number] maneuver is normal bilaterally. She cannot do a heel-to- abdul because of limitation of hip mobility. Sensory exam in the extremities is symmetric to pin. Confrontation, naming is intact. She is able to describe the NIH pictorial quite accurately and fluently. She is able to repeat the phrases of the NIH Stroke Scale with her purposeful speech, but no dysarthria. Memory is intact. NIH Score is 0. DIAGNOSTIC STUDIES/LAB DATA: Includes a CT of the brain as described. Her chemistries and other laboratory studies are still pending. IMPRESSION AND PLAN: Impression is that of some fairly vague symptoms of a dull headache in a patient with prior history of headaches and some perhaps increased blurriness in her right eye with chronic visual problems. I do not see anything that really sounds like a cerebrovascular event. She is going to get a CT angiogram of the brain if her lab tests do not show any significant renal dysfunction. She is already on aspirin and I do not recommend adding anything further until we get the CT angiogram and observe her in the ER little bit further. If the CT angiogram is negative and the labs are normal, I think she probably could just go home on her aspirin as I really do not see anything here to suggest a new cerebrovascular event. I have discussed my preliminary impression with Dr. Tasha Johnson. [id number]/[facility] #: [id number] JERONIMO
[2019-07-25] MEDS: NS 0.9% 1000 ML** 1,000 ML IV ONE (17:28)
[2019-07-25 17:52] VITALS: BP 184/85
[2019-07-25] MEDS: Acetaminophen TAB* 325 MG PO ONE (17:56)
--- NOTE | 2019-07-27 08:37 | ED ---
Imaging and Labs Follow Up Follow Up Type: Labs/Cultures Labs/Culture Result: Pt presents with neuro symptoms and no UTI sxs Urine culture grew moderate strep group b pt asymptomatic and will not be tx at this time Patient Communication/Plan: no change in tx Patient Communication/Plan: no change in tx Provider Diagnoses: Facial pain, Headache, Change in vision
--- NOTE | 2019-07-29 06:08 | ED ---
Imaging and Labs Follow Up Follow Up Type: Labs/Cultures Labs/Culture Result: patient urine culture grew aerococcus viridans 50-75,000. Patient Communication/Plan: spoke with patient and no uti symptoms so will not treat at this time Provider Diagnoses: Facial pain, Headache, Change in vision
== END 2019-07-25 18:01 | disposition home or self-care (01) ==
LOC: ED 14:56
DX: R51 Headache (principal); H53.9 Unspecified visual disturbance; E03.9 Hypothyroidism, unspecified; K21.9 Gastro-esophageal reflux disease without esophagitis; F41.9 Anxiety disorder, unspecified; F32.9 Major depressive disorder, single episode, unspecified; Z85.3 Personal history of malignant neoplasm of breast; Z90.13 Acquired absence of bilateral breasts and nipples; Z87.891 Personal history of nicotine dependence; Z79.82 Long term (current) use of aspirin; Z79.890 Hormone replacement therapy; Z79.899 Other long term (current) drug therapy; Z88.1 Allergy status to other antibiotic agents; Z88.8 Allergy status to other drugs, medicaments and biological substances
CPT/HCPCS: 36415; 70450; 70496; 70498; 71045; 80053; 80061; 81003; 81015; 83605; 84484; 85025; 85610; 85730; 87077; 87086; 93005; 96360; 99284; A9270-GY; Q9967

== ENCOUNTER 2019-09-11 08:59 | Inpatient (IN) | payer MEDICARE, OTHER ==
--- NOTE | 2019-08-29 16:46 | HP ---
HISTORY AND PHYSICAL: DATE OF ADMISSION/SURGERY: 09/11/19 PROVIDER: Dr. Kevin Lorenzo.* (DICTATED BY ALMITA LIRIANO) HISTORY OF PRESENT ILLNESS: Mrs. Hyman is a 83-year-old female who has been followed for severe arthritis of the right knee. She is inactive at home, lives alone. She does use a walker to ambulate. Function is quite limited by right knee pain. She has fallen multiple times in the past years. She has failed conservative management at this point and would like to proceed with a right total knee arthroplasty at this point. PAST MEDICAL HISTORY: 1. Arthritis. 2. Irritable bowel syndrome. 3. Hypothyroidism. 4. Hypocholesterolemia. PAST SURGICAL HISTORY: 1. Double mastectomy. 2. Bilateral cataract surgery. 3. Tonsillectomy. MEDICATIONS: 1. Align 4 mg by mouth every day. 2. Potassium chloride 20 mEq/15 mL. 3. Nystatin. 4. Ibuprofen 800 mg. 5. Levothyroxine 88 mcg. 6. Oxybutynin chloride 5 mg. 7. Docusate sodium 100. 8. Lyrica 50. 9. Ranitidine 150. 10. Hydrocodone 5/325. 11. Omeprazole 40. 12. Citalopram 40. 13. Trazodone 50. 14. Alprazolam 0.5 mg. 15. Metamucil smooth texture 28.3%. 16. Aspirin 81 mg. 17. Atorvastatin calcium 40 mg. 18. Amlodipine 5 mg. ALLERGIES: 1. ERYTHROMYCIN causes vomiting. 2. AUREOMYCIN, unknown reaction. FAMILY HISTORY: 1. Sister, breast cancer. 2. Grandfather, pancreatic cancer. 3. Mother, multiple strokes. SOCIAL HISTORY: The patient lives alone, has a health aide for 7 hours a day and 6 days a week. Denies any drinking, smoking, or illicit drug use. REVIEW OF SYSTEMS: General: The patient denies any fevers, chills, or night sweats. No known anesthesia problems. HEENT: The patient denies any headaches or lightheadedness. Cardiothoracic: The patient denies any chest pain or heart palpitations. Pulmonary: The patient denies any shortness of breath with exertion or chronic cough. GI: The patient admits to constipation. Denies any nausea, vomiting, or diarrhea. : The patient denies any nocturia or urinary frequency. Neuro: The patient denies any paresthesias, numbness. Integument: No abrasions, lesions, rashes, lumps, or open sores. PHYSICAL EXAMINATION GENERAL: The patient is alert and oriented x3 with appropriate mood and affect. Appropriate dress and hygiene. No acute distress. HEENT: Normocephalic, atraumatic. Hearing and vision are grossly intact. CARDIO: Regular rate and rhythm. Normal S1 and S2. No appreciable S3 or S4. No murmurs, rubs or gallops. PULMONARY: Lungs are clear to auscultation bilaterally with no wheezes, rales, or rhonchi. MSK: Inspection of right knee revealed no erythema or ecchymosis. Skin is warm , dry, and intact. There is valgus malalignment of the knee. She has a range of motion of 2 to 3 degrees shy of full extension to 105 degrees of flexion. She has tenderness along the lateral and medial joint lines. She has no instability of varus or valgus stress testing. Negative anterior and posterior drawer testing. Neurovascularly intact distally. IMAGING: X-rays of the right knee were obtained and reviewed today and showed severe osteoarthritis, specifically in the lateral joint compartment with bone- on- bone narrowing and tricompartmental spurring. IMPRESSION: Right knee severe end-stage osteoarthritis. PLAN: 1. To the OR for a right total knee arthroplasty to be performed by Dr. Kevin Lorenzo on 09/11/19. 2. The patient will follow up in 10 to 14 days postop for followup and suture removal. ALMIAT LIRIANO [id number]/[facility] #: [id number] JERONIMO
[~2019-09-11 08:59] MED LIST: Buffered Lidocaine 1% SYRIN* 1 ML/SYRINGE INTRADERM ONE; Famotidine IV* 10 MG/ML 2 ML (20 mg) IV ONE; Lactated Ringers 1000 ML Bag* 1,000 ML IV SCH; Tranexamic Acid 1,000 MG in NS 0.9% 50 ML* (outpatient use) IV SCH
--- OUTSIDE RECORDS SUMMARY | 2019-09-11 09:02 | XMS REPORT | Continuity of Care Document ---
:1935 External Reference #:[id number] Author Name Kevin Lorenzo M.D. 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 Problems Active Problems Provider Date Dysphasia Jenae Cordova NP Onset: 02/23/2019 Constipation Jenae Cordova [employer] Onset: 02/23/2019 Frail elderly Jenae Cordova [employer] Onset: 02/23/2019 Dysphagia Jenae Cordova [employer] Onset: 04/06/2019 Note: discomfort with solid food Social History Type Date Description Comments Sex Unknown Tobacco Use Start: Unknown Never Smoked Cigarettes Smoking Status Reviewed: 08/29/19 Never Smoked Cigarettes ETOH Use Denies alcohol [...] twice a day Unknown in thin layer 624378-3.1Unit/GM-% Cream Potassium Chloride 15mL PO daily Unknown [...] Available Vital Signs Date Vital Result Comment 08/29/2019 1:54pm Height 64 inches 5'4" Weight 152.00 lb Heart Rate 88 /min BP Systolic 158 mmHg BP Diastolic 86 mmHg Respiratory Rate 18 /min Pain Level 8 BMI (Body Mass Index) 26.1 kg/m2 07/03/2019 2:15pm Height 64 inches 5'4" Weight 152.00 lb Heart Rate 61 /min BP Systolic 130 mmHg BP Diastolic 78 mmHg Body Temperature 96.4 F Pain Level 5 BMI (Body Mass Index) 26.1 kg/m2 Results Test Acquired Date Facility Test Result H/L Range Note CBC No Diff 04/06/2019 [facility] [place] White Blood 7.7 10^3/uL Normal 3.5-10.[address] [place] [address] [phone] Red Blood Count 3.71 10^6/uL Normal 3.70-4.87 Hemoglobin 12.3 g/dL Normal 12.0-16.0 Hematocrit 35 % Normal 35-47 Mean Corpuscular Volume 95 fL Normal 80-97 Mean Corpuscular Hemoglobin 33 pg High 27-31 Mean Corpuscular HGB Conc 35 g/dL Normal 31-36 Red Cell Distribution Width 13 % Normal 10-15 Platelet Count 299 10^3/uL Normal 150-450 Mean Platelet Volume 8.7 fL Normal 7.4-10.4 Comp Metabolic 04/06/2019 [facility] [place] Sodium 136 mmol/L Normal 135-[address] [place] [address] [phone] Potassium 3.9 mmol/L Normal 3.5-5.0 Chloride 102 [...] (or dialysis) Procedures Date Code Description Status 05/28/201997784 Inject/Drain Joint/Bursa Major W/O US Completed 05/07/201904665 Inject/Drain Joint/Bursa Major W/O US Completed 04/13/2019 08503 Endoscopy Upper GI Balloon Dilation Of Esophagus Completed 08/16/2008 97508683 Mammogram Completed Medical Devices Description No Information Available Encounters Type Date Location Provider Dx Diagnosis Office Visit 07/03/2019 [facility] Kevin Lorenzo, M17.11 Unilateral 2:15p [place] primary osteoarthritis, right knee Office Visit 05/29/2019 [facility], K22.2 Esophageal 10:15a [employer] obstruction R13.10 Dysphagia, unspecified K21.9 Gastro-esophageal reflux disease without esophagitis Office Visit 05/28/2019 [facility] M17.11 Unilateral primary 3:15p [facility] [place] osteoarthritis, right [place] knee Office Visit 05/07/2019 [facility] M70.61 Trochanteric 2:45p [facility] [place] bursitis, right hip [place] M54.16 Radiculopathy, lumbar region Office Visit 04/06/2019 [facility] R13.10 Dysphagia, 11:00a GUERITA Cordova unspecified K22.8 Other specified diseases of esophagus R53.1 Weakness Office Visit 03/09/2019 [facility] Patricia Emanuel K59.00 Constipation, 11:30a GUERITA Cordova unspecified K21.9 Gastro-esophageal reflux disease without esophagitis Assessments Date Code Description Provider 08/29/2019 M17.11 Unilateral primary osteoarthritis, right knee Kevin Lorenzo M.D. 07/03/2019 M17.11 Unilateral primary osteoarthritis, right knee Kevin Lorenzo M.D. 05/29/2019 K22.2 Esophageal obstruction Jenae Cordova, [employer] 05/29/2019 R13.10 Dysphagia, unspecified Jenae Cordova, [employer]ER 05/29/2019 K21.9 Gastro-esophageal reflux disease without Jenae Cordova, [employer]ER esophagitis 05/28/2019 M17.11 Unilateral primary osteoarthritis, right [...] gangrene 04/06/2019 R13.10 Dysphagia, unspecified Jenae Cordova, [employer]ER 04/06/2019 K22.8 Other specified diseases of esophagus Jenae Cordova, [employer] TE[employer]ER 04/06/2019 R53.1 Weakness Jenae Cordova, [employer] TE[employer]ER 03/09/2019 K59.00 Constipation, unspecified Jenae Cordova, [employer] TE[employer]ER 03/09/2019 K21.9 Gastro-esophageal reflux disease without Jenae Cordova, [employer] TE[employer]ER esophagitis Plan of Treatment Future Appointment(s):10/01/2019 3:30 pm - Kevin Lorenzo M.D. at [facility] at [id number]/11/2019 10:00 am - Kevin Lorenzo M.D. at [facility] at [place]/29/2019 - Kevin Lorenzo M.D.M17.11 Unilateral primary osteoarthritis, right kneeNew Xrays:Kneeright 4+ VWS, Ordered: 08/29/19Follow up :Follow up: 14-20 days after surgery Right total knee replacement 09/11/19 Stay active with your walker Functional Status Description No Information Available Mental Status Description No Information Available Referrals Description No Information Available
--- OUTSIDE RECORDS SUMMARY | 2019-09-11 09:02 | XMS REPORT | Continuity of Care Document ---
:1935 External Reference #:[id number] Author Name Lisa Vela O.D. Address [address] [place] [address] Care Team Providers Name Role Phone Zev Humphrey M.D. 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 Onset: 11/13/2015 Presbyopia Lisa Vela O.D. Onset: 11/13/2015 Presence of intraocular lens Lisa Vela O.D. Onset: 11/13/2015 Tear film insufficiency Lisa Vela O.D. Onset: 11/13/2015 Arthritis Onset: Social History Type Date Description Comments Sex Unknown ETOH Use Occasionally consumes alcohol Tobacco Use Start: Unknown Patient has never smoked Recreational Drug Use Denies Drug Use Smoking Status Reviewed: 08/21/19 Patient has never smoked Allergies, Adverse Reactions, Alerts Active Allergies Reaction Severity Comments Date Hay Fever 02/28/2018 Erythromycin 08/21/2019 Inactive Allergies NKDA 02/28/2018 Medications Active Medications SIG Qnty Indications Ordering Provider Date Refresh Optive Advanced as needed 40ml H04.123 Lisa Vela, 02/28/2018 O.D. 0.5-1-0.5% Solution Align by mouth every Unknown 4mg Capsules day Oxybutynin Chloride Unknown 5mg Tablets Melatonin ER Unknown 10mg Tablets ER Atorvastatin Calcium Take One Tablet Unknown 40mg By Mouth Every Tablets Day Metaxalone Unknown 800mg Tablets Alprazolam Unknown 0.5mg Tablets Hydrocodone-Acetaminoph Unknown en 5-325mg Tablets Trazodone HCL Unknown 50mg Tablets Levothyroxine Sodium Unknown 100mcg Tablets Ibuprofen Unknown 800mg Tablets Citalopram Hydrobromide Unknown 40mg Tablets Simvastatin Unknown 40mg Tablets Ranitidine HCL Unknown 150mg Tablets Omeprazole Unknown [address] Nabumetone Unknown 750mg Tablets Lyrica Unknown 100mg Capsules Immunizations Description No Information Available Vital Signs Description No Information Available Results Description No Information Available Procedures Description No Information Available Medical Devices Description No Information Available Encounters Description No Information Available Assessments Date Code Description Provider 08/21/2019 H04.123 Dry eye syndrome of bilateral lacrimal glands Lisa Vela O.D. 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 08/21/2019 H52.4 Presbyopia Lisa Vela O.D. Plan of Treatment 08/21/2019 - Lisa Vela O.D.H04.123 Dry eye syndrome of bilateral lacrimal glandsComments:Both of your eyes appear to be dry. Use artificial tears as directed. You can use the tears more often if you are reading a book or are on the computer, as we tend to blink less, making our eyes dry out more.[facility] offers a few items in our optical department to help alleviate dry eye symptoms. START DOING WARM COMPRESSES WITH GENTLE LID MASSAGE BOTH EYES BEFORE BEDFollow up:2 WEEKS REVIEW OF SYMPTOMS/MR CHECK At your next visit, we are not planning to dilate your eyes. However, if you have any changes in your vision or new symptoms, there are certain situations that require us to dilate your eyes. If Dr. Vela requests any additional testing, that may require extra time. If you have any questions before your next appointment, please call our office at .H34.232 Retinal artery branch occlusion, left eyeComments:You have a Branch Retinal Artery Occlusion in your left eye. This occurs when the retinal arteries have become blocked by, amongst other things, fat deposits or a blood clot. You are at an increased risk of having a Branch Retinal Artery Occlusion if there has been any hardening of the arteries in the eye. Please follow any instructions given to you by Dr. Vela.H52.4 PresbyopiaComments:Smoking can increase the risk of developing or worsening any eye related disease, as well as affect your overall health. If you are a smoker , we strongly recommend that you quit.If you are not a smoker, we strongly recommend that you do not start. You have presbyopia. This is when the lens in your eye loses the ability to change focus, and happens as we age. A pair of reading glasses will help you see up close. Functional Status Description No Information Available Mental Status Description No Information Available Referrals Description No Information Available
[2019-09-11] MEDS ORDERED: Famotidine IV* 10 MG/ML 2 ML (20 mg) ONE (09:16)
[2019-09-11] MEDS ORDERED: ceFAZolin 2 GM PREMIX in ORs 2 GM/50 ML BAG ONE (09:16)
[2019-09-11] MEDS ORDERED: Midazolam* 1 MG/ML 5 ML VIAL (5 MG) ONE (09:33)
[2019-09-11] MEDS ORDERED: Bupivacaine 0.5% W/EPI SDV* 30 ML VIAL ONE (11:00)
[2019-09-11] MEDS ORDERED: ROPIVACAINE 5 MG/ML 30 ML BTL (0.5%) ONE (11:13)
[2019-09-11] MEDS ORDERED: Lidocaine 1% MPF ** 5 ML VIAL ONE (11:13)
[2019-09-11] MEDS ORDERED: KETAMINE HCL* 50 MG/ML 10 ML VIAL ONE (11:44)
[2019-09-11] MEDS ORDERED: Propofol* 10 MG/ML 20 ML BTL ONE ×2 (12:00→13:25)
[2019-09-11] MEDS ORDERED: Ketorolac INJ* 30 MG/ML 1 ML VIAL ONE (12:00)
[2019-09-11] MEDS ORDERED: Ondansetron INJ* 2 MG/ML VIAL ONE (12:00)
[2019-09-11] MEDS ORDERED: diPHENhydraMINE IV* 50 MG/ML 1 ml VIAL (BENADRYL) IV PRN (14:20)
[2019-09-11] MEDS ORDERED: Morphine INJ* 2 MG/ML 1 ML SYRINGE (TWO MG - NEW SYRINGE VERSION) IV PRN (14:20)
[2019-09-11] MEDS ORDERED: Magnesium Hydroxide LIQ* 30 ML UDC PO PRN (14:20)
[2019-09-11] MEDS ORDERED: Ondansetron ODT TAB* 4 MG PO PRN (14:20)
[2019-09-11] MEDS ORDERED: Cyclobenzaprine TAB* 10 MG PO PRN (14:20)
[2019-09-11] MEDS ORDERED: traMADol TAB* 50 MG PO PRN (14:20)
[2019-09-11] MEDS ORDERED: Ondansetron INJ* 2 MG/ML VIAL IV PRN (14:20)
[2019-09-11] MEDS ORDERED: diPHENhydraMINE PO* 25 MG PO PRN (14:20)
[2019-09-11] MEDS ORDERED: Famotidine TAB* 20 MG PO PRN (14:26)
[2019-09-11] MEDS ORDERED: Triamcinolone 0.025% OINT * 15 GM TUBE TOPICAL PRN (14:26)
[2019-09-11] MEDS ORDERED: HYDROcodone/ACETAMIN 5-325 MG* 1 TAB PO PRN (14:26)
[2019-09-11] MEDS ORDERED: Psyllium PAK PO PRN (14:26)
[2019-09-11] MEDS: Lactated Ringers 1000 ML Bag* 1,000 ML IV SCH (16:03)
[2019-09-11] MEDS: Aspirin TAB* 325 MG PO SCH (17:58)
[2019-09-11] MEDS: oxyCODONE TAB* 5 MG TAB PO PRN (17:58)
[2019-09-11 19:21] LABS: Urine Appearance Clear; Urine Bilirubin Negative (Negative); Urine Blood Negative (Negative); Urine Color Yellow; Urine Glucose Negative (Negative); Urine Ketones Negative (Negative); Urine Nitrite Negative (Negative); Urine Protein Negative (Negative); Urine Specific Gravity 1.016 (1.010-1.030); Urine Urobilinogen Negative (Negative)
[2019-09-11] MEDS: ceFAZolin 1 GM ADVAN(*) 1 GM in NS 0.9% 50 ML* 50 ML IVPB SCH (20:27)
[2019-09-11] MEDS: Atorvastatin* 40 MG TAB PO SCH (20:28)
[2019-09-11] MEDS: Magnesium Hydroxide LIQ* 30 ML UDC PO SCH (20:28)
[2019-09-11] MEDS: Docusate CAP* 100 MG PO SCH (20:28)
[2019-09-11] MEDS: ALPRAZolam TAB* 0.5 MG PO SCH (20:28)
[2019-09-11] MEDS: traZODone TAB* 50 MG TAB PO SCH (20:29)
[2019-09-11] MEDS: Oxybutynin TAB* 5 MG PO SCH (20:29)
[2019-09-11] MEDS: Pregabalin 50 mg CAP (*) PO SCH (20:29)
[2019-09-11] MEDS: amLODIPine TAB* 5 MG PO SCH (20:29)
--- NOTE | 2019-09-11 20:59 | CONS ---
CONSULTATION REPORT: DATE OF CONSULT: 09/11/19 REASON FOR CONSULT: General co-medical management. REQUESTING PROVIDER: Dr. Lorenzo. HISTORY OF PRESENT ILLNESS: This is an 83-year-old female with a past medical history significant for osteoarthritis, hypothyroidism, hypercholesterolemia, and bilateral breast cancer, who was admitted on 09/11/19 status post a right total knee replacement. Hospitalists were consulted for general co-medical management. The patient had originally been diagnosed with hypertension in 1998 when she was in [place]. There she had been placed on enalapril and had been tolerating it without any issues. She moved to the [facility] in around 2007 and began having reactions to the medications possibly due to different manufacturing or fillers and has not been on hypertensive medications since. Dr. Humphrey has been following her blood pressure on an outpatient basis. Preoperatively, it was systolically in the 140s. Postoperatively, blood pressures have between 140s and 180s/70s to 90s. Denies any headaches, shortness of breath, fuzzy or changes in her vision. PAST MEDICAL HISTORY: Arthritis, irritable bowel syndrome, hypothyroidism, hypercholesterolemia, anxiety, and bilateral breast cancer without chemo or radiation. GERD, eczema, overactive bladder PAST SURGICAL HISTORY: Double matricectomy, bilateral cataract surgery, tonsillectomy. MEDICATIONS: 1. Trazodone 100 to 150 mg p.o. at bedtime. 2. Triamcinolone 0.1% cream 1 application topically b.i.d. p.r.n. 3. Psyllium pack 1 teaspoon p.o. q.a.m. p.r.n. 4. Atorvastatin 40 mg p.o. at bedtime. 5. Ranitidine 150 mg p.o. b.i.d. p.r.n. 6. Lyrica 50 mg p.o. b.i.d. 7. Potassium chloride 15 mL p.o. q.a.m. 8. Oxybutynin 5 mg p.o. at bedtime. 9. Docusate 100 mg p.o. b.i.d. p.r.n. 10. Ibuprofen 800 mg p.o. b.i.d. with meals. 11. Hydrocodone/acetaminophen 5/325 1 tab p.o. t.i.d. p.r.n. 12. Omeprazole 40 mg p.o. q.a.m. 13. Levothyroxine 88 mcg p.o. q.a.m. 14. Bifidobacterium infantis 4 mg p.o. q.a.m. 15. Citalopram 40 mg p.o. q.a.m. 16. Alprazolam 1 mg p.o. at bedtime. 17. Aspirin 81 mg p.o. at bedtime. ALLERGIES: To CLOMIPRAMINE, ENALAPRIL and ERYTHROMYCIN base. FAMILY HISTORY: Sister had breast cancer. Grandfather had pancreatic cancer. Mother had multiple strokes. SOCIAL HISTORY: Lives alone with the help of health aides who come to her house for 5 to 6 hours a day 6 days a week. Denies any tobacco, alcohol or recreational substance use. REVIEW OF SYSTEMS: An 112-point system review was performed, which was positive for 2/10 pain to left knee and negative for chest pain, shortness of breath, abdominal pain, nausea, vomiting. PHYSICAL EXAM: Vital Signs: Temp 98.4 Fahrenheit, 58 pulse, 16 respiration, 100% oxygen on room air, 170/68 blood pressure. General: This is a well- developed older woman seen sitting up in the chair, in no acute distress. Eyes : Conjunctivae pink and moist. PERRLA. EOMs intact. ENT: Mucous membranes moist. Oropharynx clear. Neck is supple. Cardiac: S1, S2 present. Heart rate regular. No murmurs, gallops, or rubs appreciated. Pulmonary: Lung sounds clear throughout bilaterally on room air. No accessory muscle use noted. Abdomen: Soft, nontender, nondistended with positive bowel sounds x4. Musculoskeletal: Able to move all extremities, no clubbing or cyanosis of the digits. 2+ positive pedal pulses bilaterally. Cap refill within 3 seconds. Skin: Dressing to right knee is clean, dry, and intact. Faint rash to right forearm, which the patient states is eczema. Neurologic: No focal deficits appreciated. Sensation is intact to light. Able to move all extremities. Alert and oriented x3. No signs or symptoms of anxiety or depression at the moment. DIAGNOSTIC STUDIES/PERTINENT LAB DATA: Postoperative right knee x-ray showed status post right total knee arthroplasty. No lab data for this admission currently. IMPRESSION AND PLAN: 1. Status post right total knee replacement. PT and OT, pain and bowel management as per Ortho. Gold catheter to be removed in the a.m. Saline lock when tolerating p.o. The patient has no preference as far as going home versus short- term rehab but due to the fact that she lives home alone with some help from aides. It would be in the best interest of the patient to go to short-term rehab and she is okay with this. 2. Gastroesophageal reflux disease. Asymptomatic. Continue ranitidine as needed as well as omeprazole scheduled. 3. Hypothyroidism. Continue levothyroxine. 4. Anxiety. Continue trazodone, citalopram and Xanax. 5. Hypertension. Previously had been only watched by Dr. Humphrey without being medicated since 2007. Postoperative blood pressures systolically up into the 180s. We will start on 5 mg of amlodipine and recommend following up with primary care physician within a week of discharge. 6. Overactive bladder. Please continue oxybutynin. 7. DVT prophylaxis. Full strength aspirin as per Ortho and SCDs. 8. Code status: DNR. CONDITION: Fair. DISPOSITION: Inpatient at [facility] Thank you very much for allowing us to participate in the care of this patient. We will follow during this admission. [id number]/[facility] #: [id number] JERONIMO
[2019-09-11] MEDS: Acetaminophen TAB* 325 MG PO SCH (22:08)
[2019-09-12] MEDS: Lactated Ringers 1000 ML Bag* 1,000 ML IV SCH (01:45)
--- NOTE | 2019-09-12 03:12 | OP ---
CC: Dr. Humphrey, [facility].* DATE OF OPERATION: 09/11/19 - ROOM #350 DATE OF : 37 - AGE: 83. SURGICAL CARE: Right knee. SURGEON: Kevin Lorenzo MD COAL INSPECTOR: 1. ALMITA Narvaez, culture media laboratory assistant. 2. Sofie Stanley, technical support analyst. ANESTHESIOLOGIST: Dr. Amie Varghese. ANESTHESIA: Right femoral adductor canal block and a spinal anesthetic with IV sedation. PRE-OP DIAGNOSIS: Severe arthritis of the right knee, lateral compartment and patellofemoral compartment with valgus malalignment and flexion contracture. POST-OP DIAGNOSIS: Severe arthritis of the right knee, lateral compartment and patellofemoral compartment with valgus malalignment and flexion contracture. OPERATIVE PROCEDURE: Right total knee replacement. COMPONENTS UTILIZED: Ketty Persona knee posterior stabilized and all components cemented, a size 5 femur standard, a size 32 patella, a size D tibia , and a 10 articular surface. COMPLICATIONS: There were no complications. DRAINS: There were no drains. ESTIMATED BLOOD LOSS: 200 mL. REPLACEMENT: Crystalloid fluids. SURGICAL INDICATIONS: Severe pain and arthritis of the right knee with deformity and extreme limitation of walking activities due to this pain. DESCRIPTION OF PROCEDURE: The patient was brought to the operating room after having been administered a right adductor canal block in the holding area. In the operating room, a spinal anesthetic was administered. The patient was then returned to the supine position, a Gold catheter was carefully inserted. The right lower extremity was noted to have a 2+ dorsalis pedis pulse and the right leg was wrapped with a proximal thigh tourniquet and then given a preliminary chlorhexidine prep in the knee region and then a formal ChloraPrep from the tourniquet to the tips of the toes. After prepping, draping, and sealing off we did our universal protocol time out confirming Noam Hyman and a plan for right total knee replacement. We all agreed and we proceeded. Most of the surgery was done with the right hip and knee acutely flexed with the right foot on a padded foot piece. The skin incision went from the medial aspect of the tibial tubercle to 2 fingerbreadths proximal to the superior pole of the patella. The skin and subcu divided down to the prepatellar bursa. Careful hemostasis was checked and achieved throughout the case utilizing electrocautery. The knee had clear goldish synovial fluid, some synovitis. The patient had complete eburnation of bone, patellofemoral joint, and lateral joint compartment with scooping out of the lateral tibial plateau. The anterior horn of the lateral meniscus was essentially gone and the lateral meniscus was torn up mid and posteriorly for what remained. The knee was entered medial parapatellar dividing the clogged tendon at the junction of the vastus medialis and the rectus femoris staying as close to vastus medialis muscle as possible. On the tibia, we went down to the bone and the medial tissues were elevated subperiosteally on the tibia going around to the deep MCL and then to the posterior medial corner of the knee. Patellar synovectomy was completed, large osteophytes were removed on the patella superiorly and inferiorly. Osteophyte on the medial tibial plateau excised. Large osteophyte on the lateral tibial plateau as well and the intercondylar notch was almost obscured by osteophyte coming from the lateral femoral condyle. The distal anterior femur was exposed subperiosteally for referencing and measuring. The ACL and PCL were then uplifted from the femoral origins in the intercondylar notch. The tibia was made so it could be subluxated for from under the femur and the PCL was largely excised. Care was taken while working posteriorly with careful hemostasis. The proximal tibial cut was made first and the goal here was to remove just 1 mm or 2 from the low point on the lateral tibial plateau. The goal of this cut was also to be perpendicular to the long axis of the tibia and having a slight posterior slope. The femoral intramedullary drill was then utilized and the femoral canal was entered. The femoral canal was suctioned to discourage embolization. The femoral cutting guide was applied with 6 degrees of valgus and 2, the distal femoral cut was completed and the extension gap was still too tight so the distal femur was recut by 2 mm and this gave a nice extension gap with a 10 mm block. The femur was measured for a size 5 and the chamfering and anterior and posterior cuts were carefully completed and we then finished removal of the posterior horn of the lateral meniscus, PCL, posterior horn of the medial meniscus, large osteophyte on the posterior medial femoral condyle, and some posterior capsular release was done on the posterior femur. There was some tightness also in the flexion and the MCL was uplifted distally with a periosteal elevator. At this stage we had nice ligamentous balance and the extension with a 10 and 90 degrees of flexion with the 10, so this was chosen. The femur was complete over the intracondylar cut out. The tibia was then completed for a size D. The knee was articulated and extended with a D tibia, 5 femur, and a 10 articular surface with nice knee extension. Stable ligaments in extension and stable ligaments in 90 degrees of flexion. The patella was cut flat, a 32 was chosen, 3 drill holes were made these were undercut for optimal cement interdigitation and then the lateral release was unnecessary. The femoral canal was cleaned x5 to 6 with saline, suctioned empty and a bone plug was inserted. The final components were then opened, the leg was exsanguinated with a tourniquet and the thigh tourniquet elevated to 275. The knee was then cleaned entirely in extension with pulsed saline and careful suctioning posteriorly. The bony surfaces were then cleaned in flexion with retractors in place. The cement was mixed and the components were cemented into position, the patella followed by tibia, followed by femur. Each was impacted. Excess cement was removed and the knee was articulated and extended during the final hardening. We then checked posteriorly for retained cement. Irrigation was done with saline during closure several times. The tourniquet was deflated. Hemostasis was checked and achieved utilizing electrocautery. The pericapsular tissues were infiltrated with local anesthetic, Marcaine with epinephrine 30 mL, posteromedial, medial, and lateral. The quad tendon reapproximated with interrupted [id number] #1 Vicryl sutures in an interrupted fashion, same with the medial retinaculum and more distally we used 0 Vicryl. Deep bursa closed with 0 Vicryl, superficial subcu closed with 3-0 Vicryl, and the skin then closed with sabine. The skin was washed and dried and covered with Betadine soaked released, sterile gauze, sterile Webril, Cryo therapy cuff, ABD pads, and then a 6-inch luis bandage loosely applied. The knee was flexed and extended entirely several times during the closure. The flexion was past 125 degrees and the extension -2 to 3 degrees. Procedure well tolerated. The patient returned to the recovery room in stable and satisfactory condition having tolerated the procedure very well. [id number]/[facility] #: [id number] W[facility] MEDICAL CENTERJudy
[2019-09-12] MEDS: ceFAZolin 1 GM ADVAN(*) 1 GM in NS 0.9% 50 ML* 50 ML IVPB SCH ×2 (03:36→12:02)
[2019-09-12 06:02] LABS: Hematocrit 28 % (35-47); Hemoglobin 9.9 g/dL (12.0-16.0); Mean Platelet Volume 8.1 fL (7.4-10.4); Platelet Count 227 10^3/uL (150-450)
[2019-09-12] MEDS: Levothyroxine TAB* 88 MCG TAB PO SCH (06:08)
[2019-09-12] MEDS: Acetaminophen TAB* 325 MG PO SCH ×3 (06:08→21:56)
[2019-09-12 06:22] LABS: BUN/Creatinine Ratio 18.5 (8-20); Calcium 8.3 mg/dL (8.6-10.3); EGFR African American 130.8 (>60); EGFR Non-African American 108.1 (>60); Potassium 3.1 mmol/L (3.5-5.0)
[2019-09-12] MEDS: amLODIPine TAB* 5 MG PO SCH (08:08)
[2019-09-12] MEDS: Aspirin TAB* 325 MG PO SCH (08:08)
[2019-09-12] MEDS: Docusate CAP* 100 MG PO SCH ×2 (08:08→20:49)
[2019-09-12] MEDS: Pantoprazole TAB * 40 MG TAB PO SCH (08:08)
[2019-09-12] MEDS: Pregabalin 50 mg CAP (*) PO SCH ×2 (08:09→20:49)
[2019-09-12] MEDS: Potassium Chlor TAB* 20 MEQ TAB.ER PO SCH ×2 (08:10→20:49)
[2019-09-12] MEDS: Vitamin THERAPEUTIC TAB PO SCH (08:11)
[2019-09-12] MEDS: Citalopram TAB* 40 MG PO SCH (08:11)
[2019-09-12] MEDS: BIFIDOBACTERIUM INFANTIS 4 MG PO SCH (08:12)
[2019-09-12] MEDS: oxyCODONE TAB* 5 MG TAB PO PRN (08:22)
[2019-09-12] MEDS: Potassium Chloride* LIQUID 20 MEQ/15 ML UDC PO SCH (08:27)
[2019-09-12] MEDS: Magnesium Hydroxide LIQ* 30 ML UDC PO SCH ×2 (08:28→20:49)
--- NOTE | 2019-09-12 10:32 | PN ---
Progress Note - Progress Note Date of Service: 09/12/19 SOAP: Subjective: []Pt seen at bedside, she is feeling well without complaints. Denies CP, SOB, dizziness or nausea. Objective: []Gen: NAD, appears well but drowsy. Answers questions appropriately RLE: Knee dressing CDI, thigh is soft, DF/PF intact, DP2+, sensation intact to light touch distally Calves supple and nontender Assessment: []POD 1 sp RTK Plan: []WBAT PT/OT aspirin 325 mg dialy hypokalema: on 20 mEQ home med, added an additional 20 meq BID, to be adjusted by medicine consult as deemed necessary. Recheck tomorrow drowsy - reduce narcotics. stopped oxycodone. Started on amlodipine by medicine team last night Needs rehab placement Vital Signs Temp 97.3 F 09/12/19 12:18 Pulse 56 09/12/19 12:18 Resp 16 09/12/19 12:18 BP 115/47 09/12/19 12:18 Pulse Ox 100 09/12/19 12:18 Intake & Output 09/11/19 09/12/19 09/12/19 18:59 06:59 18:59 Intake Total 1750 2348 Output Total 1100 650 Balance 650 1698 Weight 152 lb Intake: IV Fluids 1750 958 LR 1700 958 NS 50ML, Cefazolin 2G 50 IVPB 110 ABX - CEFAZOLIN 110 Oral 1280 Output: Gold 1100 650 Laboratory Last Values Hgb 9.9 g/dL (12.0-16.0) L 09/12/19 05:33 Hct 28 % (35-47) L 09/12/19 05:33 Plt Count 227 10^3/uL (150-450) 09/12/19 05:33 MPV 8.1 fL (7.4-10.4) 09/12/19 05:33 Sodium 140 mmol/L (135-145) 09/12/19 05:33 Potassium 3.1 mmol/L (3.5-5.0) L 09/12/19 05:33 Chloride 104 mmol/L (101-111) 09/12/19 05:33 Carbon Dioxide 33 mmol/L (22-32) H 09/12/19 05:33 Anion Gap 3 mmol/L (2-11) 09/12/19 05:33 BUN 10 mg/dL (6-24) 09/12/19 05:33 Creatinine 0.54 mg/dL (0.51-0.95) 09/12/19 05:33 Est GFR ( Amer) 130.8 (>60) 09/12/19 05:33 Est GFR (Non-Af Amer) 108.1 (>60) 09/12/19 05:33 BUN/Creatinine Ratio 18.5 (8-20) 09/12/19 05:33 Glucose 132 mg/dL (70-100) H 09/12/19 05:33 Calcium 8.3 mg/dL (8.6-10.3) L 09/12/19 05:33 Magnesium 1.8 mg/dL (1.9-2.7) L 09/12/19 05:33 Urine Color Yellow 09/11/19 19:10 Urine Appearance Clear 09/11/19 19:10 Urine pH 6.0 (5-9) 09/11/19 19:10 Ur Specific [place] 1.016 (1.010-1.030) 09/11/19 19:10 Urine Protein Negative (Negative) 09/11/19 19:10 Urine Ketones Negative (Negative) 09/11/19 19:10 Urine Blood Negative (Negative) 09/11/19 19:10 Urine Nitrate Negative (Negative) 09/11/19 19:10 Urine Bilirubin Negative (Negative) 09/11/19 19:10 Urine Urobilinogen Negative (Negative) 09/11/19 19:10 Ur Leukocyte Esterase Negative (Negative) 09/11/19 19:10 Urine Glucose Negative (Negative) 09/11/19 19:10 Urine Ascorbic Acid * (Negative) A 09/11/19 19:10
[2019-09-12 11:27] LABS: Magnesium 1.8 mg/dL (1.9-2.7)
[2019-09-12] MEDS ORDERED: HYDROcodone/ACETAMIN 5-325 MG* 1 TAB PO PRN ×2 (11:34→11:35)
[2019-09-12] MEDS: traMADol TAB* 50 MG PO PRN ×2 (13:06→19:58)
[2019-09-12] MEDS ORDERED: Magnesium Sulfate 2 GM IV* 2 GM/50 ML BAG IVPB ONE (17:42)
[2019-09-12] MEDS ORDERED: Potassium Chlor TAB* 20 MEQ TAB.ER PO ONE (17:43)
[2019-09-12] MEDS: Oxybutynin TAB* 5 MG PO SCH (20:49)
[2019-09-12] MEDS: Atorvastatin* 40 MG TAB PO SCH (20:49)
[2019-09-12] MEDS: ALPRAZolam TAB* 0.5 MG PO SCH (20:49)
[2019-09-12] MEDS: traZODone TAB* 50 MG TAB PO SCH (21:51)
[2019-09-13] MEDS: Acetaminophen TAB* 325 MG PO SCH (06:24)
[2019-09-13] MEDS: Levothyroxine TAB* 88 MCG TAB PO SCH (06:25)
[2019-09-13 07:07] LABS: Hematocrit 31 % (35-47); Hemoglobin 10.6 g/dL (12.0-16.0); Mean Platelet Volume 8.4 fL (7.4-10.4); Platelet Count 175 10^3/uL (150-450)
[2019-09-13 07:22] LABS: BUN/Creatinine Ratio 24.2 (8-20); Calcium 9.1 mg/dL (8.6-10.3); EGFR African American 103.7 (>60); EGFR Non-African American 85.7 (>60); Magnesium 2.7 mg/dL (1.9-2.7); Potassium 4.4 mmol/L (3.5-5.0)
[2019-09-13] MEDS: traMADol TAB* 50 MG PO PRN (07:56)
[2019-09-13] MEDS: Pregabalin 50 mg CAP (*) PO SCH (07:57)
[2019-09-13] MEDS: Potassium Chloride* LIQUID 20 MEQ/15 ML UDC PO SCH (07:58)
[2019-09-13] MEDS: Docusate CAP* 100 MG PO SCH (07:59)
[2019-09-13] MEDS: Pantoprazole TAB * 40 MG TAB PO SCH (07:59)
[2019-09-13] MEDS: BIFIDOBACTERIUM INFANTIS 4 MG PO SCH (07:59)
[2019-09-13] MEDS: Citalopram TAB* 40 MG PO SCH (07:59)
[2019-09-13] MEDS: Aspirin TAB* 325 MG PO SCH (07:59)
[2019-09-13] MEDS: Vitamin THERAPEUTIC TAB PO SCH (07:59)
[2019-09-13] MEDS: Magnesium Hydroxide LIQ* 30 ML UDC PO SCH (08:13)
[2019-09-13 08:27] VITALS: BP 128/67
[2019-09-13] MEDS ORDERED: amLODIPine TAB* 5 MG PO SCH (09:00)
--- NOTE | 2019-09-13 09:13 | DS ---
Orthopedic Discharge Summary - Discharge Summary Date of Admission:09/11/19 Date of Discharge: 09/13/19 Date of Surgery: 09/11/19 Attending Orthopedic Provider: Pre-operative Diagnosis: right knee osteoarthritis Operative Procedure: Right total knee replacement Disposition of Patient: [facility] Condition of Patient: stable History: BUD BLANK is a 83 year old F with years of increasingly severe right knee pain. Patient has failed conservative management and has elected to undergo a right total knee replacement Hospital Course: BUD was admitted to [facility] on 09/11/19. Patient underwent a right total knee replacement without complication followed by a brief recovery in PACU and transfer to the Short Stay Surgical Unit in stable condition. Our hospitalist service, physical therapy and occupational therapy also participated in this patients care. Post-op day 1: patient was alert and in no acute distress. Dressing was clean, dry and intact. Operative extremity dorsiflexion and plantarflexion intact, sensation intact to light touch distally, DP2+. Potassium was low at 3.1 and was replaced. Post-op day two : Pt felt well without CP, SOB, dizziness or nausea. dressing was changed, incision was clean, dry and intact. NVI distally. Patient was deemed to be medically and orthopedically stable for discharge to [facility]. Medicine team started amlodipine 2.5 mg daily which she will continue, this can be modified by PMRU or PCP as needed. Home Medications Medication Instructions Recorded Confirmed Type ALPRAZolam TAB* [Xanax TAB*] 1 mg PO BEDTIME 04/19/14 09/11/19 History Citalopram TAB* [Celexa TAB*] 40 mg PO QAM 04/19/14 09/11/19 History traZODone TAB* [Desyrel TAB*] 100 - 150 mg PO BEDTIME 04/19/14 09/11/19 History Omeprazole CAP (NF) [Prilosec CAP* 40 mg PO QAM 11/05/14 09/11/19 History 20 MG] Levothyroxine TAB* [Synthroid 88 88 mcg PO QAM 06/16/17 09/11/19 History MCG TAB*] Pregabalin CAP(*) [Lyrica CAP(*)] 50 mg PO BID MDD 100 mg 06/16/17 09/11/19 History Ranitidine TAB (NF) [Zantac TAB 150 mg PO BID PRN 07/28/18 09/11/19 History (NF)] Triamcinolone 0.1% CREAM(NF) 1 applic TOPICAL BID PRN 07/28/18 09/11/19 History [Kenalog Cream 0.1%(NF)] Bifidobacterium Infantis [Align] 4 mg PO QAM 04/12/19 09/11/19 History Docusate CAP* [Colace Cap*] 100 mg PO BID PRN 04/12/19 09/11/19 History HYDROcodone/ACETAMIN 5-325 MG* 1 tab PO TID PRN 07/25/19 09/11/19 History [[place] 5-325 TAB*] Oxybutynin TAB* [Ditropan TAB*] 5 mg PO BEDTIME 07/25/19 09/11/19 History Potassium Chloride 15 ml PO QAM 07/25/19 09/11/19 History Psyllium NASIM* [Metamucil NASIM*] 1 teasp PO QAM PRN 07/25/19 09/11/19 History Atorvastatin* [Lipitor 40 MG*] 40 mg PO BEDTIME 08/29/19 09/11/19 History Acetaminophen TAB* [Tylenol TAB*] 975 mg PO Q8HR tab 09/13/19 Rx Aspirin 81 mg CHEW TAB* 81 mg PO BEDTIME #0 09/13/19 09/11/19 Rx Aspirin TAB* [Aspirin 325 MG TAB*] 325 mg PO DAILY tab 09/13/19 Rx Docusate CAP* [Colace Cap*] 100 mg PO BID cap 09/13/19 Rx HYDROcodone/ACETAMIN 5-325 MG* 2 tab PO Q4H PRN tab 09/13/19 Rx [[place] 5-325 TAB*] amLODIPine TAB* [Norvasc 5 mg TAB*] 2.5 mg PO DAILY tab 09/13/19 Rx traMADol TAB* [Ultram*] 50 mg PO Q6H PRN tab 09/13/19 Rx Discharge Instructions following Orthopedic Surgery: Activity: * Weight Bearing as tolerated * Continue physical therapy and occupational therapy exercises as shown * PT at [facility] Wound care: * OK to shower on post-op day 3, no bathing, swimming, or submerging wound. * Use gentle soap, pat dry. Cover with gauze, LESLEY wrap or tape. * nurse to do wound checks. Nurse can remove sabine in 2 weeks Call Orthopedic office for: * Increased drainage * Redness * Increased pain * Fever Go to ER with shortness of breath or chest pain. Diet: * Regular diet * Increase fluids and fiber to prevent constipation. * Continue to use stool softeners, call office if no bowel motion within 48 hours. Medications See Home Medication List in your packet for medications that you should take after discharge. DVT Prophylaxis: Aspirin Dosin mg once a day for 30 days post op. hold aspirin 81 mg daily while on this increased dose, resume 81 mg daily after 1 month of 325 mg daily. Amlodipine 2.5 mg daily started by hospitalist service while in house. PMRU/ PCP can alter as needed Antibiotics are required prior to any dental work. FOLLOW UP: Follow up with [Maura] Within 4 weeks, call for appointment Please call our office with any questions or concerns ([phone])
== END 2019-09-13 10:49 | DRG 470 ==
LOC: AA 08:59 → SSU 14:21
PROVIDERS: ADMIT Orthopaedic Surgery; ATTEND Orthopaedic Surgery
PROC: 0SRC0J9 Replacement of Right Knee Joint with Synthetic Substitute, Cemented, Open Approach (ICD-10-PCS; principal; 2019-09-11 10:30)
DX: M17.11 Unilateral primary osteoarthritis, right knee (principal); F33.1 Major depressive disorder, recurrent, moderate; E03.9 Hypothyroidism, unspecified; E78.00 Pure hypercholesterolemia, unspecified; I10 Essential (primary) hypertension; K21.9 Gastro-esophageal reflux disease without esophagitis; Z66 Do not resuscitate; N32.81 Overactive bladder; M21.061 Valgus deformity, not elsewhere classified, right knee; M24.561 Contracture, right knee; M25.761 Osteophyte, right knee; E87.6 Hypokalemia; R40.0 Somnolence; F41.1 Generalized anxiety disorder; G89.29 Other chronic pain; K58.1 Irritable bowel syndrome with constipation; E78.5 Hyperlipidemia, unspecified; Z85.3 Personal history of malignant neoplasm of breast; Z90.13 Acquired absence of bilateral breasts and nipples; Z79.899 Other long term (current) drug therapy; Z79.82 Long term (current) use of aspirin; Z88.1 Allergy status to other antibiotic agents; Z88.8 Allergy status to other drugs, medicaments and biological substances; Z79.890 Hormone replacement therapy
CPT/HCPCS: 36415; 80048; 81003; 83735; 85014; 85018; 85049; 88305; 88311; A9270-GY; C1776; G8978-GP-CK; G8979-GP-CI; J0690; J1885; J2250; J2405; J2704; J2795; J3475

== ENCOUNTER 2019-09-13 08:33 | Inpatient (IN) | payer MEDICARE, OTHER ==
[2019-09-13] MEDS ORDERED: Acetaminophen TAB* 325 MG PO PRN (11:48)
[2019-09-13] MEDS ORDERED: Senna TAB 8.6 mg* TAB PO PRN (11:48)
[2019-09-13] MEDS ORDERED: HYDROcodone/ACETAMIN 5-325 MG* 1 TAB PO PRN (12:02)
[2019-09-13] MEDS: HYDROcodone/ACETAMIN 5-325 MG* 1 TAB PO PRN (13:12)
[2019-09-13] MEDS: Acetaminophen TAB* 325 MG PO SCH ×2 (14:40→16:37)
--- NOTE | 2019-09-13 20:04 | HP ---
ADMISSION HISTORY AND PHYSICAL: DATE OF ADMISSION: 09/13/19 REASON FOR ADMISSION: The patient is status post a right total knee replacement. HISTORY OF PRESENT ILLNESS: Noam Hyman is an 83-year-old female. She lives alone here in [place]. She has a medical history significant for hypothyroidism , hypercholesterolemia, irritable bowel syndrome, and insomnia. She also has a history of hypertension. She has had trouble with her right knee for quite sometime. She was having difficulty walking and had to use a walker. She was referred to an orthopedic surgeon, Dr. Lorenzo. It was felt that the patient had end- stage osteoarthritis of the right knee. She was limited in how much she was able to walk because of her knee pain. She was admitted to the hospital on 09/11/19 and underwent a right total knee replacement that day. Postoperatively , she has been slow to mobilize. She is now being admitted for inpatient rehab so that she might return to independent living. PAST MEDICAL HISTORY: Significant for the aforementioned irritable bowel syndrome as well as hypothyroidism, hypercholesterolemia, and hypertension. CURRENT MEDICATIONS: Include: 1. Potassium chloride. 2. Synthroid. 3. Lyrica. 4. Xanax. 4. Norvasc. 5. Aspirin. 6. Celexa. 7. Ditropan. 8. Protonix. 9. Tramadol. ALLERGIES: The patient has allergies to ERYTHROMYCIN. FAMILY HISTORY: Nonsignificant. She had a sister who had breast cancer, and her mother who had multiple strokes. SOCIAL HISTORY: She lives in a one-story apartment by herself. 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 Her son orders her groceries remotely. She has one son, who lives in [facility]. She has a grandchild, who is a college student in [place], but does not get down to [place] that much. REVIEW OF SYSTEMS: The patient reports no current shortness of breath or chest pain. PHYSICAL EXAMINATION VITAL SIGNS: The patient's temperature is 98.3, blood pressure is 145/58, pulse 73, respirations 18. HEENT: Her extraocular movements are intact. NECK: Supple with no lymphadenopathy. LUNGS: Lung sounds are clear to auscultation bilaterally. HEART: Heart sounds are regular. S1 and S2 are audible. ABDOMEN: Soft and nontender EXTREMITIES: Her right knee has a wound, which is clean and dry. Peripheral pulses were intact. NEUROLOGIC: Sensation was intact. Muscle strength appeared to be 5/5 except the right leg, which was 3/5 secondary to pain. FUNCTIONAL EXAM: She transfers with minimal amount of assistance. ASSESSMENT: Right total knee replacement. PLAN/RECOMMENDATIONS: Integrate her into a comprehensive and therapeutic rehab program with the following goals: 1. Physical Therapy will work with the patient. They are going to work on functional transfer training, ambulation training with a walker. 2. Occupational Therapy will see the patient, work on her activities of daily living including toileting and toilet transfers. 3. Dr. Lorenzo would like her to have a full strength aspirin for DVT prophylaxis. 4. For her hypothyroidism, continue Synthroid. 5. Continue potassium supplementation for her hypokalemia. 6. Her son is concerned about her drowsiness. We are going to cut her Xanax back to a 0.5 mg and tried to limit the use of narcotics. 7. Continue Celexa for depression. 8. resident services manager will be closely involved to make sure that any services and equipment the patient requires are in place prior to discharge. 9. Family training as appropriate. 10. Home with appropriate services. ESTIMATED LENGTH OF STAY: 7 to 10 days. [id number]/[facility] #: [id number] JERONIMO
[2019-09-13] MEDS ORDERED: traZODone TAB* 100 MG PO SCH (21:00)
[2019-09-13] MEDS ORDERED: ALPRAZolam TAB* 0.5 MG PO SCH (21:00)
[2019-09-13] MEDS: Atorvastatin* 40 MG TAB PO SCH (21:39)
[2019-09-13] MEDS: Pregabalin CAP(*) 50 MG PO SCH (21:40)
[2019-09-13] MEDS: Docusate CAP* 100 MG PO SCH (21:40)
[2019-09-13] MEDS: Oxybutynin TAB* 5 MG PO SCH (21:41)
[2019-09-13] MEDS: ALPRAZolam TAB* 0.5 MG PO SCH (21:41)
[2019-09-13] MEDS: traMADol TAB* 50 MG PO PRN (21:45)
[2019-09-14] MEDS: Acetaminophen TAB* 325 MG PO SCH ×4 (00:48→23:30)
[2019-09-14] MEDS: Levothyroxine TAB* 88 MCG TAB PO SCH (05:35)
[2019-09-14 05:46] LABS: Hematocrit 25 % (35-47); Hemoglobin 8.6 g/dL (12.0-16.0); Mean Corpuscular HGB Conc 34 g/dL (31-36); Mean Corpuscular Hemoglobin 32 pg (27-31); Mean Corpuscular Volume 94 fL (80-97); Platelet Count 224 10^3/uL (150-450); Red Cell Distribution Width 14 % (10-15); White Blood Count 9.8 10^3/uL (3.5-10.8)
[2019-09-14] MEDS: traMADol TAB* 50 MG PO PRN (06:00)
[2019-09-14 06:07] LABS: Albumin/Globulin Ratio 1.3 (1-3); BUN/Creatinine Ratio 27.3 (8-20); Calcium 8.6 mg/dL (8.6-10.3); EGFR African American 86.8 (>60); EGFR Non-African American 71.8 (>60); Globulin 2.3 g/dL (2-4); Total Bilirubin 0.4 mg/dL (0.2-1.0); Total Protein 5.3 g/dL (6.4-8.9)
[2019-09-14] MEDS: amLODIPine TAB* 5 MG PO SCH (07:41)
[2019-09-14] MEDS: Pregabalin CAP(*) 50 MG PO SCH ×2 (07:42→20:26)
[2019-09-14] MEDS: Pantoprazole TAB * 40 MG TAB PO SCH (07:42)
[2019-09-14] MEDS: Docusate CAP* 100 MG PO SCH ×2 (07:42→20:27)
[2019-09-14] MEDS: Aspirin TAB* 325 MG PO SCH (07:43)
[2019-09-14] MEDS: Potassium Chloride* LIQUID 20 MEQ/15 ML UDC PO SCH (07:43)
[2019-09-14] MEDS: Citalopram TAB* 40 MG PO SCH (07:43)
[2019-09-14 09:17] LABS: ABS Basophils 0.1 10^3/ul (0-0.2); ABS Eosinophils 0.3 10^3/ul (0-0.6); ABS Lymphocytes 2.3 10^3/ul (1.0-4.8); ABS Monocytes 1.4 10^3/ul (0-0.8); ABS Neutrophils 5.7 10^3/ul (1.5-7.7); Eosinophil % 3.2 %; Lymphocyte % 23.3 %; Nucleated Red Blood Cells % 0.1
[2019-09-14] MEDS: HYDROcodone/ACETAMIN 5-325 MG* 1 TAB PO PRN (11:31)
--- NOTE | 2019-09-14 12:38 | PMRUTEAM ---
PMRU: Team Meeting Current Status: Physical Therapy: Current Status Current Rolling Status Supervision/Touching Current Supine <-> Sit Status Partial/Moderate Current Sit <-> Stand Status Partial/Moderate Current Bed <-> Chair Status Partial/Moderate Transfer/Bed Mobility Rolling Walker Recommended Devices Current Picking Up Object Partial/Moderate Status Current Car Transfer Status Partial/Moderate Current Ambulation Assistance Partial/Moderate Status Ambulation Assistive Device Rolling Walker Ambulation Conditions Two or More Turns Current Ambulation Distance 6' Current Wheelchair Propulsion Not Applicable Ability Status Current Stair Climbing Status Dependent Number of Stairs Climbed 1 Current Curb Assistance Status Not attempted Objective Comments R knee flexion: 78 degrees R knee extension: -27 degrees Pt reports significant c/o dizziness, SOB and new onset of "pain between my shoulder blades". Vitals assessed in sitting and standing. BP sittin /49, standin/44; O2 sat sitting on RA: 97%, standing on RA: 84% with difficulty improving despite cues for pursed lip breathing. Nsg made aware of complaints. Administered 2 L O2 via NC, with improved O2 in sitting. Pt further c/o " feeling like my head is going to fall off of my neck. I'm feeling confused. I dont know, my head feels funny." Pt returned to bed. 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 Anticipated Discharge Home Destination Discharge With return home with home care svs and family support OCCUPATIONAL THERAPY: CURRENT STATUS: Set up UB Dressing, Total assist LB dressing, total assist bathing, total assist toileting, dependent toilet transfers Goals: Physical Therapy: Goals Goals to Be Accomplished in ( 7-10 Days) Goal: Rolling Assistance Independent Goal Supine <-> Sit Status Independent Goal Sit <-> Stand Status Independent Goal Bed <-> Chair Status Independent Transfer/Bed Mobility Rolling Walker Recommended Devices Goal: Picking Up Object Independent Goal: Car Transfer Status Supervision/Touching Goal: Ambulation Assistance Independent Ambulation Assistive Devices Rolling Walker Ambulation Distance (ft) 150 Goal: Wheelchair Propulsion Not Applicable Ability Goal: Stairs Assistance Supervision/Touching Stairs Recommended Devices One Rail Number of Stairs 1 Goal: Curb Assistance Supervision/Touching Goal: Home Exercise Program Independent Assistance Social Work: Goals Discharge Plan 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 home 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 Anticipated Discharge Home Destination Discharge With return home with home care svs and family support Care Plan: Care Plan Communication-Improve/Maintain Start: 09/13/19 16:04 Freq: DAILY@0700,1900 Status: Active Target: 09/21/19 Protocol: Activity Type Activity Date Activity User E-Sign Co-Sign Detail Recorded Client Recorded Date Recorded By Document 09/14/19 04:16 [id number] [email or web address] 09/14/19 04:17 [id number] 09/14/19 04:16 PMRU Outcome: Communication/Cognitive Status Current Communication Outcome/Goals Makes Needs Known Effectively Progression Toward Outcomes/Goals Progressing DVT Prophylaxis- Improve/Maintain Start: 09/13/19 16:04 Freq: DAILY@0700,1900 Status: Active Target: 09/21/19 Protocol: Activity Type Activity Date Activity User E-Sign Co-Sign Detail Recorded Client Recorded Date Recorded By Document 09/14/19 04:16 [id number] [email or web address] 09/14/19 04:17 [id number] 09/14/19 04:16 PMRU Outcome: DVT Prophylaxis Current DVT Outcome/Goals Remains Free of DVT Complies with DVT Prophylaxis /Treatment Demonstrates Knowledge of DVT Prevention/ Treatment TEDS Stockings on Every AM, Off at HS Progression Toward Outcome/Goals Goal Initiation Discharge Planning - Improve/Maintain Start: 09/13/19 16:04 Freq: DAILY@0700,1900 Status: Active Target: 09/21/19 Protocol: Activity Type Activity Date Activity User E-Sign Co-Sign Detail Recorded Client Recorded Date Recorded By Document 09/14/19 04:16 [id number] [email or web address] 09/14/19 04:17 [id number] 09/14/19 04:16 PMRU Outcome: Discharge Planning Update Patient Family Yes: son present Current Discharge Planning Outcome/Goals Demonstrates Understanding of Discharge Plan Homecare Referral - See Comment Progression Toward Outcome/Goals Progressing Education-Improve/Maintain Start: 09/13/19 16:04 Freq: DAILY@0700,1900 Status: Active Target: 09/21/19 Protocol: Activity Type Activity Date Activity User E-Sign Co-Sign Detail Recorded Client Recorded Date Recorded By Document 09/14/19 04:16 [id number] [email or web address] 09/14/19 04:17 [id number] 09/14/19 04:16 PMRU Outcome: Education Current Education Outcome/Goals Demonstrate/ Verbalize Understanding of Written Discharge Instructions Demonstrates Skills Encourage Questions Progression Toward Outcome/Goals Goal Initiation /GI-Improve/Maintain Start: 09/13/19 16:04 Freq: DAILY@0700,1900 Status: Active Target: 09/21/19 Protocol: Activity Type Activity Date Activity User E-Sign Co-Sign Detail Recorded Client Recorded Date Recorded By Document 09/14/19 04:16 [id number] [email or web address] 09/14/19 04:17 [id number] 09/14/19 04:16 PMRU Outcome: Genitourinary/ Gastrointestinal Current Gastrointestinal Outcome/Goals Maintain/ Achieve Bowel Regularity in Accordance with Pt's Baseline Remain Free of Emesis Prevent Constipation Bowel Regularity at Home Laxatives as Ordered Progression Toward Outcome/Goals Goal Initiation Current Genitourinary Outcome/Goals Maintain/ Achieve Urinary Continence Maintain/ Achieve Adequate Urinary Output Remain Free of Hospital- Acquired UTI Progression Toward Outcome/Goals Goal Initiation Medication Administration Start: 09/13/19 16:04 Freq: DAILY@0700,1900 Status: Active Target: 09/21/19 Protocol: Activity Type Activity Date Activity User E-Sign Co-Sign Detail Recorded Client Recorded Date Recorded By Document 09/14/19 04:16 [id number] [email or web address] 09/14/19 04:17 [id number] 09/14/19 04:16 PMRU Outcome: Medication Administration Assess Patient Knowledge/Teach Med Yes Education for all Meds Current Fuel Attendant Outcome/Goals Family/ Caregiver Administer Medications at Home Demonstrates Understanding Progression Towards Outcome/Goals Goal Initiation Is Patient Going Home on Lovenox? No Pain/Comfort- Improve/Maintain Start: 09/13/19 16:04 Freq: DAILY@0700,1900 Status: Active Target: 09/21/19 Protocol: Activity Type Activity Date Activity User E-Sign Co-Sign Detail Recorded Client Recorded Date Recorded By Document 09/14/19 04:16 [id number] [email or web address] 09/14/19 04:17 [id number] 09/14/19 04:16 PMRU Outcome: Pain/Comfort Current Pain/Comfort Outcome/Goals Demonstrates Knowledge and Use of Available Comfort Measures Achieves Acceptable Comfort/Pain Level as Determined by Patient/Condit Maintain Comfort Level Allowing Patient to Fully Participate in Rehab Progression Toward Outcome/Goals Goal Initiation Outcome/Goals Met Comment scheduled pain medication given Safety- Improve/Maintain Start: 09/13/19 11:03 Freq: DAILY@0700,1900 Status: Active Target: 09/21/19 Protocol: Activity Type Activity Date Activity User E-Sign Co-Sign Detail Recorded Client Recorded Date Recorded By Document 09/14/19 04:16 [id number] [email or web address] 09/14/19 04:17 [id number] 09/14/19 04:16 PMRU Outcome: Safety Current Safety Outcome/Goals Remain Free of Injury or Harm Cooperates with Safety Measures for Least Restrictive Environment Prevent Falls/ Injury Progression Toward Outcome/Goals Goal Initiation Outcome/Goals Met Comment BA for first night - pt ringing appropriately Skin- Improve/Maintain Start: 09/13/19 16:04 Freq: DAILY@0700,1900 Status: Active Target: 09/21/19 Protocol: Activity Type Activity Date Activity User E-Sign Co-Sign Detail Recorded Client Recorded Date Recorded By Document 09/14/19 04:16 [id number] [email or web address] 09/14/19 04:17 [id number] 09/14/19 04:16 PMRU Outcome: Skin Skin Risk Level Mild Risk Skin Orders Dressing Change Teach Patient Spenco Boots Heels Off Bed Turn/Position q2hr While in Bed Skin Orders Comment drsg to r knee Current Skin Outcome/Goals Maintain/ Improve Skin Integrity Free from Pressure Injury Surgical Incisions Healing Progression Toward Outcome/Goals Goal Initiation - Interdisciplinary Staff Present OT Staff Present: Violeta June PT Staff Present: Anh King Rec Therapy Staff Present: Bhavani Cash Medicine Note: Length of Stay: 2 weeks Anticipated Discharge Destination: Home Tentative Discharge Date: 09/28/19 Discharged to: Home
[2019-09-14] MEDS ORDERED: D5NS 0.9% 1000 ML BAG* 1,000 ML IV SCH (17:00)
--- NOTE | 2019-09-14 17:51 | PN ---
Progress Note Date of Service: 09/14/19 Note: BUD BLANK was visited. Therapy notes read and reviewed. She was discussed in interdisciplinary plan of care rounds. She appears tired at times. Am cutting back on some of the medications she takes at night. Will give IV fluids as she appears to be a little dry (urine concentrated, etc) Current Medications: Active Medications Generic Name Dose Route Start Last Admin Trade Name Freq PRN Reason Stop Dose Admin Acetaminophen 975 mg 09/13/19 14:00 09/14/19 16:47 Tylenol Tab* PO 975 mg Q8H AIDAN Administration Hydrocodone Bitart/Acetaminophen 1 tab 09/13/19 12:09 09/14/19 11:31 [place] 5-325 Tab* PO 1 tab Q4H PRN Administration PAIN - SEVERE Alprazolam 0.5 mg 09/13/19 21:00 09/13/19 21:41 Xanax Tab* PO 0.5 mg BEDTIME AIDAN Administration Amlodipine Besylate 2.5 mg 09/14/19 09:00 09/14/19 07:41 Norvasc Tab* PO 2.5 mg DAILY AIDAN Administration Aspirin 325 mg 09/14/19 09:00 09/14/19 07:43 Aspirin Tab* PO 325 mg DAILY AIDAN Administration Atorvastatin Calcium 40 mg 09/13/19 21:00 09/13/19 21:39 Lipitor* PO 40 mg 2100 AIDAN Administration Citalopram Hydrobromide 40 mg 09/14/19 09:00 09/14/19 07:43 Celexa Tab* PO 40 mg DAILY AIDAN Administration Docusate Sodium 100 mg 09/13/19 21:00 09/14/19 07:42 Colace Cap* PO 100 mg BID AIDAN Administration Dextrose/Sodium Chloride 1,000 mls @ 75 mls/hr 09/14/19 17:00 09/14/19 17:39 D5ns 0.9% 1000 Ml Bag* IV 75 mls/hr PER RATE AIDAN Administration Levothyroxine Sodium 88 mcg 09/14/19 06:00 09/14/19 05:35 Synthroid Tab* PO 88 mcg DAILY@0600 AIDAN Administration Magnesium Hydroxide 30 ml 09/13/19 11:48 Milk Of Magnesia Liq* PO Q6H PRN CONSTIPATION Oxybutynin Chloride 5 mg 09/13/19 21:00 09/13/19 21:41 Ditropan Tab* PO 5 mg BEDTIME AIDAN Administration Pantoprazole Sodium 40 mg 09/14/19 09:00 09/14/19 07:42 Protonix Tab* PO 40 mg DAILY AIDAN Administration Potassium Chloride 20 meq 09/14/19 09:00 09/14/19 07:43 Potassium Chloride Liquid PO 20 meq DAILY AIDAN Administration Pregabalin 50 mg 09/13/19 21:00 09/14/19 07:42 Lyrica Cap(*) PO 50 mg BID AIDAN Administration Senna 2 tab 09/13/19 11:48 Senokot 8.6 Mg Tab* PO BEDTIME PRN CONSTIPATION Tramadol HCl 50 mg 09/13/19 12:09 09/14/19 06:00 Ultram* PO 50 mg Q6H PRN Administration PAIN - MODERATE Trazodone HCl 50 mg 09/14/19 21:00 Desyrel Tab* PO BEDTIME AIDAN Vital Signs: Vital Signs Temp Pulse Resp BP Pulse Ox 97.5 F 63 18 111/51 100 09/14/19 15:00 09/14/19 15:00 09/14/19 15:00 09/14/19 15:00 09/14/19 15:00 Lab Results: Laboratory Results - last 24 hr 09/14/19 09/14/19 05:40 05:40 WBC 9.8 RBC 2.70 L Hgb 8.6 L Hct 25 L MCV 94 MCH 32 H MCHC 34 RDW 14 Plt Count 224 MPV 8.0 Neut % (Auto) 58.4 Lymph % (Auto) 23.3 Mobile % (Auto) 14.5 Eos % (Auto) 3.2 Baso % (Auto) 0.6 Absolute Neuts (auto) 5.7 Absolute Lymphs (auto) 2.3 Absolute Monos (auto) 1.4 H Absolute Eos (auto) 0.3 Absolute Basos (auto) 0.1 Absolute Nucleated RBC 0.0 Neutrophils % 59.0 Lymphocytes % 25.0 Monocytes % 12.0 Eosinophils % 3.0 Basophils % 1.0 Nucleated RBC % 0.1 Normal RBC Morphology Normal Hem Pathologist Commnt Sodium 136 Potassium 5.0 Chloride 105 Carbon Dioxide 30 Anion Gap 1 L BUN 21 Creatinine 0.77 Est GFR ( Amer) 86.8 Est GFR (Non-Af Amer) 71.8 BUN/Creatinine Ratio 27.3 H Glucose 101 H Calcium 8.6 Total Bilirubin 0.40 AST 21 ALT 15 Alkaline Phosphatase 61 Total Protein 5.3 L Albumin 3.0 L Globulin 2.3 Albumin/Globulin Ratio 1.3 Exam: GENERAL: Sleepy, nods off frequently LUNGS: Clear bilaterally HEART: Regular rhythm ABDOMEN: Soft EXTREMITIES: right knee C/D/I NEUROLOGIC: Arouses and answers appropriately. Sensation intact. Muscle strength 3-4/5 RLE, 5/5 UEs and LLE Assessment/Plan: 1. Right TKA: PT/OT. WBAT. Follow up with Dr. Lorenzo 2. Hypothyroidism: Synthroid 3. Depression: Celexa 4. Insomnia: Cutting back on Soporifics 5. GERD: Protonix 6. DVT Prophylaxis: ASA 325 per ortho 7. Advance Directives: DNR. Has MOLST 09/14/19 17:51
[2019-09-14] MEDS: ALPRAZolam TAB* 0.5 MG PO SCH (20:26)
[2019-09-14] MEDS: Oxybutynin TAB* 5 MG PO SCH (20:27)
[2019-09-14] MEDS: traZODone TAB* 50 MG TAB PO SCH (20:27)
[2019-09-14] MEDS: Atorvastatin* 40 MG TAB PO SCH (20:27)
[2019-09-14] MEDS ORDERED: Acetaminophen TAB* 325 MG PO ONE (23:30)
[2019-09-15] MEDS: Levothyroxine TAB* 88 MCG TAB PO SCH (06:23)
[2019-09-15] MEDS: Pregabalin CAP(*) 50 MG PO SCH ×2 (07:48→20:34)
[2019-09-15] MEDS: amLODIPine TAB* 5 MG PO SCH (07:49)
[2019-09-15] MEDS: Acetaminophen TAB* 325 MG PO SCH ×3 (08:02→21:07)
[2019-09-15] MEDS: Citalopram TAB* 40 MG PO SCH (08:03)
[2019-09-15] MEDS: Aspirin TAB* 325 MG PO SCH (08:03)
[2019-09-15] MEDS: Pantoprazole TAB * 40 MG TAB PO SCH (08:04)
[2019-09-15] MEDS: Potassium Chloride* LIQUID 20 MEQ/15 ML UDC PO SCH (08:04)
[2019-09-15] MEDS: Docusate CAP* 100 MG PO SCH ×2 (08:04→20:35)
[2019-09-15] MEDS: traMADol TAB* 50 MG PO PRN ×2 (10:36→19:35)
--- NOTE | 2019-09-15 17:52 | PN ---
Progress Note Date of Service: 09/15/19 Note: BUD BLANK was visited. Therapy notes read and reviewed. In better spirits today, not nearly as drowsy. Otherwise doing okay, eating okay. Current Medications: Active Medications Generic Name Dose Route Start Last Admin Trade Name Freq PRN Reason Stop Dose Admin Acetaminophen 975 mg 09/13/19 14:00 09/15/19 13:39 Tylenol Tab* PO 975 mg Q8H AIDAN Administration Hydrocodone Bitart/Acetaminophen 1 tab 09/13/19 12:09 09/14/19 11:31 [place] 5-325 Tab* PO 1 tab Q4H PRN Administration PAIN - SEVERE Alprazolam 0.5 mg 09/13/19 21:00 09/14/19 20:26 Xanax Tab* PO 0.5 mg BEDTIME AIDAN Administration Amlodipine Besylate 2.5 mg 09/14/19 09:00 09/15/19 07:49 Norvasc Tab* PO 2.5 mg DAILY AIDAN Administration Aspirin 325 mg 09/14/19 09:00 09/15/19 08:03 Aspirin Tab* PO 325 mg DAILY AIDAN Administration Atorvastatin Calcium 40 mg 09/13/19 21:00 09/14/19 20:27 Lipitor* PO 40 mg 2100 AIDAN Administration Citalopram Hydrobromide 40 mg 09/14/19 09:00 09/15/19 08:03 Celexa Tab* PO 40 mg DAILY AIDAN Administration Docusate Sodium 100 mg 09/13/19 21:00 09/15/19 08:04 Colace Cap* PO 100 mg BID AIDAN Administration Levothyroxine Sodium 88 mcg 09/14/19 06:00 09/15/19 06:23 Synthroid Tab* PO 88 mcg DAILY@0600 AIDAN Administration Magnesium Hydroxide 30 ml 09/13/19 11:48 Milk Of Magnesia Liq* PO Q6H PRN CONSTIPATION Oxybutynin Chloride 5 mg 09/13/19 21:00 09/14/19 20:27 Ditropan Tab* PO 5 mg BEDTIME AIDAN Administration Pantoprazole Sodium 40 mg 09/14/19 09:00 09/15/19 08:04 Protonix Tab* PO 40 mg DAILY AIDAN Administration Potassium Chloride 20 meq 09/14/19 09:00 09/15/19 08:04 Potassium Chloride Liquid PO 20 meq DAILY AIDAN Administration Pregabalin 50 mg 09/13/19 21:00 09/15/19 07:48 Lyrica Cap(*) PO 50 mg BID AIDAN Administration Senna 2 tab 09/13/19 11:48 Senokot 8.6 Mg Tab* PO BEDTIME PRN CONSTIPATION Tramadol HCl 50 mg 09/13/19 12:09 09/15/19 10:36 Ultram* PO 50 mg Q6H PRN Administration PAIN - MODERATE Trazodone HCl 50 mg 09/14/19 21:00 09/14/19 20:27 Desyrel Tab* PO 50 mg BEDTIME AIDAN Administration Vital Signs: Vital Signs Temp Pulse Resp BP Pulse Ox 98.1 F 79 14 124/50 97 09/15/19 06:18 09/15/19 06:18 09/15/19 12:24 09/15/19 06:18 09/15/19 07:40 Exam: GENERAL: Sleepy, nods off frequently LUNGS: Clear bilaterally HEART: Regular rhythm ABDOMEN: Soft EXTREMITIES: right knee C/D/I NEUROLOGIC: Alert and appropriate. Sensation intact. Muscle strength 3-4/5 RLE, 5/5 UEs and LLE Assessment/Plan: 1. Right TKA: PT/OT. WBAT. Follow up with Dr. Lorenzo 2. Hypothyroidism: Synthroid 3. Depression: Celexa 4. Insomnia: Cutting back on Soporifics 5. GERD: Protonix 6. DVT Prophylaxis: ASA 325 per ortho 7. Advance Directives: DNR. Has MOLST 09/15/19 17:52
[2019-09-15] MEDS: ALPRAZolam TAB* 0.5 MG PO SCH (20:34)
[2019-09-15] MEDS: traZODone TAB* 50 MG TAB PO SCH (20:34)
[2019-09-15] MEDS: Atorvastatin* 40 MG TAB PO SCH (20:35)
[2019-09-15] MEDS: Oxybutynin TAB* 5 MG PO SCH (20:35)
[2019-09-15] MEDS: HYDROcodone/ACETAMIN 5-325 MG* 1 TAB PO PRN (21:07)
[2019-09-16] MEDS: traMADol TAB* 50 MG PO PRN ×3 (04:08→23:19)
[2019-09-16] MEDS: Levothyroxine TAB* 88 MCG TAB PO SCH (05:15)
[2019-09-16] MEDS: Acetaminophen TAB* 325 MG PO SCH ×3 (05:15→22:03)
[2019-09-16] MEDS: amLODIPine TAB* 5 MG PO SCH (09:26)
[2019-09-16] MEDS: Docusate CAP* 100 MG PO SCH ×2 (09:27→20:18)
[2019-09-16] MEDS: Aspirin TAB* 325 MG PO SCH (09:27)
[2019-09-16] MEDS: Citalopram TAB* 40 MG PO SCH (09:27)
[2019-09-16] MEDS: Pantoprazole TAB * 40 MG TAB PO SCH (09:28)
[2019-09-16] MEDS: Pregabalin CAP(*) 50 MG PO SCH ×2 (09:28→20:18)
[2019-09-16] MEDS: Potassium Chloride* LIQUID 20 MEQ/15 ML UDC PO SCH (09:28)
[2019-09-16] MEDS: HYDROcodone/ACETAMIN 5-325 MG* 1 TAB PO PRN (09:30)
[2019-09-16] MEDS: Oxybutynin TAB* 5 MG PO SCH (20:18)
[2019-09-16] MEDS: ALPRAZolam TAB* 0.5 MG PO SCH (20:18)
[2019-09-16] MEDS: Atorvastatin* 40 MG TAB PO SCH (20:18)
--- NOTE | 2019-09-16 21:01 | PN ---
Progress Note Date of Service: 09/16/19 Note: BUD BLANK was visited. Nursing notes read and reviewed. Her spirits are better and she is more alert. Overall doing ok, therapy will resume tomorrow Current Medications: Active Medications Generic Name Dose Route Start Last Admin Trade Name Freq PRN Reason Stop Dose Admin Acetaminophen 975 mg 09/13/19 14:00 09/16/19 14:09 Tylenol Tab* PO 975 mg Q8H AIDAN Administration Hydrocodone Bitart/Acetaminophen 1 tab 09/13/19 12:09 09/16/19 09:30 [place] 5-325 Tab* PO 1 tab Q4H PRN Administration PAIN - SEVERE Alprazolam 0.5 mg 09/13/19 21:00 09/16/19 20:18 Xanax Tab* PO 0.5 mg BEDTIME AIDAN Administration Amlodipine Besylate 2.5 mg 09/14/19 09:00 09/16/19 09:26 Norvasc Tab* PO 2.5 mg DAILY AIDAN Administration Aspirin 325 mg 09/14/19 09:00 09/16/19 09:27 Aspirin Tab* PO 325 mg DAILY AIDAN Administration Atorvastatin Calcium 40 mg 09/13/19 21:00 09/16/19 20:18 Lipitor* PO 40 mg 2100 AIDAN Administration Citalopram Hydrobromide 40 mg 09/14/19 09:00 09/16/19 09:27 Celexa Tab* PO 40 mg DAILY AIDAN Administration Docusate Sodium 100 mg 09/13/19 21:00 09/16/19 20:18 Colace Cap* PO 100 mg BID AIDAN Administration Levothyroxine Sodium 88 mcg 09/14/19 06:00 09/16/19 05:15 Synthroid Tab* PO 88 mcg DAILY@0600 AIDAN Administration Magnesium Hydroxide 30 ml 09/13/19 11:48 Milk Of Magnesia Liq* PO Q6H PRN CONSTIPATION Oxybutynin Chloride 5 mg 09/13/19 21:00 09/16/19 20:18 Ditropan Tab* PO 5 mg BEDTIME AIDAN Administration Pantoprazole Sodium 40 mg 09/14/19 09:00 09/16/19 09:28 Protonix Tab* PO 40 mg DAILY AIDAN Administration Potassium Chloride 20 meq 09/14/19 09:00 09/16/19 09:28 Potassium Chloride Liquid PO 20 meq DAILY AIDAN Administration Pregabalin 50 mg 09/13/19 21:00 09/16/19 20:18 Lyrica Cap(*) PO 50 mg BID AIDAN Administration Senna 2 tab 09/13/19 11:48 Senokot 8.6 Mg Tab* PO BEDTIME PRN CONSTIPATION Tramadol HCl 50 mg 09/13/19 12:09 09/16/19 16:51 Ultram* PO 50 mg Q6H PRN Administration PAIN - MODERATE Trazodone HCl 50 mg 09/14/19 21:00 09/15/19 20:34 Desyrel Tab* PO 50 mg BEDTIME AIDAN Administration Vital Signs: Vital Signs Temp Pulse Resp BP Pulse Ox 97.6 F 75 14 128/44 97 09/16/19 16:33 09/16/19 16:33 09/16/19 20:18 09/16/19 16:33 09/16/19 16:33 Exam: GENERAL: Sleepy, nods off frequently LUNGS: Clear bilaterally HEART: Regular rhythm ABDOMEN: Soft EXTREMITIES: right knee C/D/I NEUROLOGIC: Alert and appropriate. Sensation intact. Muscle strength 3-4/5 RLE, 5/5 UEs and LLE Assessment/Plan: 1. Right TKA: PT/OT. WBAT. Follow up with Dr. Lorenzo 2. Hypothyroidism: Synthroid 3. Depression: Celexa 4. Insomnia: Cutting back on Soporifics 5. GERD: Protonix 6. DVT Prophylaxis: ASA 325 per ortho 7. Advance Directives: DNR. Has MOLST 09/16/19 21:01
[2019-09-16] MEDS: Hemorrhoidal OINT PR PRN (22:04)
[2019-09-16] MEDS: traZODone TAB* 50 MG TAB PO SCH (22:04)
[2019-09-17] MEDS: HYDROcodone/ACETAMIN 5-325 MG* 1 TAB PO PRN ×2 (03:21→21:13)
[2019-09-17] MEDS: Acetaminophen TAB* 325 MG PO SCH ×3 (05:28→22:06)
[2019-09-17] MEDS: Levothyroxine TAB* 88 MCG TAB PO SCH (05:28)
[2019-09-17] MEDS: Docusate CAP* 100 MG PO SCH ×2 (08:30→21:11)
[2019-09-17] MEDS: amLODIPine TAB* 5 MG PO SCH (08:30)
[2019-09-17] MEDS: Pantoprazole TAB * 40 MG TAB PO SCH (08:30)
[2019-09-17] MEDS: Pregabalin CAP(*) 50 MG PO SCH ×2 (08:30→21:12)
[2019-09-17] MEDS: Aspirin TAB* 325 MG PO SCH (08:30)
[2019-09-17] MEDS: Citalopram TAB* 40 MG PO SCH (08:32)
[2019-09-17] MEDS: Potassium Chloride* LIQUID 20 MEQ/15 ML UDC PO SCH (08:32)
[2019-09-17] MEDS: Magnesium Hydroxide LIQ* 30 ML UDC PO PRN (10:27)
[2019-09-17] MEDS: Hemorrhoidal OINT PR PRN ×3 (10:27→21:08)
--- NOTE | 2019-09-17 16:34 | PN ---
Progress Note Date of Service: 09/17/19 Note: BUD BLANK was visited. Therapy notes read and reviewed. Did okay with therapy, feels exhausted after working with them Current Medications: Active Medications Generic Name Dose Route Start Last Admin Trade Name Freq PRN Reason Stop Dose Admin Acetaminophen 975 mg 09/13/19 14:00 09/17/19 14:12 Tylenol Tab* PO 975 mg Q8H AIDAN Administration Hydrocodone Bitart/Acetaminophen 1 tab 09/13/19 12:09 09/17/19 03:21 [place] 5-325 Tab* PO 1 tab Q4H PRN Administration PAIN - SEVERE Alprazolam 0.5 mg 09/13/19 21:00 09/16/19 20:18 Xanax Tab* PO 0.5 mg BEDTIME AIDAN Administration Amlodipine Besylate 2.5 mg 09/14/19 09:00 09/17/19 08:30 Norvasc Tab* PO 2.5 mg DAILY AIDAN Administration Aspirin 325 mg 09/14/19 09:00 09/17/19 08:30 Aspirin Tab* PO 325 mg DAILY AIDAN Administration Atorvastatin Calcium 40 mg 09/13/19 21:00 09/16/19 20:18 Lipitor* PO 40 mg 2100 AIDAN Administration Citalopram Hydrobromide 40 mg 09/14/19 09:00 09/17/19 08:32 Celexa Tab* PO 40 mg DAILY AIDAN Administration Docusate Sodium 100 mg 09/13/19 21:00 09/17/19 08:30 Colace Cap* PO 100 mg BID AIDAN Administration Levothyroxine Sodium 88 mcg 09/14/19 06:00 09/17/19 05:28 Synthroid Tab* PO 88 mcg DAILY@0600 AIDAN Administration Magnesium Hydroxide 30 ml 09/13/19 11:48 09/17/19 10:27 Milk Of Magnesia Liq* PO 30 ml Q6H PRN Administration CONSTIPATION Oxybutynin Chloride 5 mg 09/13/19 21:00 09/16/19 20:18 Ditropan Tab* PO 5 mg BEDTIME AIDAN Administration Pantoprazole Sodium 40 mg 09/14/19 09:00 09/17/19 08:30 Protonix Tab* PO 40 mg DAILY AIDAN Administration Phenyleph/Shark Oil/Min Oil/Petrol 1 applic 09/16/19 21:17 09/17/19 10:27 Preparation H* GA 1 applic TID PRN Administration Hemorrhoids Potassium Chloride 20 meq 09/14/19 09:00 09/17/19 08:32 Potassium Chloride Liquid PO 20 meq DAILY AIDAN Administration Pregabalin 50 mg 09/13/19 21:00 09/17/19 08:30 Lyrica Cap(*) PO 50 mg BID AIDAN Administration Senna 2 tab 09/13/19 11:48 Senokot 8.6 Mg Tab* PO BEDTIME PRN CONSTIPATION Tramadol HCl 50 mg 09/13/19 12:09 09/16/19 23:19 Ultram* PO 50 mg Q6H PRN Administration PAIN - MODERATE Trazodone HCl 50 mg 09/14/19 21:00 09/16/19 22:04 Desyrel Tab* PO 50 mg BEDTIME AIDAN Administration Vital Signs: Vital Signs Temp Pulse Resp BP Pulse Ox 98.1 F 73 16 134/53 99 09/17/19 05:42 09/17/19 13:45 09/17/19 08:30 09/17/19 13:45 09/17/19 13:45 Exam: GENERAL: Sleepy, nods off frequently LUNGS: Clear bilaterally HEART: Regular rhythm ABDOMEN: Soft EXTREMITIES: right knee C/D/I NEUROLOGIC: Alert and appropriate. Sensation intact. Muscle strength 3-4/5 RLE, 5/5 UEs and LLE Assessment/Plan: 1. Right TKA: PT/OT. WBAT. Follow up with Dr. Lorenzo 2. Hypothyroidism: Synthroid 3. Depression: Celexa 4. Insomnia: Cutting back on Soporifics 5. GERD: Protonix 6. DVT Prophylaxis: ASA 325 per ortho 7. Advance Directives: DNR. Has MOLST 09/17/19 16:34
[2019-09-17] MEDS: traMADol TAB* 50 MG PO PRN (16:57)
[2019-09-17 19:31] LABS: Urine Appearance Clear; Urine Bilirubin Negative (Negative); Urine Blood Negative (Negative); Urine Color Yellow; Urine Glucose Negative (Negative); Urine Ketones Negative (Negative); Urine Nitrite Negative (Negative); Urine Protein Negative (Negative); Urine Specific Gravity 1.015 (1.010-1.030); Urine Urobilinogen Negative (Negative)
[2019-09-17] MEDS: Atorvastatin* 40 MG TAB PO SCH (21:11)
[2019-09-17] MEDS: traZODone TAB* 50 MG TAB PO SCH (21:11)
[2019-09-17] MEDS: ALPRAZolam TAB* 0.5 MG PO SCH (21:12)
[2019-09-17] MEDS: Oxybutynin TAB* 5 MG PO SCH (21:12)
[2019-09-18] MEDS: Acetaminophen TAB* 325 MG PO SCH ×3 (05:41→22:40)
[2019-09-18] MEDS: Levothyroxine TAB* 88 MCG TAB PO SCH (05:42)
[2019-09-18] MEDS: amLODIPine TAB* 5 MG PO SCH (08:18)
[2019-09-18] MEDS: Aspirin TAB* 325 MG PO SCH (08:18)
[2019-09-18] MEDS: Citalopram TAB* 40 MG PO SCH (08:18)
[2019-09-18] MEDS: Pantoprazole TAB * 40 MG TAB PO SCH (08:19)
[2019-09-18] MEDS: Docusate CAP* 100 MG PO SCH ×2 (08:19→20:47)
[2019-09-18] MEDS: Pregabalin CAP(*) 50 MG PO SCH ×2 (08:19→20:46)
[2019-09-18] MEDS: Potassium Chloride* LIQUID 20 MEQ/15 ML UDC PO SCH (08:19)
[2019-09-18] MEDS: HYDROcodone/ACETAMIN 5-325 MG* 1 TAB PO PRN ×3 (08:19→20:49)
--- NOTE | 2019-09-18 12:55 | PMRUTEAM ---
PMRU: Team Meeting Current Status: Physical Therapy: Current Status Current Rolling Status Supervision/Touching Current Supine <-> Sit Status Partial/Moderate Current Sit <-> Stand Status Supervision/Touching Current Bed <-> Chair Status Supervision/Touching Transfer/Bed Mobility Rolling Walker Recommended Devices Transfer Mobility Comment Pt. is able to perform a transfer cg to S x 1. Current Picking Up Object Partial/Moderate Status Current Car Transfer Status Partial/Moderate Current Ambulation Assistance Supervision/Touching Status Ambulation Assistive Device Rolling Walker Ambulation Conditions Two or More Turns Current Ambulation Distance 40' and 50' ( 09/17/19 ), 15' & 10' ( 09/18/10 ) Ambulation Comment Short step through to step to using a 2 w/w. Current Wheelchair Propulsion Not Applicable Ability Status Current Stair Climbing Status Supervision/Touching Stair Climbing Assistive Left Railing,Right Railing Devices Number of Stairs Climbed 3 Current Curb Assistance Status Not attempted Objective Comments Pt is lethargic throughout session, requiring rest breaks between each activity. Occupational Therapy: Current Status Current Upper Body Dressing Setup or Clean-up Assist Status Current Lower Body Dressing Partial/Moderate Status Current Footwear Status Partial/Moderate Current Bathing Status Partial/Moderate Current Grooming Status Setup or Clean-up Assist Current Toileting Status Substantial/Maximal Current Toilet Transfer Status Partial/Moderate Current Eating Status Setup or Clean-up Assist Nursing: Current Status Skin Deviations [Right Knee] Incision Skin Deviation Description [ sabine Right Knee] Bladder Current Status 1 assist pivot to the commode Bowel Current Status 1 assist with toileting Nutrition Current Status Eats 50% of some meals Medication Current Status Needs reinforcement with medications Rec Therapy: Current Status Summary of Assessment and Recreation Therapy Assessment complete and pt. is Clinical Impression aware of services. Pt. expresses feeling tired in the afternoons after therapy but is open to continued leisure visits and pet therapy. Treatment Goals Pt. will engage in leisure activities while on the unit. Treatment Plan Provide recreation therapy services and encourage involvement. 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 Pt continues on regular diet, mechanically ground. Pt reports eating better and greater variety than at home; does state that portions are too large. Discussed importance of protein and foods containing protein . Pt does consume milk and meat products - is content with altered texture for ease of chewing. Knows she can write in additional foods not listed on menu (such as yogurt, fruit, cottage cheese, etc), as desired. She declines Ensure supplement at this time but knows its available. Last BM . No GI s/sx noted. Labs/meds rev'd. Will cont to follow intakes. Goals: Physical Therapy: Goals Goals to Be Accomplished in ( 7-10 Days) Goal: Rolling Assistance Independent Goal Supine <-> Sit Status Independent Goal Sit <-> Stand Status Independent Goal Bed <-> Chair Status Independent Transfer/Bed Mobility Rolling Walker Recommended Devices Goal: Picking Up Object Independent Goal: Car Transfer Status Supervision/Touching Goal: Ambulation Assistance Independent Ambulation Assistive Devices Rolling Walker Ambulation Distance (ft) 150 Goal: Wheelchair Propulsion Not Applicable Ability Goal: Stairs Assistance Supervision/Touching Stairs Recommended Devices Two Rails Number of Stairs 3 Goal: Curb Assistance Supervision/Touching Goal: Home Exercise Program Independent Assistance Occupational Therapy: Goals Goals to be Completed in (Days 14 ) Goal Upper Body Dressing Independent Routine Goal Lower Body Dressing Independent Routine Goal Footwear Status Independent Goal Bathing Routine (OT) Supervision/Touching Goal Grooming Routine Independent Goal Toilet Hygiene and Independent Clothing Management Routine Goal Toilet Transfer Routine Independent Goal Functional Transfers for Independent ADL Goal Feeding Routine Independent Light Housekeeping Tasks Light meal prep I Assistive Devices Nutrition: Goals Intervention Goals 1. Tolerates least restrictive texture w/o difficulty chewing or swallowing. 2. Pt verbalizes plan for improved balance of intake at d/c. 3. Adequate oral intake to support maintenance of lean body mass, meet nutrient needs 4. 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 will participate in family training Anticipated Discharge Home Destination Discharge With return home with home care svs and family support Nursing: Goals Bladder Goal Independent with toileting Bowel Goal Independent with toileting Nutrition Goal Eats 100% of all meals Medication Goal Independent with medications Care Plan: Care Plan ADL's - Improve/Maintain Start: 09/14/19 16:34 Freq: DAILY@0700,1900 Status: Active Target: 09/15/19 Protocol: Activity Type Activity Date Activity User E-Sign Co-Sign Detail Recorded Client Recorded Date Recorded By Document 09/17/19 13:26 [id number] [id number] 09/17/19 13:26 [id number] 09/17/19 13:26 PMRU Outcome: ADL's/ADL Transfers Orders/Interventions Occupational Therapy Evaluation & Treatment Communication Tool in Patient Room Device Yes Address Deficits Secondary To: R TKA Patient to receive OT 5x/wk for 60-120 Therex min/day Self Care Management Group Therapy UE/LE ADL's with Assist Yes: Johanna ADL Transfers with Assist Yes: Johanna Toileting: Transfers,Clothing Management Yes: Johanna ,Hygeine w/Assist Light Kitchen/Laundry w/Assist Yes: light meal prep Johanna Other Outcome/Goals Pt taken back to room via recliner chair, positioned for comfort with LEs elevated, call randle and personal items in reach, PA in place. Progression Toward Outcome/Goals Progressing Communication-Improve/Maintain Start: 09/13/19 16:04 Freq: [id number] Status: Active Target: 09/21/19 Protocol: Activity Type Activity Date Activity User E-Sign Co-Sign Detail Recorded Client Recorded Date Recorded By Document 09/17/19 20:46 [id number] 09/17/19 20:49 [id number] 09/17/19 20:46 PMRU Outcome: Communication/Cognitive Status Current Communication Outcome/Goals Use Comm Tools/ Devices Makes Needs Known Effectively Progression Toward Outcomes/Goals Progressing DVT Prophylaxis- Improve/Maintain Start: 09/13/19 16:04 Freq: [id number] Status: Active Target: 09/21/19 Protocol: Activity Type Activity Date Activity User E-Sign Co-Sign Detail Recorded Client Recorded Date Recorded By Document 09/17/19 20:46 [id number] 09/17/19 20:49 [id number] 09/17/19 20:46 PMRU Outcome: DVT Prophylaxis Current DVT Outcome/Goals Remains Free of DVT Complies with DVT Prophylaxis /Treatment Demonstrates Knowledge of DVT Prevention/ Treatment TEDS Stockings on Every AM, Off at HS Progression Toward Outcome/Goals Progressing Discharge Planning - Improve/Maintain Start: 09/13/19 16:04 Freq: DAILY@0700,1900 Status: Active Target: 09/21/19 Protocol: Activity Type Activity Date Activity User E-Sign Co-Sign Detail Recorded Client Recorded Date Recorded By Document 09/17/19 20:46 [id number] 09/17/19 20:49 [id number] 09/17/19 20:46 PMRU Outcome: Discharge Planning Current Discharge Planning Outcome/Goals Demonstrates Understanding of Discharge Plan Progression Toward Outcome/Goals Progressing Education-Improve/Maintain Start: 09/13/19 16:04 Freq: [id number] Status: Active Target: 09/21/19 Protocol: Activity Type Activity Date Activity User E-Sign Co-Sign Detail Recorded Client Recorded Date Recorded By Document 09/17/19 20:46 [id number] 09/17/19 20:49 [id number] 09/17/19 20:46 PMRU Outcome: Education Current Education Outcome/Goals Demonstrate/ Verbalize Understanding of Written Discharge Instructions Demonstrates Skills Encourage Questions Progression Toward Outcome/Goals Progressing /GI-Improve/Maintain Start: 09/13/19 16:04 Freq: [id number] Status: Active Target: 09/21/19 Protocol: Activity Type Activity Date Activity User E-Sign Co-Sign Detail Recorded Client Recorded Date Recorded By Document 09/17/19 20:46 [id number] 09/17/19 20:49 [id number] 09/17/19 20:46 PMRU Outcome: Genitourinary/ Gastrointestinal Current Gastrointestinal Outcome/Goals Maintain/ Achieve Bowel Regularity in Accordance with Pt's Baseline Prevent Constipation Bowel Regularity at Home Laxatives as Ordered Bowel Program Progression Toward Outcome/Goals Progressing Current Genitourinary Outcome/Goals Maintain/ Achieve Urinary Continence Maintain/ Achieve Adequate Urinary Output Remain Free of Hospital- Acquired UTI Progression Toward Outcome/Goals Progressing Medication Administration Start: 09/13/19 16:04 Freq: DAILY@00,1899 Status: Active Target: 09/21/19 Protocol: Activity Type Activity Date Activity User E-Sign Co-Sign Detail Recorded Client Recorded Date Recorded By Document 09/17/19 20:46 [id number] 09/17/19 20:49 [id number] 09/17/19 20:46 PMRU Outcome: Medication Administration Current Geriatric Social Worker Outcome/Goals Demonstrates Understanding Progression Towards Outcome/Goals Progressing Is Patient Going Home on Lovenox? No Mobility- Improve/Maintain Start: 09/14/19 16:27 Freq: DAILY@[id number] Status: Active Target: 09/15/19 Protocol: Activity Type Activity Date Activity User E-Sign Co-Sign Detail Recorded Client Recorded Date Recorded By Document 09/14/19 16:28 [id number] 09/14/19 16:29 [id number] 09/14/19 16:28 PMRU Outcome: Mobility Physical Therapy Evaluation and Yes Treatment Activity OOB with Assistance Yes WBAT Yes NWB No TTWB No Device Yes Assistance Yes Patient to be seen 5x/wk for 60-120 min/ Therex day for: Mobility Training Gait Training Balance Other Current Mobility Outcome/Goals Improve Mobility Status Demonstrates Proper Use of Assistive Devices Progression Toward Outcome/Goals Progressing Bed Mobility Yes: independent Transfers Yes: independent with RW Gait x ft Yes: 50' independent with RW W/C Mobility x ft No Up/Down Stairs Yes: 4 with rails supervision With HEP Yes: independent Pain/Comfort- Improve/Maintain Start: 09/13/19 16:04 Freq: DAILY@[id number] Status: Active Target: 09/21/19 Protocol: Activity Type Activity Date Activity User E-Sign Co-Sign Detail Recorded Client Recorded Date Recorded By Document 09/17/19 20:46 [id number] 09/17/19 20:49 [id number] 09/17/19 20:46 PMRU Outcome: Pain/Comfort Current Pain/Comfort Outcome/Goals Demonstrates Knowledge and Use of Available Comfort Measures Achieves Acceptable Comfort/Pain Level as Determined by Patient/Condit Progression Toward Outcome/Goals Progressing Rec Therapy- Improve/Maintain Start: 09/14/19 15:29 Freq: DAILY@ Status: Active Target: 09/28/19 Protocol: Activity Type Activity Date Activity User E-Sign Co-Sign Detail Recorded Client Recorded Date Recorded By Document 09/17/19 15:22 [id number] 09/17/19 15:22 [id number] 09/17/19 15:22 PMRU Outcome: Recreation Therapy Current Rec Ther Outcome/Goals Complete Rec Therapy Assessment Meet with Patient Regularly for Support Encourage Leisure Involvement Progression Toward Outcome/Goals Goals Met Outcome/Goals Met Complete Rec Therapy Assessment Outcome/Goals Met Comment assessment complete, pt. is open to continued leisure visits and pet therapy but feeling tired today. Safety- Improve/Maintain Start: 09/13/19 11:03 Freq: DAILY@0700,1900 Status: Active Target: 09/21/19 Protocol: Activity Type Activity Date Activity User E-Sign Co-Sign Detail Recorded Client Recorded Date Recorded By Document 09/17/19 20:46 [id number] [email or web address] 09/17/19 20:49 [id number] 09/17/19 20:46 PMRU Outcome: Safety Current Safety Outcome/Goals Remain Free of Injury or Harm Cooperates with Safety Measures for Least Restrictive Environment Prevent Falls/ Injury Progression Toward Outcome/Goals Progressing Skin- Improve/Maintain Start: 09/13/19 16:04 Freq: DAILY@0700,1900 Status: Active Target: 09/21/19 Protocol: Activity Type Activity Date Activity User E-Sign Co-Sign Detail Recorded Client Recorded Date Recorded By Document 09/17/19 20:46 [id number] [email or web address] 09/17/19 20:49 [id number] 09/17/19 20:46 PMRU Outcome: Skin Skin Risk Level Mild Risk Skin Orders Teach Patient Heels Off Bed Turn/Position q2hr While in Bed Current Skin Outcome/Goals Maintain/ Improve Skin Integrity Free from Pressure Injury Surgical Incisions Healing Progression Toward Outcome/Goals Progressing - Interdisciplinary Staff Present Psychological Anthropologist/Social Work Staff Present: Antonia Price LMSW Nursing Staff Present: Keri Bolivar LPN OT Staff Present: Violeta June PT Staff Present: Lawrence Berman PTA Rec Therapy Staff Present: Bhavani Cash [employer] Staff Present: Bernardo Knapp Medicine Note: Length of Stay: 10 days Anticipated Discharge Destination: Home Tentative Discharge Date: 09/28/19 Discharged to: home
[2019-09-18] MEDS: Hemorrhoidal OINT PR PRN (15:40)
[2019-09-18] MEDS: traMADol TAB* 50 MG PO PRN (19:20)
--- NOTE | 2019-09-18 19:54 | PN ---
Progress Note Date of Service: 09/18/19 Note: BUD BLANK was visited. Therapy notes read and reviewed. She was discussed in interdisciplinary team rounds. She has been complaining of hemorrhoid pain. Current Medications: Active Medications Generic Name Dose Route Start Last Admin Trade Name Freq PRN Reason Stop Dose Admin Acetaminophen 975 mg 09/13/19 14:00 09/18/19 15:00 Tylenol Tab* PO 975 mg Q8H AIDAN Administration Hydrocodone Bitart/Acetaminophen 1 tab 09/13/19 12:09 09/18/19 13:12 [place] 5-325 Tab* PO 1 tab Q4H PRN Administration PAIN - SEVERE Alprazolam 0.5 mg 09/13/19 21:00 09/17/19 21:12 Xanax Tab* PO 0.5 mg BEDTIME AIDAN Administration Amlodipine Besylate 2.5 mg 09/14/19 09:00 09/18/19 08:18 Norvasc Tab* PO 2.5 mg DAILY AIDAN Administration Aspirin 325 mg 09/14/19 09:00 09/18/19 08:18 Aspirin Tab* PO 325 mg DAILY AIDAN Administration Atorvastatin Calcium 40 mg 09/13/19 21:00 09/17/19 21:11 Lipitor* PO 40 mg 2100 AIDAN Administration Citalopram Hydrobromide 40 mg 09/14/19 09:00 09/18/19 08:18 Celexa Tab* PO 40 mg DAILY AIDAN Administration Docusate Sodium 100 mg 09/13/19 21:00 09/18/19 08:19 Colace Cap* PO 100 mg BID AIDAN Administration Levothyroxine Sodium 88 mcg 09/14/19 06:00 09/18/19 05:42 Synthroid Tab* PO 88 mcg DAILY@0600 AIDAN Administration Magnesium Hydroxide 30 ml 09/13/19 11:48 09/17/19 10:27 Milk Of Magnesia Liq* PO 30 ml Q6H PRN Administration CONSTIPATION Oxybutynin Chloride 5 mg 09/13/19 21:00 09/17/19 21:12 Ditropan Tab* PO 5 mg BEDTIME AIDAN Administration Pantoprazole Sodium 40 mg 09/14/19 09:00 09/18/19 08:19 Protonix Tab* PO 40 mg DAILY AIDAN Administration Phenyleph/Shark Oil/Min Oil/Petrol 1 applic 09/16/19 21:17 09/18/19 15:40 Preparation H* [place] 1 applic TID PRN Administration Hemorrhoids Potassium Chloride 20 meq 09/14/19 09:00 09/18/19 08:19 Potassium Chloride Liquid PO 20 meq DAILY AIDAN Administration Pregabalin 50 mg 09/13/19 21:00 09/18/19 08:19 Lyrica Cap(*) PO 50 mg BID AIDAN Administration Senna 2 tab 09/13/19 11:48 Senokot 8.6 Mg Tab* PO BEDTIME PRN CONSTIPATION Tramadol HCl 50 mg 09/13/19 12:09 09/18/19 19:20 Ultram* PO 50 mg Q6H PRN Administration PAIN - MODERATE Trazodone HCl 50 mg 09/14/19 21:00 09/17/19 21:11 Desyrel Tab* PO 50 mg BEDTIME AIDAN Administration Vital Signs: Vital Signs Temp Pulse Resp BP Pulse Ox 97.6 F 72 22 128/58 100 09/18/19 14:51 09/18/19 14:51 09/18/19 19:20 09/18/19 14:51 09/18/19 16:42 Exam: GENERAL: Sleepy, nods off frequently LUNGS: Clear bilaterally HEART: Regular rhythm ABDOMEN: Soft EXTREMITIES: right knee C/D/I NEUROLOGIC: Alert and appropriate. Sensation intact. Muscle strength 3-4/5 RLE, 5/5 UEs and LLE Assessment/Plan: 1. Right TKA: PT/OT. WBAT. Follow up with Dr. Lorenzo 2. Hypothyroidism: Synthroid 3. Depression: Celexa 4. Insomnia: Cutting back on Soporifics 5. GERD: Protonix 6. DVT Prophylaxis: ASA 325 per ortho 7. Advance Directives: DNR. Has MOLST 09/18/19 19:54
[2019-09-18] MEDS: Oxybutynin TAB* 5 MG PO SCH (20:47)
[2019-09-18] MEDS: Atorvastatin* 40 MG TAB PO SCH (20:47)
[2019-09-18] MEDS: ALPRAZolam TAB* 0.5 MG PO SCH (20:47)
[2019-09-18] MEDS: traZODone TAB* 50 MG TAB PO SCH (20:47)
[2019-09-19] MEDS: Acetaminophen TAB* 325 MG PO SCH ×3 (07:32→21:45)
[2019-09-19] MEDS: Levothyroxine TAB* 88 MCG TAB PO SCH (07:34)
[2019-09-19] MEDS: Citalopram TAB* 40 MG PO SCH (10:12)
[2019-09-19] MEDS: Aspirin TAB* 325 MG PO SCH (10:12)
[2019-09-19] MEDS: Docusate CAP* 100 MG PO SCH ×2 (10:12→21:42)
[2019-09-19] MEDS: Pantoprazole TAB * 40 MG TAB PO SCH (10:12)
[2019-09-19] MEDS: amLODIPine TAB* 5 MG PO SCH (10:12)
[2019-09-19] MEDS: Pregabalin CAP(*) 50 MG PO SCH ×2 (10:13→21:43)
[2019-09-19] MEDS: Potassium Chloride* LIQUID 20 MEQ/15 ML UDC PO SCH (10:13)
--- NOTE | 2019-09-19 18:33 | PN ---
Progress Note Date of Service: 09/19/19 Note: BUD BLANK was visited. Therapy notes read and reviewed. She feels like she may be doing better. Hemorrhoids are better. Otherwise ok Current Medications: Active Medications Generic Name Dose Route Start Last Admin Trade Name Freq PRN Reason Stop Dose Admin Acetaminophen 975 mg 09/13/19 14:00 09/19/19 14:13 Tylenol Tab* PO 650 mg Q8H AIDAN Administration Hydrocodone Bitart/Acetaminophen 1 tab 09/13/19 12:09 09/18/19 20:49 [place] 5-325 Tab* PO 1 tab Q4H PRN Administration PAIN - SEVERE Alprazolam 0.5 mg 09/13/19 21:00 09/18/19 20:47 Xanax Tab* PO 0.5 mg BEDTIME AIDAN Administration Amlodipine Besylate 2.5 mg 09/14/19 09:00 09/19/19 10:12 Norvasc Tab* PO 2.5 mg DAILY AIDAN Administration Aspirin 325 mg 09/14/19 09:00 09/19/19 10:12 Aspirin Tab* PO 325 mg DAILY AIDAN Administration Atorvastatin Calcium 40 mg 09/13/19 21:00 09/18/19 20:47 Lipitor* PO 40 mg 2100 AIDAN Administration Citalopram Hydrobromide 40 mg 09/14/19 09:00 09/19/19 10:12 Celexa Tab* PO 40 mg DAILY AIDAN Administration Docusate Sodium 100 mg 09/13/19 21:00 09/19/19 10:12 Colace Cap* PO 100 mg BID AIDAN Administration Levothyroxine Sodium 88 mcg 09/14/19 06:00 09/19/19 07:34 Synthroid Tab* PO 88 mcg DAILY@0600 AIDAN Administration Magnesium Hydroxide 30 ml 09/13/19 11:48 09/17/19 10:27 Milk Of Magnesia Liq* PO 30 ml Q6H PRN Administration CONSTIPATION Oxybutynin Chloride 5 mg 09/13/19 21:00 09/18/19 20:47 Ditropan Tab* PO 5 mg BEDTIME AIDAN Administration Pantoprazole Sodium 40 mg 09/14/19 09:00 09/19/19 10:12 Protonix Tab* PO 40 mg DAILY AIDAN Administration Phenyleph/Shark Oil/Min Oil/Petrol 1 applic 09/16/19 21:17 09/18/19 15:40 Preparation H* [place] 1 applic TID PRN Administration Hemorrhoids Potassium Chloride 20 meq 09/14/19 09:00 09/19/19 10:13 Potassium Chloride Liquid PO 20 meq DAILY AIDAN Administration Pregabalin 50 mg 09/13/19 21:00 09/19/19 10:13 Lyrica Cap(*) PO 50 mg BID AIDAN Administration Senna 2 tab 09/13/19 11:48 Senokot 8.6 Mg Tab* PO BEDTIME PRN CONSTIPATION Tramadol HCl 50 mg 09/13/19 12:09 09/18/19 19:20 Ultram* PO 50 mg Q6H PRN Administration PAIN - MODERATE Trazodone HCl 50 mg 09/14/19 21:00 09/18/19 20:47 Desyrel Tab* PO 50 mg BEDTIME AIDAN Administration Vital Signs: Vital Signs Temp Pulse Resp BP Pulse Ox 97.7 F 72 18 149/64 100 09/19/19 05:00 09/19/19 16:10 09/19/19 16:10 09/19/19 05:00 09/19/19 16:10 Exam: GENERAL: Sleepy, nods off frequently LUNGS: Clear bilaterally HEART: Regular rhythm ABDOMEN: Soft EXTREMITIES: right knee C/D/I NEUROLOGIC: Alert and appropriate. Sensation intact. Muscle strength 3-4/5 RLE, 5/5 UEs and LLE Assessment/Plan: 1. Right TKA: PT/OT. WBAT. Follow up with Dr. Lorenzo 2. Hypothyroidism: Synthroid 3. Depression: Celexa 4. Insomnia: Cutting back on Soporifics 5. GERD: Protonix 6. DVT Prophylaxis: ASA 325 per ortho 7. Advance Directives: DNR. Has MOLST 09/19/19 18:34
[2019-09-19] MEDS: HYDROcodone/ACETAMIN 5-325 MG* 1 TAB PO PRN (19:11)
[2019-09-19] MEDS: Hemorrhoidal OINT PR PRN (19:13)
[2019-09-19] MEDS: ALPRAZolam TAB* 0.5 MG PO SCH (21:40)
[2019-09-19] MEDS: Atorvastatin* 40 MG TAB PO SCH (21:41)
[2019-09-19] MEDS: Oxybutynin TAB* 5 MG PO SCH (21:42)
[2019-09-19] MEDS: traZODone TAB* 50 MG TAB PO SCH (21:43)
[2019-09-19] MEDS: traMADol TAB* 50 MG PO PRN (23:37)
[2019-09-20] MEDS: Acetaminophen TAB* 325 MG PO SCH ×3 (05:34→22:39)
[2019-09-20] MEDS: Levothyroxine TAB* 88 MCG TAB PO SCH (05:34)
[2019-09-20] MEDS: amLODIPine TAB* 5 MG PO SCH (08:12)
[2019-09-20] MEDS: Aspirin TAB* 325 MG PO SCH (08:12)
[2019-09-20] MEDS: Docusate CAP* 100 MG PO SCH ×2 (08:12→20:12)
[2019-09-20] MEDS: Pantoprazole TAB * 40 MG TAB PO SCH (08:12)
[2019-09-20] MEDS: Pregabalin CAP(*) 50 MG PO SCH ×2 (08:12→20:12)
[2019-09-20] MEDS: Potassium Chloride* LIQUID 20 MEQ/15 ML UDC PO SCH (08:13)
[2019-09-20] MEDS: Citalopram TAB* 40 MG PO SCH (08:13)
--- NOTE | 2019-09-20 19:19 | PN ---
Progress Note Date of Service: 09/20/19 Note: BUD BLANK was visited. Therapy notes read and reviewed. She has been moving a little better but hard for her to put weight on right leg Current Medications: Active Medications Generic Name Dose Route Start Last Admin Trade Name Freq PRN Reason Stop Dose Admin Acetaminophen 975 mg 09/13/19 14:00 09/20/19 13:46 Tylenol Tab* PO 650 mg Q8H AIDAN Administration Hydrocodone Bitart/Acetaminophen 1 tab 09/13/19 12:09 09/19/19 19:11 [place] 5-325 Tab* PO 1 tab Q4H PRN Administration PAIN - SEVERE Alprazolam 0.5 mg 09/13/19 21:00 09/19/19 21:40 Xanax Tab* PO 0.5 mg BEDTIME AIDAN Administration Amlodipine Besylate 2.5 mg 09/14/19 09:00 09/20/19 08:12 Norvasc Tab* PO 2.5 mg DAILY AIDAN Administration Aspirin 325 mg 09/14/19 09:00 09/20/19 08:12 Aspirin Tab* PO 325 mg DAILY AIDAN Administration Atorvastatin Calcium 40 mg 09/13/19 21:00 09/19/19 21:41 Lipitor* PO 40 mg 2100 AIDAN Administration Citalopram Hydrobromide 40 mg 09/14/19 09:00 09/20/19 08:13 Celexa Tab* PO 40 mg DAILY AIDAN Administration Docusate Sodium 100 mg 09/13/19 21:00 09/20/19 08:12 Colace Cap* PO 100 mg BID AIDAN Administration Levothyroxine Sodium 88 mcg 09/14/19 06:00 09/20/19 05:34 Synthroid Tab* PO 88 mcg DAILY@0600 AIDAN Administration Magnesium Hydroxide 30 ml 09/13/19 11:48 09/17/19 10:27 Milk Of Magnesia Liq* PO 30 ml Q6H PRN Administration CONSTIPATION Oxybutynin Chloride 5 mg 09/13/19 21:00 09/19/19 21:42 Ditropan Tab* PO 5 mg BEDTIME AIDAN Administration Pantoprazole Sodium 40 mg 09/14/19 09:00 09/20/19 08:12 Protonix Tab* PO 40 mg DAILY AIDAN Administration Phenyleph/Shark Oil/Min Oil/Petrol 1 applic 09/16/19 21:17 09/19/19 19:13 Preparation H* MT 1 applic TID PRN Administration Hemorrhoids Potassium Chloride 20 meq 09/14/19 09:00 09/20/19 08:13 Potassium Chloride Liquid PO 20 meq DAILY AIDAN Administration Pregabalin 50 mg 09/13/19 21:00 09/20/19 08:12 Lyrica Cap(*) PO 50 mg BID AIDAN Administration Senna 2 tab 09/13/19 11:48 Senokot 8.6 Mg Tab* PO BEDTIME PRN CONSTIPATION Tramadol HCl 50 mg 09/13/19 12:09 09/19/19 23:37 Ultram* PO 50 mg Q6H PRN Administration PAIN - MODERATE Trazodone HCl 50 mg 09/14/19 21:00 09/19/19 21:43 Desyrel Tab* PO 50 mg BEDTIME AIDAN Administration Vital Signs: Vital Signs Temp Pulse Resp BP Pulse Ox 98.1 F 66 18 145/66 98 09/20/19 15:34 09/20/19 15:34 09/20/19 15:34 09/20/19 15:34 09/20/19 15:34 Exam: GENERAL: No distress LUNGS: Clear bilaterally HEART: Regular rhythm ABDOMEN: Soft EXTREMITIES: right knee C/D/I NEUROLOGIC: Alert and appropriate. Sensation intact. Muscle strength 3-4/5 RLE, 5/5 UEs and LLE Assessment/Plan: 1. Right TKA: PT/OT. WBAT. Follow up with Dr. Lorenzo 2. Hypothyroidism: Synthroid 3. Depression: Celexa 4. Insomnia: Cutting back on Soporifics 5. GERD: Protonix 6. DVT Prophylaxis: ASA 325 per ortho 7. Advance Directives: DNR. Has MOLST 09/20/19 19:19
[2019-09-20] MEDS: Oxybutynin TAB* 5 MG PO SCH (20:11)
[2019-09-20] MEDS: traZODone TAB* 50 MG TAB PO SCH (20:11)
[2019-09-20] MEDS: traMADol TAB* 50 MG PO PRN (20:11)
[2019-09-20] MEDS: Atorvastatin* 40 MG TAB PO SCH (20:12)
[2019-09-20] MEDS: ALPRAZolam TAB* 0.5 MG PO SCH (20:12)
[2019-09-20] MEDS: HYDROcodone/ACETAMIN 5-325 MG* 1 TAB PO PRN (22:38)
[2019-09-21] MEDS: Acetaminophen TAB* 325 MG PO SCH ×3 (05:31→21:32)
[2019-09-21] MEDS: Levothyroxine TAB* 88 MCG TAB PO SCH (05:31)
[2019-09-21 05:46] LABS: ABS Basophils 0.1 10^3/ul (0-0.2); ABS Eosinophils 0.2 10^3/ul (0-0.6); ABS Lymphocytes 1.7 10^3/ul (1.0-4.8); ABS Monocytes 0.9 10^3/ul (0-0.8); ABS Neutrophils 3.5 10^3/ul (1.5-7.7); Eosinophil % 3.9 %; Hematocrit 25 % (35-47); Hemoglobin 8.5 g/dL (12.0-16.0); Lymphocyte % 26.9 %; Mean Corpuscular HGB Conc 34 g/dL (31-36); Mean Corpuscular Hemoglobin 33 pg (27-31); Mean Corpuscular Volume 97 fL (80-97); Mean Platelet Volume 6.4 fL (7.4-10.4); Nucleated Red Blood Cells % 0.1; Platelet Count 497 10^3/uL (150-450); Red Blood Count 2.57 10^6 /uL (3.70-4.87); Red Cell Distribution Width 14 % (10-15); White Blood Count 6.3 10^3/uL (3.5-10.8)
[2019-09-21 06:11] LABS: Albumin 3.2 g/dL (3.2-5.2); Albumin/Globulin Ratio 1.2 (1-3); BUN/Creatinine Ratio 13.8 (8-20); Calcium 8.6 mg/dL (8.6-10.3); EGFR African American 105.6 (>60); EGFR Non-African American 87.3 (>60); Globulin 2.6 g/dL (2-4); Potassium 3.7 mmol/L (3.5-5.0); Total Bilirubin 0.5 mg/dL (0.2-1.0); Total Protein 5.8 g/dL (6.4-8.9)
[2019-09-21] MEDS: traMADol TAB* 50 MG PO PRN ×2 (07:28→17:56)
[2019-09-21] MEDS: Docusate CAP* 100 MG PO SCH ×2 (07:28→21:30)
[2019-09-21] MEDS: Potassium Chloride* LIQUID 20 MEQ/15 ML UDC PO SCH (07:31)
[2019-09-21] MEDS: amLODIPine TAB* 5 MG PO SCH (07:31)
[2019-09-21] MEDS: Aspirin TAB* 325 MG PO SCH (07:32)
[2019-09-21] MEDS: Citalopram TAB* 40 MG PO SCH (07:32)
[2019-09-21] MEDS: Pregabalin CAP(*) 50 MG PO SCH ×2 (07:32→21:30)
[2019-09-21] MEDS: Pantoprazole TAB * 40 MG TAB PO SCH (07:33)
[2019-09-21] MEDS: Hemorrhoidal OINT PR PRN ×2 (07:37→17:44)
[2019-09-21] MEDS: Magnesium Hydroxide LIQ* 30 ML UDC PO PRN (07:56)
--- NOTE | 2019-09-21 10:40 | PN ---
Progress Note Date of Service: 09/21/19 Note: BUD BLANK was visited. Nursing and therapy notes read and reviewed. No chest pain or abdominal pain. She gets dyspnea with exertion here and at home. Current Medications: Active Medications Generic Name Dose Route Start Last Admin Trade Name Freq PRN Reason Stop Dose Admin Acetaminophen 975 mg 09/13/19 14:00 09/21/19 05:31 Tylenol Tab* PO 975 mg Q8H AIDAN Administration Hydrocodone Bitart/Acetaminophen 1 tab 09/13/19 12:09 09/20/19 22:38 [place] 5-325 Tab* PO 1 tab Q4H PRN Administration PAIN - SEVERE Amlodipine Besylate 2.5 mg 09/14/19 09:00 09/21/19 07:31 Norvasc Tab* PO 2.5 mg DAILY AIDAN Administration Aspirin 325 mg 09/14/19 09:00 09/21/19 07:32 Aspirin Tab* PO 325 mg DAILY AIDAN Administration Atorvastatin Calcium 40 mg 09/13/19 21:00 09/20/19 20:12 Lipitor* PO 40 mg 2100 AIDAN Administration Citalopram Hydrobromide 40 mg 09/14/19 09:00 09/21/19 07:32 Celexa Tab* PO 40 mg DAILY AIDAN Administration Docusate Sodium 100 mg 09/13/19 21:00 09/21/19 07:28 Colace Cap* PO 100 mg BID AIDAN Administration Levothyroxine Sodium 88 mcg 09/14/19 06:00 09/21/19 05:31 Synthroid Tab* PO 88 mcg DAILY@0600 AIDAN Administration Magnesium Hydroxide 30 ml 09/13/19 11:48 09/21/19 07:56 Milk Of Magnesia Liq* PO 30 ml Q6H PRN Administration CONSTIPATION Oxybutynin Chloride 5 mg 09/13/19 21:00 09/20/19 20:11 Ditropan Tab* PO 5 mg BEDTIME AIDAN Administration Pantoprazole Sodium 40 mg 09/14/19 09:00 09/21/19 07:33 Protonix Tab* PO 40 mg DAILY AIDAN Administration Phenyleph/Shark Oil/Min Oil/Petrol 1 applic 09/16/19 21:17 09/21/19 07:37 Preparation H* [place] 1 applic TID PRN Administration Hemorrhoids Potassium Chloride 20 meq 09/14/19 09:00 09/21/19 07:31 Potassium Chloride Liquid PO 20 meq DAILY AIDAN Administration Pregabalin 50 mg 09/13/19 21:00 09/21/19 07:32 Lyrica Cap(*) PO 50 mg BID AIDAN Administration Senna 2 tab 09/13/19 11:48 09/20/19 20:16 Senokot 8.6 Mg Tab* PO 2 tab BEDTIME PRN Administration CONSTIPATION Tramadol HCl 50 mg 09/13/19 12:09 09/21/19 07:28 Ultram* PO 50 mg Q6H PRN Administration PAIN - MODERATE Trazodone HCl 50 mg 09/14/19 21:00 09/20/19 20:11 Desyrel Tab* PO 50 mg BEDTIME AIDAN Administration Vital Signs: Vital Signs Temp Pulse Resp BP Pulse Ox 97.9 F 69 20 145/68 95 09/21/19 04:43 09/21/19 04:43 09/21/19 07:32 09/21/19 04:43 09/21/19 04:43 Lab Results: Laboratory Results - last 24 hr 09/21/19 09/21/19 05:34 05:34 WBC 6.3 RBC 2.57 L Hgb 8.5 L Hct 25 L MCV 97 MCH 33 H MCHC 34 RDW 14 Plt Count 497 H D MPV 6.4 L Neut % (Auto) 54.6 Lymph % (Auto) 26.9 [place] % (Auto) 13.6 Eos % (Auto) 3.9 Baso % (Auto) 1.0 Absolute Neuts (auto) 3.5 Absolute Lymphs (auto) 1.7 Absolute Monos (auto) 0.9 H Absolute Eos (auto) 0.2 Absolute Basos (auto) 0.1 Absolute Nucleated RBC 0.0 Nucleated RBC % 0.1 Sodium 139 Potassium 3.7 Chloride 108 Carbon Dioxide 25 Anion Gap 6 BUN 9 Creatinine 0.65 Est GFR ( Amer) 105.6 Est GFR (Non-Af Amer) 87.3 BUN/Creatinine Ratio 13.8 Glucose 94 Calcium 8.6 Total Bilirubin 0.50 AST 25 ALT 15 Alkaline Phosphatase 79 Total Protein 5.8 L Albumin 3.2 Globulin 2.6 Albumin/Globulin Ratio 1.2 Exam: GENERAL: No acute distress. Alert and appropriate. LUNGS: Clear to auscultation bilaterally HEART: Regular rate and rhythm ABDOMEN: Soft, non-tender, non-distended, + bowel sounds. EXTREMITIES: right knee incision C/D/I with sabine NEUROLOGIC: Sensation intact x4. Muscle strength 5/5 BUE and LLE. RLE motor 5/ 5 DF and EHL, but pain limited knee and hip flexion. Assessment/Plan: 1. Right TKA: PT/OT. WBAT. Follow up with Dr. Lorenzo 2. Hypothyroidism: Synthroid 3. Depression: Celexa 4. Insomnia: Xanax d/c'd and trazodone decreased 5. GERD: Protonix 6. DVT Prophylaxis: ASA 325 per ortho 7. Advance Directives: DNR. Has MOLST 8. Acute post-op anemia: stable 9. Estimated LOS: 09/28/19 09/21/19 10:38
[2019-09-21] MEDS: traZODone TAB* 50 MG TAB PO SCH (21:30)
[2019-09-21] MEDS: Atorvastatin* 40 MG TAB PO SCH (21:30)
[2019-09-21] MEDS: Oxybutynin TAB* 5 MG PO SCH (21:31)
[2019-09-22] MEDS: Levothyroxine TAB* 88 MCG TAB PO SCH (05:40)
[2019-09-22] MEDS: Acetaminophen TAB* 325 MG PO SCH ×3 (05:40→21:49)
[2019-09-22] MEDS: Aspirin TAB* 325 MG PO SCH (08:51)
[2019-09-22] MEDS: Citalopram TAB* 40 MG PO SCH (08:52)
[2019-09-22] MEDS: Pantoprazole TAB * 40 MG TAB PO SCH (08:52)
[2019-09-22] MEDS: Pregabalin CAP(*) 50 MG PO SCH ×2 (08:52→21:48)
[2019-09-22] MEDS: amLODIPine TAB* 5 MG PO SCH (08:53)
[2019-09-22] MEDS: Docusate CAP* 100 MG PO SCH ×2 (08:53→22:32)
[2019-09-22] MEDS: Potassium Chloride* LIQUID 20 MEQ/15 ML UDC PO SCH (08:54)
--- NOTE | 2019-09-22 10:57 | PN ---
Progress Note Date of Service: 09/22/19 Note: BUD BLANK was visited. Nursing and therapy notes read and reviewed. No chest pain, shortness of breath or abdominal pain. Uses miralax regularly at home and would like here as she has some hard BMs and occasional bleeding hemorrhoids. Current Medications: Active Medications Generic Name Dose Route Start Last Admin Trade Name Freq PRN Reason Stop Dose Admin Acetaminophen 975 mg 09/13/19 14:00 09/22/19 05:40 Tylenol Tab* PO 975 mg Q8H AIDAN Administration Hydrocodone Bitart/Acetaminophen 1 tab 09/13/19 12:09 09/20/19 22:38 [place] 5-325 Tab* PO 1 tab Q4H PRN Administration PAIN - SEVERE Amlodipine Besylate 2.5 mg 09/14/19 09:00 09/22/19 08:53 Norvasc Tab* PO 2.5 mg DAILY AIDAN Administration Aspirin 325 mg 09/14/19 09:00 09/22/19 08:51 Aspirin Tab* PO 325 mg DAILY AIDAN Administration Atorvastatin Calcium 40 mg 09/13/19 21:00 09/21/19 21:30 Lipitor* PO 40 mg 2100 AIDAN Administration Citalopram Hydrobromide 40 mg 09/14/19 09:00 09/22/19 08:52 Celexa Tab* PO 40 mg DAILY AIDAN Administration Docusate Sodium 100 mg 09/13/19 21:00 09/22/19 08:53 Colace Cap* PO 100 mg BID AIDAN Administration Levothyroxine Sodium 88 mcg 09/14/19 06:00 09/22/19 05:40 Synthroid Tab* PO 88 mcg DAILY@0600 AIDAN Administration Magnesium Hydroxide 30 ml 09/13/19 11:48 09/21/19 07:56 Milk Of Magnesia Liq* PO 30 ml Q6H PRN Administration CONSTIPATION Oxybutynin Chloride 5 mg 09/13/19 21:00 09/21/19 21:31 Ditropan Tab* PO 5 mg BEDTIME AIDAN Administration Pantoprazole Sodium 40 mg 09/14/19 09:00 09/22/19 08:52 Protonix Tab* PO 40 mg DAILY AIDAN Administration Phenyleph/Shark Oil/Min Oil/Petrol 1 applic 09/16/19 21:17 09/21/19 17:44 Preparation H* [place] 1 applic TID PRN Administration Hemorrhoids Potassium Chloride 20 meq 09/14/19 09:00 09/22/19 08:54 Potassium Chloride Liquid PO 20 meq DAILY AIDAN Administration Pregabalin 50 mg 09/13/19 21:00 09/22/19 08:52 Lyrica Cap(*) PO 50 mg BID AIDAN Administration Senna 2 tab 09/13/19 11:48 09/20/19 20:16 Senokot 8.6 Mg Tab* PO 2 tab BEDTIME PRN Administration CONSTIPATION Tramadol HCl 50 mg 09/13/19 12:09 09/21/19 17:56 Ultram* PO 50 mg Q6H PRN Administration PAIN - MODERATE Trazodone HCl 50 mg 09/14/19 21:00 09/21/19 21:30 Desyrel Tab* PO 50 mg BEDTIME AIDAN Administration Vital Signs: Vital Signs Temp Pulse Resp BP Pulse Ox 98.4 F 80 18 150/60 93 09/22/19 05:10 09/22/19 05:10 09/22/19 08:52 09/22/19 05:10 09/22/19 05:10 Exam: GENERAL: No acute distress. Alert and appropriate. LUNGS: Clear to auscultation bilaterally HEART: Regular rate and rhythm ABDOMEN: Soft, non-tender, non-distended, + bowel sounds. EXTREMITIES: right knee incision C/D/I with sabine NEUROLOGIC: Sensation intact x4. Muscle strength 5/5 BUE and LLE. RLE motor 5/ 5 DF and EHL, but pain limited knee and hip flexion. Assessment/Plan: 1. Right TKA: PT/OT. WBAT. Follow up with Dr. Lorenzo 2. Hypothyroidism: Synthroid 3. Depression: Celexa 4. Insomnia: Xanax d/c'd and trazodone decreased 5. GERD: Protonix 6. DVT Prophylaxis: ASA 325 per ortho 7. Advance Directives: DNR. Has MOLST 8. Acute post-op anemia: stable 9. Estimated LOS: 09/28/19 10. Constipation: add daily miralax 09/22/19 10:56
[2019-09-22] MEDS: Polyethylene Glycol 3350* 17 GM PACKET PO SCH (11:47)
[2019-09-22] MEDS: Atorvastatin* 40 MG TAB PO SCH (21:48)
[2019-09-22] MEDS: traZODone TAB* 50 MG TAB PO SCH (21:48)
[2019-09-22] MEDS: Oxybutynin TAB* 5 MG PO SCH (21:48)
[2019-09-23] MEDS: Acetaminophen TAB* 325 MG PO SCH ×3 (05:35→21:32)
[2019-09-23] MEDS: Levothyroxine TAB* 88 MCG TAB PO SCH (05:35)
[2019-09-23] MEDS: Potassium Chloride* LIQUID 20 MEQ/15 ML UDC PO SCH (08:49)
[2019-09-23] MEDS: Aspirin TAB* 325 MG PO SCH (08:49)
[2019-09-23] MEDS: amLODIPine TAB* 5 MG PO SCH (08:50)
[2019-09-23] MEDS: Pregabalin CAP(*) 50 MG PO SCH ×2 (08:50→21:31)
[2019-09-23] MEDS: Pantoprazole TAB * 40 MG TAB PO SCH (08:50)
[2019-09-23] MEDS: Citalopram TAB* 40 MG PO SCH (08:50)
[2019-09-23] MEDS: Docusate CAP* 100 MG PO SCH ×2 (08:51→21:33)
[2019-09-23] MEDS: Polyethylene Glycol 3350* 17 GM PACKET PO SCH (08:51)
[2019-09-23] MEDS: Hemorrhoidal OINT PR PRN ×2 (09:51→18:31)
--- NOTE | 2019-09-23 10:41 | PN ---
Progress Note Date of Service: 09/23/19 Note: BUD BLANK was visited. Nursing and therapy notes read and reviewed. No chest pain, shortness of breath or abdominal pain. Miralax working. Has not slept past 2 nights. Current Medications: Active Medications Generic Name Dose Route Start Last Admin Trade Name Freq PRN Reason Stop Dose Admin Acetaminophen 975 mg 09/13/19 14:00 09/23/19 05:35 Tylenol Tab* PO 975 mg Q8H AIDAN Administration Hydrocodone Bitart/Acetaminophen 1 tab 09/13/19 12:09 09/20/19 22:38 [place] 5-325 Tab* PO 1 tab Q4H PRN Administration PAIN - SEVERE Alprazolam 0.5 mg 09/23/19 21:00 Xanax Tab* PO BEDTIME AIDAN Amlodipine Besylate 2.5 mg 09/14/19 09:00 09/23/19 08:50 Norvasc Tab* PO 2.5 mg DAILY AIDAN Administration Aspirin 325 mg 09/14/19 09:00 09/23/19 08:49 Aspirin Tab* PO 325 mg DAILY AIDAN Administration Atorvastatin Calcium 40 mg 09/13/19 21:00 09/22/19 21:48 Lipitor* PO 40 mg 2100 AIDAN Administration Citalopram Hydrobromide 40 mg 09/14/19 09:00 09/23/19 08:50 Celexa Tab* PO 40 mg DAILY AIDAN Administration Docusate Sodium 100 mg 09/13/19 21:00 09/23/19 08:51 Colace Cap* PO Not Given BID AIDAN Levothyroxine Sodium 88 mcg 09/14/19 06:00 09/23/19 05:35 Synthroid Tab* PO 88 mcg DAILY@0600 AIDAN Administration Magnesium Hydroxide 30 ml 09/13/19 11:48 09/21/19 07:56 Milk Of Magnesia Liq* PO 30 ml Q6H PRN Administration CONSTIPATION Oxybutynin Chloride 5 mg 09/13/19 21:00 09/22/19 21:48 Ditropan Tab* PO 5 mg BEDTIME AIDAN Administration Pantoprazole Sodium 40 mg 09/14/19 09:00 09/23/19 08:50 Protonix Tab* PO 40 mg DAILY AIDAN Administration Phenyleph/Shark Oil/Min Oil/Petrol 1 applic 09/16/19 21:17 09/23/19 09:51 Preparation H* [place] 1 applic TID PRN Administration Hemorrhoids Polyethylene Glycol/Electrolytes 17 gm 09/22/19 11:00 09/23/19 08:51 Miralax* PO Not Given DAILY AIDAN Potassium Chloride 20 meq 09/14/19 09:00 09/23/19 08:49 Potassium Chloride Liquid PO 20 meq DAILY AIDAN Administration Pregabalin 50 mg 09/13/19 21:00 09/23/19 08:50 Lyrica Cap(*) PO 50 mg BID AIDAN Administration Senna 2 tab 09/13/19 11:48 09/20/19 20:16 Senokot 8.6 Mg Tab* PO 2 tab BEDTIME PRN Administration CONSTIPATION Tramadol HCl 50 mg 09/13/19 12:09 09/21/19 17:56 Ultram* PO 50 mg Q6H PRN Administration PAIN - MODERATE Vital Signs: Vital Signs Temp Pulse Resp BP Pulse Ox 98.7 F 80 18 145/69 93 09/23/19 04:53 09/23/19 04:53 09/23/19 08:50 09/23/19 04:53 09/23/19 07:34 Exam: GENERAL: No acute distress. Alert and appropriate. LUNGS: Clear to auscultation bilaterally HEART: Regular rate and rhythm ABDOMEN: Soft, non-tender, non-distended, + bowel sounds. EXTREMITIES: right knee incision C/D/I with sabine NEUROLOGIC: Sensation intact x4. Muscle strength 5/5 BUE and LLE. RLE motor 5/ 5 DF and EHL, but pain limited knee and hip flexion. PROCEDURE: [place] removed and steristrips placed. No complications. Assessment/Plan: 1. Right TKA: PT/OT. WBAT. Sabine removed 09/23. Follow up with Dr. Lorenzo 2. Hypothyroidism: Synthroid 3. Depression: Celexa 4. Insomnia: Had been drowsy at admission, which has resolved. Will d/c trazodone as already on celexa and tramadol. Restarte xanax 0.5mg qhs. 5. GERD: Protonix 6. DVT Prophylaxis: ASA 325mg qday per ortho 7. Advance Directives: DNR. Has MOLST 8. Acute post-op anemia: stable 9. Estimated LOS: 09/28/19 10. Constipation: add daily miralax 09/23/19 10:39
[2019-09-23] MEDS: Atorvastatin* 40 MG TAB PO SCH (21:30)
[2019-09-23] MEDS: Oxybutynin TAB* 5 MG PO SCH (21:31)
[2019-09-23] MEDS: ALPRAZolam TAB* 0.5 MG PO SCH (21:31)
[2019-09-24] MEDS: Acetaminophen TAB* 325 MG PO SCH ×3 (05:20→22:05)
[2019-09-24] MEDS: Levothyroxine TAB* 88 MCG TAB PO SCH (05:20)
[2019-09-24] MEDS: amLODIPine TAB* 5 MG PO SCH (08:29)
[2019-09-24] MEDS: Potassium Chloride* LIQUID 20 MEQ/15 ML UDC PO SCH (08:30)
[2019-09-24] MEDS: Pregabalin CAP(*) 50 MG PO SCH ×2 (08:30→20:19)
[2019-09-24] MEDS: Citalopram TAB* 40 MG PO SCH (08:30)
[2019-09-24] MEDS: Aspirin TAB* 325 MG PO SCH (08:30)
[2019-09-24] MEDS: Pantoprazole TAB * 40 MG TAB PO SCH (08:30)
[2019-09-24] MEDS: Polyethylene Glycol 3350* 17 GM PACKET PO SCH (08:35)
[2019-09-24] MEDS: Docusate CAP* 100 MG PO SCH ×2 (08:35→20:19)
[2019-09-24] MEDS: HYDROcodone/ACETAMIN 5-325 MG* 1 TAB PO PRN ×2 (11:41→20:20)
[2019-09-24] MEDS: ALPRAZolam TAB* 0.5 MG PO SCH (20:19)
[2019-09-24] MEDS: Atorvastatin* 40 MG TAB PO SCH (20:19)
[2019-09-24] MEDS: Oxybutynin TAB* 5 MG PO SCH (20:19)
--- NOTE | 2019-09-24 21:18 | PN ---
Progress Note Date of Service: 09/24/19 Note: BUD BLANK was visited. Therapy notes read and reviewed. She is doing fairly well with therapy and moving a bit better. Current Medications: Active Medications Generic Name Dose Route Start Last Admin Trade Name Freq PRN Reason Stop Dose Admin Acetaminophen 975 mg 09/13/19 14:00 09/24/19 14:28 Tylenol Tab* PO Not Given Q8H AIDAN Hydrocodone Bitart/Acetaminophen 1 tab 09/13/19 12:09 09/24/19 20:20 [place] 5-325 Tab* PO 1 tab Q4H PRN Administration PAIN - SEVERE Alprazolam 0.5 mg 09/23/19 21:00 09/24/19 20:19 Xanax Tab* PO 0.5 mg BEDTIME AIDAN Administration Amlodipine Besylate 2.5 mg 09/14/19 09:00 09/24/19 08:29 Norvasc Tab* PO 2.5 mg DAILY AIDAN Administration Aspirin 325 mg 09/14/19 09:00 09/24/19 08:30 Aspirin Tab* PO 325 mg DAILY AIDAN Administration Atorvastatin Calcium 40 mg 09/13/19 21:00 09/24/19 20:19 Lipitor* PO 40 mg 2100 AIDAN Administration Citalopram Hydrobromide 40 mg 09/14/19 09:00 09/24/19 08:30 Celexa Tab* PO 40 mg DAILY AIDAN Administration Docusate Sodium 100 mg 09/13/19 21:00 09/24/19 20:19 Colace Cap* PO Not Given BID AIDAN Levothyroxine Sodium 88 mcg 09/14/19 06:00 09/24/19 05:20 Synthroid Tab* PO 88 mcg DAILY@0600 AIDAN Administration Magnesium Hydroxide 30 ml 09/13/19 11:48 09/21/19 07:56 Milk Of Magnesia Liq* PO 30 ml Q6H PRN Administration CONSTIPATION Oxybutynin Chloride 5 mg 09/13/19 21:00 09/24/19 20:19 Ditropan Tab* PO 5 mg BEDTIME AIDAN Administration Pantoprazole Sodium 40 mg 09/14/19 09:00 09/24/19 08:30 Protonix Tab* PO 40 mg DAILY AIDAN Administration Phenyleph/Shark Oil/Min Oil/Petrol 1 applic 09/16/19 21:17 09/23/19 18:31 Preparation H* [place] 1 applic TID PRN Administration Hemorrhoids Polyethylene Glycol/Electrolytes 17 gm 09/22/19 11:00 09/24/19 08:35 Miralax* PO Not Given DAILY AIDAN Potassium Chloride 20 meq 09/14/19 09:00 09/24/19 08:30 Potassium Chloride Liquid PO 20 meq DAILY AIDAN Administration Pregabalin 50 mg 09/13/19 21:00 09/24/19 20:19 Lyrica Cap(*) PO 50 mg BID AIDAN Administration Senna 2 tab 09/13/19 11:48 09/20/19 20:16 Senokot 8.6 Mg Tab* PO 2 tab BEDTIME PRN Administration CONSTIPATION Tramadol HCl 50 mg 09/13/19 12:09 09/21/19 17:56 Ultram* PO 50 mg Q6H PRN Administration PAIN - MODERATE Vital Signs: Vital Signs Temp Pulse Resp BP Pulse Ox 97.9 F 75 16 155/69 95 09/24/19 15:50 09/24/19 15:50 09/24/19 20:20 09/24/19 15:50 09/24/19 15:50 Exam: GENERAL: No acute distress. Alert and appropriate. LUNGS: Clear to auscultation bilaterally HEART: Regular rate and rhythm ABDOMEN: Soft, non-tender, non-distended, + bowel sounds. EXTREMITIES: right knee incision C/D/I, sabine out NEUROLOGIC: Sensation intact x4. Muscle strength 5/5 BUE and LLE. RLE motor 5/ 5 DF and EHL, but pain limited knee and hip flexion. Assessment/Plan: 1. Right TKA: PT/OT. WBAT. [place] removed 09/23. Follow up with Dr. Lorenzo 2. Hypothyroidism: Synthroid 3. Depression: Celexa 4. Insomnia: Had been drowsy at admission, which has resolved. xanax 0.5mg qhs. 5. GERD: Protonix 6. DVT Prophylaxis: ASA 325mg qday per ortho 7. Advance Directives: DNR. Has MOLST 8. Acute post-op anemia: stable 9. Estimated LOS: 09/28/19 10. Constipation: daily miralax 09/24/19 21:19
[2019-09-25] MEDS: Levothyroxine TAB* 88 MCG TAB PO SCH (05:57)
[2019-09-25] MEDS: Acetaminophen TAB* 325 MG PO SCH ×3 (05:57→22:06)
[2019-09-25] MEDS: Hemorrhoidal OINT PR PRN ×2 (06:49→18:03)
[2019-09-25] MEDS: HYDROcodone/ACETAMIN 5-325 MG* 1 TAB PO PRN (07:27)
[2019-09-25] MEDS: amLODIPine TAB* 5 MG PO SCH (08:36)
[2019-09-25] MEDS: Pantoprazole TAB * 40 MG TAB PO SCH (08:36)
[2019-09-25] MEDS: Citalopram TAB* 40 MG PO SCH (08:36)
[2019-09-25] MEDS: Aspirin TAB* 325 MG PO SCH (08:36)
[2019-09-25] MEDS: Potassium Chloride* LIQUID 20 MEQ/15 ML UDC PO SCH (08:37)
[2019-09-25] MEDS: Pregabalin CAP(*) 50 MG PO SCH ×2 (08:38→20:43)
[2019-09-25] MEDS: Docusate CAP* 100 MG PO SCH ×2 (08:43→20:48)
[2019-09-25] MEDS: Polyethylene Glycol 3350* 17 GM PACKET PO SCH (08:43)
--- NOTE | 2019-09-25 11:44 | PN ---
Progress Note Date of Service: 09/25/19 Note: BUD BLANK was visited. Nursing and therapy notes read and reviewed. No chest pain, shortness of breath or abdominal pain. She has had issues with conjunctivitis that predate admission and requests some eye drops. Prescribed eye drops from past have not helped. Current Medications: Active Medications Generic Name Dose Route Start Last Admin Trade Name Freq PRN Reason Stop Dose Admin Acetaminophen 975 mg 09/13/19 14:00 09/25/19 05:57 Tylenol Tab* PO 975 mg Q8H AIDAN Administration Hydrocodone Bitart/Acetaminophen 1 tab 09/13/19 12:09 09/25/19 07:27 [place] 5-325 Tab* PO 1 tab Q4H PRN Administration PAIN - SEVERE Alprazolam 0.5 mg 09/23/19 21:00 09/24/19 20:19 Xanax Tab* PO 0.5 mg BEDTIME AIDAN Administration Amlodipine Besylate 2.5 mg 09/14/19 09:00 09/25/19 08:36 Norvasc Tab* PO 2.5 mg DAILY AIDAN Administration Aspirin 325 mg 09/14/19 09:00 09/25/19 08:36 Aspirin Tab* PO 325 mg DAILY AIDAN Administration Atorvastatin Calcium 40 mg 09/13/19 21:00 09/24/19 20:19 Lipitor* PO 40 mg 2100 AIDAN Administration Citalopram Hydrobromide 40 mg 09/14/19 09:00 09/25/19 08:36 Celexa Tab* PO 40 mg DAILY AIDAN Administration Docusate Sodium 100 mg 09/13/19 21:00 09/25/19 08:43 Colace Cap* PO Not Given BID AIDAN Levothyroxine Sodium 88 mcg 09/14/19 06:00 09/25/19 05:57 Synthroid Tab* PO 88 mcg DAILY@0600 AIDAN Administration Magnesium Hydroxide 30 ml 09/13/19 11:48 09/21/19 07:56 Milk Of Magnesia Liq* PO 30 ml Q6H PRN Administration CONSTIPATION Oxybutynin Chloride 5 mg 09/13/19 21:00 09/24/19 20:19 Ditropan Tab* PO 5 mg BEDTIME AIDAN Administration Pantoprazole Sodium 40 mg 09/14/19 09:00 09/25/19 08:36 Protonix Tab* PO 40 mg DAILY AIDAN Administration Phenyleph/Shark Oil/Min Oil/Petrol 1 applic 09/16/19 21:17 09/25/19 06:49 Preparation H* [place] 1 applic TID PRN Administration Hemorrhoids Polyethylene Glycol/Electrolytes 17 gm 09/22/19 11:00 09/25/19 08:43 Miralax* PO Not Given DAILY AIDAN Potassium Chloride 20 meq 09/14/19 09:00 09/25/19 08:37 Potassium Chloride Liquid PO 20 meq DAILY AIDAN Administration Pregabalin 50 mg 09/13/19 21:00 09/25/19 08:38 Lyrica Cap(*) PO 50 mg BID AIDAN Administration Senna 2 tab 09/13/19 11:48 09/20/19 20:16 Senokot 8.6 Mg Tab* PO 2 tab BEDTIME PRN Administration CONSTIPATION Tramadol HCl 50 mg 09/13/19 12:09 09/21/19 17:56 Ultram* PO 50 mg Q6H PRN Administration PAIN - MODERATE Vital Signs: Vital Signs Temp Pulse Resp BP Pulse Ox 97.5 F 72 18 146/60 96 09/25/19 05:29 09/25/19 05:29 09/25/19 08:38 09/25/19 05:29 09/25/19 05:29 Exam: GENERAL: No acute distress. Alert and appropriate. LUNGS: Clear to auscultation bilaterally HEART: Regular rate and rhythm ABDOMEN: Soft, non-tender, non-distended, + bowel sounds. EXTREMITIES: right knee incision C/D/I, sabine out NEUROLOGIC: Sensation intact x4. Muscle strength 5/5 BUE and LLE. RLE motor 5/ 5 DF and EHL, but pain limited knee and hip flexion. EYES: No redness or visible irritation. Assessment/Plan: 1. Right TKA: PT/OT. WBAT. Sabine removed 09/23. Follow up with Dr. Lorenzo 2. Hypothyroidism: Synthroid 3. Depression: Celexa 4. Insomnia: Had been drowsy at admission, which has resolved. xanax 0.5mg qhs. 5. GERD: Protonix 6. DVT Prophylaxis: ASA 325mg qday per ortho 7. Advance Directives: DNR. Has MOLST 8. Acute post-op anemia: stable 9. Estimated LOS: 09/28/19 10. Constipation: daily miralax 11. Eye irritation: order lubricant drops 09/25/19 11:43
--- NOTE | 2019-09-25 12:26 | PMRUTEAM ---
PMRU: Team Meeting Current Status: Physical Therapy: Current Status Current Rolling Status Supervision/Touching Current Supine <-> Sit Status Supervision/Touching Current Sit <-> Stand Status Supervision/Touching Current Bed <-> Chair Status Supervision/Touching Transfer/Bed Mobility Rolling Walker Recommended Devices Transfer Mobility Comment Pt. is able to perform a transfer cg to S x 1. Current Picking Up Object Supervision/Touching Status Current Car Transfer Status Supervision/Touching Current Ambulation Assistance Supervision/Touching Status Ambulation Assistive Device Rolling Walker Ambulation Conditions Two or More Turns,Uneven Surfaces Current Ambulation Distance 2x25', 2x125' Ambulation Comment Short step through to step to using a 2 w/w. Current Wheelchair Propulsion Not Applicable Ability Status Current Stair Climbing Status Supervision/Touching Stair Climbing Assistive Left Railing,Right Railing Devices Number of Stairs Climbed 5 Current Curb Assistance Status Supervision/Touching Curb Assistive Devices Railings Objective Comments R knee extension: -17 degress R knee flexion: 104 degrees Occupational Therapy: Current Status Current Upper Body Dressing Setup or Clean-up Assist Status Current Lower Body Dressing Supervision/Touching Status Current Footwear Status Supervision/Touching Current Bathing Status Partial/Moderate Current Grooming Status Setup or Clean-up Assist Current Toileting Status Supervision/Touching Current Toilet Transfer Status Supervision/Touching Current Eating Status Independent Nursing: Current Status Skin Deviations [Right Knee] Incision Skin Deviation Description [ steri strips in place. healing well. open to air Right Knee] Bladder Current Status 1 assist pivot to the commode Bowel Current Status 1 assist with toileting Nutrition Current Status Eats 50% of some meals Medication Current Status Needs reinforcement with medications Rec Therapy: Current Status Summary of Assessment and Recreation Therapy Assessment complete and pt. is Clinical Impression aware of services. Pt. expresses feeling tired in the afternoons after therapy but is open to continued leisure visits and pet therapy. Treatment Goals Pt. will engage in leisure activities while on the unit. Treatment Plan Provide recreation therapy services and encourage involvement. Social Work: Current Status Discharge Plan return home with home care svs, family support and private duty DIRECTOR OF ANALYTICAL DEVELOPMENT Potential for Family Training pt's son and DIRECTOR OF ANALYTICAL DEVELOPMENT will be attending d/c training on 09/27 Anticipated Discharge Home Destination Discharge With VNS, family support and private duty insulation packer Nutrition: Current Status Monitoring pt continues on regular diet, mech ground textures . Often consuming >90% of meals, averaging >75%. Last BM 09/24. Skin remains intact. Daily BMs noted. Noted with another loose BM x2; no other GI s/sx noted. Weekly labs reviewed; unremarkable. Tentative d/c noted 09/28. Goals: Physical Therapy: Goals Goals to Be Accomplished in ( 7-10 Days) Goal: Rolling Assistance Independent Goal Supine <-> Sit Status Independent Goal Sit <-> Stand Status Independent Goal Bed <-> Chair Status Independent Transfer/Bed Mobility Rolling Walker Recommended Devices Goal: Picking Up Object Independent Goal: Car Transfer Status Supervision/Touching Goal: Ambulation Assistance Independent Ambulation Assistive Devices Rolling Walker Ambulation Distance (ft) 150 Goal: Wheelchair Propulsion Not Applicable Ability Goal: Stairs Assistance Supervision/Touching Stairs Recommended Devices Two Rails Number of Stairs 5 Goal: Curb Assistance Supervision/Touching Goal: Home Exercise Program Independent Assistance Occupational Therapy: Goals Goals to be Completed in (Days 14 ) Goal Upper Body Dressing Independent Routine Goal Lower Body Dressing Independent Routine Goal Footwear Status Independent Goal Bathing Routine (OT) Supervision/Touching Goal Grooming Routine Independent Goal Toilet Hygiene and Independent Clothing Management Routine Goal Toilet Transfer Routine Independent Goal Functional Transfers for Independent ADL Goal Feeding Routine Independent Light Housekeeping Tasks Light meal prep I Assistive Devices Nutrition: Goals Intervention Goals 1. Tolerates least-restrictive texture w/o difficulty chewing or swallowing. 2. Pt verbalizes plan for improved balance of intake at d/c. 3. Adequate oral intake to support maintenance of lean body mass, meet nutrient needs 4. Pt will establish regular bowel pattern without constipation/diarrhea Social Work: Goals Discharge Plan return home with home care svs, family support and private duty DIRECTOR OF ANALYTICAL DEVELOPMENT Potential for Family Training pt's son and DIRECTOR OF ANALYTICAL DEVELOPMENT will be attending d/c training on 09/27 Anticipated Discharge Home Destination Discharge With VNS, family support and private duty insulation packer Nursing: Goals Bladder Goal Independent with toileting Bowel Goal Independent with toileting Nutrition Goal Eats 100% of all meals Medication Goal Independent with medications Care Plan: Care Plan ADL's - Improve/Maintain Start: 09/14/19 16:34 Freq: DAILY@0700,1900 Status: Active Target: 09/15/19 Protocol: Activity Type Activity Date Activity User E-Sign Co-Sign Detail Recorded Client Recorded Date Recorded By Document 09/21/19:02 [id number] [id number] 09/21/19 12:02 [id number] 09/21/19 12:02 PMRU Outcome: ADL's/ADL Transfers Orders/Interventions Occupational Therapy Evaluation & Treatment Communication Tool in Patient Room Device Yes Address Deficits Secondary To: R TKA Patient to receive OT 5x/wk for 60-120 Therex min/day Self Care Management Group Therapy UE/LE ADL's with Assist Yes: Johanna ADL Transfers with Assist Yes: Johanna Toileting: Transfers,Clothing Management Yes: Johanna ,Hygeine w/Assist Light Kitchen/Laundry w/Assist Yes: light meal prep Johanna Other Outcome/Goals Pt participated well in treatment session, less cues required during session to slow breathing, standing tolerance limited by RLE pain. Progression Toward Outcome/Goals Progressing Communication-Improve/Maintain Start: 09/13/19 16:04 Freq: DAILY@0700,1900 Status: Active Target: 09/25/19 Protocol: Activity Type Activity Date Activity User E-Sign Co-Sign Detail Recorded Client Recorded Date Recorded By Document 09/25/19 00:36 [id number] 09/25/19 00:37 [id number] 09/25/19 00:36 PMRU Outcome: Communication/Cognitive Status Current Communication Outcome/Goals Makes Needs Known Effectively Progression Toward Outcomes/Goals Progressing DVT Prophylaxis- Improve/Maintain Start: 09/13/19 16:04 Freq: DAILY@0700,1900 Status: Active Target: 09/25/19 Protocol: Activity Type Activity Date Activity User E-Sign Co-Sign Detail Recorded Client Recorded Date Recorded By Document 09/25/19 10:00 [id number] 09/25/19 11:51 [id number] 09/25/19 10:00 PMRU Outcome: DVT Prophylaxis Current DVT Outcome/Goals Remains Free of DVT Complies with DVT Prophylaxis /Treatment Demonstrates Knowledge of DVT Prevention/ Treatment Progression Toward Outcome/Goals Progressing Discharge Planning - Improve/Maintain Start: 09/13/19 16:04 Freq: DAILY@0700,1900 Status: Active Target: 09/25/19 Protocol: Activity Type Activity Date Activity User E-Sign Co-Sign Detail Recorded Client Recorded Date Recorded By Document 09/25/19 10:00 [id number] 09/25/19 11:51 [id number] 09/25/19 10:00 PMRU Outcome: Discharge Planning Update Patient Family No Current Discharge Planning Outcome/Goals Demonstrates Understanding of Discharge Plan Homecare Referral - See Comment Progression Toward Outcome/Goals Progressing Education-Improve/Maintain Start: 09/13/19 16:04 Freq: DAILY@0700,1900 Status: Active Target: 09/25/19 Protocol: Activity Type Activity Date Activity User E-Sign Co-Sign Detail Recorded Client Recorded Date Recorded By Document 09/25/19 10:00 [id number] 09/25/19 11:51 [id number] 09/25/19 10:00 PMRU Outcome: Education Current Education Outcome/Goals Demonstrate/ Verbalize Understanding of Written Discharge Instructions Demonstrates Skills Encourage Questions Progression Toward Outcome/Goals Progressing /GI-Improve/Maintain Start: 09/13/19 16:04 Freq: DAILY@0700,1900 Status: Active Target: 09/25/19 Protocol: Activity Type Activity Date Activity User E-Sign Co-Sign Detail Recorded Client Recorded Date Recorded By Document 09/25/19 10:00 [id number] 09/25/19 11:51 [id number] 09/25/19 10:00 PMRU Outcome: Genitourinary/ Gastrointestinal Current Gastrointestinal Outcome/Goals Maintain/ Achieve Bowel Regularity in Accordance with Pt's Baseline Remain Free of Emesis Prevent Constipation Bowel Regularity at Home Laxatives as Ordered Progression Toward Outcome/Goals Progressing Current Genitourinary Outcome/Goals Maintain/ Achieve Urinary Continence Maintain/ Achieve Adequate Urinary Output Remain Free of Hospital- Acquired UTI Progression Toward Outcome/Goals Progressing Medication Administration Start: 09/13/19 16:04 Freq: DAILY@699,[id number] Status: Active Target: 09/25/19 Protocol: Activity Type Activity Date Activity User E-Sign Co-Sign Detail Recorded Client Recorded Date Recorded By Document 09/25/19 10:00 [id number] 09/25/19 11:51 [id number] 09/25/19 10:00 PMRU Outcome: Medication Administration Assess Patient Knowledge/Teach Med Yes Education for all Meds Current Mechanical Maintenance Engineer Outcome/Goals Patient Independent with Medication Administration at Home Family/ Caregiver Administer Medications at Home Demonstrates Understanding Progression Towards Outcome/Goals Progressing Is Patient Going Home on Lovenox? No Mobility- Improve/Maintain Start: 09/14/19 16:27 Freq: DAILY@699,1899 Status: Active Target: 09/15/19 Protocol: Activity Type Activity Date Activity User E-Sign Co-Sign Detail Recorded Client Recorded Date Recorded By Document 09/18/19 16:41 [id number] 09/18/19 16:41 [id number] 09/18/19 16:41 PMRU Outcome: Mobility Physical Therapy Evaluation and Yes Treatment Activity OOB with Assistance Yes WBAT Yes NWB No TTWB No Device Yes Assistance Yes Patient to be seen 5x/wk for 60-120 min/ Therex day for: Mobility Training Gait Training Balance Other Current Mobility Outcome/Goals Improve Mobility Status Demonstrates Proper Use of Assistive Devices Progression Toward Outcome/Goals Progressing Bed Mobility Yes: independent Transfers Yes: independent with RW Gait x ft Yes: 50' independent with RW W/C Mobility x ft No Up/Down Stairs Yes: 4 with rails supervision With HEP Yes: independent Pain/Comfort- Improve/Maintain Start: 09/13/19 16:04 Freq: DAILY@699,[id number] Status: Active Target: 09/25/19 Protocol: Activity Type Activity Date Activity User E-Sign Co-Sign Detail Recorded Client Recorded Date Recorded By Document 09/25/19 10:00 [id number] 09/25/19 11:51 [id number] 09/25/19 10:00 PMRU Outcome: Pain/Comfort Current Pain/Comfort Outcome/Goals Demonstrates Knowledge and Use of Available Comfort Measures Achieves Acceptable Comfort/Pain Level as Determined by Patient/Condit Maintain Comfort Level Allowing Patient to Fully Participate in Rehab Progression Toward Outcome/Goals Progressing Rec Therapy- Improve/Maintain Start: 09/14/19 15:29 Freq: DAILY@ Status: Active Target: 09/28/19 Protocol: Activity Type Activity Date Activity User E-Sign Co-Sign Detail Recorded Client Recorded Date Recorded By Document 09/17/19 15:22 [id number] 09/17/19 15:22 [id number] 09/17/19 15:22 PMRU Outcome: Recreation Therapy Current Rec Ther Outcome/Goals Complete Rec Therapy Assessment Meet with Patient Regularly for Support Encourage Leisure Involvement Progression Toward Outcome/Goals Goals Met Outcome/Goals Met Complete Rec Therapy Assessment Outcome/Goals Met Comment assessment complete, pt. is open to continued leisure visits and pet therapy but feeling tired today. Safety- Improve/Maintain Start: 09/13/19 11:03 Freq: DAILY@0700,1900 Status: Active Target: 09/25/19 Protocol: Activity Type Activity Date Activity User E-Sign Co-Sign Detail Recorded Client Recorded Date Recorded By Document 09/25/19 10:00 [id number] [email or web address] 09/25/19 11:51 [id number] 09/25/19 10:00 PMRU Outcome: Safety Current Safety Outcome/Goals Remain Free of Injury or Harm Cooperates with Safety Measures for Least Restrictive Environment Prevent Falls/ Injury Progression Toward Outcome/Goals Progressing Skin- Improve/Maintain Start: 09/13/19 16:04 Freq: DAILY@0700,1900 Status: Active Target: 09/25/19 Protocol: Activity Type Activity Date Activity User E-Sign Co-Sign Detail Recorded Client Recorded Date Recorded By Document 09/25/19 10:00 [id number] [email or web address] 09/25/19 11:51 [id number] 09/25/19 10:00 PMRU Outcome: Skin Skin Risk Level No Risk Skin Orders Heels Off Bed Turn/Position q2hr While in Bed Current Skin Outcome/Goals Maintain/ Improve Skin Integrity Free from Pressure Injury Surgical Incisions Healing Progression Toward Outcome/Goals Progressing - Interdisciplinary Staff Present Fire Chief'S Aide/Social Work Staff Present: FLORINDA Vizcaino Nursing Staff Present: Monica Gutierrez, RN OT Staff Present: Violeta June PT Staff Present: Anh King Medicine Note: Length of Stay: [3 days] Anticipated Discharge Destination: Home Tentative Discharge Date: [09/28/19] Discharged to: [home]
[2019-09-25] MEDS: Dextran 70/Hypromellose Tears Eye Drops 15 ml BTL (for Artificials Tears) BOTH EYES SCH ×3 (12:53→20:45)
[2019-09-25] MEDS: Atorvastatin* 40 MG TAB PO SCH (20:42)
[2019-09-25] MEDS: Oxybutynin TAB* 5 MG PO SCH (20:43)
[2019-09-25] MEDS: ALPRAZolam TAB* 0.5 MG PO SCH (20:45)
[2019-09-26] MEDS: Levothyroxine TAB* 88 MCG TAB PO SCH (05:31)
[2019-09-26] MEDS: Acetaminophen TAB* 325 MG PO SCH ×3 (05:32→21:30)
[2019-09-26] MEDS: Citalopram TAB* 40 MG PO SCH (07:47)
[2019-09-26] MEDS: Aspirin TAB* 325 MG PO SCH (07:47)
[2019-09-26] MEDS: amLODIPine TAB* 5 MG PO SCH (07:47)
[2019-09-26] MEDS: Dextran 70/Hypromellose Tears Eye Drops 15 ml BTL (for Artificials Tears) BOTH EYES SCH ×4 (07:47→21:29)
[2019-09-26] MEDS: Potassium Chloride* LIQUID 20 MEQ/15 ML UDC PO SCH (07:48)
[2019-09-26] MEDS: Pantoprazole TAB * 40 MG TAB PO SCH (07:48)
[2019-09-26] MEDS: Pregabalin CAP(*) 50 MG PO SCH ×2 (07:48→21:28)
[2019-09-26] MEDS: Polyethylene Glycol 3350* 17 GM PACKET PO SCH (07:48)
[2019-09-26] MEDS: Docusate CAP* 100 MG PO SCH ×2 (07:48→21:28)
--- NOTE | 2019-09-26 09:03 | PN ---
Progress Note Date of Service: 09/26/19 Note: BUD BLANK was visited. Nursing and therapy notes read and reviewed. No chest pain, shortness of breath or abdominal pain. Eyes better with drops. Current Medications: Active Medications Generic Name Dose Route Start Last Admin Trade Name Freq PRN Reason Stop Dose Admin Acetaminophen 975 mg 09/13/19 14:00 09/26/19 05:32 Tylenol Tab* PO 650 mg Q8H AIDAN Administration Hydrocodone Bitart/Acetaminophen 1 tab 09/13/19 12:09 09/25/19 07:27 [place] 5-325 Tab* PO 1 tab Q4H PRN Administration PAIN - SEVERE Alprazolam 0.5 mg 09/23/19 21:00 09/25/19 20:45 Xanax Tab* PO 0.5 mg BEDTIME AIDAN Administration Amlodipine Besylate 2.5 mg 09/14/19 09:00 09/26/19 07:47 Norvasc Tab* PO 2.5 mg DAILY AIDAN Administration Artificial Tears 2 drop 09/25/19 13:00 09/26/19 07:47 Natural Balance Tears Eye Drop BOTH EYES 2 drop QID AIDAN Administration Aspirin 325 mg 09/14/19 09:00 09/26/19 07:47 Aspirin Tab* PO 325 mg DAILY AIDAN Administration Atorvastatin Calcium 40 mg 09/13/19 21:00 09/25/19 20:42 Lipitor* PO 40 mg 2100 AIDAN Administration Citalopram Hydrobromide 40 mg 09/14/19 09:00 09/26/19 07:47 Celexa Tab* PO 40 mg DAILY AIDAN Administration Docusate Sodium 100 mg 09/13/19 21:00 09/26/19 07:48 Colace Cap* PO 100 mg BID AIDAN Administration Levothyroxine Sodium 88 mcg 09/14/19 06:00 09/26/19 05:31 Synthroid Tab* PO 88 mcg DAILY@0600 AIDAN Administration Magnesium Hydroxide 30 ml 09/13/19 11:48 09/21/19 07:56 Milk Of Magnesia Liq* PO 30 ml Q6H PRN Administration CONSTIPATION Oxybutynin Chloride 5 mg 09/13/19 21:00 09/25/19 20:43 Ditropan Tab* PO 5 mg BEDTIME AIDAN Administration Pantoprazole Sodium 40 mg 09/14/19 09:00 09/26/19 07:48 Protonix Tab* PO 40 mg DAILY AIDAN Administration Phenyleph/Shark Oil/Min Oil/Petrol 1 applic 09/16/19 21:17 09/25/19 18:03 Preparation H* SD 1 applic TID PRN Administration Hemorrhoids Polyethylene Glycol/Electrolytes 17 gm 09/22/19 11:00 09/26/19 07:48 Miralax* PO 17 gm DAILY AIDAN Administration Potassium Chloride 20 meq 09/14/19 09:00 09/26/19 07:48 Potassium Chloride Liquid PO 20 meq DAILY AIDAN Administration Pregabalin 50 mg 09/13/19 21:00 09/26/19 07:48 Lyrica Cap(*) PO 50 mg BID AIDAN Administration Senna 2 tab 09/13/19 11:48 09/20/19 20:16 Senokot 8.6 Mg Tab* PO 2 tab BEDTIME PRN Administration CONSTIPATION Vital Signs: Vital Signs Temp Pulse Resp BP Pulse Ox 98.2 F 71 14 146/68 94 09/26/19 05:15 09/26/19 05:15 09/26/19 08:00 09/26/19 05:40 09/26/19 08:00 Exam: GENERAL: No acute distress. Alert and appropriate. LUNGS: Clear to auscultation bilaterally HEART: Regular rate and rhythm ABDOMEN: Soft, non-tender, non-distended, + bowel sounds. EXTREMITIES: right knee incision C/D/I, sabine out NEUROLOGIC: Sensation intact x4. Muscle strength 5/5 BUE and LLE. RLE motor 5/ 5 DF and EHL, but pain limited knee and hip flexion. EYES: No redness or visible irritation. Assessment/Plan: 1. Right TKA: PT/OT. WBAT. [place] removed 09/23. Follow up with Dr. Lorenzo 2. Hypothyroidism: Synthroid 3. Depression: Celexa 4. Insomnia: Had been drowsy at admission, which has resolved. xanax 0.5mg qhs. 5. GERD: Protonix 6. DVT Prophylaxis: ASA 325mg qday per ortho 7. Advance Directives: DNR. Has MOLST 8. Acute post-op anemia: stable 9. Estimated LOS: 09/28/19 10. Constipation: daily miralax 11. Eye irritation: order lubricant drops 09/26/19 09:02
[2019-09-26] MEDS: HYDROcodone/ACETAMIN 5-325 MG* 1 TAB PO PRN (19:12)
[2019-09-26] MEDS: Oxybutynin TAB* 5 MG PO SCH (21:28)
[2019-09-26] MEDS: ALPRAZolam TAB* 0.5 MG PO SCH (21:29)
[2019-09-26] MEDS: Atorvastatin* 40 MG TAB PO SCH (21:29)
[2019-09-27] MEDS: Acetaminophen TAB* 325 MG PO SCH ×3 (06:03→22:02)
[2019-09-27] MEDS: Levothyroxine TAB* 88 MCG TAB PO SCH (06:04)
[2019-09-27] MEDS: HYDROcodone/ACETAMIN 5-325 MG* 1 TAB PO PRN ×2 (08:07→19:06)
[2019-09-27] MEDS: Dextran 70/Hypromellose Tears Eye Drops 15 ml BTL (for Artificials Tears) BOTH EYES SCH ×4 (09:42→20:44)
[2019-09-27] MEDS: amLODIPine TAB* 5 MG PO SCH (09:42)
[2019-09-27] MEDS: Pregabalin CAP(*) 50 MG PO SCH ×2 (09:42→20:45)
[2019-09-27] MEDS: Citalopram TAB* 40 MG PO SCH (09:42)
[2019-09-27] MEDS: Aspirin TAB* 325 MG PO SCH (09:42)
[2019-09-27] MEDS: Pantoprazole TAB * 40 MG TAB PO SCH (09:42)
[2019-09-27] MEDS: Docusate CAP* 100 MG PO SCH ×2 (09:42→20:45)
[2019-09-27] MEDS: Polyethylene Glycol 3350* 17 GM PACKET PO SCH (09:43)
[2019-09-27] MEDS: Potassium Chloride* LIQUID 20 MEQ/15 ML UDC PO SCH (09:43)
--- NOTE | 2019-09-27 10:33 | PN ---
Progress Note Date of Service: 09/27/19 Note: BUD BLANK was visited. Nursing and therapy notes read and reviewed. Current Medications: Active Medications Generic Name Dose Route Start Last Admin Trade Name Freq PRN Reason Stop Dose Admin Acetaminophen 975 mg 09/13/19 14:00 09/27/19 06:03 Tylenol Tab* PO 975 mg Q8H AIDAN Administration Hydrocodone Bitart/Acetaminophen 1 tab 09/13/19 12:09 09/27/19 08:07 [place] 5-325 Tab* PO 1 tab Q4H PRN Administration PAIN - SEVERE Alprazolam 0.5 mg 09/23/19 21:00 09/26/19 21:29 Xanax Tab* PO 0.5 mg BEDTIME AIDAN Administration Amlodipine Besylate 2.5 mg 09/14/19 09:00 09/27/19 09:42 Norvasc Tab* PO 2.5 mg DAILY AIDAN Administration Artificial Tears 2 drop 09/25/19 13:00 09/27/19 09:42 Natural Balance Tears Eye Drop BOTH EYES 2 drop QID AIDAN Administration Aspirin 325 mg 09/14/19 09:00 09/27/19 09:42 Aspirin Tab* PO 325 mg DAILY AIDAN Administration Atorvastatin Calcium 40 mg 09/13/19 21:00 09/26/19 21:29 Lipitor* PO 40 mg 2100 AIDAN Administration Citalopram Hydrobromide 40 mg 09/14/19 09:00 09/27/19 09:42 Celexa Tab* PO 40 mg DAILY AIDAN Administration Docusate Sodium 100 mg 09/13/19 21:00 09/27/19 09:42 Colace Cap* PO 100 mg BID AIDAN Administration Levothyroxine Sodium 88 mcg 09/14/19 06:00 09/27/19 06:04 Synthroid Tab* PO 88 mcg DAILY@0600 AIDAN Administration Magnesium Hydroxide 30 ml 09/13/19 11:48 09/21/19 07:56 Milk Of Magnesia Liq* PO 30 ml Q6H PRN Administration CONSTIPATION Oxybutynin Chloride 5 mg 09/13/19 21:00 09/26/19 21:28 Ditropan Tab* PO 5 mg BEDTIME AIDAN Administration Pantoprazole Sodium 40 mg 09/14/19 09:00 09/27/19 09:42 Protonix Tab* PO 40 mg DAILY AIDAN Administration Phenyleph/Shark Oil/Min Oil/Petrol 1 applic 09/16/19 21:17 09/25/19 18:03 Preparation H* [place] 1 applic TID PRN Administration Hemorrhoids Polyethylene Glycol/Electrolytes 17 gm 09/22/19 11:00 09/27/19 09:43 Miralax* PO 17 gm DAILY AIDAN Administration Potassium Chloride 20 meq 09/14/19 09:00 09/27/19 09:43 Potassium Chloride Liquid PO 20 meq DAILY AIDAN Administration Pregabalin 50 mg 09/13/19 21:00 09/27/19 09:42 Lyrica Cap(*) PO 50 mg BID AIDAN Administration Senna 2 tab 09/13/19 11:48 09/20/19 20:16 Senokot 8.6 Mg Tab* PO 2 tab BEDTIME PRN Administration CONSTIPATION Vital Signs: Vital Signs Temp Pulse Resp BP Pulse Ox 98.1 F 85 14 148/69 94 09/27/19 06:04 09/27/19 06:04 09/27/19 09:42 09/27/19 06:04 09/27/19 06:04 Exam: GENERAL: No acute distress. Alert and appropriate. LUNGS: Clear to auscultation bilaterally HEART: Regular rate and rhythm ABDOMEN: Soft, non-tender, non-distended, + bowel sounds. EXTREMITIES: right knee incision C/D/I, sabine out NEUROLOGIC: Sensation intact x4. Muscle strength 5/5 BUE and LLE. RLE motor 5/ 5 DF and EHL, but pain limited knee and hip flexion. Assessment/Plan: 1. Right TKA: PT/OT. WBAT. [place] removed 09/23. Follow up with Dr. Lorenzo 2. Hypothyroidism: Synthroid 3. Depression: Celexa 4. Insomnia: Had been drowsy at admission, which has resolved. xanax 0.5mg qhs. 5. GERD: Protonix 6. DVT Prophylaxis: ASA 325mg qday per ortho 7. Advance Directives: DNR. Has MOLST 8. Acute post-op anemia: stable 9. Estimated LOS: 09/28/19. Discharge training today. 10. Constipation: daily miralax 11. Eye irritation: order lubricant drops 09/27/19 10:33
[2019-09-27] MEDS: Atorvastatin* 40 MG TAB PO SCH (20:44)
[2019-09-27] MEDS: ALPRAZolam TAB* 0.5 MG PO SCH (20:44)
[2019-09-27] MEDS: Oxybutynin TAB* 5 MG PO SCH (20:45)
[2019-09-28] MEDS: HYDROcodone/ACETAMIN 5-325 MG* 1 TAB PO PRN ×2 (03:41→08:09)
[2019-09-28 04:41] VITALS: BP 146/76
[2019-09-28 04:44] LABS: ABS Basophils 0.1 10^3/ul (0-0.2); ABS Eosinophils 0.2 10^3/ul (0-0.6); ABS Lymphocytes 1.8 10^3/ul (1.0-4.8); ABS Monocytes 0.7 10^3/ul (0-0.8); Eosinophil % 3.5 %; Hematocrit 27 % (35-47); Hemoglobin 9.2 g/dL (12.0-16.0); Lymphocyte % 31.3 %; Mean Corpuscular HGB Conc 35 g/dL (31-36); Mean Corpuscular Hemoglobin 33 pg (27-31); Mean Corpuscular Volume 96 fL (80-97); Mean Platelet Volume 6.6 fL (7.4-10.4); Nucleated Red Blood Cells % 0.1; Platelet Count 665 10^3/uL (150-450); Red Blood Count 2.77 10^6 /uL (3.70-4.87); Red Cell Distribution Width 16 % (10-15); White Blood Count 5.8 10^3/uL (3.5-10.8)
[2019-09-28 05:00] LABS: Albumin 3.4 g/dL (3.2-5.2); Albumin/Globulin Ratio 1.4 (1-3); BUN/Creatinine Ratio 18.5 (8-20); Calcium 8.7 mg/dL (8.6-10.3); EGFR African American 105.3 (>60); Globulin 2.5 g/dL (2-4); Potassium 3.8 mmol/L (3.5-5.0); Total Bilirubin 0.4 mg/dL (0.2-1.0); Total Protein 5.9 g/dL (6.4-8.9)
[2019-09-28] MEDS: Acetaminophen TAB* 325 MG PO SCH (06:15)
[2019-09-28] MEDS: Levothyroxine TAB* 88 MCG TAB PO SCH (06:15)
[2019-09-28] MEDS: amLODIPine TAB* 5 MG PO SCH (08:04)
[2019-09-28] MEDS: Docusate CAP* 100 MG PO SCH (08:04)
[2019-09-28] MEDS: Pantoprazole TAB * 40 MG TAB PO SCH (08:04)
[2019-09-28] MEDS: Aspirin TAB* 325 MG PO SCH (08:04)
[2019-09-28] MEDS: Potassium Chloride* LIQUID 20 MEQ/15 ML UDC PO SCH (08:04)
[2019-09-28] MEDS: Polyethylene Glycol 3350* 17 GM PACKET PO SCH (08:04)
[2019-09-28] MEDS: Dextran 70/Hypromellose Tears Eye Drops 15 ml BTL (for Artificials Tears) BOTH EYES SCH (08:05)
[2019-09-28] MEDS: Citalopram TAB* 40 MG PO SCH (08:05)
[2019-09-28] MEDS: Pregabalin CAP(*) 50 MG PO SCH (08:05)
--- NOTE | 2019-09-28 09:57 | PN ---
Progress Note Date of Service: 09/28/19 Note: BUD BLANK was visited. Nursing and therapy notes read and reviewed. Eager to go home. No chest pain, shortness of breath or abdominal pain. Current Medications: Active Medications Generic Name Dose Route Start Last Admin Trade Name Freq PRN Reason Stop Dose Admin Acetaminophen 975 mg 09/13/19 14:00 09/28/19 06:15 Tylenol Tab* PO 975 mg Q8H AIDAN Administration Hydrocodone Bitart/Acetaminophen 1 tab 09/13/19 12:09 09/28/19 08:09 [place] 5-325 Tab* PO 1 tab Q4H PRN Administration PAIN - SEVERE Alprazolam 0.5 mg 09/23/19 21:00 09/27/19 20:44 Xanax Tab* PO 0.5 mg BEDTIME AIDAN Administration Amlodipine Besylate 2.5 mg 09/14/19 09:00 09/28/19 08:04 Norvasc Tab* PO 2.5 mg DAILY AIDAN Administration Artificial Tears 2 drop 09/25/19 13:00 09/28/19 08:05 Natural Balance Tears Eye Drop BOTH EYES 2 drop QID AIDAN Administration Aspirin 325 mg 09/14/19 09:00 09/28/19 08:04 Aspirin Tab* PO 325 mg DAILY AIDAN Administration Atorvastatin Calcium 40 mg 09/13/19 21:00 09/27/19 20:44 Lipitor* PO 40 mg 2100 AIDAN Administration Citalopram Hydrobromide 40 mg 09/14/19 09:00 09/28/19 08:05 Celexa Tab* PO 40 mg DAILY AIDAN Administration Docusate Sodium 100 mg 09/13/19 21:00 09/28/19 08:04 Colace Cap* PO 100 mg BID AIDAN Administration Levothyroxine Sodium 88 mcg 09/14/19 06:00 09/28/19 06:15 Synthroid Tab* PO 88 mcg DAILY@0600 AIDAN Administration Magnesium Hydroxide 30 ml 09/13/19 11:48 09/21/19 07:56 Milk Of Magnesia Liq* PO 30 ml Q6H PRN Administration CONSTIPATION Oxybutynin Chloride 5 mg 09/13/19 21:00 09/27/19 20:45 Ditropan Tab* PO 5 mg BEDTIME AIDAN Administration Pantoprazole Sodium 40 mg 09/14/19 09:00 09/28/19 08:04 Protonix Tab* PO 40 mg DAILY AIDAN Administration Phenyleph/Shark Oil/Min Oil/Petrol 1 applic 09/16/19 21:17 09/25/19 18:03 Preparation H* [place] 1 applic TID PRN Administration Hemorrhoids Polyethylene Glycol/Electrolytes 17 gm 09/22/19 11:00 09/28/19 08:04 Miralax* PO 17 gm DAILY AIDAN Administration Potassium Chloride 20 meq 09/14/19 09:00 09/28/19 08:04 Potassium Chloride Liquid PO 20 meq DAILY AIDAN Administration Pregabalin 50 mg 09/13/19 21:00 09/28/19 08:05 Lyrica Cap(*) PO 50 mg BID AIDAN Administration Senna 2 tab 09/13/19 11:48 09/20/19 20:16 Senokot 8.6 Mg Tab* PO 2 tab BEDTIME PRN Administration CONSTIPATION Vital Signs: Vital Signs Temp Pulse Resp BP Pulse Ox 97.4 F 74 16 146/76 93 09/28/19 04:39 09/28/19 04:39 09/28/19 08:09 09/28/19 04:39 09/28/19 04:39 Lab Results: Laboratory Results - last 24 hr 09/28/19 09/28/19 04:29 04:29 WBC 5.8 RBC 2.77 L Hgb 9.2 L Hct 27 L MCV 96 MCH 33 H MCHC 35 RDW 16 H Plt Count 665 H D MPV 6.6 L Neut % (Auto) 52.2 Lymph % (Auto) 31.3 [place] % (Auto) 11.7 Eos % (Auto) 3.5 Baso % (Auto) 1.3 Absolute Neuts (auto) 3.0 Absolute Lymphs (auto) 1.8 Absolute Monos (auto) 0.7 Absolute Eos (auto) 0.2 Absolute Basos (auto) 0.1 Absolute Nucleated RBC 0.0 Nucleated RBC % 0.1 Sodium 140 Potassium 3.8 Chloride 108 Carbon Dioxide 26 Anion Gap 6 BUN 12 Creatinine 0.65 Est GFR ( Amer) 105.3 Est GFR (Non-Af Amer) 87.0 BUN/Creatinine Ratio 18.5 Glucose 94 Calcium 8.7 Total Bilirubin 0.40 AST 15 ALT 10 Alkaline Phosphatase 92 Total Protein 5.9 L Albumin 3.4 Globulin 2.5 Albumin/Globulin Ratio 1.4 Exam: GENERAL: No acute distress. Alert and appropriate. LUNGS: Clear to auscultation bilaterally HEART: Regular rate and rhythm ABDOMEN: Soft, non-tender, non-distended, + bowel sounds. EXTREMITIES: right knee incision C/D/I, sabine out NEUROLOGIC: Sensation intact x4. Muscle strength 5/5 BUE and LLE. RLE motor 5/ 5 DF and EHL, but pain limited knee and hip flexion. Assessment/Plan: 1. Right TKA: PT/OT. WBAT. [place] removed 09/23. Follow up with Dr. Lorenzo 2. Hypothyroidism: Synthroid 3. Depression: Celexa 4. Insomnia: Had been drowsy at admission, which has resolved. xanax 0.5mg qhs. 5. GERD: Protonix 6. DVT Prophylaxis: ASA 325mg qday per ortho 7. Advance Directives: DNR. Has MOLST 8. Acute post-op anemia: stable 9. Dispo: d/c today. 10. Constipation: daily miralax 11. Eye irritation: order lubricant drops 09/28/19 09:56
--- NOTE | 2019-09-28 14:48 | DS ---
CC: Dr. Humphrey; Dr. Lorenzo REHABILITATION DISCHARGE SUMMARY: DATE OF ADMISSION: 09/13/19 DATE OF DISCHARGE: 09/28/19 PRIMARY CARE PROVIDER: Dr. Humphrey. ORTHOPEDIC SURGEON: Dr. Lorenzo. REASON FOR ADMISSION: Right total knee replacement with osteoarthritis. HISTORY OF PRESENT ILLNESS: For full details of her acute hospitalization leading up to her admission, please see the note dictated by Dr. Salvador on 09/20. REHABILITATION COURSE: When she first arrived to the rehabilitation unit, she was noted to be drowsy and somewhat confused. Her medications were cut back, specifically Xanax and trazodone. Over time, she seemed to improve. She has done well with healing her surgical site and her sabine were removed on without incident. She has remained on full dose aspirin for DVT prophylaxis per Dr. Lorenzo's orders. She has been noted to have acute postoperative anemia, but this has been stable and has not required any additional treatment. Her bowels have been regulated using stool softeners and MiraLAX. She had some issues with hemorrhoids that were treated with Preparation H. She also had some eye irritation, which she had before admission, and was using prescription eye drops. We gave her lubricant eye drops and this seemed to help quite nicely. She participated well with physical therapy and at the time of discharge is independent with bed mobility. She can transfer with a walker. She is able to ambulate more than 150 feet independently using a walker. She can climb 4 stairs with 1 rail and supervision with cues to step up with the good leg and to step down with the bad leg. She has a home exercise program that she is able to continue with. She can weight bear as tolerated through her right leg. She needs to take rest breaks as needed and take her time using her walker. She also participated well with occupational therapy and at the time of discharge is independent with eating. She should have set up assistance as needed for her shower transfer and assistance to wash her lower legs and feet. She requires setup assistance initially if needed for dressing. She is independent toileting with a walker. She will require additional assistance for home management and cooking. Her son and home health aide came in the day before discharge for family training. DISCHARGE CONDITION: Fair. DISCHARGE DISPOSITION: Home with family and aide support. DISCHARGE MEDICATIONS: 1. Acetaminophen 975 mg q.8 hours scheduled. 2. Alprazolam 0.5 mg q.h.s. 3. Amlodipine 2.5 mg q. day. 4. Aspirin 325 mg q. day for DVT prophylaxis. 5. Natural Balance Tear eye drops 2 drops both eyes 4 times daily. 6. Preparation H hemorrhoidal ointment t.i.d. p.r.n. 7. Senna 2 tablets q.h.s. p.r.n. constipation. 8. Citalopram 40 mg q.a.m. 9. Omeprazole 40 mg q.a.m. 10. Lyrica 50 mg b.i.d. 11. Levothyroxine 100 mcg q.a.m. 12. Triamcinolone 0.1% cream b.i.d. p.r.n. 13. Ranitidine 150 mg b.i.d. p.r.n. 14. Docusate 100 mg b.i.d. p.r.n. constipation. 15. Align 4 mg q.a.m. 16. [place] 5/325 one tablet t.i.d. p.r.n. pain. 17. Oxybutynin 5 mg t.i.d. p.r.n. overactive bladder. 18. Potassium chloride 15 mL q.a.m. 19. Atorvastatin 40 mg q.p.m. 20. Metamucil q. day. DISCHARGE DIAGNOSES: 1. Status post right total knee replacement secondary to osteoarthritis. 2. Irritable bowel syndrome. 3. Hypothyroidism. 4. Hyperlipidemia. 5. Hypertension. 6. Anxiety and depression 7. Gastroesophageal reflux disease. 8. Insomnia. 9. Acute postoperative anemia. 10. Conjunctivitis. FOLLOWUP: 1. She should see Dr. Humphrey in 1 to 2 weeks. 2. Follow up with Dr. Lorenzo in 1 to 2 weeks. [id number]/[facility] #: [id number] MTDD
== END 2019-09-28 11:55 | disposition home or self-care (01) | DRG 560 ==
LOC: UNDOADMIN 08:33 → PMRU 08:33
PROVIDERS: ADMIT Physical Medicine & Rehabilitation; ATTEND Physical Medicine & Rehabilitation
PROC: F07Z5ZZ Bed Mobility Treatment (ICD-10-PCS; principal; 2019-09-13)
PROC: F07Z9ZZ Gait Training/Functional Ambulation Treatment (ICD-10-PCS; 2019-09-13)
PROC: F07Z8ZZ Transfer Training Treatment (ICD-10-PCS; 2019-09-13)
PROC: F07Z4ZZ Wheelchair Mobility Treatment (ICD-10-PCS; 2019-09-13)
PROC: F08Z0ZZ Bathing/Showering Techniques Treatment (ICD-10-PCS; 2019-09-13)
PROC: F08Z1ZZ Dressing Techniques Treatment (ICD-10-PCS; 2019-09-13)
PROC: F08Z3ZZ Feeding/Eating Treatment (ICD-10-PCS; 2019-09-13)
PROC: F08Z2ZZ Grooming/Personal Hygiene Treatment (ICD-10-PCS; 2019-09-13)
DX: Z47.1 Aftercare following joint replacement surgery (principal); D62 Acute posthemorrhagic anemia; Z96.651 Presence of right artificial knee joint; K58.9 Irritable bowel syndrome, unspecified; E03.9 Hypothyroidism, unspecified; E78.5 Hyperlipidemia, unspecified; I10 Essential (primary) hypertension; F41.8 Other specified anxiety disorders; K21.9 Gastro-esophageal reflux disease without esophagitis; G47.00 Insomnia, unspecified; Z66 Do not resuscitate; H10.9 Unspecified conjunctivitis; E78.00 Pure hypercholesterolemia, unspecified; K59.00 Constipation, unspecified; K64.9 Unspecified hemorrhoids; Z79.82 Long term (current) use of aspirin; Z79.899 Other long term (current) drug therapy; Z88.1 Allergy status to other antibiotic agents; Z82.3 Family history of stroke; Z80.3 Family history of malignant neoplasm of breast
CPT/HCPCS: 36415; 80053; 81003; 85025; 85060; A9270-GY

== ENCOUNTER 2019-10-24 16:01 | Emergency (ER) | payer MEDICARE, MEDICAID ==
[2019-10-24] MEDS ORDERED: HYDROcodone/ACETAMIN 5-325 MG* 1 TAB PO ONE (16:12)
--- NOTE | 2019-10-24 16:15 | ED ---
Lower Extremity - HPI Summary HPI Summary: 84 year old F presenting to [facility] accompanied by EMS complains of right knee pain since 4-5 days ago following a knee replacement at [facility] on 09/10/19. Patient also reports diarrhea and emesis since yesterday, 10/23/2019. Patient denies fever, chills, nausea, and hematachezia. The replacement was performed by who she saw a couple days ago and said that her knee was alright. An ambulance was called out of concern by her son who lives apart from her. No Hx of HTN or diabetes. SHx of no alcohol, tobacco, and drugs. Patient reports being on thyroid medication and taking ibuprofen earlier this afternoon. The patient rates the pain 3/10 in severity and says it has subsided a bit since a couple days ago. Symptoms aggravated by nothing. Symptoms alleviated by nothing. Medications reviewed. Allergies noted. - History of Current Complaint Stated Complaint: DIARRHEA PER EMS Time Seen by Provider: 10/24/19 16:03 Hx Obtained From: Patient Onset of Pain: Days Onset/Duration: Still Present Severity Currently: Mild Pain Intensity: 3 Pain Scale Used: 0-10 Numeric Timing: Constant Location: Is Discrete @ - right knee Associated Signs And Symptoms: Positive: Other - denies fever, chills, nausea, and hematachezia; reports diarrhea and emesis. Negative: Fever Aggravating Factor(s): Nothing Alleviating Factor(s): Nothing - Allergies/Home Medications Allergies/Adverse Reactions: Allergies Allergy/AdvReac Type Severity Reaction Status Date / Time clomipramine Allergy Intermediate COORDINATIO Verified 09/11/19 09:31 N enalapril Allergy Intermediate COORDINATIO Verified 09/11/19 09:31 N erythromycin base Allergy Intermediate Vomiting Verified 09/11/19 09:31 PMH/Surg Hx/FS Hx/Imm Hx Endocrine/Hematology History: Reports: Hx Thyroid Disease Denies: Hx Bone Marrow Disease, Hx Diabetes, Hx Systemic Lupus Erythematosus , Hx Sickle Cell Disease, Hx Anemia Cardiovascular History: Reports: Hx Hypertension, Other Cardiovascular Problems/ Disorders - cholesterol Denies: Hx Congestive Heart Failure, Hx Pacemaker/ICD Respiratory History: Denies: Hx Asthma, Hx Chronic Obstructive Pulmonary Disease (COPD) Comment Only: Other Respiratory Problems/Disorders - TB A CHILD GI History: Reports: Hx Gastroesophageal Reflux Disease - ON MEDS, Hx Irritable Bowel History: Reports: Other Problems/Disorders - overactive bladder Denies: Hx Dialysis, Hx Renal Disease Musculoskeletal History: Reports: Hx Arthritis - RIGHT HIP,KNEE AND ANKLE, CERVICAL SPINE Denies: Hx Rheumatoid Arthritis Sensory History: Reports: Hx Contacts or Glasses, Hx Deafness Denies: Hx Cataracts, Hx Hearing Aid, Hx Hearing Problem Opthamlomology History: Reports: Hx Contacts or Glasses Denies: Hx Cataracts Neurological History: Reports: Hx Headaches, Hx Migraine, Other Neuro Impairments/Disorders Psychiatric History: Reports: Hx Anxiety, Hx Depression Denies: Hx Panic Disorder - Cancer History Cancer Type, Location and Year: bilateral breast cancer Hx Chemotherapy: No Hx Radiation Therapy: No - Surgical History Surgery Procedure, Year, and Place: tonsils as a child, rt and lt mastectomy 2010 [facility] [place],. left vitrectomy 2006 IN [place], ( CLEARED BY DR MCKEON -05/14/19- ). CATARACTS Hx Anesthesia Reactions: No Infectious Disease History: No Infectious Disease History: Reports: Hx Tuberculosis - as a child Denies: History Other Infectious Disease, Traveled Outside the [place] in Last 30 Days - Family History Known Family History: Positive: Other - No FHx of malignant hyperthermia, No FHx of anesthesia reaction Family History: No FHx of malignant hyperthermia. No FHx of anesthesia reaction - Social History Alcohol Use: None Alcohol Amount: has stopped drinking alcohol completely Hx Substance Use: No Substance Use Type: Reports: None Substance Use Comment - Amount & Last Used: drinks approx 1 pot coffee a day Hx Tobacco Use: Yes Smoking Status (MU): Never Smoked Tobacco Type: Cigarettes Amount Used/How Often: 10 cigs in her entire life Review of Systems Negative: Fever, Chills Positive: Vomiting - since yesterday 10/23/2019, Diarrhea - since yesterday 2019. Negative: Nausea Positive: other - no hematachezia Musculoskeletal: Other - positive - right knee pain All Other Systems Reviewed And Are Negative: Yes Physical Exam - Summary Physical Exam Summary: Constitutional: Well-developed, Well-nourished, Alert. (-) Distressed Skin: Warm, Dry, right knee with surgical incision intact, knee is not warm or erythematous compared to the left HENT: Normocephalic; Atraumatic Eyes: Conjunctiva normal Neck: Musculoskeletal ROM normal neck. (-) JVD, (-) Stridor, (-) Tracheal deviation Cardio: Rhythm regular, rate normal, Heart sounds normal; Intact distal pulses; Radial pulses are 2+ and symmetric. (-) Murmur Pulmonary/Chest wall: Effort normal. (-) Respiratory distress, (-) Wheezes, (-) Rales Abd: Soft, (-) tenderness, (-) Distension, (-) Guarding, (-) Rebound Musculoskeletal: Right knee is slightly swollen compared to the left; pt able to range at knee without limitation Lymph: (-) Cervical adenopathy Neuro: Alert, Oriented x3 Psych: Mood and affect Normal Triage Information Reviewed: Yes Vital Signs On Initial Exam: Initial Vitals Temp Pulse Resp BP Pulse Ox 98.7 F 68 18 147/82 98 10/24/19 16:04 10/24/19 16:04 10/24/19 16:04 10/24/19 16:04 10/24/19 16:04 Vital Signs Reviewed: Yes Procedures - Sedation Patient Received Moderate/Deep Sedation with Procedure: No Diagnostics - Vital Signs Vital Signs Temp Pulse Resp BP Pulse Ox 10/24/19 16:04 98.7 F 68 18 147/82 98 - Laboratory Result Diagrams: 10/24/19 16:24 10/24/19 16:24 Lab Statement: Any lab studies that have been ordered have been reviewed, and results considered in the medical decision making process. Lower Extremity Course/Dx - Course Course Of Treatment: Patient is here with pain in her right knee following a near question. Patient had her knee replaced roughly 1.5 months ago. Patient was seen at her orthopedic surgeon's office 2 days ago and was told her course is typical. Patient's pain is actually better since it was 2 days ago. Patient has full range of motion her knee with no evidence of septic arthritis. Patient was given a hydrocodone and discharged on hydrocodone as she ran out yesterday. - Diagnoses Provider Diagnoses: Post-operative pain Discharge ED - Sign-Out/Discharge Documenting (check all that apply): Patient Departure - discharge - Discharge Plan Condition: Stable Disposition: HOME Prescriptions: Hydrocodone/Acetaminophen [Hydrocodone-Acetamin 5-325 mg] 1 each PO Q8HR PRN #5 tablet MDD 3 tablets PRN Reason: Pain - Severe Patient Education Materials: Pain Management After Surgery (GEN) Referrals: Zev Humphrey MD [Primary Care Provider] - Kevin Lorenzo MD [Medical Doctor] - Additional Instructions: Follow up with and in 3 days. You have been prescribed a small amount of pain medication but will prescribe more if needed. Come back to ED if you have fever or can't move your leg at all. - Billing Disposition and Condition Condition: STABLE Disposition: Home - Attestation Statements Document Initiated by Tristian: Yes Documenting Scribe: JESSICA CORRIGAN Provider For Whom Tristian is Documenting (Include Credential): TIERA ESTES MD Scribe Attestation: I, JESSICA CORRIGAN, scribed for TIERA ESTES MD on 10/24/19 at 1833. Scribe Documentation Reviewed: Yes Provider Attestation: The documentation as recorded by the JESSICA reynolds accurately reflects the service I personally performed and the decisions made by me, TIERA ESTES MD Status of Scribe Document: Viewed
[2019-10-24 16:31] LABS: ABS Basophils 0.1 10^3/ul (0-0.2); ABS Eosinophils 0.2 10^3/ul (0-0.6); ABS Lymphocytes 2.1 10^3/ul (1.0-4.8); ABS Monocytes 0.8 10^3/ul (0-0.8); ABS Neutrophils 5.4 10^3/ul (1.5-7.7); Eosinophil % 1.9 %; Hematocrit 30 % (35-47); Hemoglobin 10.1 g/dL (12.0-16.0); Lymphocyte % 24.9 %; Mean Corpuscular HGB Conc 34 g/dL (31-36); Mean Corpuscular Hemoglobin 31 pg (27-31); Mean Corpuscular Volume 92 fL (80-97); Mean Platelet Volume 7.7 fL (7.4-10.4); Platelet Count 409 10^3/uL (150-450); Red Blood Count 3.22 10^6 /uL (3.70-4.87); Red Cell Distribution Width 14 % (10-15); White Blood Count 8.5 10^3/uL (3.5-10.8)
[2019-10-24 16:48] LABS: BUN/Creatinine Ratio 21.3 (8-20); Calcium 8.9 mg/dL (8.6-10.3); EGFR African American 113.3 (>60); EGFR Non-African American 93.7 (>60)
--- OUTSIDE RECORDS SUMMARY | 2019-10-24 16:50 | XMS REPORT ---
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 10-03 Altaf [id number] Unspecified Unspecified 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 Max osteoarthri osteoarthri 10-03 Altaf tis, tis, [id number] unspecified unspecified site site Essential Essential 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 Max (primary) (primary) 10-03 Altaf hypertensio hypertensio [id number] n n 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 [id number] unspecified unspecified bone bone Anxiety Anxiety 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 Max disorder, disorder, 10-03 Altaf unspecified unspecified [id number] 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 [id number] without without diarrhea diarrhea Insomnia, Insomnia, 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 Max unspecified unspecified Altaf [id number] Gastro-esop Gastro-esop 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 Max hageal hageal Altaf reflux reflux [id number] disease disease without without esophagitis esophagitis Hypokalemia Hypokalemia 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 Max Solitario [id number] Hypothyroid Hypothyroid 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 Max ism, ism, Altaf unspecified unspecified [id number] 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, terolemia, [id number] unspecified unspecified 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 [id number] knee joint knee joint 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 Max (current) (current) Altaf use of use of [id number] aspirin aspirin 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 Max (current) (current) Kobquocewalexandra use of use of [id number] opiate opiate analgesic analgesic Personal Personal 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 Max history of history of Kobziewicz other other [id number] 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 Personal Personal 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 Max history of history of Kobziewicz transient transient [id number] ischemic ischemic attack attack (TIA), and (TIA), and cerebral cerebral infarction infarction without without residual residual deficits deficits Pain frequent Pain Mgmt Active 2018-10 Jodie pain 2- (Kallie) 10:40: Cardoza [id number] Cardio edema Cardiovasc Active 2018-10 Jodie ular 2- (Kallie) 10:40: Cardoza [id number] Respiratory dyspnea Respirator Active 2018-10 Jodie present y (Kallie) 10:40: Cardoza [id number] Endo/Christiano anti-coagul Endo/Christiano Active 2018-10 Jodie ation 2- (Kallie) therapy 10:40: Cardoza [id number] Sensory impaired Sensory Active 2018-10 Jodie hearing 2- (Kallie) 10:40: Cardoza [id number] Integument surgical Integument Active 2018-10 Jodie wound 2- (Kallie) present 10:40: Cardoza [id number] Integument skin Integument Active 2018-10 Jodie integrity 2- (Kallie) risk 10:40: Cardoza 00 [id number] Elimination urinary Eliminatio Active 2018-10 Jodie incontinenc n 2- (Kallie) e 10:40: Cardoza [id number] Elimination bowel Eliminatio Active 2018-10 Jodie incontinenc n 2-29 (Kallie) e 10:40: Cardoza [id number] Neuro confusion Neuro/Emot Active 2018-10 Jodie present ion 2- (Kallie) 10:40: Cardoza [id number] Neuro anxiety Neuro/Emot Active 2018-10 Jodie present ion 2- (Kallie) 10:40: Cardoza [id number] Neuro depressive Neuro/Emot Active 2018-10 Jodie feelings ion 2- (Kallie) present 10:40: Cardoza 00 [id number] Neuro impaired Neuro/Emot Active 2018-10 Jodie decision-ma ion 2- (Kallie) jefferson 10:40: Cardoza [id number] Neuro memory Neuro/Emot Active 2018-10 Jodie deficit ion (Kallie) needing 10:40: Cardoza supervision [id number] Activity ADL Activity Active 2018-10 Jodie assistance (Kallie) required 10:40: Cardoza [id number] Activity self-care Activity Active 2018-10 Jodie deficit (Kallie) 10:40: Cardoza [id number] Safety fall risk Safety Active 2018-10 Jodie factor (Kallie) present 10:40: Cardoza [id number] Safety risk for Safety Active 2018-10 Jodie hospitaliza (Kallie) tion 10:40: Cardoza [id number] Safety can be left Safety Active 2018-10 Jodie alone for (Kallie) only short 10:40: Cardoza periods [id number] Medication oral med Meds Active 2018-10 Jodie assistance (Kallie) required 10:40: Cardoza [id number] Medication potential Meds Active 2018-10 Jodie clinically (Kallie) significant 10:40: Cradoza medication [id number] issue Musculoskel transfer Musculoske Active 2018-10 Jodie etal assistance letal (Kallie) required 10:40: Cardoza [id number] Musculoskel requires Musculoske Active 2018-10 Jodie etal human letal (Kallie) assist to 10:40: Cardoza leave home 00 [id number] Safety structural Safety Active 2018-10 Max barriers Altaf present 12:30: [id number] 00 Safety fire risk Safety Active 2018-10 Max present Iamewicz 12:30: [id number] 00 Safety knowledge/s Safety Active 2018-10 Max kill Altaf deficit: pt 12:30: [id number] 00 Safety knowledge/s Safety Active 2018-10 Max kill Altaf deficit: cg 12:30: [id number] 00 Diagnoses knowledge/s Diagnoses Active 2018-10 Max kill Altaf deficit: pt 12:30: [id number] 00 Strength/To knowledge/s PT: Active 2018-10 Max ne/Motor kill Strength 2-30 Altaf Control deficit LE: 12:30: [id number] pt 00 Strength/To knowledge/s PT: Active 2018-10 Max ne/Motor kill Strength [place] Control deficit LE: 12:30: [id number] cg 00 Bed mobility/tr PT/OT: Bed Active 2018-10 Max Mobility/Tr ansfer Mobility/T 30 Altaf ansfer device ransfer 12:30: [id number] present 00 Bed transfer PT/OT: Bed Active 2018-10 Max Mobility/Tr deficit: Mobility/T 30 Iamewalexandra ansfer sit/stand ransfer 12:30: [id number] 00 Bed transfer PT/OT: Bed Active 2018-10 Max Mobility/Tr deficit: Mobility/T Kobquocewicz ansfer standing ransfer 12:30: [id number] pivot 00 Bed transfer PT/OT: Bed Active 2018-10 Max Mobility/Tr deficit: Mobility/T Kobleno rogelfer toilet/comm ransfer 12:30: [id number] ode 00 Bed transfer PT/OT: Bed Active 2018-10 Max Mobility/Tr deficit: Mobility/T Altaf rogelfer shower/tub ransfer 12:30: [id number] 00 Bed transfer PT/OT: Bed Active 2018-10 Max Mobility/Tr deficit: Mobility/T -30 Altaf ansfer vehicle ransfer 12:30: [id number] 00 Bed knowledge/s PT/OT: Bed Active 2018-10 Max Mobility/Tr kill Mobility/T Altaf rogelfer deficit: pt ransfer 12:30: [id number] 00 Bed knowledge/s PT/OT: Bed Active 2018-10 Max Mobility/Tr kill Mobility/T 30 Altaf ansfer deficit: cg ransfer 12:30: [id number] 00 Balance/End balance/cooling system operator PT/OT: Active 2018-10 Max urance rdination Balance/En Altaf deficit durance 12:30: [id number] 00 OT: Self self-care OT: Active 2018-10 Max Care deficit Self-Care Altaf 12:30: [id number] 00 OT: Self knowledge/s OT: Active 2018-10 Max martínez Self-Care 2-30 Kobziewicz deficit: pt 12:30: [id number] 00 OT: Self knowledge/s OT: Active 2018-10 Max martínez Self-Care 2-30 Kobziewicz deficit: cg 12:30: [id number] 00 Gait/Locomo gait PT/OT: Active 2018-10 Max worthyon assistive Gait/Locom 2-30 Kobziewicz problems device otion 12:30: [id number] present 00 Gait/Locomo knowledge/s PT/OT: Active 2018-10 Max worthyon kill Gait/Locom 2-30 Kobziewicz problems deficit: pt otion 12:30: [id number] 00 Gait/Locomo gait PT/OT: Active 2018-10 Max worthyon deficit Gait/Locom 2-30 Kobziewicz problems otion 12:30: [id number] 00 Allergies, Adverse Reactions, Alerts Allergy Allergy Status Severity Reaction(s) Onset Inactive Treating Comments Name Type Date Date Clinician erythromyci Base Active Unknown Reaction Milton n base Ingredient Unknown 2-15 Ti Anafranil Medication Active Unknown balance Johana Name ID problems, 2-15 Ti sleep disturbances Medications Ordered Filled Start Stop Current Ordering Indication Dosage Frequency Signature Comments Components Medication Medication Date Date Medication? Clinician (SIG) Name Name levothyroxi levothyroxi No Midura Unknown Unknown ne 88 mcg ne 88 mcg Zev PORTILLO tablet tablet raNITIdine raNITIdine No Midura Unknown Unknown 150 mg 150 mg Zev PORTILLO tablet tablet omeprazole omeprazole No Midura Unknown Unknown 40 mg 40 mg Zev PORTILLO capsule,del capsule,del ayed ayed release release CeleXA 40 CeleXA 40 No Midura Unknown Unknown mg tablet mg tablet Zev PORTILLO Metamucil Metamucil No Midura Unknown Unknown (sugar) (sugar) Zev PORTILLO oral powder oral powder atorvastati atorvastati No Midura Unknown Unknown n 40 mg n 40 mg Zev PORTILLO tablet tablet pregabalin pregabalin No Midura Unknown Unknown 50 mg 50 mg Zev PORTILLO capsule capsule Bifidobacte Bifidobacte No Midura Unknown Unknown rium riZev hughes MD infantis 4 infantis 4 mg capsule mg capsule potassium potassium No Midura Unknown Unknown chloride 20 chloride 20 MD,Zev mEq/15 mL mEq/15 mL oral liquid oral liquid HYDROcodone HYDROcodone No Midura Unknown Unknown 5 5 MD,Zev mg-acetamin mg-acetamin ophen 325 ophen 325 mg tablet mg tablet oxybutynin oxybutynin No Midura Unknown Unknown chloride 5 chloride 5 MD,Zev mg tablet mg tablet docusate docusate No Midura Unknown Unknown sodium 100 sodium 100 MD,Zev mg capsule mg capsule traZODone traZODone No Midura Unknown Unknown 50 mg 50 mg MD,Zev tablet tablet Xanax 0.5 Xanax 0.5 No Midura Unknown Unknown mg tablet mg tablet MD,Zev ibuprofen ibuprofen No Midura Unknown Unknown 800 mg 800 mg MD,Zev tablet tablet acetaminoph acetaminoph 2018-10 Yes Maura Unknown Unknown en 500 mg en 500 mg MD,Dirk tablet tablet ALPRAZolam ALPRAZolam 2018-10 Yes Maura Unknown Unknown 0.5 mg 0.5 mg MD,Dirk tablet tablet amLODIPine amLODIPine 2018-10 Yes Maura Unknown Unknown 2.5 mg 2.5 mg - MD,Dirk tablet tablet aspirin 325 aspirin 325 2018-10 Yes Maura Unknown Unknown mg tablet mg tablet MD,Dirk Natural Natural 2018-10 Yes Maura Unknown Unknown Tears (PF) Tears (PF) MD,Dirk 0.1 %-0.3 % 0.1 %-0.3 % drops in a drops in a dropperette dropperette Preparation Preparation 2018-10 Yes Maura Unknown Unknown H H MD,Dirk Hydrocortis Hydrocortis one 1 % one 1 % topical topical cream cream senna 8.6 senna 8.6 2018-10 Yes Maura Unknown Unknown mg capsule mg capsule MD,Dirk citalopram citalopram 2018-10 Yes Maura Unknown Unknown 40 mg 40 mg - MD,Dirk tablet tablet omeprazole omeprazole 2018-10 Yes Maura Unknown Unknown 40 mg 40 mg - MD,Dirk capsule,del capsule,del ayed ayed release release Lyrica 50 Lyrica 50 2018-10 Yes Maura Unknown Unknown mg capsule mg capsule - MD,Dirk levothyroxi levothyroxi 2018-10 Yes Maura Unknown Unknown ne 100 mcg ne 100 mcg - MD,Dirk capsule capsule triamcinolo triamcinolo 2018-10 Yes Maura Unknown Unknown ne ne - MD,Dirk acetonide acetonide 0.147 0.147 mg/gram mg/gram topical topical aerosol aerosol docusate docusate 2018-10 Yes Maura Unknown Unknown sodium 100 sodium 100 - MD,Dirk mg capsule mg capsule Align 4 mg Align 4 mg 2018-10 Yes Maura Unknown Unknown capsule capsule - MD,Dirk oxybutynin oxybutynin 2018-10 Yes Maura Unknown Unknown chloride 5 chloride 5 - MD,Dirk mg tablet mg tablet potassium potassium 2018-10 Yes Maura Unknown Unknown chloride 20 chloride 20 - MD,Dirk mEq/15 mL mEq/15 mL oral liquid oral liquid atorvastati atorvastati 2018-10 Yes Maura Unknown Unknown n 40 mg n 40 mg - MD,Dirk tablet tablet Metamucil Metamucil 2018-10 Yes Maura Unknown Unknown (with (with - MD,Dirk sugar) 3.4 sugar) 3.4 gram/7 gram gram/7 gram oral powder oral powder Vital Signs Vital Name Observation Time Observation Value Comments SYSTOLIC mm[Hg] 2019-10-16 18:09:52 138 mm[Hg] mm[Hg] Method: Sit SYSTOLIC mm[Hg] 2019-10-06 18:09:42 130 mm[Hg] mm[Hg] Method: Stand DIASTOLIC mm[Hg] 2019-10-16 18:09:52 60 mm[Hg] mm[Hg] Method: Sit DIASTOLIC mm[Hg] 2019-10-06 18:09:42 70 mm[Hg] mm[Hg] Method: Stand PULSE 2019-10-16 18:09:52 74 /min /min RESP RATE 2019-10-06 18:09:42 17 /min /min TEMP 2019-10-06 18:09:42 98.5 [degF] Procedures This patient has no known procedures. Results This patient has no known results.
--- OUTSIDE RECORDS SUMMARY | 2019-10-24 16:50 | XMS REPORT ---
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 10-03 Altaf tis, tis, [id number] unspecified unspecified site site Essential Essential 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 Max (primary) (primary) 10-03 Altaf hypertensio hypertensio [id number] n n 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 [id number] unspecified unspecified bone bone Anxiety Anxiety 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 Max disorder, disorder, 10-03 Altaf unspecified unspecified [id number] 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 without without diarrhea diarrhea Insomnia, Insomnia, 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 Max unspecified unspecified Altaf [id number] Gastro-esop Gastro-esop 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 Max hageal hageal Altaf reflux reflux [id number] disease disease without without esophagitis esophagitis Hypokalemia Hypokalemia 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 Max Solitario [id number] Hypothyroid Hypothyroid 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 Max ism, ism, Altaf unspecified unspecified [id number] 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, terolemia, [id number] unspecified unspecified 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 knee joint manager 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 Max (current) (current) Altaf use of use of [id number] aspirin aspirin manager 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 Max (current) (current) [place] use of use of [id number] opiate opiate analgesic analgesic Personal Personal 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 Max history of history of Kobziewicz other other 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 Personal Personal 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 Max history of history of Kobziewicz transient transient [id number] ischemic ischemic attack attack (TIA), and (TIA), and cerebral cerebral infarction infarction without without residual residual deficits deficits Pain frequent Pain Mgmt Active 2018-10 Jodie pain 2- (Kallie) 10:40: Cardoza [id number] Cardio edema Cardiovasc Active 2018-10 Jodie ular 2- (Kallie) 10:40: Cardoza [id number] Respiratory dyspnea Respirator Active 2018-10 Jodie present y (Kallie) 10:40: Cardoza [id number] Endo/Christiano anti-coagul Endo/Christiano Active 2018-10 Jodie ation 2- (Kallie) therapy 10:40: Cardoza [id number] Sensory impaired Sensory Active 2018-10 Jodie hearing 2- (Kallie) 10:40: Cardoza [id number] Integument surgical Integument Active 2018-10 Jodie wound 2- (Kallie) present 10:40: Cardoza [id number] Integument skin Integument Active 2018-10 Jodie integrity 2- (Kallie) risk 10:40: Cardoza 00 [id number] Elimination urinary Eliminatio Active 2018-10 Jodie incontinenc n 2- (Kallie) e 10:40: Cardoza [id number] Elimination bowel Eliminatio Active 2018-10 Jodie incontinenc n 2-29 (Kallie) e 10:40: Cardoza [id number] Neuro confusion Neuro/Emot Active 2018-10 Jodie present ion 2- (Kallie) 10:40: Cardoza [id number] Neuro anxiety Neuro/Emot Active 2018-10 Jodie present ion 2- (Kallie) 10:40: Cardoza [id number] Neuro depressive Neuro/Emot Active 2018-10 Jodie feelings ion 2- (Kallie) present 10:40: Cardoza 00 [id number] Neuro impaired Neuro/Emot Active 2018-10 Jodie decision-ma ion 2- (Kallie) jefferson 10:40: Cardoza [id number] Neuro memory Neuro/Emot Active 2018-10 Jodie deficit ion (Kallie) needing 10:40: Cardoza supervision [id number] Activity ADL Activity Active 2018-10 Jodie assistance (Kallie) required 10:40: Cardoza [id number] Activity self-care Activity Active 2018-10 Jodie deficit (Kallie) 10:40: Cardoza [id number] Safety fall risk Safety Active 2018-10 Jodie factor (Kallie) present 10:40: Cardoza [id number] Safety risk for Safety Active 2018-10 Jodie hospitaliza (Kallie) tion 10:40: Cardoza [id number] Safety can be left Safety Active 2018-10 Jodie alone for (Kallie) only short 10:40: Cardoza periods [id number] Medication oral med Meds Active 2018-10 Jodie assistance (Kallie) required 10:40: Cardoza [id number] Medication potential Meds Active 2018-10 Jodie clinically (Kallie) significant 10:40: Cardoza medication [id number] issue Musculoskel transfer Musculoske Active 2018-10 Jodie etal assistance letal (Kallie) required 10:40: Cardoza [id number] Musculoskel requires Musculoske Active 2018-10 Jodie etal human letal (Kallie) assist to 10:40: Cardoza leave home 00 [id number] Safety structural Safety Active 2018-10 Max barriers Altaf present 12:30: [id number] 00 Safety fire risk Safety Active 2018-10 Max present Iamewicz 12:30: [id number] 00 Safety knowledge/s Safety Active 2018-10 Max kill Altaf deficit: pt 12:30: [id number] 00 Safety knowledge/s Safety Active 2018-10 Max kill Altaf deficit: cg 12:30: [id number] 00 Diagnoses knowledge/s Diagnoses Active 2018-10 Max kill Altaf deficit: pt 12:30: [id number] 00 Strength/To knowledge/s PT: Active 2018-10 Max ne/Motor kill Strength 2-30 Altaf Control deficit LE: 12:30: [id number] pt 00 Strength/To knowledge/s PT: Active 2018-10 Max ne/Motor kill Strength [place] Control deficit LE: 12:30: [id number] cg 00 Bed mobility/tr PT/OT: Bed Active 2018-10 Max Mobility/Tr ansfer Mobility/T 30 Altaf ansfer device ransfer 12:30: [id number] present 00 Bed transfer PT/OT: Bed Active 2018-10 Max Mobility/Tr deficit: Mobility/T 30 Iamewalexandra ansfer sit/stand ransfer 12:30: [id number] 00 Bed transfer PT/OT: Bed Active 2018-10 Max Mobility/Tr deficit: Mobility/T Kobquocewicz ansfer standing ransfer 12:30: [id number] pivot 00 Bed transfer PT/OT: Bed Active 2018-10 Max Mobility/Tr deficit: Mobility/T [place] rogelfer toilet/comm ransfer 12:30: [id number] ode 00 Bed transfer PT/OT: Bed Active 2018-10 Max Mobility/Tr deficit: Mobility/T Altaf rogelfer shower/tub ransfer 12:30: [id number] 00 Bed transfer PT/OT: Bed Active 2018-10 Max Mobility/Tr deficit: Mobility/T -30 Altaf ansfer vehicle ransfer 12:30: [id number] 00 Bed knowledge/s PT/OT: Bed Active 2018-10 Max Mobility/Tr kill Mobility/T Altaf rogelfer deficit: pt ransfer 12:30: [id number] 00 Bed knowledge/s PT/OT: Bed Active 2018-10 Max Mobility/Tr kill Mobility/T 30 Altaf ansfer deficit: cg ransfer 12:30: [id number] 00 Balance/End balance/digital project coordinator PT/OT: Active 2018-10 Max urance rdination Balance/En Altaf deficit durance 12:30: [id number] 00 OT: Self self-care OT: Active 2018-10 Max Care deficit Self-Care Altaf 12:30: [id number] 00 OT: Self knowledge/s OT: Active 2018-10 Max martínez Self-Care 2-30 Kobziewicz deficit: pt 12:30: [id number] 00 OT: Self knowledge/s OT: Active 2018-10 Max martínez Self-Care 2-30 Kobziewicz deficit: cg 12:30: [id number] 00 Gait/Locomo gait PT/OT: Active 2018-10 Max worthyon assistive Gait/Locom 2-30 Kobziewicz problems device otion 12:30: [id number] present 00 Gait/Locomo knowledge/s PT/OT: Active 2018-10 Max worthyon kill Gait/Locom 2-30 Kobziewicz problems deficit: pt otion 12:30: [id number] 00 Gait/Locomo gait PT/OT: Active 2018-10 Max worthyon deficit Gait/Locom 2-30 Kobziewicz problems otion 12:30: [id number] 00 Allergies, Adverse Reactions, Alerts Allergy Allergy Status Severity Reaction(s) Onset Inactive Treating Comments Name Type Date Date Clinician erythromyci Base Active Unknown Reaction [place] n base Ingredient Unknown 2-15 Ti Anafranil [...]
--- OUTSIDE RECORDS SUMMARY | 2019-10-24 16:50 | XMS REPORT ---
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 Altaf tis, tis, [id number] unspecified unspecified site site Essential Essential 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 Max (primary) (primary) 10-03 Altaf hypertensio hypertensio [id number] n n 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 [id number] unspecified unspecified bone bone Anxiety Anxiety 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 Max disorder, disorder, 10-03 Altaf unspecified unspecified [id number] 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 [id number] without without diarrhea diarrhea Insomnia, Insomnia, 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 Max unspecified unspecified Altaf [id number] Gastro-esop Gastro-esop 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 Max hageal hageal Altaf reflux reflux [id number] disease disease without without esophagitis esophagitis Hypokalemia Hypokalemia 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 Max Solitario [id number] Hypothyroid Hypothyroid 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 Max ism, ism, Altaf unspecified unspecified [id number] 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, terolemia, [id number] unspecified unspecified 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 [id number] knee joint knee joint buttermaker MCFP 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 Max (current) (current) Altaf use of use of [id number] aspirin aspirin buttermaker MCFP 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 Max (current) (current) Kobquocewalexandra use of use of [id number] opiate opiate analgesic analgesic Personal Personal 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 Max history of history of Kobziewicz other other [id number] 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 Personal Personal 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 Max history of history of Kobziewicz transient transient [id number] ischemic ischemic attack attack (TIA), and (TIA), and cerebral cerebral infarction infarction without without residual residual deficits deficits Pain frequent Pain Mgmt Active 2018-10 Jodie pain 2- (Kallie) 10:40: Cardoza [id number] Cardio edema Cardiovasc Active 2018-10 Jodie ular 2- (Kallie) 10:40: Cardoza [id number] Respiratory dyspnea Respirator Active 2018-10 Jodie present y (Kallie) 10:40: Cardoza [id number] Endo/Christiano anti-coagul Endo/Christiano Active 2018-10 Jodie ation 2- (Kallie) therapy 10:40: Cardoza [id number] Sensory impaired Sensory Active 2018-10 Jodie hearing 2- (Kallie) 10:40: Cardoza [id number] Integument surgical Integument Active 2018-10 Jodie wound 2- (Kallie) present 10:40: Cardoza [id number] Integument skin Integument Active 2018-10 Jodie integrity 2- (Kallie) risk 10:40: Cardoza 00 [id number] Elimination urinary Eliminatio Active 2018-10 Jodie incontinenc n 2- (Kallie) e 10:40: Cardoza [id number] Elimination bowel Eliminatio Active 2018-10 Jodie incontinenc n 2-29 (Kallie) e 10:40: Cardoza [id number] Neuro confusion Neuro/Emot Active 2018-10 Jodie present ion 2- (Kallie) 10:40: Cardoza [id number] Neuro anxiety Neuro/Emot Active 2018-10 Jodie present ion 2- (Kallie) 10:40: Cardoza [id number] Neuro depressive Neuro/Emot Active 2018-10 Jodie feelings ion 2- (Kallie) present 10:40: Cardoza 00 [id number] Neuro impaired Neuro/Emot Active 2018-10 Jodie decision-ma ion 2- (Kallie) jefferson 10:40: Cardoza [id number] Neuro memory Neuro/Emot Active 2018-10 Jodie deficit ion (Kallie) needing 10:40: Cardoza supervision [id number] Activity ADL Activity Active 2018-10 Jodie assistance (Kallie) required 10:40: Cardoza [id number] Activity self-care Activity Active 2018-10 Jodie deficit (Kallie) 10:40: Cardoza [id number] Safety fall risk Safety Active 2018-10 Jodie factor (Kallie) present 10:40: Cardoza [id number] Safety risk for Safety Active 2018-10 Jodie hospitaliza (Kallie) tion 10:40: Cardoza [id number] Safety can be left Safety Active 2018-10 Jodie alone for (Kallie) only short 10:40: Cardoza periods [id number] Medication oral med Meds Active 2018-10 Jodie assistance (Kallie) required 10:40: Cardoza [id number] Medication potential Meds Active 2018-10 Jodie clinically (Kallie) significant 10:40: Cardoza medication [id number] issue Musculoskel transfer Musculoske Active 2018-10 Jodie etal assistance letal (Kallie) required 10:40: Cardoza [id number] Musculoskel requires Musculoske Active 2018-10 Jodie etal human letal (Kallie) assist to 10:40: Cardoza leave home 00 [id number] Safety structural Safety Active 2018-10 Max barriers Altaf present 12:30: [id number] 00 Safety fire risk Safety Active 2018-10 Max present Iamewicz 12:30: [id number] 00 Safety knowledge/s Safety Active 2018-10 Max kill Altaf deficit: pt 12:30: [id number] 00 Safety knowledge/s Safety Active 2018-10 Max kill Altaf deficit: cg 12:30: [id number] 00 Diagnoses knowledge/s Diagnoses Active 2018-10 Max kill Altaf deficit: pt 12:30: [id number] 00 Strength/To knowledge/s PT: Active 2018-10 Max ne/Motor kill Strength 2-30 Altaf Control deficit LE: 12:30: [id number] pt 00 Strength/To knowledge/s PT: Active 2018-10 Max ne/Motor kill Strength [place] Control deficit LE: 12:30: [id number] cg 00 Bed mobility/tr PT/OT: Bed Active 2018-10 Max Mobility/Tr ansfer Mobility/T 30 Altaf ansfer device ransfer 12:30: [id number] present 00 Bed transfer PT/OT: Bed Active 2018-10 Max Mobility/Tr deficit: Mobility/T 30 Iamewalexandra ansfer sit/stand ransfer 12:30: [id number] 00 Bed transfer PT/OT: Bed Active 2018-10 Max Mobility/Tr deficit: Mobility/T Kobquo[place]z ansfer standing ransfer 12:30: [id number] pivot 00 Bed transfer PT/OT: Bed Active 2018-10 Max Mobility/Tr deficit: Mobility/T [place] rogelfer toilet/comm ransfer 12:30: [id number] ode 00 Bed transfer PT/OT: Bed Active 2018-10 Max Mobility/Tr deficit: Mobility/T Altaf rogelfer shower/tub ransfer 12:30: [id number] 00 Bed transfer PT/OT: Bed Active 2018-10 Max Mobility/Tr deficit: Mobility/T -30 Altaf ansfer vehicle ransfer 12:30: [id number] 00 Bed knowledge/s PT/OT: Bed Active 2018-10 Max Mobility/Tr kill Mobility/T Altaf rogelfer deficit: pt ransfer 12:30: [id number] 00 Bed knowledge/s PT/OT: Bed Active 2018-10 Max Mobility/Tr kill Mobility/T 30 Altaf ansfer deficit: cg ransfer 12:30: [id number] 00 Balance/End balance/cooler deliverer PT/OT: Active 2018-10 Max urance rdination Balance/En Altaf deficit durance 12:30: [id number] 00 OT: Self self-care OT: Active 2018-10 Max Care deficit Self-Care Altaf 12:30: [id number] 00 OT: Self knowledge/s OT: Active 2018-10 Max martínez Self-Care 2-30 Kobziewicz deficit: pt 12:30: [id number] 00 OT: Self knowledge/s OT: Active 2018-10 Max martínez Self-Care 2-30 Kobziewicz deficit: cg 12:30: [id number] 00 Gait/Locomo gait PT/OT: Active 2018-10 Max worthyon assistive Gait/Locom 2-30 Kobziewicz problems device otion 12:30: [id number] present 00 Gait/Locomo knowledge/s PT/OT: Active 2018-10 Max worthyon kill Gait/Locom 2-30 Kobziewicz problems deficit: pt otion 12:30: [id number] 00 Gait/Locomo gait PT/OT: Active 2018-10 Max worthyon deficit Gait/Locom 2-30 Kobziewicz problems otion 12:30: [id number] 00 Allergies, Adverse Reactions, Alerts Allergy Allergy Status Severity Reaction(s) Onset Inactive Treating Comments Name Type Date Date Clinician erythromyci Base Active Unknown Reaction [place] n base Ingredient Unknown 2-15 Ti Anafranil [...] Unknown n 40 mg n 40 mg MD,Dirk tablet tablet Metamucil Metamucil 2018-10 Yes Maura Unknown Unknown (with (with - MD,Dirk sugar) 3.4 sugar) 3.4 gram/7 gram gram/7 gram oral powder oral powder Vital Signs Vital Name Observation Time Observation Value Comments SYSTOLIC mm[Hg] 2019-10-18 18:09:54 134 mm[Hg] mm[Hg] Method: Sit SYSTOLIC mm[Hg] 2019-10-06 18:09:42 130 mm[Hg] mm[Hg] Method: Stand DIASTOLIC mm[Hg] 2019-10-18 18:09:54 64 mm[Hg] mm[Hg] Method: Sit DIASTOLIC mm[Hg] 2019-10-06 18:09:42 70 mm[Hg] mm[Hg] Method: Stand PULSE 2019-10-18 18:09:54 74 /min /min RESP RATE 2019-10-06 18:09:42 17 /min /min TEMP 2019-10-06 18:09:42 98.5 [degF] Procedures This patient has no known procedures. Results This patient has no known results.
--- OUTSIDE RECORDS SUMMARY | 2019-10-24 16:50 | XMS REPORT ---
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 10-03 Altaf tis, tis, [id number] unspecified unspecified site site Essential Essential 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 Max (primary) (primary) 10-03 Altaf hypertensio hypertensio [id number] n n 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 [id number] unspecified unspecified bone bone Anxiety Anxiety 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 Max disorder, disorder, 10-03 Altaf unspecified unspecified [id number] 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 without without diarrhea diarrhea Insomnia, Insomnia, 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 Max unspecified unspecified Altaf [id number] Gastro-esop Gastro-esop 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 Max hageal hageal Altaf reflux reflux [id number] disease disease without without esophagitis esophagitis Hypokalemia Hypokalemia 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 Max Solitario [id number] Hypothyroid Hypothyroid 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 Max ism, ism, Altaf unspecified unspecified [id number] 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, terolemia, [id number] unspecified unspecified 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 knee joint 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) (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) Altaf use of use of [id number] aspirin aspirin 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) (current) [place] use of use of [id number] opiate opiate analgesic analgesic Personal Personal 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 Max history of history of Kobziewicz other other [id number] 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 Personal Personal 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 Max history of history of Kobziewicz transient transient [id number] ischemic ischemic attack attack (TIA), and (TIA), and cerebral cerebral infarction infarction without without residual residual deficits deficits Pain frequent Pain Mgmt Active 2018-10 Jodie pain 2- (Kallie) 10:40: Cardoza 00 [id number] Cardio edema Cardiovasc Active 2018-10 Jodie ular 2- (Kallie) 10:40: Cardoza [id number] Respiratory dyspnea Respirator Active 2018-10 Jodie present y 2- (Kallie) 10:40: Cardoza 00 [id number] Endo/Christiano anti-coagul Endo/Christiano Resolve 2018-102019-10-23 Jodie ation d 2- 12:00:00 (Kallie) therapy 10:40: Cardoza 00 [id number] Sensory impaired Sensory Active 2018-10 Jodie hearing 2- (Kallie) 10:40: Cardoza [id number] Integument surgical Integument Active 2018-10 Jodie wound 2-29 (Kallie) present 10:40: Cardoza 00 [id number] Integument skin Integument Active 2018-10 Jodie integrity 2- (Kallie) risk 10:40: Cardoza 00 [id number] Elimination urinary Eliminatio Resolve 2018-102019-10-23 Jodie incontinenc n d 2-29 12:00:00 (Kallie) e 10:40: Cardoza 00 [id number] Elimination bowel Eliminatio Resolve 2018-102019-10-23 Jodie incontinenc n d 2-29 12:00:00 (Kallie) e 10:40: Cardoza 00 [id number] Neuro confusion Neuro/Emot Active 2018-10 Jodie present ion 2-29 (Kallie) 10:40: Cardoza 00 [id number] Neuro anxiety Neuro/Emot Active 2018-10 Jodie present ion 2-29 (Kallie) 10:40: Nani 00 [id number] Neuro depressive Neuro/Emot Active 2018-10 Jodie feelings ion 2-29 (Kallie) present 10:40: Cardoza [id number] Neuro impaired Neuro/Emot Active 2018-10 Jodie decision-ma ion 2- (Kallie) jefferson 10:40: Cardoza [id number] Neuro memory Neuro/Emot Active 2018-10 Jodie deficit ion 2- (Kallie) needing 10:40: Nani supervision 00 [id number] Activity ADL Activity Active 2018-10 Jodie assistance 2- (Kallie) required 10:40: Cardoza [id number] Activity self-care Activity Active 2018-10 Jodie deficit 2- (Kallie) 10:40: Cardoza [id number] Safety fall risk Safety Resolve 2018-102019-10-23 Jodie factor d 2- 12:00:00 (Kallie) present 10:40: Cardoza [id number] Safety risk for Safety Resolve 2018-102019-10-23 Jodie hospitaliza d - 12:00:00 (Kallie) tion 10:40: Cardoza [id number] Safety can be left Safety Active 2018-10 Jodie alone for (Kallie) only short 10:40: Nani periods [id number] Medication oral med Meds Active 2018-10 Jodie assistance - (Kallie) required 10:40: Cardoza [id number] Medication potential Meds Active 2018-10 Jodie clinically - (Kallie) significant 10:40: Nani medication [id number] issue Musculoskel transfer Musculoske Active 2018-10 Jodie etal assistance letal (Kallie) required 10:40: Cardoza [id number] Musculoskel requires Musculoske Active 2018-10 Jodie etal human letal - (Kallie) assist to 10:40: Nani leave home 00 [id number] Safety structural Safety Resolve 2018-102019-10-23 Max barriers d 2-30 12:00:00 Altaf present 12:30: [id number] 00 Safety fire risk Safety Resolve 2018-102019-10-23 Max present d 2-30 12:00:00 Altaf 12:30: [id number] 00 Safety knowledge/s Safety Resolve 2018-102019-10-23 Max kill d 2-30 12:00:00 Altaf deficit: pt 12:30: [id number] 00 Safety knowledge/s Safety Resolve 2018-102019-10-23 Max kill d 230 12:00:00 Altaf deficit: cg 12:30: [id number] 00 Diagnoses knowledge/s Diagnoses Active 2018-10 Max kill 2-30 Altaf deficit: pt 12:30: [id number] 00 Strength/To knowledge/s PT: Active 2018-10 Max ne/Motor kill Strength 30 [place] Control deficit LE: 12:30: [id number] pt 00 Strength/To knowledge/s PT: Active 2018-10 Max ne/Motor kill Strength 30 [place] Control deficit LE: 12:30: [id number] cg 00 Bed mobility/tr PT/OT: Bed Active 2018-10 Max Mobility/Tr ansfer Mobility/T 2-30 Altaf alberto device ransfer 12:30: [id number] present 00 Bed transfer PT/OT: Bed Active 2018-10 Max Mobility/Tr deficit: Mobility/T 2-30 Altaf alberto sit/stand ransfer 12:30: [id number] 00 Bed transfer PT/OT: Bed Active 2018-10 Max Mobility/Tr deficit: Mobility/T 2-30 Altaf alberto standing ransfer 12:30: [id number] pivot 00 Bed transfer PT/OT: Bed Active 2018-10 Max Mobility/Tr deficit: Mobility/T 2-30 Altaf alberto toilet/comm ransfer 12:30: [id number] ode 00 Bed transfer PT/OT: Bed Active 2018-10 Max Mobility/Tr deficit: Mobility/T 2-30 Altaf alberto shower/tub ransfer 12:30: [id number] 00 Bed transfer PT/OT: Bed Active 2018-10 Max Mobility/Tr deficit: Mobility/T 2-30 Altaf alberto vehicle ransfer 12:30: [id number] 00 Bed knowledge/s PT/OT: Bed Active 2018-10 Max Mobility/Tr kill Mobility/T 2-30 Altaf ansfer deficit: pt ransfer 12:30: [id number] 00 Bed knowledge/s PT/OT: Bed Active 2018-10 Max Mobility/Tr kill Mobility/T 2-30 Kobziewicz ansfer deficit: cg ransfer 12:30: [id number] 00 Balance/End balance/cook ship PT/OT: Active 2018-10 Max urance rdination Balance/En -30 Kobziewicz deficit durance 12:30: [id number] 00 OT: Self self-care OT: Active 2018-10 Max Care deficit Self-Care 230 Kobziewicz 12:30: [id number] 00 OT: Self knowledge/s OT: Active 2018-10 Max Care kill Self-Care 2- Kobziewicz deficit: pt 12:30: [id number] 00 OT: Self knowledge/s OT: Active 2018-10 Max Care kill Self-Care 2- Kobziewicz deficit: cg 12:30: [id number] 00 Gait/Locomo gait PT/OT: Active 2018-10 Max tion assistive Gait/Locom 2-30 Kobziewicz problems device otion 12:30: [id number] present 00 Gait/Locomo knowledge/s PT/OT: Active 2018-10 Max tion kill Gait/Locom 2-30 Kobziewicz problems deficit: pt otion 12:30: [id number] 00 Gait/Locomo gait PT/OT: Active 2018-10 Max tion deficit Gait/Locom 2-30 Kobziewicz problems otion 12:30: [id number] 00 Cardio hypertensio Cardiovasc Active Max mulligan ular 1-21 Kobziewicz 12:00: [id number] 00 Allergies, Adverse Reactions, Alerts Allergy Allergy Status Severity Reaction(s) Onset Inactive Treating Comments Name Type Date Date Clinician erythromyci Base Active Unknown Reaction [place] n base Ingredient Unknown 2-15 Ti Anafranil [...] Midura Unknown Unknown 150 mg 150 mg ,Zev tablet tablet omeprazole omeprazole No Midura Unknown Unknown 40 mg 40 mg MDZev capsule,del capsule,del ayed ayed release release CeleXA 40 CeleXA 40 No Midura Unknown Unknown mg tablet mg tablet MD,Zev Metamucil Metamucil No Midura Unknown Unknown (sugar) (sugar) ,Zev oral powder oral powder atorvastati atorvastati No Midura Unknown Unknown n 40 mg n 40 mg MD,Zev tablet tablet pregabalin pregabalin No Midura Unknown Unknown 50 mg 50 mg MD,Zev capsule capsule Bifidobacte Bifidobacte No Midura Unknown Unknown rium rium ,Zev infantis 4 infantis 4 mg capsule mg capsule potassium potassium No Midura Unknown Unknown chloride 20 chloride 20 MD,Zev mEq/15 mL mEq/15 mL oral liquid oral liquid HYDROcodone HYDROcodone No Midura Unknown Unknown 5 5 MD,Zev mg-acetamin mg-acetamin ophen 325 ophen 325 mg tablet mg tablet oxybutynin oxybutynin No Midura Unknown Unknown chloride 5 chloride 5 MD,Zve mg tablet mg tablet docusate docusate No [...] Unknown en 500 mg en 500 mg - MD,Dirk tablet tablet ALPRAZolam ALPRAZolam 2018-10 Yes Maura Unknown Unknown 0.5 mg 0.5 mg - MD,Dirk tablet tablet amLODIPine amLODIPine 2018-10 Yes Maura Unknown Unknown 2.5 mg 2.5 mg - MD,Dirk tablet tablet aspirin 325 aspirin 325 2018-10 Yes Maura Unknown Unknown mg tablet mg tablet - MD,Dirk Natural Natural 2018-10 Yes Maura Unknown Unknown Tears (PF) Tears (PF) - MD,Dirk 0.1 %-0.3 % 0.1 %-0.3 % drops in a drops in a dropperette dropperette Preparation Preparation 2018-10 Yes Maura Unknown Unknown H H - MD,Dirk Hydrocortis Hydrocortis one 1 % one 1 % topical topical cream cream senna 8.6 senna 8.6 2018-10 Yes Maura Unknown Unknown mg capsule mg capsule - MD,Dirk citalopram citalopram 2018-10 Yes Maura Unknown Unknown 40 mg 40 mg - MD,Dirk tablet tablet omeprazole omeprazole 2018-10 Yes Maura Unknown Unknown 40 mg 40 mg - MD,Dirk capsule,del capsule,del ayed ayed release release Lyrica 50 Lyrica 50 2018-10 Yes Maura Unknown Unknown mg capsule mg capsule - MD,Dirk levothyroxi levothyroxi 2018-10 Yes Maura Unknown Unknown ne 100 mcg ne 100 mcg MD,Dirk capsule capsule triamcinolo triamcinolo 2018-10 Yes [...] Observation Time Observation Value Comments SYSTOLIC mm[Hg] 2019-10-23 18:09:59 134 mm[Hg] mm[Hg] Method: Sit SYSTOLIC mm[Hg] 2019-10-06 18:09:42 130 mm[Hg] mm[Hg] Method: Stand DIASTOLIC mm[Hg] 2019-10-23 18:09:59 62 mm[Hg] mm[Hg] Method: Sit DIASTOLIC mm[Hg] 2019-10-06 18:09:42 70 mm[Hg] mm[Hg] Method: Stand PULSE 2019-10-23 18:09:59 72 /min /min RESP RATE 2019-10-06 18:09:42 17 /min /min TEMP 2019-10-06 18:09:42 98.5 [degF] Procedures This patient has no known procedures. Results This patient has no known results.
--- OUTSIDE RECORDS SUMMARY | 2019-10-24 16:50 | XMS REPORT ---
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 10-03 Altaf tis, tis, [id number] unspecified unspecified site site Essential Essential 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 Max (primary) (primary) 10-03 Altaf hypertensio hypertensio [id number] n n 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 [id number] unspecified unspecified bone bone Anxiety Anxiety 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 Max disorder, disorder, 10-03 Altaf unspecified unspecified [id number] 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 [id number] without without diarrhea diarrhea Insomnia, Insomnia, 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 Max unspecified unspecified Altaf [id number] Gastro-esop Gastro-esop 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 Max hageal hageal Altaf reflux reflux [id number] disease disease without without esophagitis esophagitis Hypokalemia Hypokalemia 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 Max Solitario [id number] Hypothyroid Hypothyroid 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 Max ism, ism, Altaf unspecified unspecified [id number] 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, terolemia, [id number] unspecified unspecified 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 [id number] knee joint knee joint rn long term care detention 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 Max (current) (current) Altaf use of use of [id number] aspirin aspirin rn long term care detention 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 Max (current) (current) [place] use of use of [id number] opiate opiate analgesic analgesic Personal Personal 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 Max history of history of Kobziewicz other other [id number] 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 Personal Personal 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 Max history of history of Kobziewicz transient transient [id number] ischemic ischemic attack attack (TIA), and (TIA), and cerebral cerebral infarction infarction without without residual residual deficits deficits Pain frequent Pain Mgmt Active 2018-10 Jodie pain 2- (Kallie) 10:40: Cardoza [id number] Cardio edema Cardiovasc Active 2018-10 Jodie ular 2- (Kallie) 10:40: Cardoza [id number] Respiratory dyspnea Respirator Active 2018-10 Jodie present y (Kallie) 10:40: Cardoza [id number] Endo/Christiano anti-coagul Endo/Christiano Active 2018-10 Jodie ation 2- (Kallie) therapy 10:40: Cardoza [id number] Sensory impaired Sensory Active 2018-10 Jodie hearing 2- (Kallie) 10:40: Cardoza [id number] Integument surgical Integument Active 2018-10 Jodie wound 2- (Kallie) present 10:40: Cardoza [id number] Integument skin Integument Active 2018-10 Jodie integrity 2- (Kallie) risk 10:40: Cardoza 00 [id number] Elimination urinary Eliminatio Active 2018-10 Jodie incontinenc n 2- (Kallie) e 10:40: Cardoza [id number] Elimination bowel Eliminatio Active 2018-10 Jodie incontinenc n 2-29 (Kallie) e 10:40: Cardoza [id number] Neuro confusion Neuro/Emot Active 2018-10 Jodie present ion 2- (Kallie) 10:40: Cardoza [id number] Neuro anxiety Neuro/Emot Active 2018-10 Jodie present ion 2- (Kallie) 10:40: Cardoza [id number] Neuro depressive Neuro/Emot Active 2018-10 Jodie feelings ion 2- (Kallie) present 10:40: Cardoza 00 [id number] Neuro impaired Neuro/Emot Active 2018-10 Jodie decision-ma ion 2- (Kallie) jefferson 10:40: Cardoza [id number] Neuro memory Neuro/Emot Active 2018-10 Jodie deficit ion (Kallie) needing 10:40: Cardoza supervision [id number] Activity ADL Activity Active 2018-10 Jodie assistance (Kallie) required 10:40: Cardoza [id number] Activity self-care Activity Active 2018-10 Jodie deficit (Kallie) 10:40: Cardoza [id number] Safety fall risk Safety Active 2018-10 Jodie factor (Kallie) present 10:40: Cardoza [id number] Safety risk for Safety Active 2018-10 Jodie hospitaliza (Kallie) tion 10:40: Cardoza [id number] Safety can be left Safety Active 2018-10 Jodie alone for (Kallie) only short 10:40: Cardoza periods [id number] Medication oral med Meds Active 2018-10 Jodie assistance (Kallie) required 10:40: Cardoza [id number] Medication potential Meds Active 2018-10 Jodie clinically (Kallie) significant 10:40: Cardoza medication [id number] issue Musculoskel transfer Musculoske Active 2018-10 Jodie etal assistance letal (Kallie) required 10:40: Cardoza [id number] Musculoskel requires Musculoske Active 2018-10 Jodie etal human letal (Kallie) assist to 10:40: Cardoza leave home 00 [id number] Safety structural Safety Active 2018-10 Max barriers Altaf present 12:30: [id number] 00 Safety fire risk Safety Active 2018-10 Max present Iamewicz 12:30: [id number] 00 Safety knowledge/s Safety Active 2018-10 Max kill Altaf deficit: pt 12:30: [id number] 00 Safety knowledge/s Safety Active 2018-10 Max kill Altaf deficit: cg 12:30: [id number] 00 Diagnoses knowledge/s Diagnoses Active 2018-10 Max kill Altaf deficit: pt 12:30: [id number] 00 Strength/To knowledge/s PT: Active 2018-10 Max ne/Motor kill Strength 2-30 Altaf Control deficit LE: 12:30: [id number] pt 00 Strength/To knowledge/s PT: Active 2018-10 Max ne/Motor kill Strength [place] Control deficit LE: 12:30: [id number] cg 00 Bed mobility/tr PT/OT: Bed Active 2018-10 Max Mobility/Tr ansfer Mobility/T 30 Altaf ansfer device ransfer 12:30: [id number] present 00 Bed transfer PT/OT: Bed Active 2018-10 Max Mobility/Tr deficit: Mobility/T 30 Iamewalexandra ansfer sit/stand ransfer 12:30: [id number] 00 Bed transfer PT/OT: Bed Active 2018-10 Max Mobility/Tr deficit: Mobility/T Kob[place]wicz ansfer standing ransfer 12:30: [id number] pivot 00 Bed transfer PT/OT: Bed Active 2018-10 Max Mobility/Tr deficit: Mobility/T [place] rogelfer toilet/comm ransfer 12:30: [id number] ode 00 Bed transfer PT/OT: Bed Active 2018-10 Max Mobility/Tr deficit: Mobility/T Altaf rogelfer shower/tub ransfer 12:30: [id number] 00 Bed transfer PT/OT: Bed Active 2018-10 Max Mobility/Tr deficit: Mobility/T -30 Altaf ansfer vehicle ransfer 12:30: [id number] 00 Bed knowledge/s PT/OT: Bed Active 2018-10 Max Mobility/Tr kill Mobility/T Altaf rogelfer deficit: pt ransfer 12:30: [id number] 00 Bed knowledge/s PT/OT: Bed Active 2018-10 Max Mobility/Tr kill Mobility/T 30 Altaf ansfer deficit: cg ransfer 12:30: [id number] 00 Balance/End balance/office coordinator PT/OT: Active 2018-10 Max urance rdination Balance/En Altaf deficit durance 12:30: [id number] 00 OT: Self self-care OT: Active 2018-10 Max Care deficit Self-Care Altaf 12:30: [id number] 00 OT: Self knowledge/s OT: Active 2018-10 Max martínez Self-Care 2-30 Kobziewicz deficit: pt 12:30: [id number] 00 OT: Self knowledge/s OT: Active 2018-10 Max martínez Self-Care 2-30 Kobziewicz deficit: cg 12:30: [id number] 00 Gait/Locomo gait PT/OT: Active 2018-10 Max worthyon assistive Gait/Locom 2-30 Kobziewicz problems device otion 12:30: [id number] present 00 Gait/Locomo knowledge/s PT/OT: Active 2018-10 Max worthyon kill Gait/Locom 2-30 Kobziewicz problems deficit: pt otion 12:30: [id number] 00 Gait/Locomo gait PT/OT: Active 2018-10 Max worthyon deficit Gait/Locom 2-30 Kobziewicz problems otion 12:30: [id number] 00 Allergies, Adverse Reactions, Alerts Allergy Allergy Status Severity Reaction(s) Onset Inactive Treating Comments Name Type Date Date Clinician erythromyci Base Active Unknown Reaction [place] n base Ingredient Unknown 2-15 Ti Anafranil [...]
--- OUTSIDE RECORDS SUMMARY | 2019-10-24 16:50 | XMS REPORT | Continuity of Care Document ---
:1935 External Reference #:[id number] Author Name Kevin Lorenzo M.D. (transmitted by agent of provider Elizabeth Bonds) Address [address] [place] [id number] Care Team Providers Name Role Phone Zev Humphrey MD - Family Medicine Care Team Information Editor Trade Journal [phone] [employer] [facility] - Care Team Information Editor Trade Journal [phone] Prosthetic/Orthotic Supplier Problems Active Problems Provider Date Dysphasia Jenae Cordova NP Onset: 02/23/2019 Constipation Jenae Cordova NP Onset: 02/23/2019 Frail elderly Jenae Cordova NP Onset: 02/23/2019 Dysphagia Jenae Cordova NP Onset: 04/06/2019 Note: discomfort with solid food Social History Type Date Description Comments Sex Unknown Tobacco Use Start: Unknown Never Smoked Cigarettes Smoking Status Reviewed: 10/22/19 Never Smoked Cigarettes ETOH Use Denies alcohol [...] twice a day Unknown in thin layer 762065-3.1Unit/GM-% Cream Potassium Chloride 15mL PO daily Unknown [...] Available Vital Signs Date Vital Result Comment 10/22/2019 2:23pm Height 64 inches 5'4" Weight 150.00 lb stated Heart Rate 60 /min BP Systolic 122 mmHg BP Diastolic 82 mmHg Respiratory Rate 12 /min Body Temperature 98.4 F Pain Level 5 BMI (Body Mass Index) 25.7 kg/m2 10/01/2019 3:12pm Height 64 inches 5'4" Weight 152.00 lb Heart Rate 78 /min Body Temperature 98.4 F O2 % BldC Oximetry 99 % BMI (Body Mass Index) 26.1 kg/m2 Results Test Acquired Date Facility Test Result H/L Range Note CBC Auto 09/04/2019 [facility] White Blood 5.8 10^3/uL Normal 3.5-10.[address] [place] [address] [phone] Red Blood Count 4.04 10^6/uL Normal 3.70-4.87 Hemoglobin 12.9 g/dL Normal 12.0-16.0 Hematocrit 37 % Normal 35-47 Mean Corpuscular Volume 93 fL Normal 80-97 Mean Corpuscular Hemoglobin 32 pg High 27-31 Mean Corpuscular HGB Conc 35 g/dL Normal 31-36 Red Cell Distribution Width 13 % Normal 10-15 Platelet Count 303 10^3/uL Normal 150-450 Mean Platelet Volume 8.6 fL Normal 7.4-10.4 Abs Neutrophils 3.1 10^3/uL Normal 1.5-7.7 Abs Lymphocytes 2.0 10^3/uL Normal 1.0-4.8 Abs Monocytes 0.6 10^3/uL Normal 0-0.8 Abs Eosinophils 0.1 10^3/uL Normal 0-0.6 Abs Basophils 0.0 10^3/uL Normal 0-0.2 Abs Nucleated RBC 0.0 10^3/uL Granulocyte % 52.8 % Lymphocyte % 34.2 % Monocyte % 10.3 % Eosinophil % 2.1 % Basophil % 0.6 % Nucleated Red Blood Cells % 0.0 Inr/Protime 09/04/2019 [facility] Inr 1.00 Normal 0.82-1.[address] [place] [address] [phone] Laboratory test 09/04/2019 [facility] Partial 32.8 Normal 26.0 -38.[address] [place] [address] Time PTT [phone] Type & Screen 09/04/2019 [facility] Patient A Positive [address] [place] [address] [phone] Antibody Screen NEGATIVE Comp Metabolic 09/04/2019 [facility] Sodium 136 mmol/L Normal 135-[address] [place] [address] [phone] Potassium 3.3 mmol/L Low 3.5-5.0 Chloride 103 mmol/L Normal 101-111 Co2 Carbon Dioxide 23 mmol/L Normal 22-32 Anion Gap 10 mmol/L Normal 2-11 Glucose 88 mg/dL Normal 70-100 Blood Urea Nitrogen 10 mg/dL Normal 6-24 Creatinine 0.67 mg/dL Normal 0.51-0.95 BUN/Creatinine Ratio 14.9 Normal 8-20 Calcium 9.6 mg/dL Normal 8.6-10.3 Total Protein 6.6 g/dL Normal 6.4-8.9 Albumin 4.1 g/dL Normal 3.2-5.2 Globulin 2.5 g/dL Normal 2-4 Albumin/Globulin Ratio 1.6 Normal 1-3 Total Bilirubin 0.50 mg/dL Normal 0.2-1.0 Alkaline Phosphatase 67 U/L Normal 34-104 Alt 12 U/L Normal 7-52 Ast 17 U/L Normal 13-39 Egfr Non- 84.3 >60 Egfr 102.0 >60 2 Urinalysis Profile 08/29/2019 [facility] Urine Color Yellow [address] [place] [address] [phone] Urine Appearance Cloudy Urine Specific [place] 1.032 High 1.010-1.030 Urine pH 5.0 Normal 5-9 Urine Urobilinogen Negative Negative Urine Ketones Negative Negative Urine Protein 1+(30 mg/dL) Abnormal Negative Urine Leukocytes 2+ Abnormal Negative Urine Blood 1+ Abnormal Negative * * Abnormal Negative 3 Urine Nitrite Negative Negative Urine Bilirubin Negative Negative Urine Glucose Negative Negative Urine White Blood Cell 3+(>20/hpf) Abnormal Absent Urine Red Blood Cell 3+(>10/hpf) Abnormal Absent Urine Bacteria Absent Absent Urine Squamous Epithelial Cell Present Abnormal Absent Urine Hyaline Casts Present Abnormal Absent Urine Culture And 08/29/2019 [facility] Urine Culture SEE RESULT [address] [place] [address] [phone] 1 Standard intensity warfarin therapeutic range: 2.0-3.0 High intensity warfarin therapeutic range: 2.5-3.5 2 Because ethnic data is not always readily [...] 15-29 5 Kidney failure <15 (or dialysis) 3 *Ascorbic acid is present which may interfere with detection of blood. 4 SEE RESULT BELOW Name: BUD HYMAN : [address]: Kevin Lorenzo MD Acct: [id number] Unit: [id number] AGE: 83 Location: [facility] WITH [facility] Re08/29/19 SEX: F Status: REG REF SPEC: [id number] SHERWIN: 08/29/[address] [facility] [address]: Kevin Lorenzo MD REQ: [id number] RECD: 08/29/19 STATUS: [facility] DR: Zev Humphrey MD _ SOURCE: URINE SPDESC: ORDERED: Urine Culture COMMENTS: Urine sample volume was below the minimum fill line. Failure to add urine to the minimum fill line may decrease sensitivity of urine culture. QUERIES: Urine Source: Random Procedure Result Reported Site Urine Culture Final 08/31/19- 0920 ML Mixed shawna; possible contamination. Suggest resubmission. * ML - Main Lab . END OF REPORT DEPARTMENT OF PATHOLOGY, [address] [place] [address] Timur Arizmendi M.D. 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 hypertension Hospitalists F41.9 Anxiety disorder, unspecified E03.9 Hypothyroidism, unspecified K21.9 Gastro-esophageal reflux disease without esophagitis Office 07/03/2019 [facility] Kevin Lorenzo, M17.11 Unilateral primary Visit 2:15p at [facility] osteoarthritis, right knee Office 05/29/2019 [facility] Jenae K22.2 Esophageal Visit 10:15a Mine Cordova NP R13.10 Dysphagia, unspecified K21.9 Gastro-esophageal reflux disease without esophagitis Office Visit 05/28/2019 [facility] Kevin Lorenzo, M17.11 Unilateral primary 3:15p Orthopedics at M[facility] osteoarthritis, right [place] knee Office Visit 05/07/2019 [facility] Kevin Lorenzo M70.61 Trochanteric 2:45p Orthopedics at [facility] bursitis, right hip [place] M54.16 Radiculopathy, lumbar region Assessments Date Code Description Provider 10/22/2019 Z96.651 Presence of right artificial knee joint Kevin Lorenzo M.D. 10/01/2019 Z96.651 Presence of right artificial knee joint Kevin Lorenzo M.D. 10/01/2019 Z47.1 Aftercare following joint replacement Kevin Lorenzo M.D. surgery 09/11/2019 I10 Essential (primary) hypertension Chanel Bull NP 09/11/2019 M17.11 Unilateral primary osteoarthritis, Kevin Lorenzo M.D. 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 right knee 07/03/2019 M17.11 Unilateral primary osteoarthritis, Kevin Lorenzo M.D. right knee 05/29/2019 K22.2 Esophageal obstruction Jenae Cordova NP 05/29/2019 R13.10 Dysphagia, unspecified Jenae Cordova NP 05/29/2019 K21.9 Gastro-esophageal reflux disease Jenae Cordova NP without esophagitis 05/28/2019 M17.11 Unilateral primary osteoarthritis, Kevin Lorenzo M.D. right knee 05/07/2019 M70.61 Trochanteric bursitis, right hip Kevin Lorenzo M.D. 05/07/2019 M54.16 Radiculopathy, lumbar region Kevin Lorenzo M.D. Plan of Treatment Future Appointment(s):11/19/2019 3:30 pm - Kevin Lorenzo M.D. at [id number]/22/2019 - Kevin Lorenzo M.D.Z96.651 Presence of right artificial knee jointFollow up:Follow up: 2-5 weeks Homebound, Right total knee, sciatica, weekness Keep active with your walker Functional Status Description No Information Available Mental Status Description No Information Available Referrals Description No Information Available
--- OUTSIDE RECORDS SUMMARY | 2019-10-24 16:51 | XMS REPORT ---
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 10-03 Altaf [id number] Unspecified Unspecified 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 Max osteoarthri osteoarthri 10-03 Altaf tis, tis, [id number] unspecified unspecified site site Essential Essential 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 Max (primary) (primary) 10-03 Altaf hypertensio hypertensio [id number] n n 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 [id number] unspecified unspecified bone bone Anxiety Anxiety 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 Max disorder, disorder, 10-03 Altaf unspecified unspecified 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 Insomnia, Insomnia, 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 Max unspecified unspecified Altaf [id number] Gastro-esop Gastro-esop 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 Max hageal hageal Altaf reflux reflux [id number] disease disease without without esophagitis esophagitis Hypokalemia Hypokalemia 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 Max Solitario [id number] Hypothyroid Hypothyroid 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 Max ism, ism, Altaf unspecified unspecified 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, terolemia, ON063527 unspecified unspecified 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 [id number] knee joint knee joint intermission coordinator intermission coordinator 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 Max (current) (current) Kobziewicz use of use of [id number] aspirin aspirin intermission coordinator FDC 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 Max (current) (current) Kobziewicz use of use of [id number] opiate opiate analgesic analgesic Personal Personal 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 Max history of history of Kobziewicz other other 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 Personal Personal 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 Max history of history of Kobziewicz transient transient [id number] ischemic ischemic attack attack (TIA), and (TIA), and cerebral cerebral infarction infarction without without residual residual deficits deficits Respiratory dyspnea Respirator Active 2018-10 Max present y Kobziewicz 12:30: [id number] 00 Activity ADL Activity Active 2018-10 Max assistance Kobziewicz required 12:30: [id number] 00 Safety structural Safety Active 2018-10 Max barriers Kobziewicz present 12:30: [id number] 00 Safety fall risk Safety Active 2018-10 Max factor Kobziewicz present 12:30: [id number] 00 Safety fire risk Safety Active 2018-10 Max present Kobziewicz 12:30: [id number] 00 Safety risk for Safety Active 2018-10 Max hospitaliza Kobziewicz tion 12:30: [id number] 00 Safety can be left Safety Active 2018-10 Max alone for Kobziewicz only short 12:30: [id number] periods 00 Safety knowledge/s Safety Active 2018-10 Max kill Kobziewicz deficit: pt 12:30: [id number] 00 Safety knowledge/s Safety Active 2018-10 Max kill Kobziewicz deficit: cg 12:30: [id number] 00 Diagnoses knowledge/s Diagnoses Active 2018-10 Max kill Kobziewicz deficit: pt 12:30: [id number] 00 Strength/To knowledge/s PT: Active 2018-10 Max ne/Motor kill Strength Kobziewicz Control deficit LE: 12:30: [id number] pt 00 Strength/To knowledge/s PT: Active 2018-10 Max ne/Motor kill Strength Kobziewicz Control deficit LE: 12:30: [id number] cg 00 Bed mobility/tr PT/OT: Bed Active 2018-10 Max Mobility/Tr ansfer Mobility/T Kobziewicz ansfer device ransfer 12:30: [id number] present 00 Bed transfer PT/OT: Bed Active 2018-10 Max Mobility/Tr deficit: Mobility/T Carmenquocemily alberto sit/stand ransfer 12:30: [id number] 00 Bed transfer PT/OT: Bed Active 2018-10 Max Mobility/Tr deficit: Mobility/T Carmenquocemily alberto standing ransfer 12:30: [id number] pivot 00 Bed transfer PT/OT: Bed Active 2018-10 Max Mobility/Tr deficit: Mobility/T Carmenquocemily rogelzunilda toilet/comm ransfer 12:30: [id number] ode 00 Bed transfer PT/OT: Bed Active 2018-10 Max Mobility/Tr deficit: Mobility/T Carmenquocemily alberto shower/tub ransfer 12:30: [id number] 00 Bed transfer PT/OT: Bed Active 2018-10 Max Mobility/Tr deficit: Mobility/T Gilmaralexandra alberto vehicle ransfer 12:30: [id number] 00 Bed knowledge/s PT/OT: Bed Active 2018-10 Max Mobility/Tr kill Mobility/T Gilmaralexandra alberto deficit: pt ransfer 12:30: [id number] 00 Bed knowledge/s PT/OT: Bed Active 2018-10 Max Mobility/Tr kill Mobility/T Gilmaralexandra alberto deficit: cg ransfer 12:30: [id number] 00 Balance/End balance/marine operations coordinator PT/OT: Active 2018-10 Max urance rdination Balance/En Altaf deficit durance 12:30: [id number] 00 OT: Self self-care OT: Active 2018-10 Max Care deficit Self-Care Altaf 12:30: [id number] 00 OT: Self knowledge/s OT: Active 2018-10 Mxa Care kill Self-Care Altaf deficit: pt 12:30: [id number] 00 OT: Self knowledge/s OT: Active 2018-10 Max Care kill Self-Care Altaf deficit: cg 12:30: [id number] 00 Gait/Locomo gait PT/OT: Active 2018-10 Max tion assistive Gait/Locom 2-30 Kobziewicz problems device otion 12:30: [id number] present 00 Gait/Locomo knowledge/s PT/OT: Active 2018-10 Max polanco kill Gait/Locom 2-30 Kobziewicz problems deficit: pt otion 12:30: [id number] 00 Gait/Locomo gait PT/OT: Active 2018-10 Max polanco deficit Gait/Locom 2-30 Kobziewicz problems otion 12:30: [id number] 00 Allergies, Adverse Reactions, Alerts Allergy Allergy Status Severity Reaction(s) Onset Inactive Treating Comments Name Type Date Date Clinician erythromyci Base Active Unknown Reaction [place] n base Ingredient Unknown 2-15 Ti Anafranil Medication Active Unknown balance [place] Name ID problems, 2-15 Ti sleep disturbances Medications Ordered Filled Start Stop Current Ordering Indication Dosage Frequency Signature Comments Components Medication Medication Date Date Medication? Clinician (SIG) Name Name No Known No Known No None None None Medications Medications For This For This Patient Patient Vital Signs Vital Name Observation Time Observation Value Comments SYSTOLIC mm[Hg] 2019-10-04 18:09:40 138 mm[Hg] mm[Hg] Method: Sit DIASTOLIC mm[Hg] 2019-10-04 18:09:40 60 mm[Hg] mm[Hg] Method: Sit PULSE 2019-10-04 18:09:40 72 /min /min Procedures This patient has no known procedures. Results This patient has no known results.
--- OUTSIDE RECORDS SUMMARY | 2019-10-24 16:51 | XMS REPORT ---
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 10-03 Altaf [id number] Unspecified Unspecified 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 Max osteoarthri osteoarthri 10-03 Altaf tis, tis, [id number] unspecified unspecified site site Essential Essential 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 Max (primary) (primary) 10-03 Altaf hypertensio hypertensio [id number] n n 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 [id number] unspecified unspecified bone bone Anxiety Anxiety 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 Max disorder, disorder, 10-03 Altaf unspecified unspecified [id number] 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 [id number] without without diarrhea diarrhea Insomnia, Insomnia, 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 Max unspecified unspecified Altaf [id number] Gastro-esop Gastro-esop 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 Max hageal hageal Altaf reflux reflux [id number] disease disease without without esophagitis esophagitis Hypokalemia Hypokalemia 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 Max Solitario [id number] Hypothyroid Hypothyroid 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 Max ism, ism, Altaf unspecified unspecified [id number] 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, terolemia, OB127571 unspecified unspecified 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 [id number] knee joint knee joint 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 Max (current) (current) Altaf use of use of [id number] aspirin aspirin 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 accountant group home 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 Max (current) (current) Kobquocewalexandra use of use of [id number] opiate opiate analgesic analgesic Personal Personal 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 Max history of history of Kobziewicz other other [id number] 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 Personal Personal 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 Max history of history of Kobziewicz transient transient [id number] ischemic ischemic attack attack (TIA), and (TIA), and cerebral cerebral infarction infarction without without residual residual deficits deficits Pain frequent Pain Mgmt Active 2018-10 Jodie pain 2- (Kallie) 10:40: Cardoza [id number] Cardio edema Cardiovasc Active 2018-10 Jodie ular 2- (Kallie) 10:40: Cardoza [id number] Respiratory dyspnea Respirator Active 2018-10 Jodie present y (Kallie) 10:40: Cardoza [id number] Endo/Christiano anti-coagul Endo/Christiano Active 2018-10 Jodie ation 2- (Kallie) therapy 10:40: Cardoza [id number] Sensory impaired Sensory Active 2018-10 Jodie hearing 2- (Kallie) 10:40: Cardoza [id number] Integument surgical Integument Active 2018-10 Jodie wound 2- (Kallie) present 10:40: Cardoza [id number] Integument skin Integument Active 2018-10 Jodie integrity 2- (Kallie) risk 10:40: Cardoza 00 [id number] Elimination urinary Eliminatio Active 2018-10 Jodie incontinenc n 2- (Kallie) e 10:40: Cardoza [id number] Elimination bowel Eliminatio Active 2018-10 Jodie incontinenc n 2-29 (Kallie) e 10:40: Cardoza [id number] Neuro confusion Neuro/Emot Active 2018-10 Jodie present ion 2- (Kallie) 10:40: Cardoza [id number] Neuro anxiety Neuro/Emot Active 2018-10 Jodie present ion 2- (Kallie) 10:40: Cardoza [id number] Neuro depressive Neuro/Emot Active 2018-10 Jodie feelings ion 2- (Kallie) present 10:40: Cardoza 00 [id number] Neuro impaired Neuro/Emot Active 2018-10 Jodie decision-ma ion 2- (Kallie) jefferson 10:40: Cardoza [id number] Neuro memory Neuro/Emot Active 2018-10 Jodie deficit ion (Kallie) needing 10:40: Cardoza supervision [id number] Activity ADL Activity Active 2018-10 Jodie assistance (Kallie) required 10:40: Cardoza [id number] Activity self-care Activity Active 2018-10 Jodie deficit (Kallie) 10:40: Cardoza [id number] Safety fall risk Safety Active 2018-10 Jodie factor (Kallie) present 10:40: Cardoza [id number] Safety risk for Safety Active 2018-10 Jodie hospitaliza (Kallie) tion 10:40: Cardoza [id number] Safety can be left Safety Active 2018-10 Jodie alone for (Kallie) only short 10:40: Cardoza periods [id number] Medication oral med Meds Active 2018-10 Jodie assistance (Kallie) required 10:40: Cardoza [id number] Medication potential Meds Active 2018-10 Jodie clinically (Kallie) significant 10:40: Cardoza medication [id number] issue Musculoskel transfer Musculoske Active 2018-10 Jodie etal assistance letal (Kallie) required 10:40: Cardoza [id number] Musculoskel requires Musculoske Active 2018-10 Jodie etal human letal (Kallie) assist to 10:40: Cardoza leave home 00 [id number] Safety structural Safety Active 2018-10 Max barriers Altaf present 12:30: [id number] 00 Safety fire risk Safety Active 2018-10 Max present Iamewicz 12:30: [id number] 00 Safety knowledge/s Safety Active 2018-10 Max kill Altaf deficit: pt 12:30: [id number] 00 Safety knowledge/s Safety Active 2018-10 Max kill Altaf deficit: cg 12:30: [id number] 00 Diagnoses knowledge/s Diagnoses Active 2018-10 Max kill Altaf deficit: pt 12:30: [id number] 00 Strength/To knowledge/s PT: Active 2018-10 Max ne/Motor kill Strength 2-30 Altaf Control deficit LE: 12:30: [id number] pt 00 Strength/To knowledge/s PT: Active 2018-10 Max ne/Motor kill Strength Kobleno Control deficit LE: 12:30: [id number] cg 00 Bed mobility/tr PT/OT: Bed Active 2018-10 Amx Mobility/Tr ansfer Mobility/T 30 Altaf ansfer device ransfer 12:30: [id number] present 00 Bed transfer PT/OT: Bed Active 2018-10 Max Mobility/Tr deficit: Mobility/T 30 Iamewalexandra ansfer sit/stand ransfer 12:30: [id number] 00 Bed transfer PT/OT: Bed Active 2018-10 Max Mobility/Tr deficit: Mobility/T Kobquocewicz ansfer standing ransfer 12:30: [id number] pivot 00 Bed transfer PT/OT: Bed Active 2018-10 Max Mobility/Tr deficit: Mobility/T Kobleno rogelfer toilet/comm ransfer 12:30: [id number] ode 00 Bed transfer PT/OT: Bed Active 2018-10 Max Mobility/Tr deficit: Mobility/T Altaf rogelfer shower/tub ransfer 12:30: [id number] 00 Bed transfer PT/OT: Bed Active 2018-10 Max Mobility/Tr deficit: Mobility/T -30 Altaf ansfer vehicle ransfer 12:30: [id number] 00 Bed knowledge/s PT/OT: Bed Active 2018-10 Max Mobility/Tr kill Mobility/T Altaf rogelfer deficit: pt ransfer 12:30: [id number] 00 Bed knowledge/s PT/OT: Bed Active 2018-10 Max Mobility/Tr kill Mobility/T 30 Altaf ansfer deficit: cg ransfer 12:30: [id number] 00 Balance/End balance/continuous improvement coordinator PT/OT: Active 2018-10 Max urance rdination Balance/En Altaf deficit durance 12:30: [id number] 00 OT: Self self-care OT: Active 2018-10 Max Care deficit Self-Care Altaf 12:30: [id number] 00 OT: Self knowledge/s OT: Active 2018-10 Max martínez Self-Care 2-30 Kobziewicz deficit: pt 12:30: [id number] 00 OT: Self knowledge/s OT: Active 2018-10 Max martínez Self-Care 2-30 Kobziewicz deficit: cg 12:30: [id number] 00 Gait/Locomo gait PT/OT: Active 2018-10 Max worthyon assistive Gait/Locom 2-30 Kobziewicz problems device otion 12:30: [id number] present 00 Gait/Locomo knowledge/s PT/OT: Active 2018-10 Max worthyon kill Gait/Locom 2-30 Kobziewicz problems deficit: pt otion 12:30: [id number] 00 Gait/Locomo gait PT/OT: Active 2018-10 Mxa worthyon deficit Gait/Locom 2-30 Kobziewicz problems otion 12:30: [id number] 00 Allergies, Adverse Reactions, Alerts Allergy Allergy Status Severity Reaction(s) Onset Inactive Treating Comments Name Type Date Date Clinician erythromyci Base Active Unknown Reaction [place] n base Ingredient Unknown 2-15 Ti Anafranil [...] 2019-10-04 18:09:40 138 mm[Hg] mm[Hg] Method: Sit SYSTOLIC mm[Hg] 2019-10-06 18:09:42 130 mm[Hg] mm[Hg] Method: Stand DIASTOLIC mm[Hg] 2019-10-04 18:09:40 60 mm[Hg] mm[Hg] Method: Sit DIASTOLIC mm[Hg] 2019-10-06 18:09:42 70 mm[Hg] mm[Hg] Method: Stand PULSE 2019-10-04 18:09:40 72 /min /min RESP RATE 2019-10-06 18:09:42 17 /min /min TEMP 2019-10-06 18:09:42 98.5 [degF] Procedures This patient has no known procedures. Results This patient has no known results.
--- OUTSIDE RECORDS SUMMARY | 2019-10-24 16:51 | XMS REPORT ---
:1935 Author Organization [facility] Care Team Providers Name Role Phone Unavailable Unavailable Unavailable Problems Condition Condition Condition Status Onset Resolution Last Treating Comments Name Details Category Date Date Treatment Clinician Date Unilateral Unilateral 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 2019 Unknown primary primary 2-27 osteoarthri osteoarthri tis, right tis, right knee knee Allergies, Adverse Reactions, Alerts Allergy Allergy Status Severity Reaction(s) Onset Inactive Treating Comments Name Type Date Date Clinician erythromyci Base Active Unknown Reaction 2019- Emmett n base Ingredient Unknown 2-15 Ti Anafranil Medication Active Unknown balance 2019- Emmett Name ID problems, 2-15 Ti sleep disturbances Medications Ordered Filled Start Stop Current Ordering Indication Dosage Frequency Signature Comments Components Medication Medication Date Date Medication? Clinician (SIG) Name Name No Known No Known No None None None Medications Medications For This For This Patient Patient Procedures This patient has no known procedures. Results This patient has no known results.
--- OUTSIDE RECORDS SUMMARY | 2019-10-24 16:51 | XMS REPORT | Continuity of Care Document ---
:1935 External Reference #:[id number] Author Name Kevin Lorenzo M.D. 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/Orthotic Supplier Problems Active Problems Provider Date Dysphasia Jenae Cordova NP Onset: 02/23/2019 Constipation Jenae Cordova CLINICAL REHABILITATION COORDINATOR Onset: 02/23/2019 Frail elderly Jenae Cordova CLINICAL REHABILITATION COORDINATOR Onset: 02/23/2019 Dysphagia Jenae Cordova CLINICAL REHABILITATION COORDINATOR Onset: 04/06/2019 Note: discomfort with solid food Social History Type Date Description Comments Sex Unknown Tobacco Use Start: Unknown Never Smoked Cigarettes Smoking Status Reviewed: 10/01/19 Never Smoked Cigarettes ETOH Use Denies alcohol [...] twice a day Unknown in thin layer 261939-1.1Unit/GM-% Cream Potassium Chloride 15mL PO daily Unknown [...] Available Vital Signs Date Vital Result Comment 10/01/2019 3:12pm Height 64 inches 5'4" Weight 152.00 lb Heart Rate 78 /min Body Temperature 98.4 F O2 % BldC Oximetry 99 % BMI (Body Mass Index) 26.1 kg/m2 08/29/2019 1:54pm Height 64 inches 5'4" Weight 152.00 lb Heart Rate 88 /min BP Systolic 158 mmHg BP Diastolic 86 mmHg Respiratory Rate 18 /min Pain Level 8 BMI (Body Mass Index) 26.1 kg/m2 Results Test Acquired Date Facility Test Result H/L Range Note CBC Auto 09/04/2019 [facility] White Blood 5.8 10^3/uL Normal 3.5-10.[address] [place] [address] [phone] Red Blood Count 4.04 10^6/uL Normal 3.70-4.87 [...] Red Blood Cells % 0.0 Inr/Protime 09/04/2019 [facility] Inr 1.00 Normal 0.82-1.[address] [place] [address] [phone] Laboratory test 09/04/2019 [facility] Partial 32.8 Normal 26.0 -38.[address] [place] [address] Time PTT [phone] Type & Screen 09/04/2019 [facility] Patient A Positive [address] [place] [address] [phone] Antibody Screen NEGATIVE Comp Metabolic 09/04/2019 [facility] Sodium 136 mmol/L Normal 135-[address] [place] [address] [phone] Potassium 3.3 mmol/L Low 3.5-5.0 Chloride 103 [...] Egfr 102.0 >60 2 Urinalysis Profile 08/29/2019 [facility] Urine Color Yellow [address] [place] [address] [phone] Urine Appearance Cloudy Urine Specific [place] 1.032 High 1.010-1.030 Urine pH 5.0 Normal [...] Present Abnormal Absent Urine Culture And 08/29/2019 [facility] Urine SEE RESULT [address] [place] [place] [address] [phone] CBC No Diff 04/06/2019 [facility] White Blood 7.7 10^3/uL Normal 3.5-[address] Count 0.8 [place] [address] [phone] Red Blood Count 3.71 10^6/uL Normal 3.70-4.87 Hemoglobin 12.3 g/dL Normal 12.0-16.0 Hematocrit 35 % Normal 35-47 Mean Corpuscular Volume 95 fL Normal 80-97 Mean Corpuscular Hemoglobin 33 pg High 27-31 Mean Corpuscular HGB Conc 35 g/dL Normal 31-36 Red Cell Distribution Width 13 % Normal 10-15 Platelet Count 299 10^3/uL Normal 150-450 Mean Platelet Volume 8.7 fL Normal 7.4-10.4 Comp Metabolic 04/06/2019 [facility] Sodium 136 mmol/L Normal 135-[address] [place] [address] [phone] Potassium 3.9 mmol/L Normal 3.5-5.0 Chloride 102 [...] Egfr Non- 84.3 >60 Egfr 102.0 >60 5 1 Standard intensity warfarin therapeutic range: 2.0-3.0 [...] [address]: Kevin Lorenzo MD Acct: [id number] Unit: [id number] AGE: 83 Location: [facility] Re08/29/19 SEX: F Status: REG REF SPEC: [id number] SHERWIN: 08/29/[address] [facility] [address]: Kevin Lorenzo MD REQ: [id number] RECD: 08/29/19 STATUS: EDGARDO STEVENS DR: Zev Humphrey MD _ SOURCE: URINE [...] . END OF REPORT DEPARTMENT OF PATHOLOGY, [address] [place] [address] Timur Arizmendi M.D. Director [facility] # [id number] 5 Because ethnic data is not always readily [...] (or dialysis) Procedures Date Code Description Status 09/11/2019 15664 TKR Total Knee Replacement Completed 09/11/2019 28920 TKR Total Knee Replacement Completed 05/28/2019 48749 Inject/Drain Joint/Bursa Major W/O US Completed 05/07/201973900 Inject/Drain Joint/Bursa Major W/O US Completed 04/13/2019 99471 Endoscopy Upper GI Balloon Dilation Of Esophagus Completed 08/16/2008 [id number] Mammogram Completed Medical Devices Description No Information Available Encounters Type Date Location Provider Dx Diagnosis Office Visit 09/11/2019 [facility] Chanel Bull, I10 Essential ( primary) 10:24a Assoc,[facility] CLINICAL REHABILITATION COORDINATOR hypertension Hospitalists F41.9 Anxiety disorder, unspecified E03.9 Hypothyroidism, unspecified K21.9 Gastro-esophageal reflux disease without esophagitis Office 07/03/2019 [facility] at Kevin Lorenzo, M17.11 Unilateral primary Visit 2:15p [place] osteoarthritis, right knee Office 05/29/2019 [facility] Gastroenterology Jenae K22.2 Esophageal Visit 10:15a GUERITA Cordova obstruction R13.10 Dysphagia, unspecified K21.9 Gastro-esophageal reflux disease without esophagitis Office Visit 05/28/2019 Yocasta Lorenzo M17.11 Unilateral primary 3:15p [facility] osteoarthritis, right [place] knee Office Visit 05/07/2019 Yocasta Lorenzo M70.61 Trochanteric 2:45p [facility] [place] bursitis, right hip [place] M54.16 Radiculopathy, lumbar region Office Visit 04/06/2019 [facility] Gastroenterology Jenae R13.10 Dysphagia, 11:00a GUERITA Cordova unspecified K22.8 Other specified diseases of esophagus R53.1 Weakness Assessments Date Code Description Provider 10/01/2019 Z96.651 Presence of right artificial knee joint Kevin Lorenzo M.D. 09/11/2019 I10 Essential (primary) hypertension Chanel Bull NP 09/11/2019 M17.11 Unilateral primary osteoarthritis, right knee Kevin Lorenzo M.D. 09/11/2019 F41.9 Anxiety disorder, unspecified Chanel Bull NP 09/11/2019 M17.11 Unilateral primary osteoarthritis, right knee ALMITA Narvaez 09/11/2019 E03.9 Hypothyroidism, unspecified Chanel Bull NP 09/11/2019 K21.9 Gastro-esophageal reflux disease without Chanel Bull NP esophagitis 08/29/2019 M17.11 Unilateral primary osteoarthritis, right knee Kevin Lorenzo M.D. 07/03/2019 M17.11 Unilateral primary osteoarthritis, right knee Kevin Lorenzo M.D. 05/29/2019 K22.2 Esophageal obstruction Jenae Cordova NP 05/29/2019 R13.10 Dysphagia, unspecified Jenae Cordova NP 05/29/2019 K21.9 Gastro-esophageal reflux disease without Jenae Cordova NP esophagitis 05/28/2019 M17.11 Unilateral primary osteoarthritis, right [...] MD gangrene 04/06/2019 R13.10 Dysphagia, unspecified Jenae Cordova NP 04/06/2019 K22.8 Other specified diseases of esophagus Jenae Cordova NP 04/06/2019 R53.1 Weakness Jenae Cordova NP Plan of Treatment Future Appointment(s):11/19/2019 3:30 pm - Kevin Lorenzo M.D. at [facility] at [id number]/01/2019 - Kevin Lorenzo M.D.Z96.651 Presence of right artificial knee jointFollow up:Follow up: 6-8 weeks Use your walker. Rest and be active at home Work on knee straightening, bending, and leg lifting Functional Status Description No Information Available Mental Status Description No Information Available Referrals Description No Information Available
--- OUTSIDE RECORDS SUMMARY | 2019-10-24 16:51 | XMS REPORT ---
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 10-03 Altaf [id number] Unspecified Unspecified 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 Max osteoarthri osteoarthri 10-03 Altaf tis, tis, [id number] unspecified unspecified site site Essential Essential 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 Max (primary) (primary) 10-03 Altaf hypertensio hypertensio [id number] n n 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 [id number] unspecified unspecified bone bone Anxiety Anxiety 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 Max disorder, disorder, 10-03 Altaf unspecified unspecified [id number] 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 without diarrhea diarrhea Insomnia, Insomnia, 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 Max unspecified unspecified Altaf [id number] Gastro-esop Gastro-esop 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 Max hageal hageal Altaf reflux reflux [id number] disease disease without without esophagitis esophagitis Hypokalemia Hypokalemia 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 Max Solitario [id number] Hypothyroid Hypothyroid 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 Max ism, ism, Altaf unspecified unspecified 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, terolemia, [id number] unspecified unspecified 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 [id number] knee joint knee joint 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 project manager 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 project manager 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 Max (current) (current) Kobziewicz use of use of [id number] aspirin aspirin 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 project manager FPC 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 Max (current) (current) Kobziewicz use of use of [id number] opiate opiate analgesic analgesic Personal Personal 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 Max history of history of Kobziewicz other other 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 Personal Personal 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 Max history of history of Kobziewicz transient transient [id number] ischemic ischemic attack attack (TIA), and (TIA), and cerebral cerebral infarction infarction without without residual residual deficits deficits Respiratory dyspnea Respirator Active 2018-10 Max present y Kobziewicz 12:30: [id number] Activity ADL Activity Active 2018-10 Max assistance Kobziewicz required 12:30: [id number] Safety structural Safety Active 2018-10 Max barriers Kobziewicz present 12:30: [id number] 00 Safety fall risk Safety Active 2018-10 Max factor Kobziewicz present 12:30: [id number] 00 Safety fire risk Safety Active 2018-10 Max present Kobziewicz 12:30: [id number] 00 Safety risk for Safety Active 2018-10 Max hospitaliza Kobziewicz tion 12:30: [id number] 00 Safety can be left Safety Active 2018-10 Max alone for Kobziewicz only short 12:30: [id number] periods 00 Safety knowledge/s Safety Active 2018-10 Max kill Kobziewicz deficit: pt 12:30: [id number] 00 Safety knowledge/s Safety Active 2018-10 Max kill Kobziewicz deficit: cg 12:30: [id number] 00 Diagnoses knowledge/s Diagnoses Active 2018-10 Max kill Kobziewicz deficit: pt 12:30: [id number] 00 Strength/To knowledge/s PT: Active 2018-10 Max ne/Motor kill Strength Kobziewicz Control deficit LE: 12:30: [id number] pt 00 Strength/To knowledge/s PT: Active 2018-10 Max ne/Motor kill Strength Kobziewicz Control deficit LE: 12:30: [id number] cg 00 Bed mobility/tr PT/OT: Bed Active 2018-10 Max Mobility/Tr ansfer Mobility/T Kobziewicz ansfer device ransfer 12:30: [id number] present 00 Bed transfer PT/OT: Bed Active 2018-10 Max Mobility/Tr deficit: Mobility/T Carmenquocemily alberto sit/stand ransfer 12:30: [id number] 00 Bed transfer PT/OT: Bed Active 2018-10 Max Mobility/Tr deficit: Mobility/T Carmenquocemily alberto standing ransfer 12:30: [id number] pivot 00 Bed transfer PT/OT: Bed Active 2018-10 Max Mobility/Tr deficit: Mobility/T Carmenquocemily rogelzunilda toilet/comm ransfer 12:30: [id number] ode 00 Bed transfer PT/OT: Bed Active 2018-10 Max Mobility/Tr deficit: Mobility/T Carmenquocemily alberto shower/tub ransfer 12:30: [id number] 00 Bed transfer PT/OT: Bed Active 2018-10 Max Mobility/Tr deficit: Mobility/T Gilmaralexandra alberto vehicle ransfer 12:30: [id number] 00 Bed knowledge/s PT/OT: Bed Active 2018-10 Max Mobility/Tr kill Mobility/T Gilmaralexandra alberto deficit: pt ransfer 12:30: [id number] 00 Bed knowledge/s PT/OT: Bed Active 2018-10 Max Mobility/Tr kill Mobility/T Gilmaralexandra alberto deficit: cg ransfer 12:30: [id number] 00 Balance/End balance/reimbursement coordinator PT/OT: Active 2018-10 Max urance rdination Balance/En Altaf deficit durance 12:30: [id number] 00 OT: Self self-care OT: Active 2018-10 Max Care deficit Self-Care Altaf 12:30: [id number] 00 OT: Self knowledge/s OT: Active 2018-10 Max Care kill Self-Care Altaf deficit: pt 12:30: [id number] 00 OT: Self knowledge/s OT: Active 2018-10 Max Care kill Self-Care Altaf deficit: cg 12:30: [id number] 00 Gait/Locomo gait PT/OT: Active 2018-10 Max tion assistive Gait/Locom 2-30 Kobziewicz problems device otion 12:30: [id number] present 00 Gait/Locomo knowledge/s PT/OT: Active 2018-10 Max polanco kill Gait/Locom 2-30 Kobziewicz problems deficit: pt otion 12:30: [id number] 00 Gait/Locomo gait PT/OT: Active 2018-10 Max polanco deficit Gait/Locom 2-30 Kobziewicz problems otion 12:30: [id number] 00 Allergies, Adverse Reactions, Alerts Allergy Allergy Status Severity Reaction(s) Onset Inactive Treating Comments Name Type Date Date Clinician erythromyci Base Active Unknown Reaction [place] n base Ingredient Unknown 2-15 Ti Anafranil Medication Active Unknown balance [place] Name ID problems, 2-15 Ti sleep disturbances Medications Ordered Filled Start Stop Current Ordering Indication Dosage Frequency Signature Comments Components Medication Medication Date Date Medication? Clinician (SIG) Name Name No Known No Known No None None None Medications Medications For This For This Patient Patient Vital Signs Vital Name Observation Time Observation Value Comments SYSTOLIC mm[Hg] 2019-10-01 18:09:37 138 mm[Hg] mm[Hg] Method: Sit DIASTOLIC mm[Hg] 2019-10-01 18:09:37 60 mm[Hg] mm[Hg] Method: Sit PULSE 2019-10-01 18:09:37 72 /min /min Procedures This patient has no known procedures. Results This patient has no known results.
--- OUTSIDE RECORDS SUMMARY | 2019-10-24 16:51 | XMS REPORT ---
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 10-03 Altaf [id number] Unspecified Unspecified 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 Max osteoarthri osteoarthri 10-03 Altaf tis, tis, [id number] unspecified unspecified site site Essential Essential 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 Max (primary) (primary) 10-03 Altaf hypertensio hypertensio [id number] n n 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 [id number] unspecified unspecified bone bone Anxiety Anxiety 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 Max disorder, disorder, 10-03 Altaf unspecified unspecified [id number] 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 [id number] without without diarrhea diarrhea Insomnia, Insomnia, 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 Max unspecified unspecified Altaf [id number] Gastro-esop Gastro-esop 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 Max hageal hageal Altaf reflux reflux [id number] disease disease without without esophagitis esophagitis Hypokalemia Hypokalemia 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 Max Solitario [id number] Hypothyroid Hypothyroid 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 Max ism, ism, Altaf unspecified unspecified [id number] 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, terolemia, [id number] unspecified unspecified 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 [id number] knee joint knee joint intermission coordinator intermission coordinator 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 Max (current) (current) Altaf use of use of [id number] aspirin aspirin intermission coordinator retirement 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 Max (current) (current) Kobquocewalexandra use of use of [id number] opiate opiate analgesic analgesic Personal Personal 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 Max history of history of Kobziewicz other other [id number] 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 Personal Personal 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 Max history of history of Kobziewicz transient transient [id number] ischemic ischemic attack attack (TIA), and (TIA), and cerebral cerebral infarction infarction without without residual residual deficits deficits Pain frequent Pain Mgmt Active 2018-10 Jodie pain 2- (Kallie) 10:40: Cardoza [id number] Cardio edema Cardiovasc Active 2018-10 Jodie ular 2- (Kallie) 10:40: Cardoza [id number] Respiratory dyspnea Respirator Active 2018-10 Jodie present y (Kallie) 10:40: Cardoza [id number] Endo/Christiano anti-coagul Endo/Christiano Active 2018-10 Jodie ation 2- (Kallie) therapy 10:40: Cardoza [id number] Sensory impaired Sensory Active 2018-10 Jodie hearing 2- (Kallie) 10:40: Cardoza [id number] Integument surgical Integument Active 2018-10 Jodie wound 2- (Kallie) present 10:40: Cardoza [id number] Integument skin Integument Active 2018-10 Jodie integrity 2- (Kallie) risk 10:40: Cardoza 00 [id number] Elimination urinary Eliminatio Active 2018-10 Jodie incontinenc n 2- (Kallie) e 10:40: Cardoza [id number] Elimination bowel Eliminatio Active 2018-10 Jodie incontinenc n 2-29 (Kallie) e 10:40: Cardoza [id number] Neuro confusion Neuro/Emot Active 2018-10 Jodie present ion 2- (Kallie) 10:40: Cardoza [id number] Neuro anxiety Neuro/Emot Active 2018-10 Jodie present ion 2- (Kallie) 10:40: Cardoza WI451070 Neuro depressive Neuro/Emot Active 2018-10 Jodie feelings ion 2- (Kallie) present 10:40: Cardoza 00 [id number] Neuro impaired Neuro/Emot Active 2018-10 Jodie decision-ma ion 2- (Kallie) jefferson 10:40: Cardoza [id number] Neuro memory Neuro/Emot Active 2018-10 Jodie deficit ion (Kallie) needing 10:40: Cardoza supervision [id number] Activity ADL Activity Active 2018-10 Jodie assistance (Kallie) required 10:40: Cardoza [id number] Activity self-care Activity Active 2018-10 Jodie deficit (Kallie) 10:40: Cardoza [id number] Safety fall risk Safety Active 2018-10 Jodie factor (Kallie) present 10:40: Cardoza [id number] Safety risk for Safety Active 2018-10 Jodie hospitaliza (Kallie) tion 10:40: Cardoza [id number] Safety can be left Safety Active 2018-10 Jodie alone for (Kallie) only short 10:40: Cardoza periods [id number] Medication oral med Meds Active 2018-10 Jodie assistance (Kallie) required 10:40: Cardoza [id number] Medication potential Meds Active 2018-10 Jodie clinically (Kallie) significant 10:40: Cardoza medication [id number] issue Musculoskel transfer Musculoske Active 2018-10 Jodie etal assistance letal (Kallie) required 10:40: Cardoza [id number] Musculoskel requires Musculoske Active 2018-10 Jodie etal human letal (Kallie) assist to 10:40: Cardoza leave home 00 [id number] Safety structural Safety Active 2018-10 Max barriers Altaf present 12:30: [id number] 00 Safety fire risk Safety Active 2018-10 Max present Iamewicz 12:30: [id number] 00 Safety knowledge/s Safety Active 2018-10 Max kill Altaf deficit: pt 12:30: [id number] 00 Safety knowledge/s Safety Active 2018-10 Max kill Altaf deficit: cg 12:30: [id number] 00 Diagnoses knowledge/s Diagnoses Active 2018-10 Max kill Altaf deficit: pt 12:30: [id number] 00 Strength/To knowledge/s PT: Active 2018-10 Max ne/Motor kill Strength 2-30 Altaf Control deficit LE: 12:30: [id number] pt 00 Strength/To knowledge/s PT: Active 2018-10 Max ne/Motor kill Strength [place]leno Control deficit LE: 12:30: [id number] cg 00 Bed mobility/tr PT/OT: Bed Active 2018-10 Max Mobility/Tr ansfer Mobility/T 30 Altaf ansfer device ransfer 12:30: [id number] present 00 Bed transfer PT/OT: Bed Active 2018-10 Max Mobility/Tr deficit: Mobility/T 30 Iamewalexandra ansfer sit/stand ransfer 12:30: [id number] 00 Bed transfer PT/OT: Bed Active 2018-10 Max Mobility/Tr deficit: Mobility/T Kobquocewicz ansfer standing ransfer 12:30: [id number] pivot 00 Bed transfer PT/OT: Bed Active 2018-10 Max Mobility/Tr deficit: Mobility/T Kobleno rogelfer toilet/comm ransfer 12:30: [id number] ode 00 Bed transfer PT/OT: Bed Active 2018-10 Max Mobility/Tr deficit: Mobility/T Altaf rogelfer shower/tub ransfer 12:30: [id number] 00 Bed transfer PT/OT: Bed Active 2018-10 Max Mobility/Tr deficit: Mobility/T -30 Altaf ansfer vehicle ransfer 12:30: [id number] 00 Bed knowledge/s PT/OT: Bed Active 2018-10 Max Mobility/Tr kill Mobility/T Altaf rogelfer deficit: pt ransfer 12:30: [id number] 00 Bed knowledge/s PT/OT: Bed Active 2018-10 Max Mobility/Tr kill Mobility/T 30 Altaf ansfer deficit: cg ransfer 12:30: [id number] 00 Balance/End balance/licensing coordinator PT/OT: Active 2018-10 Max urance rdination Balance/En Altaf deficit durance 12:30: [id number] 00 OT: Self self-care OT: Active 2018-10 Max Care deficit Self-Care Altaf 12:30: [id number] 00 OT: Self knowledge/s OT: Active 2018-10 Max martínez Self-Care 2-30 Kobziewicz deficit: pt 12:30: [id number] 00 OT: Self knowledge/s OT: Active 2018-10 Max martínez Self-Care 2-30 Kobziewicz deficit: cg 12:30: [id number] 00 Gait/Locomo gait PT/OT: Active 2018-10 Max worthyon assistive Gait/Locom 2-30 Kobziewicz problems device otion 12:30: [id number] present 00 Gait/Locomo knowledge/s PT/OT: Active 2018-10 Max worthyon kill Gait/Locom 2-30 Kobziewicz problems deficit: pt otion 12:30: [id number] 00 Gait/Locomo gait PT/OT: Active 2018-10 Max worthyon deficit Gait/Locom 2-30 Kobziewicz problems otion 12:30: [id number] 00 Allergies, Adverse Reactions, Alerts Allergy Allergy Status Severity Reaction(s) Onset Inactive Treating Comments Name Type Date Date Clinician erythromyci Base Active Unknown Reaction [place] n base Ingredient Unknown 2-15 Ti Anafranil [...] mg capsule MD,Dirk citalopram citalopram 2018-10 Yes Amura Unknown Unknown 40 mg 40 mg - [...]
--- OUTSIDE RECORDS SUMMARY | 2019-10-24 16:51 | XMS REPORT ---
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, tis, [id number] unspecified unspecified site site Essential Essential 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 Max (primary) (primary) 10-03 Altaf hypertensio hypertensio [id number] n n 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 [id number] unspecified unspecified bone bone Anxiety Anxiety 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 Max disorder, disorder, 10-03 Altaf unspecified unspecified [id number] 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 Insomnia, Insomnia, 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 Max unspecified unspecified Altaf [id number] Gastro-esop Gastro-esop 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 Max hageal hageal Altaf reflux reflux [id number] disease disease without without esophagitis esophagitis Hypokalemia Hypokalemia 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 Max Solitario [id number] Hypothyroid Hypothyroid 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 Max ism, ism, Altaf unspecified unspecified [id number] 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, terolemia, [id number] unspecified unspecified 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 joint 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 Max (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) (current) Altaf use of use of [id number] aspirin aspirin 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 Max (current) (current) Kobquocewalexandra use of use of [id number] opiate opiate analgesic analgesic Personal Personal 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 Max history of history of Kobziewicz other other [id number] 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 Personal Personal 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 Max history of history of Kobziewicz transient transient [id number] ischemic ischemic attack attack (TIA), and (TIA), and cerebral cerebral infarction infarction without without residual residual deficits deficits Pain frequent Pain Mgmt Active 2018-10 Jodie pain 2- (Kallie) 10:40: Cardoza [id number] Cardio edema Cardiovasc Active 2018-10 Jodie ular 2- (Kallie) 10:40: Cardoza [id number] Respiratory dyspnea Respirator Active 2018-10 Jodie present y (Kallie) 10:40: Cardoza [id number] Endo/Christiano anti-coagul Endo/Christiano Active 2018-10 Jodie ation 2- (Kallie) therapy 10:40: Cardoza [id number] Sensory impaired Sensory Active 2018-10 Jodie hearing 2- (Kallie) 10:40: Cardoza [id number] Integument surgical Integument Active 2018-10 Jodie wound 2- (Kallie) present 10:40: Cardoza [id number] Integument skin Integument Active 2018-10 Jodie integrity 2- (Kallie) risk 10:40: Cardoza 00 [id number] Elimination urinary Eliminatio Active 2018-10 Jodie incontinenc n 2- (Kallie) e 10:40: Cardoza [id number] Elimination bowel Eliminatio Active 2018-10 Jodie incontinenc n 2-29 (Kallie) e 10:40: Cardoza [id number] Neuro confusion Neuro/Emot Active 2018-10 Jodie present ion 2- (Kallie) 10:40: Cardoza [id number] Neuro anxiety Neuro/Emot Active 2018-10 Jodie present ion 2- (Kallie) 10:40: Cardoza [id number] Neuro depressive Neuro/Emot Active 2018-10 Jodie feelings ion 2- (Kallie) present 10:40: Cardoza 00 [id number] Neuro impaired Neuro/Emot Active 2018-10 Jodie decision-ma ion 2- (Kallie) jefferson 10:40: Cardoza [id number] Neuro memory Neuro/Emot Active 2018-10 Jodie deficit ion (Kallie) needing 10:40: Cardoza supervision [id number] Activity ADL Activity Active 2018-10 Jodie assistance (Kallie) required 10:40: Cardoza [id number] Activity self-care Activity Active 2018-10 Jodie deficit (Kallie) 10:40: Cardoza [id number] Safety fall risk Safety Active 2018-10 Jodie factor (Kallie) present 10:40: Cardoza [id number] Safety risk for Safety Active 2018-10 Jodie hospitaliza (Kallie) tion 10:40: Cardoza [id number] Safety can be left Safety Active 2018-10 Jodie alone for (Kallie) only short 10:40: Cardoza periods [id number] Medication oral med Meds Active 2018-10 Jodie assistance (Kallie) required 10:40: Cardoza [id number] Medication potential Meds Active 2018-10 Jodie clinically (Kallie) significant 10:40: Cardoza medication [id number] issue Musculoskel transfer Musculoske Active 2018-10 Jodie etal assistance letal (Kallie) required 10:40: Cardoza [id number] Musculoskel requires Musculoske Active 2018-10 Jodie etal human letal (Kallie) assist to 10:40: Cardoza leave home 00 [id number] Safety structural Safety Active 2018-10 Max barriers Altaf present 12:30: [id number] 00 Safety fire risk Safety Active 2018-10 Max present Iamewicz 12:30: [id number] 00 Safety knowledge/s Safety Active 2018-10 Max kill Altaf deficit: pt 12:30: [id number] 00 Safety knowledge/s Safety Active 2018-10 Max kill Altaf deficit: cg 12:30: [id number] 00 Diagnoses knowledge/s Diagnoses Active 2018-10 Max kill Altaf deficit: pt 12:30: [id number] 00 Strength/To knowledge/s PT: Active 2018-10 Max ne/Motor kill Strength 2-30 Altaf Control deficit LE: 12:30: [id number] pt 00 Strength/To knowledge/s PT: Active 2018-10 Max ne/Motor kill Strength Kobleno Control deficit LE: 12:30: [id number] cg 00 Bed mobility/tr PT/OT: Bed Active 2018-10 Max Mobility/Tr ansfer Mobility/T 30 Altaf ansfer device ransfer 12:30: [id number] present 00 Bed transfer PT/OT: Bed Active 2018-10 Max Mobility/Tr deficit: Mobility/T 30 Iamewalexandra ansfer sit/stand ransfer 12:30: [id number] 00 Bed transfer PT/OT: Bed Active 2018-10 Max Mobility/Tr deficit: Mobility/T Kobquocewicz ansfer standing ransfer 12:30: [id number] pivot 00 Bed transfer PT/OT: Bed Active 2018-10 Max Mobility/Tr deficit: Mobility/T Kobleno rogelfer toilet/comm ransfer 12:30: [id number] ode 00 Bed transfer PT/OT: Bed Active 2018-10 Max Mobility/Tr deficit: Mobility/T Altaf rogelfer shower/tub ransfer 12:30: [id number] 00 Bed transfer PT/OT: Bed Active 2018-10 Max Mobility/Tr deficit: Mobility/T -30 Altaf ansfer vehicle ransfer 12:30: [id number] 00 Bed knowledge/s PT/OT: Bed Active 2018-10 Max Mobility/Tr kill Mobility/T Altaf rogelfer deficit: pt ransfer 12:30: [id number] 00 Bed knowledge/s PT/OT: Bed Active 2018-10 Max Mobility/Tr kill Mobility/T 30 Altaf ansfer deficit: cg ransfer 12:30: [id number] 00 Balance/End balance/veterans' coordinator PT/OT: Active 2018-10 Max urance rdination Balance/En Altaf deficit durance 12:30: [id number] 00 OT: Self self-care OT: Active 2018-10 Max Care deficit Self-Care Altaf 12:30: [id number] 00 OT: Self knowledge/s OT: Active 2018-10 Max martínez Self-Care 2-30 Kobziewicz deficit: pt 12:30: [id number] 00 OT: Self knowledge/s OT: Active 2018-10 Max martínez Self-Care 2-30 Kobziewicz deficit: cg 12:30: [id number] 00 Gait/Locomo gait PT/OT: Active 2018-10 Max worthyon assistive Gait/Locom 2-30 Kobziewicz problems device otion 12:30: [id number] present 00 Gait/Locomo knowledge/s PT/OT: Active 2018-10 Max worthyon kill Gait/Locom 2-30 Kobziewicz problems deficit: pt otion 12:30: [id number] 00 Gait/Locomo gait PT/OT: Active 2018-10 Max worthyon deficit Gait/Locom 2-30 Kobziewicz problems otion 12:30: [id number] 00 Allergies, Adverse Reactions, Alerts Allergy Allergy Status Severity Reaction(s) Onset Inactive Treating Comments Name Type Date Date Clinician erythromyci Base Active Unknown Reaction Wynona n base Ingredient Unknown 2-15 Ti Anafranil [...] Observation Time Observation Value Comments SYSTOLIC mm[Hg] 2019-10-11 18:09:47 136 mm[Hg] mm[Hg] Method: Sit SYSTOLIC mm[Hg] 2019-10-06 18:09:42 130 mm[Hg] mm[Hg] Method: Stand DIASTOLIC mm[Hg] 2019-10-11 18:09:47 60 mm[Hg] mm[Hg] Method: Sit DIASTOLIC mm[Hg] 2019-10-06 18:09:42 70 mm[Hg] mm[Hg] Method: Stand PULSE 2019-10-11 18:09:47 72 /min /min RESP RATE 2019-10-06 18:09:42 17 /min /min TEMP 2019-10-06 18:09:42 98.5 [degF] Procedures This patient has no known procedures. Results This patient has no known results.
--- OUTSIDE RECORDS SUMMARY | 2019-10-24 16:51 | XMS REPORT ---
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-03 Altaf tis, tis, [id number] unspecified unspecified site site Essential Essential 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 Max (primary) (primary) 10-03 Altaf hypertensio hypertensio [id number] n n 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 [id number] unspecified unspecified bone bone Anxiety Anxiety 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 Max disorder, disorder, 10-03 Altaf unspecified unspecified [id number] 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 [id number] without without diarrhea diarrhea Insomnia, Insomnia, 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 Max unspecified unspecified Altaf [id number] Gastro-esop Gastro-esop 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 Max hageal hageal Altaf reflux reflux [id number] disease disease without without esophagitis esophagitis Hypokalemia Hypokalemia 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 Max Solitario [id number] Hypothyroid Hypothyroid 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 Max ism, ism, Altaf unspecified unspecified [id number] 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, terolemia, [id number] unspecified unspecified 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 [id number] knee joint 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) (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) Altaf use of use of [id number] aspirin aspirin 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 FDC 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 Max (current) (current) Kobquocewalexandra use of use of [id number] opiate opiate analgesic analgesic Personal Personal 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 Max history of history of Kobziewicz other other [id number] 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 Personal Personal 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 Max history of history of Kobziewicz transient transient [id number] ischemic ischemic attack attack (TIA), and (TIA), and cerebral cerebral infarction infarction without without residual residual deficits deficits Pain frequent Pain Mgmt Active 2018-10 Jodie pain 2- (Kallie) 10:40: Cardoza [id number] Cardio edema Cardiovasc Active 2018-10 Jodie ular 2- (Kallie) 10:40: Cardoza [id number] Respiratory dyspnea Respirator Active 2018-10 Jodie present y (Kallie) 10:40: Cardoza [id number] Endo/Christiano anti-coagul Endo/Christiano Active 2018-10 Jodie ation 2- (Kallie) therapy 10:40: Cardoza [id number] Sensory impaired Sensory Active 2018-10 Jodie hearing 2- (Kallie) 10:40: Cardoza [id number] Integument surgical Integument Active 2018-10 Jodie wound 2- (Kallie) present 10:40: Cardoza [id number] Integument skin Integument Active 2018-10 Jodie integrity 2- (Kallie) risk 10:40: Cardoza 00 [id number] Elimination urinary Eliminatio Active 2018-10 Jodie incontinenc n 2- (Kallie) e 10:40: Cardoza [id number] Elimination bowel Eliminatio Active 2018-10 Jodie incontinenc n 2-29 (Kallie) e 10:40: Cardoza [id number] Neuro confusion Neuro/Emot Active 2018-10 Jodie present ion 2- (Kallie) 10:40: Cardoza [id number] Neuro anxiety Neuro/Emot Active 2018-10 Jodie present ion 2- (Kallie) 10:40: Cardoza [id number] Neuro depressive Neuro/Emot Active 2018-10 Jodie feelings ion 2- (Kallie) present 10:40: Cardoza 00 [id number] Neuro impaired Neuro/Emot Active 2018-10 Jodie decision-ma ion 2- (Kallie) jefferson 10:40: Cardoza [id number] Neuro memory Neuro/Emot Active 2018-10 Jodie deficit ion (Kallie) needing 10:40: Cardoza supervision [id number] Activity ADL Activity Active 2018-10 Jodie assistance (Kallie) required 10:40: Cardoza [id number] Activity self-care Activity Active 2018-10 Jodie deficit (Kallie) 10:40: Cardoza [id number] Safety fall risk Safety Active 2018-10 Jodie factor (Kallie) present 10:40: Cardoza [id number] Safety risk for Safety Active 2018-10 Jodie hospitaliza (Kallie) tion 10:40: Cardoza [id number] Safety can be left Safety Active 2018-10 Jodie alone for (Kallie) only short 10:40: Cardoza periods [id number] Medication oral med Meds Active 2018-10 Jodie assistance (Kallie) required 10:40: Cardoza [id number] Medication potential Meds Active 2018-10 Jodie clinically (Kallie) significant 10:40: Cardoza medication [id number] issue Musculoskel transfer Musculoske Active 2018-10 Jodie etal assistance letal (Kallie) required 10:40: Cardoza [id number] Musculoskel requires Musculoske Active 2018-10 Jodie etal human letal (Kallie) assist to 10:40: Cardoza leave home 00 [id number] Safety structural Safety Active 2018-10 Max barriers Altaf present 12:30: [id number] 00 Safety fire risk Safety Active 2018-10 Max present Iamewicz 12:30: [id number] 00 Safety knowledge/s Safety Active 2018-10 Max kill Altaf deficit: pt 12:30: [id number] 00 Safety knowledge/s Safety Active 2018-10 Max kill Altaf deficit: cg 12:30: [id number] 00 Diagnoses knowledge/s Diagnoses Active 2018-10 Max kill Altaf deficit: pt 12:30: [id number] 00 Strength/To knowledge/s PT: Active 2018-10 Max ne/Motor kill Strength 2-30 Altaf Control deficit LE: 12:30: [id number] pt 00 Strength/To knowledge/s PT: Active 2018-10 Max ne/Motor kill Strength Kobleno Control deficit LE: 12:30: [id number] cg 00 Bed mobility/tr PT/OT: Bed Active 2018-10 Max Mobility/Tr ansfer Mobility/T 30 Altaf ansfer device ransfer 12:30: [id number] present 00 Bed transfer PT/OT: Bed Active 2018-10 Max Mobility/Tr deficit: Mobility/T 30 Iamewalexandra ansfer sit/stand ransfer 12:30: [id number] 00 Bed transfer PT/OT: Bed Active 2018-10 Max Mobility/Tr deficit: Mobility/T Kobquocewicz ansfer standing ransfer 12:30: [id number] pivot 00 Bed transfer PT/OT: Bed Active 2018-10 Max Mobility/Tr deficit: Mobility/T Kobleno rogelfer toilet/comm ransfer 12:30: [id number] ode 00 Bed transfer PT/OT: Bed Active 2018-10 Max Mobility/Tr deficit: Mobility/T Altaf rogelfer shower/tub ransfer 12:30: [id number] 00 Bed transfer PT/OT: Bed Active 2018-10 Max Mobility/Tr deficit: Mobility/T -30 Altaf ansfer vehicle ransfer 12:30: [id number] 00 Bed knowledge/s PT/OT: Bed Active 2018-10 Max Mobility/Tr kill Mobility/T Altaf rogelfer deficit: pt ransfer 12:30: [id number] 00 Bed knowledge/s PT/OT: Bed Active 2018-10 Max Mobility/Tr kill Mobility/T 30 Altaf ansfer deficit: cg ransfer 12:30: [id number] 00 Balance/End balance/marketing support coordinator PT/OT: Active 2018-10 Max urance rdination Balance/En Altaf deficit durance 12:30: [id number] 00 OT: Self self-care OT: Active 2018-10 Max Care deficit Self-Care Altaf 12:30: [id number] 00 OT: Self knowledge/s OT: Active 2018-10 Max martínez Self-Care 2-30 Kobziewicz deficit: pt 12:30: [id number] 00 OT: Self knowledge/s OT: Active 2018-10 Max martínez Self-Care 2-30 Kobziewicz deficit: cg 12:30: [id number] 00 Gait/Locomo gait PT/OT: Active 2018-10 Max worthyon assistive Gait/Locom 2-30 Kobziewicz problems device otion 12:30: [id number] present 00 Gait/Locomo knowledge/s PT/OT: Active 2018-10 Max worthyon kill Gait/Locom 2-30 Kobziewicz problems deficit: pt otion 12:30: [id number] 00 Gait/Locomo gait PT/OT: Active 2018-10 Max worthyon deficit Gait/Locom 2-30 Kobziewicz problems otion 12:30: [id number] 00 Allergies, Adverse Reactions, Alerts Allergy Allergy Status Severity Reaction(s) Onset Inactive Treating Comments Name Type Date Date Clinician erythromyci Base Active Unknown Reaction [place] n base Ingredient Unknown 2-15 Ti Anafranil [...] Midura Unknown Unknown 40 mg 40 mg Zve PORTILLO capsule,del capsule,del ayed ayed release release [...]
--- OUTSIDE RECORDS SUMMARY | 2019-10-24 16:51 | XMS REPORT ---
:1935 Author Organization [facility] Care Team Providers Name Role Phone Unavailable Unavailable Unavailable Problems Condition Condition Condition Status Onset Resolution Last Treating Comments Name Details Category Date Date Treatment Clinician Date Unilateral Unilateral 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 2018-10 Max primary primary 11-29 Kobziewicz osteoarthri osteoarthri [id number] tis, right tis, right knee knee Respiratory dyspnea Respirator Active 2018-10 Max present y 2 Kobziewicz 12:30: [id number] 00 Activity ADL Activity Active 2018-10 Max assistance 2 Kobziewicz required 12:30: [id number] 00 Safety structural Safety Active 2018-10 Max barriers Kobziewicz present 12:30: [id number] 00 Safety fall risk Safety Active 2018-10 Max factor 2 Kobziewicz present 12:30: [id number] 00 Safety fire risk Safety Active 2018-10 Max present Kobziewicz 12:30: [id number] 00 Safety risk for Safety Active 2018-10 Max hospitaliza Kobziewicz tion 12:30: [id number] 00 Safety can be left Safety Active 2018-10 Max alone for Kobziewicz only short 12:30: [id number] periods 00 Safety knowledge/s Safety Active 2018-10 Max kill Kobziewicz deficit: pt 12:30: [id number] 00 Safety knowledge/s Safety Active 2018-10 Max kill Kobziewicz deficit: cg 12:30: [id number] 00 Diagnoses knowledge/s Diagnoses Active 2018-10 Max kill Kobziewicz deficit: pt 12:30: [id number] 00 Strength/To knowledge/s PT: Active 2018-10 Max ne/Motor kill Strength Kobziewicz Control deficit LE: 12:30: [id number] pt 00 Strength/To knowledge/s PT: Active 2018-10 Max ne/Motor kill Strength Altaf Control deficit LE: 12:30: [id number] cg 00 Bed mobility/tr PT/OT: Bed Active 2018-10 Max Mobility/Tr ansfer Mobility/T Altaf alberto device ransfer 12:30: [id number] present 00 Bed transfer PT/OT: Bed Active 2018-10 Max Mobility/Tr deficit: Mobility/T Altaf alberto sit/stand ransfer 12:30: [id number] 00 Bed transfer PT/OT: Bed Active 2018-10 Max Mobility/Tr deficit: Mobility/T Carmenleno alberto standing ransfer 12:30: [id number] pivot 00 Bed transfer PT/OT: Bed Active 2018-10 Max Mobility/Tr deficit: Mobility/T Altaf alberto toilet/comm ransfer 12:30: [id number] ode 00 Bed transfer PT/OT: Bed Active 2018-10 Max Mobility/Tr deficit: Mobility/T Altaf alberto shower/tub ransfer 12:30: [id number] 00 Bed transfer PT/OT: Bed Active 2018-10 Max Mobility/Tr deficit: Mobility/T Altaf alberto vehicle ransfer 12:30: [id number] 00 Bed knowledge/s PT/OT: Bed Active 2018-10 Max Mobility/Tr kill Mobility/T Altaf alberto deficit: pt ransfer 12:30: [id number] 00 Bed knowledge/s PT/OT: Bed Active 2018-10 Max Mobility/Tr kill Mobility/T Altaf alberto deficit: cg ransfer 12:30: [id number] 00 Balance/End balance/flight operation coordinator PT/OT: Active 2018-10 Max urance rdination Balance/En Altaf deficit durance 12:30: [id number] 00 OT: Self self-care OT: Active 2018-10 Max Care deficit Self-Care Altaf 12:30: [id number] 00 OT: Self knowledge/s OT: Active 2018-10 Max Care kill Self-Care Altaf deficit: pt 12:30: [id number] 00 OT: Self knowledge/s OT: Active 2018-10 Max martínez Self-Care 2-30 Kobziewicz deficit: cg 12:30: [id number] 00 Gait/Locomo gait PT/OT: Active 2018-10 Max tion assistive Gait/Locom 2-30 Kobziewicz problems device otion 12:30: [id number] present 00 Gait/Locomo knowledge/s PT/OT: Active 2018-10 Max wotrhyon kill Gait/Locom 2-30 Kobziewicz problems deficit: pt otion 12:30: [id number] 00 Gait/Locomo gait PT/OT: Active 2018-10 Max worthyon deficit Gait/Locom 2-30 Kobziewicz problems otion 12:30: [id number] 00 Allergies, Adverse Reactions, Alerts Allergy Allergy Status Severity Reaction(s) Onset Inactive Treating Comments Name Type Date Date Clinician erythromyci Base Active Unknown Reaction Johana n base Ingredient Unknown 2-15 Ti Anafranil [...]
--- OUTSIDE RECORDS SUMMARY | 2019-10-24 16:51 | XMS REPORT ---
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, tis, [id number] unspecified unspecified site site Essential Essential 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 Max (primary) (primary) 10-03 Altaf hypertensio hypertensio [id number] n n 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 [id number] unspecified unspecified bone bone Anxiety Anxiety 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 Max disorder, disorder, 10-03 Altaf unspecified unspecified [id number] 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 without diarrhea diarrhea Insomnia, Insomnia, 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 Max unspecified unspecified Altaf [id number] Gastro-esop Gastro-esop 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 Max hageal hageal Altaf reflux reflux [id number] disease disease without without esophagitis esophagitis Hypokalemia Hypokalemia 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 Max Solitario [id number] Hypothyroid Hypothyroid 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 Max ism, ism, Altaf unspecified unspecified [id number] 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, terolemia, [id number] unspecified unspecified 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 emt 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 emt 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 Diagnosis Active Max (current) (current) Kobziewicz use of use of [id number] aspirin aspirin emt 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 long-term Diagnosis Active Max (current) (current) Kobziewicz use of use of [id number] opiate opiate analgesic analgesic Personal Personal Diagnosis Active Max history of history of Kobziewicz other other 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 Personal Personal Diagnosis Active Max history of history of Kobziewicz transient transient [id number] ischemic ischemic attack attack (TIA), and (TIA), and cerebral cerebral infarction infarction without without residual residual deficits deficits Respiratory dyspnea Respirator Active 2018-10 Max present y Kobziewicz 12:30: [id number] 00 Activity ADL Activity Active 2018-10 Max assistance Kobziewicz required 12:30: [id number] Safety structural Safety Active 2018-10 Max barriers Kobziewicz present 12:30: [id number] 00 Safety fall risk Safety Active 2018-10 Max factor Kobziewicz present 12:30: [id number] 00 Safety fire risk Safety Active 2018-10 Max present Kobziewicz 12:30: [id number] 00 Safety risk for Safety Active 2018-10 Max hospitaliza Kobziewicz tion 12:30: [id number] 00 Safety can be left Safety Active 2018-10 Max alone for Kobziewicz only short 12:30: [id number] periods 00 Safety knowledge/s Safety Active 2018-10 Max kill Kobziewicz deficit: pt 12:30: [id number] 00 Safety knowledge/s Safety Active 2018-10 Max kill Kobziewicz deficit: cg 12:30: [id number] 00 Diagnoses knowledge/s Diagnoses Active 2018-10 Max kill Kobziewicz deficit: pt 12:30: [id number] 00 Strength/To knowledge/s PT: Active 2018-10 Max ne/Motor kill Strength Kobziewicz Control deficit LE: 12:30: [id number] pt 00 Strength/To knowledge/s PT: Active 2018-10 Max ne/Motor kill Strength Kobziewicz Control deficit LE: 12:30: [id number] cg 00 Bed mobility/tr PT/OT: Bed Active 2018-10 Max Mobility/Tr ansfer Mobility/T Kobziewicz ansfer device ransfer 12:30: [id number] present 00 Bed transfer PT/OT: Bed Active 2018-10 Max Mobility/Tr deficit: Mobility/T Carmenuqoceimly alberto sit/stand ransfer 12:30: [id number] 00 Bed transfer PT/OT: Bed Active 2018-10 Max Mobility/Tr deficit: Mobility/T Carmenquocemily alberto standing ransfer 12:30: [id number] pivot 00 Bed transfer PT/OT: Bed Active 2018-10 Max Mobility/Tr deficit: Mobility/T Carmenquocemily rogelzunilda toilet/comm ransfer 12:30: [id number] ode 00 Bed transfer PT/OT: Bed Active 2018-10 Max Mobility/Tr deficit: Mobility/T Carmenquocemily alberto shower/tub ransfer 12:30: [id number] 00 Bed transfer PT/OT: Bed Active 2018-10 Max Mobility/Tr deficit: Mobility/T Gilmaralexandra alberto vehicle ransfer 12:30: [id number] 00 Bed knowledge/s PT/OT: Bed Active 2018-10 Max Mobility/Tr kill Mobility/T Gilmaralexandra alberto deficit: pt ransfer 12:30: [id number] 00 Bed knowledge/s PT/OT: Bed Active 2018-10 Max Mobility/Tr kill Mobility/T Gilmaralexandra albetro deficit: cg ransfer 12:30: [id number] 00 Balance/End balance/workforce management coordinator PT/OT: Active 2018-10 Max urance rdination Balance/En Altaf deficit durance 12:30: [id number] 00 OT: Self self-care OT: Active 2018-10 Max Care deficit Self-Care Altaf 12:30: [id number] 00 OT: Self knowledge/s OT: Active 2018-10 Max Care kill Self-Care Altaf deficit: pt 12:30: [id number] 00 OT: Self knowledge/s OT: Active 2018-10 Max Care kill Self-Care Altaf deficit: cg 12:30: [id number] 00 Gait/Locomo gait PT/OT: Active 2018-10 Max tion assistive Gait/Locom 2-30 Kobziewicz problems device otion 12:30: [id number] present 00 Gait/Locomo knowledge/s PT/OT: Active 2018-10 Max polanco kill Gait/Locom 2-30 Kobziewicz problems deficit: pt otion 12:30: [id number] 00 Gait/Locomo gait PT/OT: Active 2018-10 Max polanco deficit Gait/Locom 2-30 Kobziewicz problems otion 12:30: [id number] 00 Allergies, Adverse Reactions, Alerts Allergy Allergy Status Severity Reaction(s) Onset Inactive Treating Comments Name Type Date Date Clinician erythromyci Base Active Unknown Reaction [place] n base Ingredient Unknown 2-15 Ti Anafranil Medication Active Unknown balance [place] Name ID problems, 2-15 Ti sleep disturbances [...]
--- OUTSIDE RECORDS SUMMARY | 2019-10-24 16:51 | XMS REPORT ---
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 10-03 Altaf [id number] Unspecified Unspecified Diagnosis Active Max osteoarthri osteoarthri 10-03 Altaf tis, tis, [id number] unspecified unspecified site site Essential Essential Diagnosis Active Max (primary) (primary) 10-03 Altaf hypertensio hypertensio [id number] n n 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 [id number] unspecified unspecified bone bone Anxiety Anxiety Diagnosis Active Max disorder, disorder, 10-03 Altaf unspecified unspecified [id number] 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 [id number] without without diarrhea diarrhea Insomnia, Insomnia, Diagnosis Active Max unspecified unspecified Altaf [id number] Gastro-esop Gastro-esop Diagnosis Active Max hageal hageal Altaf reflux reflux [id number] disease disease without without esophagitis esophagitis Hypokalemia Hypokalemia Diagnosis Active Max Solitario [id number] Hypothyroid Hypothyroid Diagnosis Active Max ism, ism, Altaf unspecified unspecified [id number] 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, terolemia, [id number] unspecified unspecified 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 [id number] knee joint knee joint joint 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 Diagnosis Active Max (current) (current) Kobziewicz use of use of [id number] aspirin aspirin joint terminal attack controller [facility] Diagnosis Active Max (current) (current) Kobziewicz use of use of [id number] opiate opiate analgesic analgesic Personal Personal Diagnosis Active Max history of history of Kobziewicz other other [id number] 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 Personal Personal Diagnosis Active Max history of history of Kobziewicz transient transient [id number] ischemic ischemic attack attack (TIA), and (TIA), and cerebral cerebral infarction infarction without without residual residual deficits deficits Respiratory dyspnea Respirator Active 2018-10 Max present y Kobziewicz 12:30: [id number] 00 Activity ADL Activity Active 2018-10 Max assistance Kobziewicz required 12:30: [id number] 00 Safety structural Safety Active 2018-10 Max barriers Kobziewicz present 12:30: [id number] 00 Safety fall risk Safety Active 2018-10 Max factor Kobziewicz present 12:30: [id number] 00 Safety fire risk Safety Active 2018-10 Max present Kobziewicz 12:30: [id number] 00 Safety risk for Safety Active 2018-10 Max hospitaliza Kobziewicz tion 12:30: [id number] 00 Safety can be left Safety Active 2018-10 Max alone for Kobziewicz only short 12:30: [id number] periods 00 Safety knowledge/s Safety Active 2018-10 Max kill Kobziewicz deficit: pt 12:30: [id number] 00 Safety knowledge/s Safety Active 2018-10 Max kill Kobziewicz deficit: cg 12:30: [id number] 00 Diagnoses knowledge/s Diagnoses Active 2018-10 Max kill Kobziewicz deficit: pt 12:30: [id number] 00 Strength/To knowledge/s PT: Active 2018-10 Max ne/Motor kill Strength Kobziewicz Control deficit LE: 12:30: [id number] pt 00 Strength/To knowledge/s PT: Active 2018-10 Max ne/Motor kill Strength Kobziewicz Control deficit LE: 12:30: [id number] cg 00 Bed mobility/tr PT/OT: Bed Active 2018-10 Max Mobility/Tr ansfer Mobility/T Kobziewicz ansfer device ransfer 12:30: [id number] present 00 Bed transfer PT/OT: Bed Active 2018-10 Max Mobility/Tr deficit: Mobility/T Carmenquocemily alberto sit/stand ransfer 12:30: [id number] 00 Bed transfer PT/OT: Bed Active 2018-10 Max Mobility/Tr deficit: Mobility/T Carmenquocemily alberto standing ransfer 12:30: [id number] pivot 00 Bed transfer PT/OT: Bed Active 2018-10 Max Mobility/Tr deficit: Mobility/T Carmenquocemily rogelzunilda toilet/comm ransfer 12:30: [id number] ode 00 Bed transfer PT/OT: Bed Active 2018-10 Max Mobility/Tr deficit: Mobility/T Carmenquocemily alberto shower/tub ransfer 12:30: [id number] 00 Bed transfer PT/OT: Bed Active 2018-10 Max Mobility/Tr deficit: Mobility/T Gilmaralexandra alberto vehicle ransfer 12:30: [id number] 00 Bed knowledge/s PT/OT: Bed Active 2018-10 Max Mobility/Tr kill Mobility/T Gilmaralexandra alberto deficit: pt ransfer 12:30: [id number] 00 Bed knowledge/s PT/OT: Bed Active 2018-10 Max Mobility/Tr kill Mobility/T Gilmaralexandra alberto deficit: cg ransfer 12:30: [id number] 00 Balance/End balance/information technology coordinator PT/OT: Active 2018-10 Max urance rdination Balance/En Altaf deficit durance 12:30: [id number] 00 OT: Self self-care OT: Active 2018-10 Max Care deficit Self-Care Altaf 12:30: [id number] 00 OT: Self knowledge/s OT: Active 2018-10 Max Care kill Self-Care Altaf deficit: pt 12:30: [id number] 00 OT: Self knowledge/s OT: Active 2018-10 Max Care kill Self-Care Altaf deficit: cg 12:30: [id number] 00 Gait/Locomo gait PT/OT: Active 2018-10 Max tion assistive Gait/Locom 2-30 Kobziewicz problems device otion 12:30: [id number] present 00 Gait/Locomo knowledge/s PT/OT: Active 2018-10 Max polanco kill Gait/Locom 2-30 Kobziewicz problems deficit: pt otion 12:30: [id number] 00 Gait/Locomo gait PT/OT: Active 2018-10 Max polanco deficit Gait/Locom 2-30 Kobziewicz problems otion 12:30: [id number] 00 Allergies, Adverse Reactions, Alerts Allergy Allergy Status Severity Reaction(s) Onset Inactive Treating Comments Name Type Date Date Clinician erythromyci Base Active Unknown Reaction [place] n base Ingredient Unknown 2-15 Ti Anafranil Medication Active Unknown balance [place] Name ID problems, 2-15 Ti sleep disturbances [...]
--- OUTSIDE RECORDS SUMMARY | 2019-10-24 16:51 | XMS REPORT ---
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 10-03 Altaf [id number] Unspecified Unspecified Diagnosis Active Max osteoarthri osteoarthri 10-03 Altaf tis, tis, [id number] unspecified unspecified site site Essential Essential Diagnosis Active Max (primary) (primary) 10-03 Altaf hypertensio hypertensio [id number] n n 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 [id number] unspecified unspecified bone bone Anxiety Anxiety Diagnosis Active Max disorder, disorder, 10-03 Altaf unspecified unspecified [id number] 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 [id number] without without diarrhea diarrhea Insomnia, Insomnia, Diagnosis Active Max unspecified unspecified Altaf [id number] Gastro-esop Gastro-esop Diagnosis Active Max hageal hageal Altaf reflux reflux [id number] disease disease without without esophagitis esophagitis Hypokalemia Hypokalemia Diagnosis Active Max Solitario [id number] Hypothyroid Hypothyroid Diagnosis Active Max ism, ism, Altaf unspecified unspecified [id number] 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, terolemia, [id number] unspecified unspecified 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 [id number] knee joint knee joint 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 Diagnosis Active Max (current) (current) Altaf use of use of [id number] aspirin aspirin terminal operations supervisor [facility] Diagnosis Active Max (current) (current) Kobquocewalexandra use of use of [id number] opiate opiate analgesic analgesic Personal Personal Diagnosis Active Max history of history of Kobziewicz other other [id number] 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 Personal Personal Diagnosis Active Max history of history of Kobziewicz transient transient [id number] ischemic ischemic attack attack (TIA), and (TIA), and cerebral cerebral infarction infarction without without residual residual deficits deficits Pain frequent Pain Mgmt Active 2018-10 Jodie pain 2- (Kallie) 10:40: Cardoza [id number] Cardio edema Cardiovasc Active 2018-10 Jodie ular 2- (Kallie) 10:40: Cardoza [id number] Respiratory dyspnea Respirator Active 2018-10 Jodie present y (Kallie) 10:40: Cardoza [id number] Endo/Christiano anti-coagul Endo/Christiano Active 2018-10 Jodie ation 2- (Kallie) therapy 10:40: Cardoza [id number] Sensory impaired Sensory Active 2018-10 Jodie hearing 2- (Kallie) 10:40: Cardoza [id number] Integument surgical Integument Active 2018-10 Jodie wound 2- (Kallie) present 10:40: Cardoza [id number] Integument skin Integument Active 2018-10 Jodie integrity 2- (Kallie) risk 10:40: Cardoza 00 [id number] Elimination urinary Eliminatio Active 2018-10 Jodie incontinenc n 2- (Kallie) e 10:40: Cardoza [id number] Elimination bowel Eliminatio Active 2018-10 Jodie incontinenc n 2-29 (Kallie) e 10:40: Cardoza [id number] Neuro confusion Neuro/Emot Active 2018-10 Jodie present ion 2- (Kallie) 10:40: Cardoza [id number] Neuro anxiety Neuro/Emot Active 2018-10 Jodie present ion 2- (Kallie) 10:40: Cardoza [id number] Neuro depressive Neuro/Emot Active 2018-10 Jodie feelings ion 2- (Kallie) present 10:40: Cardoza 00 [id number] Neuro impaired Neuro/Emot Active 2018-10 Jodie decision-ma ion 2- (Kallie) jefferson 10:40: Cardoza [id number] Neuro memory Neuro/Emot Active 2018-10 Jodie deficit ion (Kallie) needing 10:40: Cardoza supervision [id number] Activity ADL Activity Active 2018-10 Jodie assistance (Kallie) required 10:40: Cardoza [id number] Activity self-care Activity Active 2018-10 Jodie deficit (Kallie) 10:40: Cardoza [id number] Safety fall risk Safety Active 2018-10 Jodie factor (Kallie) present 10:40: Cardoza [id number] Safety risk for Safety Active 2018-10 Jodie hospitaliza (Kallie) tion 10:40: Cardoza [id number] Safety can be left Safety Active 2018-10 Jodie alone for (Kallie) only short 10:40: Cardoza periods [id number] Medication oral med Meds Active 2018-10 Jodie assistance (Kallie) required 10:40: Cardoza [id number] Medication potential Meds Active 2018-10 Jodie clinically (Kallie) significant 10:40: Cardoza medication [id number] issue Musculoskel transfer Musculoske Active 2018-10 Jodie etal assistance letal (Kallie) required 10:40: Cardoza [id number] Musculoskel requires Musculoske Active 2018-10 Jodie etal human letal (Kallie) assist to 10:40: Cardoza leave home 00 [id number] Safety structural Safety Active 2018-10 Max barriers Altaf present 12:30: [id number] 00 Safety fire risk Safety Active 2018-10 Max present Iamewicz 12:30: [id number] 00 Safety knowledge/s Safety Active 2018-10 Max kill Altaf deficit: pt 12:30: [id number] 00 Safety knowledge/s Safety Active 2018-10 Max kill Altaf deficit: cg 12:30: [id number] 00 Diagnoses knowledge/s Diagnoses Active 2018-10 Max kill Altaf deficit: pt 12:30: [id number] 00 Strength/To knowledge/s PT: Active 2018-10 Max ne/Motor kill Strength 2-30 Altaf Control deficit LE: 12:30: [id number] pt 00 Strength/To knowledge/s PT: Active 2018-10 Max ne/Motor kill Strength [place] Control deficit LE: 12:30: [id number] cg 00 Bed mobility/tr PT/OT: Bed Active 2018-10 Max Mobility/Tr ansfer Mobility/T 30 Altaf ansfer device ransfer 12:30: [id number] present 00 Bed transfer PT/OT: Bed Active 2018-10 Max Mobility/Tr deficit: Mobility/T 30 Iamewalexandra ansfer sit/stand ransfer 12:30: [id number] 00 Bed transfer PT/OT: Bed Active 2018-10 Max Mobility/Tr deficit: Mobility/T Kobquocewicz ansfer standing ransfer 12:30: [id number] pivot 00 Bed transfer PT/OT: Bed Active 2018-10 Max Mobility/Tr deficit: Mobility/T Kobleno rogelfer toilet/comm ransfer 12:30: [id number] ode 00 Bed transfer PT/OT: Bed Active 2018-10 Max Mobility/Tr deficit: Mobility/T Altaf rogelfer shower/tub ransfer 12:30: [id number] 00 Bed transfer PT/OT: Bed Active 2018-10 Max Mobility/Tr deficit: Mobility/T -30 Altaf ansfer vehicle ransfer 12:30: [id number] 00 Bed knowledge/s PT/OT: Bed Active 2018-10 Max Mobility/Tr kill Mobility/T Altaf rogelfer deficit: pt ransfer 12:30: [id number] 00 Bed knowledge/s PT/OT: Bed Active 2018-10 Max Mobility/Tr kill Mobility/T 30 Altaf ansfer deficit: cg ransfer 12:30: [id number] 00 Balance/End balance/lean manufacturing coordinator PT/OT: Active 2018-10 Max urance rdination Balance/En Altaf deficit durance 12:30: [id number] 00 OT: Self self-care OT: Active 2018-10 Max Care deficit Self-Care Altaf 12:30: [id number] 00 OT: Self knowledge/s OT: Active 2018-10 Max martínez Self-Care 2-30 Kobziewicz deficit: pt 12:30: [id number] 00 OT: Self knowledge/s OT: Active 2018-10 Max martínez Self-Care 2-30 Kobziewicz deficit: cg 12:30: [id number] 00 Gait/Locomo gait PT/OT: Active 2018-10 Max worthyon assistive Gait/Locom 2-30 Kobziewicz problems device otion 12:30: [id number] present 00 Gait/Locomo knowledge/s PT/OT: Active 2018-10 Max worthyon kill Gait/Locom 2-30 Kobziewicz problems deficit: pt otion 12:30: [id number] 00 Gait/Locomo gait PT/OT: Active 2018-10 Max worthyon deficit Gait/Locom 2-30 Kobziewicz problems otion 12:30: [id number] 00 Allergies, Adverse Reactions, Alerts Allergy Allergy Status Severity Reaction(s) Onset Inactive Treating Comments Name Type Date Date Clinician erythromyci Base Active Unknown Reaction [place] n base Ingredient Unknown 2-15 Ti Anafranil [...] Midura Unknown Unknown sodium 100 sodium 100 MD,Ezv mg capsule mg capsule traZODone traZODone No [...] Observation Time Observation Value Comments SYSTOLIC mm[Hg] 2019-10-09 18:09:45 136 mm[Hg] mm[Hg] Method: Sit SYSTOLIC mm[Hg] 2019-10-06 18:09:42 130 mm[Hg] mm[Hg] Method: Stand DIASTOLIC mm[Hg] 2019-10-09 18:09:45 60 mm[Hg] mm[Hg] Method: Sit DIASTOLIC mm[Hg] 2019-10-06 18:09:42 70 mm[Hg] mm[Hg] Method: Stand PULSE 2019-10-09 18:09:45 72 /min /min RESP RATE 2019-10-06 18:09:42 17 /min /min TEMP 2019-10-06 18:09:42 98.5 [degF] Procedures This patient has no known procedures. Results This patient has no known results.
--- OUTSIDE RECORDS SUMMARY | 2019-10-24 16:51 | XMS REPORT ---
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 10-03 Altaf tis, tis, [id number] unspecified unspecified site site Essential Essential Diagnosis Active Max (primary) (primary) 10-03 Altaf hypertensio hypertensio [id number] n n 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 [id number] unspecified unspecified bone bone Anxiety Anxiety Diagnosis Active Max disorder, disorder, 10-03 Altaf unspecified unspecified [id number] 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 without without diarrhea diarrhea Insomnia, Insomnia, Diagnosis Active Max unspecified unspecified Altaf [id number] Gastro-esop Gastro-esop Diagnosis Active Max hageal hageal Altaf reflux reflux [id number] disease disease without without esophagitis esophagitis Hypokalemia Hypokalemia Diagnosis Active Max Solitario [id number] Hypothyroid Hypothyroid Diagnosis Active Max ism, ism, Altaf unspecified unspecified [id number] 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, terolemia, [id number] unspecified unspecified 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 [facility] 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 Max (current) (current) Altaf use of use of [id number] aspirin aspirin 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 [facility] Diagnosis Active Max (current) (current) Kobquocewalexandra use of use of [id number] opiate opiate analgesic analgesic Personal Personal Diagnosis Active Max history of history of Kobziewicz other other 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 Personal Personal Diagnosis Active Max history of history of Kobziewicz transient transient [id number] ischemic ischemic attack attack (TIA), and (TIA), and cerebral cerebral infarction infarction without without residual residual deficits deficits Pain frequent Pain Mgmt Active 2018-10 Jodie pain 2- (Kallie) 10:40: Cardoza [id number] Cardio edema Cardiovasc Active 2018-10 Jodie ular 2- (Kallie) 10:40: Cardoza [id number] Respiratory dyspnea Respirator Active 2018-10 Jodie present y (Kallie) 10:40: Cardoza [id number] Endo/Christiano anti-coagul Endo/Christiano Active 2018-10 Jodie ation 2- (Kallie) therapy 10:40: Cardoza [id number] Sensory impaired Sensory Active 2018-10 Jodie hearing 2- (Kallie) 10:40: Cardoza [id number] Integument surgical Integument Active 2018-10 Jodie wound 2- (Kallie) present 10:40: Cardoza [id number] Integument skin Integument Active 2018-10 Jodie integrity 2- (Kallie) risk 10:40: Cardoza 00 [id number] Elimination urinary Eliminatio Active 2018-10 Jodie incontinenc n 2- (Kallie) e 10:40: Cardoza [id number] Elimination bowel Eliminatio Active 2018-10 Jodie incontinenc n 2-29 (Kallie) e 10:40: Cardoza [id number] Neuro confusion Neuro/Emot Active 2018-10 Jodie present ion 2- (Kallie) 10:40: Cardoza [id number] Neuro anxiety Neuro/Emot Active 2018-10 Jodie present ion 2- (Kallie) 10:40: Cardoza [id number] Neuro depressive Neuro/Emot Active 2018-10 Jodie feelings ion 2- (Kallie) present 10:40: Cardoza 00 [id number] Neuro impaired Neuro/Emot Active 2018-10 Jodie decision-ma ion 2- (Kallie) jefferson 10:40: Cardoza [id number] Neuro memory Neuro/Emot Active 2018-10 Jodie deficit ion (Kallie) needing 10:40: Cardoza supervision [id number] Activity ADL Activity Active 2018-10 Jodie assistance (Kallie) required 10:40: Cardoza [id number] Activity self-care Activity Active 2018-10 Jodie deficit (Kallie) 10:40: Cardoza [id number] Safety fall risk Safety Active 2018-10 Jodie factor (Kallie) present 10:40: Cardoza [id number] Safety risk for Safety Active 2018-10 Jodie hospitaliza (Kallie) tion 10:40: Cardoza [id number] Safety can be left Safety Active 2018-10 Jodie alone for (Kallie) only short 10:40: Cardoza periods [id number] Medication oral med Meds Active 2018-10 Jodie assistance (Kallie) required 10:40: Cardoza [id number] Medication potential Meds Active 2018-10 Jodie clinically (Kallie) significant 10:40: Cardoza medication [id number] issue Musculoskel transfer Musculoske Active 2018-10 Jodie etal assistance letal (Kallie) required 10:40: Cardoza [id number] Musculoskel requires Musculoske Active 2018-10 Jodie etal human letal (Kallie) assist to 10:40: Cardoza leave home 00 [id number] Safety structural Safety Active 2018-10 Max barriers Altaf present 12:30: [id number] Safety fire risk Safety Active 2018-10 Max present Iamewicz 12:30: [id number] 00 Safety knowledge/s Safety Active 2018-10 Max kill Altaf deficit: pt 12:30: [id number] 00 Safety knowledge/s Safety Active 2018-10 Max kill Altaf deficit: cg 12:30: [id number] 00 Diagnoses knowledge/s Diagnoses Active 2018-10 Max kill Altaf deficit: pt 12:30: [id number] 00 Strength/To knowledge/s PT: Active 2018-10 Max ne/Motor kill Strength 2-30 Altaf Control deficit LE: 12:30: [id number] pt 00 Strength/To knowledge/s PT: Active 2018-10 Max ne/Motor kill Strength [place] Control deficit LE: 12:30: [id number] cg 00 Bed mobility/tr PT/OT: Bed Active 2018-10 Max Mobility/Tr ansfer Mobility/T 30 Altaf ansfer device ransfer 12:30: [id number] present 00 Bed transfer PT/OT: Bed Active 2018-10 Max Mobility/Tr deficit: Mobility/T 30 Iamewalexandra ansfer sit/stand ransfer 12:30: [id number] 00 Bed transfer PT/OT: Bed Active 2018-10 Max Mobility/Tr deficit: Mobility/T Kobquocewicz ansfer standing ransfer 12:30: [id number] pivot 00 Bed transfer PT/OT: Bed Active 2018-10 Max Mobility/Tr deficit: Mobility/T [place] rogelfer toilet/comm ransfer 12:30: [id number] ode 00 Bed transfer PT/OT: Bed Active 2018-10 Max Mobility/Tr deficit: Mobility/T Altaf rogelfer shower/tub ransfer 12:30: [id number] 00 Bed transfer PT/OT: Bed Active 2018-10 Max Mobility/Tr deficit: Mobility/T -30 Altaf ansfer vehicle ransfer 12:30: [id number] 00 Bed knowledge/s PT/OT: Bed Active 2018-10 Max Mobility/Tr kill Mobility/T Altaf rogelfer deficit: pt ransfer 12:30: [id number] 00 Bed knowledge/s PT/OT: Bed Active 2018-10 Max Mobility/Tr kill Mobility/T 30 Altaf ansfer deficit: cg ransfer 12:30: [id number] 00 Balance/End balance/office coordinator receptionist PT/OT: Active 2018-10 Max urance rdination Balance/En Altaf deficit durance 12:30: [id number] 00 OT: Self self-care OT: Active 2018-10 Max Care deficit Self-Care Altaf 12:30: [id number] 00 OT: Self knowledge/s OT: Active 2018-10 Max martínez Self-Care 2-30 Kobziewicz deficit: pt 12:30: [id number] 00 OT: Self knowledge/s OT: Active 2018-10 Max martínez Self-Care 2-30 Kobziewicz deficit: cg 12:30: [id number] 00 Gait/Locomo gait PT/OT: Active 2018-10 Max worthyon assistive Gait/Locom 2-30 Kobziewicz problems device otion 12:30: [id number] present 00 Gait/Locomo knowledge/s PT/OT: Active 2018-10 Max worthyon kill Gait/Locom 2-30 Kobziewicz problems deficit: pt otion 12:30: [id number] 00 Gait/Locomo gait PT/OT: Active 2018-10 Max worthyon deficit Gait/Locom 2-30 Kobziewicz problems otion 12:30: [id number] 00 Allergies, Adverse Reactions, Alerts Allergy Allergy Status Severity Reaction(s) Onset Inactive Treating Comments Name Type Date Date Clinician erythromyci Base Active Unknown Reaction [place] n base Ingredient Unknown 2-15 Ti Anafranil [...]
--- OUTSIDE RECORDS SUMMARY | 2019-10-24 16:51 | XMS REPORT ---
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 10-03 Altaf tis, tis, [id number] unspecified unspecified site site Essential Essential Diagnosis Active Max (primary) (primary) 10-03 Altaf hypertensio hypertensio [id number] n n 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 [id number] unspecified unspecified bone bone Anxiety Anxiety Diagnosis Active Max disorder, disorder, 10-03 Altaf unspecified unspecified [id number] 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 [id number] without without diarrhea diarrhea Insomnia, Insomnia, Diagnosis Active Max unspecified unspecified Altaf [id number] Gastro-esop Gastro-esop Diagnosis Active Max hageal hageal Altaf reflux reflux [id number] disease disease without without esophagitis esophagitis Hypokalemia Hypokalemia Diagnosis Active Max Solitario [id number] Hypothyroid Hypothyroid Diagnosis Active Max ism, ism, Altaf unspecified unspecified [id number] 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, terolemia, [id number] unspecified unspecified 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 [id number] knee joint knee joint 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 Active Max (current) (current) Altaf use of use of [id number] aspirin aspirin ad terminal makeup 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 [facility] Diagnosis Active Max (current) (current) Kobquocewalexandra use of use of [id number] opiate opiate analgesic analgesic Personal Personal Diagnosis Active Max history of history of Kobziewicz other other [id number] 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 Personal Personal Diagnosis Active Max history of history of Kobziewicz transient transient [id number] ischemic ischemic attack attack (TIA), and (TIA), and cerebral cerebral infarction infarction without without residual residual deficits deficits Pain frequent Pain Mgmt Active 2018-10 Jodie pain 2- (Kallie) 10:40: Cardoza [id number] Cardio edema Cardiovasc Active 2018-10 Jodie ular 2- (Kallie) 10:40: Cardoza [id number] Respiratory dyspnea Respirator Active 2018-10 Jodie present y (Kallie) 10:40: Cardoza [id number] Endo/Christiano anti-coagul Endo/Christiano Active 2018-10 Jodie ation 2- (Kallie) therapy 10:40: Cardoza [id number] Sensory impaired Sensory Active 2018-10 Jodie hearing 2- (Kallie) 10:40: Cardoza [id number] Integument surgical Integument Active 2018-10 Jodie wound 2- (Kallie) present 10:40: Cardoza [id number] Integument skin Integument Active 2018-10 Jodie integrity 2- (Kallie) risk 10:40: Cardoza 00 [id number] Elimination urinary Eliminatio Active 2018-10 Jodie incontinenc n 2- (Kallie) e 10:40: Cardoza [id number] Elimination bowel Eliminatio Active 2018-10 Jodie incontinenc n 2-29 (Kallie) e 10:40: Cardoza [id number] Neuro confusion Neuro/Emot Active 2018-10 Jodie present ion 2- (Kallie) 10:40: Cardoza [id number] Neuro anxiety Neuro/Emot Active 2018-10 Jodie present ion 2- (Kallie) 10:40: Cardoza [id number] Neuro depressive Neuro/Emot Active 2018-10 Jodie feelings ion 2- (Kallie) present 10:40: Cardoza 00 [id number] Neuro impaired Neuro/Emot Active 2018-10 Jodie decision-ma ion 2- (Kallie) jefferson 10:40: Cardoza [id number] Neuro memory Neuro/Emot Active 2018-10 Jodie deficit ion (Kallie) needing 10:40: Cardoza supervision [id number] Activity ADL Activity Active 2018-10 Jodie assistance (Kallie) required 10:40: Cardoza [id number] Activity self-care Activity Active 2018-10 Jodie deficit (Kallie) 10:40: Cardoza [id number] Safety fall risk Safety Active 2018-10 Jodie factor (Kallie) present 10:40: Cardoza [id number] Safety risk for Safety Active 2018-10 Jodie hospitaliza (Kallie) tion 10:40: Cardoza [id number] Safety can be left Safety Active 2018-10 Jodie alone for (Kallie) only short 10:40: Cardoza periods [id number] Medication oral med Meds Active 2018-10 Jodie assistance (Kallie) required 10:40: Cardoza [id number] Medication potential Meds Active 2018-10 Jodie clinically (Kallie) significant 10:40: Cardoza medication [id number] issue Musculoskel transfer Musculoske Active 2018-10 Jodie etal assistance letal (Kallie) required 10:40: Cardoza [id number] Musculoskel requires Musculoske Active 2018-10 Jodie etal human letal (Kallie) assist to 10:40: Cardoza leave home 00 [id number] Safety structural Safety Active 2018-10 Max barriers Altaf present 12:30: [id number] 00 Safety fire risk Safety Active 2018-10 Max present Iamewicz 12:30: [id number] 00 Safety knowledge/s Safety Active 2018-10 Max kill Altaf deficit: pt 12:30: [id number] 00 Safety knowledge/s Safety Active 2018-10 Max kill Altaf deficit: cg 12:30: [id number] 00 Diagnoses knowledge/s Diagnoses Active 2018-10 Max kill Altaf deficit: pt 12:30: [id number] 00 Strength/To knowledge/s PT: Active 2018-10 Max ne/Motor kill Strength 2-30 Altaf Control deficit LE: 12:30: [id number] pt 00 Strength/To knowledge/s PT: Active 2018-10 Max ne/Motor kill Strength Kob[place]o Control deficit LE: 12:30: [id number] cg 00 Bed mobility/tr PT/OT: Bed Active 2018-10 Max Mobility/Tr ansfer Mobility/T 30 Altaf ansfer device ransfer 12:30: [id number] present 00 Bed transfer PT/OT: Bed Active 2018-10 Max Mobility/Tr deficit: Mobility/T 30 Iamewalexandra ansfer sit/stand ransfer 12:30: [id number] 00 Bed transfer PT/OT: Bed Active 2018-10 Max Mobility/Tr deficit: Mobility/T Kobquocewicz ansfer standing ransfer 12:30: [id number] pivot 00 Bed transfer PT/OT: Bed Active 2018-10 Max Mobility/Tr deficit: Mobility/T [place] rogelfer toilet/comm ransfer 12:30: [id number] ode 00 Bed transfer PT/OT: Bed Active 2018-10 Max Mobility/Tr deficit: Mobility/T Altaf rogelfer shower/tub ransfer 12:30: [id number] 00 Bed transfer PT/OT: Bed Active 2018-10 Max Mobility/Tr deficit: Mobility/T -30 Altaf ansfer vehicle ransfer 12:30: [id number] 00 Bed knowledge/s PT/OT: Bed Active 2018-10 Max Mobility/Tr kill Mobility/T Altaf rogelfer deficit: pt ransfer 12:30: [id number] 00 Bed knowledge/s PT/OT: Bed Active 2018-10 Max Mobility/Tr kill Mobility/T 30 Altaf ansfer deficit: cg ransfer 12:30: [id number] 00 Balance/End balance/civil preparedness coordinator PT/OT: Active 2018-10 Max urance rdination Balance/En Altaf deficit durance 12:30: [id number] 00 OT: Self self-care OT: Active 2018-10 Max Care deficit Self-Care Altaf 12:30: [id number] 00 OT: Self knowledge/s OT: Active 2018-10 Max martínez Self-Care 2-30 Kobziewicz deficit: pt 12:30: [id number] 00 OT: Self knowledge/s OT: Active 2018-10 Max martínez Self-Care 2-30 Kobziewicz deficit: cg 12:30: [id number] 00 Gait/Locomo gait PT/OT: Active 2018-10 Max worthyon assistive Gait/Locom 2-30 Kobziewicz problems device otion 12:30: [id number] present 00 Gait/Locomo knowledge/s PT/OT: Active 2018-10 Max worthyon kill Gait/Locom 2-30 Kobziewicz problems deficit: pt otion 12:30: [id number] 00 Gait/Locomo gait PT/OT: Active 2018-10 Max worthyon deficit Gait/Locom 2-30 Kobziewicz problems otion 12:30: [id number] 00 Allergies, Adverse Reactions, Alerts Allergy Allergy Status Severity Reaction(s) Onset Inactive Treating Comments Name Type Date Date Clinician erythromyci Base Active Unknown Reaction [place] n base Ingredient Unknown 2-15 Ti Anafranil [...]
--- OUTSIDE RECORDS SUMMARY | 2019-10-24 16:51 | XMS REPORT ---
:1936 Author Organization [facility] Care Team Providers Name Role Phone Unavailable [...] Clinician erythromyci Base Active Unknown Reaction 2019- [place] n base Ingredient Unknown 2-15 Ti Anafranil Medication Active Unknown balance 2019- [place] Name ID problems, 2-15 Ti sleep disturbances [...]
[2019-10-24 17:38] VITALS: BP 171/82
== END 2019-10-24 17:42 | disposition home or self-care (01) ==
LOC: ED 16:01
DX: G89.18 Other acute postprocedural pain (principal); M25.561 Pain in right knee; R11.10 Vomiting, unspecified; R19.7 Diarrhea, unspecified; E03.9 Hypothyroidism, unspecified; I10 Essential (primary) hypertension; K21.9 Gastro-esophageal reflux disease without esophagitis; F41.9 Anxiety disorder, unspecified; F32.9 Major depressive disorder, single episode, unspecified; Z85.3 Personal history of malignant neoplasm of breast
CPT/HCPCS: 36415; 80048; 85025; 99283

== ENCOUNTER 2020-07-04 02:04 | Observation (INO) ==
[2020-07-04] MEDS ORDERED: NS 0.9% 1000 ml BAG 1,000 ML IV ONE (02:23)
[2020-07-04 02:55] LABS: ABS Basophils 0.1 10^3/ul (0-0.2); ABS Eosinophils 0.5 10^3/ul (0-0.6); ABS Lymphocytes 2.8 10^3/ul (1.0-4.8); ABS Neutrophils 4.7 10^3/ul (1.5-7.7); Eosinophil % 5.8 %; Hematocrit 33 % (35-47); Hemoglobin 11.1 g/dL (12.0-16.0); Lymphocyte % 30.5 %; Mean Corpuscular HGB Conc 34 g/dL (31-36); Mean Corpuscular Hemoglobin 31 pg (27-31); Mean Corpuscular Volume 93 fL (80-97); Mean Platelet Volume 8.7 fL (7.4-10.4); Platelet Count 268 10^3/uL (150-450); Red Blood Count 3.54 10^6 /uL (3.70-4.87); Red Cell Distribution Width 15 % (10-15)
[2020-07-04 03:09] LABS: Activated Partial Thrombo Time 27.9 seconds (26.0-38.0); INR 0.96 (0.82-1.09)
[2020-07-04 03:13] LABS: Albumin 3.5 g/dL (3.2-5.2); Albumin/Globulin Ratio 1.5 (1-3); BUN/Creatinine Ratio 24.2 (8-20); Calcium 8.7 mg/dL (8.6-10.3); EGFR African American 103.5 (>60); EGFR Non-African American 85.5 (>60); Globulin 2.4 g/dL (2-4); HDL Cholesterol 40.4 mg/dL; Potassium 3.5 mmol/L (3.5-5.0); Total Bilirubin 0.3 mg/dL (0.2-1.0); Total Protein 5.9 g/dL (6.4-8.9)
[2020-07-04 03:15] LABS: Troponin I 0.01 ng/mL (<0.03)
[2020-07-04] MEDS ORDERED: Iohexol 350 (CONTRAST) 500 ML MDV IV ONE (04:01)
[2020-07-04 04:52] LABS: Urine Appearance Clear; Urine Bilirubin Negative (Negative); Urine Blood Negative (Negative); Urine Color Straw; Urine Glucose Negative (Negative); Urine Ketones Negative (Negative); Urine Nitrite Negative (Negative); Urine Protein Negative (Negative); Urine Specific Gravity 1.004 (1.010-1.030); Urine Urobilinogen Negative (Negative)
[2020-07-04 09:13] LABS: TSH Ultra Thyroid Stim Horm 0.17 mcIU/mL (0.34-5.60)
[2020-07-05 06:55] LABS: ABS Basophils 0.1 10^3/ul (0-0.2); ABS Eosinophils 0.4 10^3/ul (0-0.6); ABS Lymphocytes 2.2 10^3/ul (1.0-4.8); Eosinophil % 4.9 %; Hematocrit 32 % (35-47); Lymphocyte % 25.4 %; Mean Corpuscular HGB Conc 35 g/dL (31-36); Mean Corpuscular Hemoglobin 32 pg (27-31); Mean Corpuscular Volume 93 fL (80-97); Mean Platelet Volume 8.3 fL (7.4-10.4); Platelet Count 273 10^3/uL (150-450); Red Blood Count 3.42 10^6 /uL (3.70-4.87); Red Cell Distribution Width 15 % (10-15); White Blood Count 8.8 10^3/uL (3.5-10.8)
[2020-07-05 06:56] LABS: BUN/Creatinine Ratio 19.3 (8-20); Calcium 8.8 mg/dL (8.6-10.3); EGFR African American 122.6 (>60); EGFR Non-African American 101.3 (>60); Potassium 3.2 mmol/L (3.5-5.0)
[2020-07-05] MEDS ORDERED: Potassium Chloride LIQUID 20 MEQ/15 ML LIQUID PO ONE (07:23)
[2020-07-05 11:39] VITALS: BP 154/78
== END 2020-07-05 15:55 | disposition home or self-care (01) ==
LOC: ED 02:04 → MEDTELE 02:04
PROVIDERS: ADMIT Student in an Organized Health Care Education/Training Program; ATTEND Internal Medicine

== ENCOUNTER 2021-01-24 14:24 | Inpatient (IN) ==
[2021-01-24] MEDS ORDERED: NS 0.9% 1000 ml BAG 1,000 ML IV ONE ×2 (14:33→15:38)
[2021-01-24 15:14] LABS: ABS Lymphocytes 0.6 10^3/ul (1.0-4.8); ABS Monocytes 1.3 10^3/ul (0-0.8); ABS Neutrophils 14.3 10^3/ul (1.5-7.7); Hematocrit 34 % (35-47); Hemoglobin 11.4 g/dL (12.0-16.0); Lymphocyte % 3.9 %; Mean Corpuscular HGB Conc 33 g/dL (31-36); Mean Corpuscular Hemoglobin 32 pg (27-31); Mean Corpuscular Volume 96 fL (80-97); Mean Platelet Volume 8.4 fL (7.4-10.4); Platelet Count 231 10^3/uL (150-450); Red Blood Count 3.59 10^6 /uL (3.70-4.87); Red Cell Distribution Width 13 % (10-15); White Blood Count 16.2 10^3/uL (3.5-10.8)
[2021-01-24 15:16] LABS: Urine Appearance Turbid; Urine Bilirubin Negative (Negative); Urine Blood 2+ (Negative); Urine Color Amber; Urine Glucose Negative (Negative); Urine Ketones Negative (Negative); Urine Nitrite Positive (Negative); Urine Protein 3+(>=500 mg/dL) (Negative); Urine Specific Gravity 1.017 (1.002-1.030); Urine Urobilinogen Positive (Negative)
[2021-01-24 15:21] LABS: Urine Bacteria 3+ (Absent); Urine Granular Casts Present (Absent); Urine Red Blood Cell 2+(6-10/hpf) (Absent); Urine Squamous Epithelial Cell Present (Absent); Urine Transitional Epithelial Present (Absent); Urine White Blood Cell 3+(>20/hpf) (Absent)
[2021-01-24 15:28] LABS: Albumin 3.3 g/dL (3.2-5.2); C Reactive Protein 164.46 mg/L (<8.01); Calcium 8.9 mg/dL (8.6-10.3); EGFR African American 75.1 (>60); Globulin 3.2 g/dL (2-4); Potassium 3.3 mmol/L (3.5-5.0); Total Bilirubin 0.7 mg/dL (0.2-1.0); Total Protein 6.5 g/dL (6.4-8.9)
[2021-01-24] MEDS ORDERED: cefTRIAXone 1 gm/50 mL NS BAG 1 GM/50 ML BAG IV ONE (15:37)
[2021-01-24] MEDS ORDERED: Potassium Chlor 20 meq TAB.ER PO ONE (16:38)
[2021-01-24] MEDS ORDERED: NS 0.9% 1000 ml BAG 1,000 ML IV SCH (16:45)
[2021-01-24 17:20] LABS: TSH Ultra Thyroid Stim Horm 4.76 mcIU/mL (0.34-5.60)
[2021-01-24] MEDS: Heparin 5000 UNITS/ML 1 mL VIAL SUBCUT SCH (20:58)
[2021-01-24] MEDS: Ondansetron 4 mg VIAL 2 MG/ML 2 ml VIAL IV PRN (21:36)
[2021-01-25] MEDS: Heparin 5000 UNITS/ML 1 mL VIAL SUBCUT SCH ×3 (05:41→21:00)
[2021-01-25] MEDS: Potassium Chloride LIQUID 20 MEQ/15 ML LIQUID PO SCH (07:50)
[2021-01-25] MEDS: Polyethylene Glycol 3350 17 GM PACKET PO SCH (07:51)
[2021-01-25] MEDS: Psyllium PAK PO SCH (07:52)
[2021-01-25 08:00] LABS: Hematocrit 27 % (35-47); Hemoglobin 9.3 g/dL (12.0-16.0); Mean Corpuscular HGB Conc 34 g/dL (31-36); Mean Corpuscular Hemoglobin 32 pg (27-31); Mean Corpuscular Volume 94 fL (80-97); Mean Platelet Volume 8.4 fL (7.4-10.4); Platelet Count 182 10^3/uL (150-450); Red Cell Distribution Width 13 % (10-15); White Blood Count 12.4 10^3/uL (3.5-10.8)
[2021-01-25 08:28] LABS: Calcium 7.6 mg/dL (8.6-10.3); EGFR African American 70.4 (>60); EGFR Non-African American 58.2 (>60); Potassium 2.9 mmol/L (3.5-5.0)
[2021-01-25 13:27] LABS: Folate 11.46 ng/mL (5.90-24.80)
[2021-01-25] MEDS: KCL 20 MEQ/100 ML IVPREMIX 20 MEQ/100 ML BAG IV SCH ×3 (14:04→18:03)
[2021-01-25] MEDS ORDERED: Potassium Chloride LIQUID 20 MEQ/15 ML LIQUID PO ONE (15:09)
[2021-01-25] MEDS: cefTRIAXone 1 gm/50 mL NS BAG 1 GM/50 ML BAG IVPB SCH (18:20)
[2021-01-26] MEDS: Heparin 5000 UNITS/ML 1 mL VIAL SUBCUT SCH ×3 (05:43→20:00)
[2021-01-26 07:00] LABS: ABS Eosinophils 0.1 10^3/ul (0-0.6); ABS Monocytes 1.4 10^3/ul (0-0.8); ABS Neutrophils 8.8 10^3/ul (1.5-7.7); Eosinophil % 1.2 %; Hematocrit 27 % (35-47); Hemoglobin 9.2 g/dL (12.0-16.0); Lymphocyte % 8.5 %; Mean Corpuscular HGB Conc 34 g/dL (31-36); Mean Corpuscular Hemoglobin 32 pg (27-31); Mean Corpuscular Volume 95 fL (80-97); Mean Platelet Volume 8.7 fL (7.4-10.4); Platelet Count 179 10^3/uL (150-450); Red Blood Count 2.87 10^6 /uL (3.70-4.87); Red Cell Distribution Width 14 % (10-15); White Blood Count 11.3 10^3/uL (3.5-10.8)
[2021-01-26 07:12] LABS: Calcium 7.9 mg/dL (8.6-10.3); EGFR African American 59.8 (>60); EGFR Non-African American 49.4 (>60)
[2021-01-26] MEDS: Potassium Chloride LIQUID 20 MEQ/15 ML LIQUID PO SCH (08:47)
[2021-01-26] MEDS: Psyllium PAK PO SCH (08:47)
[2021-01-26] MEDS: Polyethylene Glycol 3350 17 GM PACKET PO SCH (08:47)
[2021-01-26] MEDS: Witch Hazel PAD JAR TOPICAL PRN ×2 (10:31→14:58)
[2021-01-26] MEDS: cefTRIAXone 1 gm/50 mL NS BAG 1 GM/50 ML BAG IVPB SCH (15:05)
[2021-01-26] MEDS ORDERED: Magnesium Hydroxide LIQ 30 ML UDC PO PRN (18:54)
[2021-01-27] MEDS: Heparin 5000 UNITS/ML 1 mL VIAL SUBCUT SCH ×3 (06:41→20:36)
[2021-01-27] MEDS: Potassium Chloride LIQUID 20 MEQ/15 ML LIQUID PO SCH (08:29)
[2021-01-27] MEDS: Polyethylene Glycol 3350 17 GM PACKET PO SCH (08:35)
[2021-01-27] MEDS: Psyllium PAK PO SCH (08:50)
[2021-01-27 12:38] LABS: ABS Eosinophils 0.1 10^3/ul (0-0.6); ABS Monocytes 1.1 10^3/ul (0-0.8); Eosinophil % 1.4 %; Hematocrit 29 % (35-47); Hemoglobin 9.8 g/dL (12.0-16.0); Lymphocyte % 9.8 %; Mean Corpuscular HGB Conc 34 g/dL (31-36); Mean Corpuscular Hemoglobin 32 pg (27-31); Mean Corpuscular Volume 94 fL (80-97); Mean Platelet Volume 8.3 fL (7.4-10.4); Platelet Count 214 10^3/uL (150-450); Red Blood Count 3.08 10^6 /uL (3.70-4.87); Red Cell Distribution Width 13 % (10-15); White Blood Count 10.4 10^3/uL (3.5-10.8)
[2021-01-27 12:58] LABS: Calcium 8.1 mg/dL (8.6-10.3); EGFR African American 87.7 (>60); EGFR Non-African American 72.5 (>60)
[2021-01-27] MEDS: cefTRIAXone 1 gm/50 mL NS BAG 1 GM/50 ML BAG IVPB SCH (15:14)
[2021-01-28] MEDS: Heparin 5000 UNITS/ML 1 mL VIAL SUBCUT SCH ×3 (05:56→20:34)
[2021-01-28] MEDS: Witch Hazel PAD JAR TOPICAL PRN ×4 (06:00→22:33)
[2021-01-28] MEDS ORDERED: Furosemide 20 mg/2 ml IV VIAL IV SLOW PU ONE (07:08)
[2021-01-28] MEDS: Polyethylene Glycol 3350 17 GM PACKET PO SCH (09:17)
[2021-01-28] MEDS: Psyllium PAK PO SCH (09:18)
[2021-01-28] MEDS: Potassium Chloride LIQUID 20 MEQ/15 ML LIQUID PO SCH (09:19)
[2021-01-28] MEDS: cefTRIAXone 1 gm/50 mL NS BAG 1 GM/50 ML BAG IVPB SCH (15:53)
[2021-01-29 05:20] LABS: Calcium 8.6 mg/dL (8.6-10.3); EGFR African American 75.1 (>60); Potassium 3.8 mmol/L (3.5-5.0)
[2021-01-29] MEDS: Heparin 5000 UNITS/ML 1 mL VIAL SUBCUT SCH ×3 (06:00→20:33)
[2021-01-29] MEDS: Polyethylene Glycol 3350 17 GM PACKET PO SCH (09:09)
[2021-01-29] MEDS: Potassium Chloride LIQUID 20 MEQ/15 ML LIQUID PO SCH (09:10)
[2021-01-29] MEDS: Psyllium PAK PO SCH (09:10)
[2021-01-29] MEDS: Witch Hazel PAD JAR TOPICAL PRN ×2 (09:13→21:33)
[2021-01-30] MEDS: Heparin 5000 UNITS/ML 1 mL VIAL SUBCUT SCH ×3 (05:42→20:32)
[2021-01-30] MEDS: Witch Hazel PAD JAR TOPICAL PRN ×2 (09:38→16:18)
[2021-01-30] MEDS: Potassium Chloride LIQUID 20 MEQ/15 ML LIQUID PO SCH (09:38)
[2021-01-30] MEDS: Psyllium PAK PO SCH (09:40)
[2021-01-30] MEDS: Polyethylene Glycol 3350 17 GM PACKET PO SCH (09:54)
[2021-01-31] MEDS: Heparin 5000 UNITS/ML 1 mL VIAL SUBCUT SCH ×3 (04:46→20:30)
[2021-01-31] MEDS: Potassium Chloride LIQUID 20 MEQ/15 ML LIQUID PO SCH (08:29)
[2021-01-31] MEDS: Polyethylene Glycol 3350 17 GM PACKET PO SCH (08:29)
[2021-01-31] MEDS: Witch Hazel PAD JAR TOPICAL PRN ×3 (08:30→20:30)
[2021-01-31] MEDS: Psyllium PAK PO SCH (08:30)
[2021-02-01] MEDS: Heparin 5000 UNITS/ML 1 mL VIAL SUBCUT SCH ×3 (05:52→21:23)
[2021-02-01] MEDS: Polyethylene Glycol 3350 17 GM PACKET PO SCH (07:41)
[2021-02-01] MEDS: Potassium Chloride LIQUID 20 MEQ/15 ML LIQUID PO SCH (07:41)
[2021-02-01] MEDS: Psyllium PAK PO SCH (07:41)
[2021-02-01] MEDS: Witch Hazel PAD JAR TOPICAL PRN (21:30)
[2021-02-02] MEDS: Heparin 5000 UNITS/ML 1 mL VIAL SUBCUT SCH ×3 (06:00→20:54)
[2021-02-02] MEDS: Psyllium PAK PO SCH (08:53)
[2021-02-02] MEDS: Potassium Chloride LIQUID 20 MEQ/15 ML LIQUID PO SCH (08:53)
[2021-02-02] MEDS: Polyethylene Glycol 3350 17 GM PACKET PO SCH (08:55)
[2021-02-02] MEDS: Ondansetron 4 mg VIAL 2 MG/ML 2 ml VIAL IV PRN (21:00)
[2021-02-03] MEDS: Heparin 5000 UNITS/ML 1 mL VIAL SUBCUT SCH ×3 (05:38→20:41)
[2021-02-03] MEDS: Witch Hazel PAD JAR TOPICAL PRN ×2 (05:40→20:45)
[2021-02-03] MEDS: Potassium Chloride LIQUID 20 MEQ/15 ML LIQUID PO SCH (09:26)
[2021-02-03] MEDS: Psyllium PAK PO SCH (09:28)
[2021-02-03] MEDS: Polyethylene Glycol 3350 17 GM PACKET PO SCH (09:28)
[2021-02-04] MEDS: Heparin 5000 UNITS/ML 1 mL VIAL SUBCUT SCH ×2 (05:21→14:15)
[2021-02-04] MEDS: Potassium Chloride LIQUID 20 MEQ/15 ML LIQUID PO SCH (07:10)
[2021-02-04] MEDS: Polyethylene Glycol 3350 17 GM PACKET PO SCH (07:10)
[2021-02-04] MEDS: Psyllium PAK PO SCH (07:16)
[2021-02-04 11:17] VITALS: BP 150/70
== END 2021-02-04 15:25 | disposition home or self-care (01) ==
LOC: ED 14:24 → MED 20:00
PROVIDERS: ADMIT Hospitalist; ATTEND Internal Medicine

== ENCOUNTER 2021-05-07 10:54 | Inpatient (IN) ==
[2021-05-07 12:21] LABS: Hematocrit 39 % (35-47); Hemoglobin 13.3 g/dL (12.0-16.0); Mean Corpuscular HGB Conc 34 g/dL (31-36); Mean Corpuscular Hemoglobin 32 pg (27-31); Mean Corpuscular Volume 95 fL (80-97); Mean Platelet Volume 7.4 fL (7.4-10.4); Platelet Count 344 10^3/uL (150-450); Red Blood Count 4.12 10^6 /uL (3.70-4.87); Red Cell Distribution Width 14 % (10-15); White Blood Count 11.1 10^3/uL (3.5-10.8)
[2021-05-07 12:27] LABS: ABS Eosinophils 0.2 10^3/ul (0-0.6); ABS Lymphocytes 1.6 10^3/ul (1.0-4.8); ABS Monocytes 1.2 10^3/ul (0-0.8); ABS Neutrophils 8.1 10^3/ul (1.5-7.7); Eosinophil % 1.6 %; Lymphocyte % 14.1 %
[2021-05-07 12:38] LABS: Albumin 4.1 g/dL (3.2-5.2); Albumin/Globulin Ratio 1.2 (1-3); Calcium 9.7 mg/dL (8.6-10.3); EGFR African American 83.9 (>60); EGFR Non-African American 69.3 (>60); Globulin 3.4 g/dL (2-4); Potassium 3.2 mmol/L (3.5-5.0); Total Bilirubin 0.8 mg/dL (0.2-1.0); Total Protein 7.5 g/dL (6.4-8.9)
[2021-05-07] MEDS: NS 0.9% 1000 ml BAG 1,000 ML IV ONE ×2 (18:17→22:00)
[2021-05-07] MEDS ORDERED: Potassium Chlor 20 meq TAB.ER PO ONE (18:21)
[2021-05-07 20:58] LABS: Vitamin D Total 25(OH) 42.6 ng/mL (20-50)
[2021-05-07] MEDS: Cholecalciferol (VIT D3) 1,000 unit TAB PO SCH (21:43)
[2021-05-07] MEDS: Enoxaparin 40 MG/0.4 ML SYR SUBCUT SCH (21:44)
[2021-05-07] MEDS: Morphine 2 MG/ML SYRINGE IV PRN (23:17)
[2021-05-08] MEDS: Morphine 2 MG/ML SYRINGE IV PRN (03:31)
[2021-05-08 06:09] LABS: ABS Basophils 0.1 10^3/ul (0-0.2); ABS Eosinophils 0.3 10^3/ul (0-0.6); ABS Lymphocytes 2.5 10^3/ul (1.0-4.8); ABS Monocytes 0.7 10^3/ul (0-0.8); ABS Neutrophils 2.4 10^3/ul (1.5-7.7); Eosinophil % 4.5 %; Hematocrit 30 % (35-47); Hemoglobin 10.5 g/dL (12.0-16.0); Mean Corpuscular HGB Conc 35 g/dL (31-36); Mean Corpuscular Hemoglobin 33 pg (27-31); Mean Corpuscular Volume 94 fL (80-97); Mean Platelet Volume 7.4 fL (7.4-10.4); Platelet Count 320 10^3/uL (150-450); Red Blood Count 3.17 10^6 /uL (3.70-4.87); Red Cell Distribution Width 14 % (10-15); White Blood Count 5.9 10^3/uL (3.5-10.8)
[2021-05-08 06:54] LABS: Calcium 8.4 mg/dL (8.6-10.3); Potassium 4.5 mmol/L (3.5-5.0)
[2021-05-08 07:00] LABS: EGFR African American 77.1 (>60); EGFR Non-African American 63.7 (>60)
[2021-05-08] MEDS: Cholecalciferol (VIT D3) 1,000 unit TAB PO SCH (08:11)
[2021-05-08] MEDS ORDERED: Zoledronic Acid 4 MG in NS 0.9% 100 ml BAG 100 ML IVPB ONE (17:09)
[2021-05-08] MEDS: Enoxaparin 40 MG/0.4 ML SYR SUBCUT SCH (20:49)
[2021-05-09 05:00] LABS: ABS Basophils 0.1 10^3/ul (0-0.2); ABS Eosinophils 0.2 10^3/ul (0-0.6); ABS Lymphocytes 2.1 10^3/ul (1.0-4.8); ABS Monocytes 0.7 10^3/ul (0-0.8); ABS Neutrophils 4.1 10^3/ul (1.5-7.7); Eosinophil % 3.4 %; Hematocrit 31 % (35-47); Hemoglobin 10.5 g/dL (12.0-16.0); Lymphocyte % 28.8 %; Mean Corpuscular HGB Conc 34 g/dL (31-36); Mean Corpuscular Hemoglobin 33 pg (27-31); Mean Corpuscular Volume 95 fL (80-97); Mean Platelet Volume 7.4 fL (7.4-10.4); Nucleated Red Blood Cells % 0.1; Platelet Count 352 10^3/uL (150-450); Red Blood Count 3.24 10^6 /uL (3.70-4.87); Red Cell Distribution Width 13 % (10-15); White Blood Count 7.2 10^3/uL (3.5-10.8)
[2021-05-09 05:16] LABS: Calcium 8.8 mg/dL (8.6-10.3); EGFR African American 94.9 (>60); EGFR Non-African American 78.4 (>60)
[2021-05-09] MEDS: Cholecalciferol (VIT D3) 1,000 unit TAB PO SCH (08:10)
[2021-05-09 08:51] LABS: Urine Appearance Clear; Urine Bilirubin Negative (Negative); Urine Blood 1+ (Negative); Urine Color Straw; Urine Glucose Negative (Negative); Urine Ketones Negative (Negative); Urine Nitrite Negative (Negative); Urine Protein Negative (Negative); Urine Specific Gravity 1.009 (1.002-1.030); Urine Urobilinogen Negative (Negative)
[2021-05-09 08:57] LABS: Urine Bacteria Absent (Absent); Urine Red Blood Cell 1+(3-5/hpf) (Absent); Urine White Blood Cell Trace(0-5/hpf) (Absent)
[2021-05-09] MEDS ORDERED: Magnesium Hydroxide LIQ 30 ML UDC PO ONE (10:36)
[2021-05-09] MEDS ORDERED: Magnesium Hydroxide LIQ 30 ML UDC ONE (10:41)
[2021-05-09] MEDS: Morphine 2 MG/ML SYRINGE IV PRN (12:47)
[2021-05-09] MEDS: Enoxaparin 40 MG/0.4 ML SYR SUBCUT SCH (22:16)
[2021-05-09] MEDS: Senna TAB 8.6 mg TAB PO SCH (22:17)
[2021-05-10] MEDS: Cholecalciferol (VIT D3) 1,000 unit TAB PO SCH (08:37)
[2021-05-10] MEDS: Senna TAB 8.6 mg TAB PO SCH (21:40)
[2021-05-10] MEDS: Enoxaparin 40 MG/0.4 ML SYR SUBCUT SCH (21:41)
[2021-05-11 05:57] LABS: ABS Basophils 0.1 10^3/ul (0-0.2); ABS Monocytes 0.9 10^3/ul (0-0.8); ABS Neutrophils 7.8 10^3/ul (1.5-7.7); Eosinophil % 0.3 %; Hematocrit 34 % (35-47); Hemoglobin 11.7 g/dL (12.0-16.0); Lymphocyte % 18.6 %; Mean Corpuscular HGB Conc 34 g/dL (31-36); Mean Corpuscular Hemoglobin 32 pg (27-31); Mean Corpuscular Volume 95 fL (80-97); Mean Platelet Volume 7.8 fL (7.4-10.4); Platelet Count 481 10^3/uL (150-450); Red Cell Distribution Width 14 % (10-15); White Blood Count 10.8 10^3/uL (3.5-10.8)
[2021-05-11 06:16] LABS: Calcium 9.2 mg/dL (8.6-10.3); EGFR African American 108.9 (>60); Potassium 3.1 mmol/L (3.5-5.0)
[2021-05-11] MEDS ORDERED: Potassium Chlor 20 meq TAB.ER PO ONE (06:53)
[2021-05-11 07:59] LABS: Magnesium 1.8 mg/dL (1.9-2.7)
[2021-05-11] MEDS: Cholecalciferol (VIT D3) 1,000 unit TAB PO SCH (08:35)
[2021-05-11] MEDS ORDERED: Magnesium Hydroxide LIQ 30 ML UDC PO PRN (08:42)
[2021-05-11] MEDS ORDERED: Senna TAB 8.6 mg TAB PO PRN (08:42)
[2021-05-11] MEDS: Enoxaparin 40 MG/0.4 ML SYR SUBCUT SCH (21:39)
[2021-05-12] MEDS: Cholecalciferol (VIT D3) 1,000 unit TAB PO SCH (09:01)
[2021-05-12 11:43] VITALS: BP 137/63
== END 2021-05-12 14:20 | DRG 536 ==
LOC: ED 10:54 → SSU 17:02
PROVIDERS: ADMIT Internal Medicine; ATTEND Hospitalist